=== PATIENT | female | born 1945 | race Caucasian/White ===

== ENCOUNTER 2017-05-23 21:50 | Inpatient (IN) | payer MEDICARE, OTHER ==
[~2017-05-23] VITALS: Ht 172.7 cm; Wt 80.8 kg
[~2017-05-23 21:50] MED LIST: AMLO5TAB2 PO; ASPI-482 PO; ASPI325T11 PO; CA C1TAB28 PO; INSU100I17 SQ; LOSA1TAB18 PO; METF500T PO; METF500T4 PO; PRAV20TA PO
--- NOTE | 2017-05-23 22:14 | PHYS DOC ---
Past Medical History Past Medical History: Dementia, Diabetes-Type II, High Cholesterol, Hypertension Past Surgical History: No Surgical History Additional Information: non smoker Alcohol Use: None Drug Use: None Social History Narrative: lives with son Adult General Chief Complaint Chief Complaint: WEAKNESS/GENERALIZED HPI HPI Patient is a 71 year old female who presents with stroke symptoms. Per the daughter, the symptoms started at 21:07 PM "when my brother called me." Please note the daughter was not present during this time, her brother was but he has not arrived yet at the hospital to give the history. She was at home and apparently had left-sided numbness arm and leg and then had weakness to where she wasn't able to worm picker anything. She improved upon arrival here with range of motion of her left arm and leg noted and resolution of the numbness. He denies any recent illness, no fever or chills, sore throat or cough, nausea vomiting or diarrhea. Per the daughter they have been concerned with some memory loss issues. She was admitted here in June 2016 had a neurologic workup. An EEG that was normal, a brain MRI that was unremarkable, carotid Dopplers that were unremarkable, CT head that was negative, stress echo that was unremarkable. The abdominal ultrasound done that time did show some splenomegaly. She is a patient Dr. Luevano Review of Systems Review of Systems Constitutional: Denies fever or chills Eyes: Denies change in visual acuity, redness, or eye pain HENT: Denies nasal congestion or sore throat Respiratory: Denies cough or shortness of breath Cardiovascular: No chest pain GI: Denies abdominal pain, nausea, vomiting, bloody stools or diarrhea : Denies dysuria or hematuria Musculoskeletal: Denies back pain or joint pain Integument: Denies rash or skin lesions Neurologic: Denies headache, POS left sided focal weakness or sensory changes- improved upon arrival Current Medications Current Medications Current Medications Medications (Trade) Dose Ordered Sig/Eric Start Time Stop Time Status Last Admin Dose Admin Aspirin (Ecotrin) 325 mg 1X ONCE 05/24/17 00:30 05/24/17 00:31 DC 05/24/17 00:14 325 MG Dextrose (Dextrose 50%-Water Syringe) 12.5 gm PRN Q15MIN PRN 05/24/17 00:45 Info (Do NOT chart on this entry -- for MONITORING) 1 each PRN DAILY PRN 05/23/17 23:00 05/25/17 22:59 Iohexol (Omnipaque 350 Mg/ml) 75 ml 1X ONCE 05/23/17 23:00 05/23/17 23:01 DC 05/23/17 22:55 75 ML Ondansetron HCl (Zofran) 4 mg PRN Q8HRS PRN 05/24/17 00:45 05/25/17 00:44 Allergies Allergies Allergies Coded Allergies Type Severity Reaction Last Updated Verified No Known Drug Allergies 09/29/13 No Physical Exam Physical Exam Constitutional: Well developed, well nourished, no acute distress, non-toxic appearance. HENT: Normocephalic, atraumatic, bilateral external ears normal, oropharynx moist, no oral exudates, nose normal. Eyes: PERRLA, EOMI, conjunctiva normal, no discharge. Neck: Normal range of motion, no tenderness, supple, no stridor. No carotid bruits. Cardiovascular:Heart rate regular rhythm, no murmur Lungs & Thorax: Bilateral breath sounds clear to auscultation Abdomen: Bowel sounds normal, soft, no tenderness, no masses, no pulsatile masses. Skin: Warm, dry, no erythema, no rash. Back: No tenderness, no CVA tenderness. Extremities: No tenderness, no cyanosis, no clubbing, ROM intact, no edema. Neurologic: Alert and oriented X 3 but gave her age wrong. She was slow and deliberate in performing the NIHSS. She had a left facial droop giving her a NIHSS score of 2. Psychologic: Affect normal, judgement normal, mood normal. Current Patient Data Vital Signs Vital Signs Date Time Temp Pulse Resp B/P (MAP) Pulse Ox O2 Delivery O2 Flow Rate FiO2 05/24/17 00:45 58 16 170/75 (106) 98 Room Air Lab Values Laboratory Tests Test 05/23/17 22:03 05/23/17 22:19 Glucose (Fingerstick) 331 mg/dL (70-99) H White Blood Count 5.1 x10^3/uL (4.0-11.0) Red Blood Count 4.31 x10^6/uL (3.50-5.40) Hemoglobin 13.8 g/dL (12.0-15.5) Hematocrit 41.0 % (36.0-47.0) Mean Corpuscular Volume 95 fL (79-100) Mean Corpuscular Hemoglobin 32 pg (25-35) Mean Corpuscular Hemoglobin Concent 34 g/dL (31-37) Red Cell Distribution Width 14.1 % (11.5-14.5) Platelet Count 89 x10^3/uL (140-400) L Prothrombin Time 13.1 SEC (11.7-14.0) Prothrombin Time INR 1.1 (0.8-1.1) PTT 27 SEC (24-38) Sodium Level 138 mmol/L (136-145) Potassium Level 3.5 mmol/L (3.5-5.1) Chloride Level 104 mmol/L (98-107) Carbon Dioxide Level 28 mmol/L (21-32) Anion Gap 6 (6-14) Blood Urea Nitrogen 15 mg/dL (7-20) Creatinine 0.7 mg/dL (0.6-1.0) Estimated GFR (Cockcroft-Gault) 82.5 Glucose Level 354 mg/dL (70-99) H Calcium Level 8.9 mg/dL (8.5-10.1) Creatine Kinase 76 U/L (26-192) Creatine Kinase MB (Mass) 0.5 ng/mL (0.0-3.6) Creatine Kinase MB Relative Index 0.6 % (0-4) Troponin I Quantitative < 0.017 ng/mL (0.000-0.055) Laboratory Tests 05/23/17 22:19 Laboratory Tests 05/23/17 22:19 EKG EKG EKG interpreted by myself at 2240 p.m. shows normal sinus rhythm rate of [address] elevation. Radiology/Procedures Radiology/Procedures Chest x-ray interpreted by myself at 22:50 PM shows normal cardiac silhouette, normal lung root, no pleural effusions. [facility] [address] [facility] [place], [place] [id number] IMAGING REPORT Signed PATIENT: DAWIT PAK Flaquito ACCOUNT: [id number] : 1945 LOCATION: ER AGE: 71 SEX: F EXAM STATUS: PRE ER ORD. PHYSICIAN: DAWIT KIRKPATRICK MD REASON: stroke; left facial droop PROCEDURE: CT HEAD WO CONTRAST CT HEAD WO CONTRAST Date: 05/23/2017 10:03 PM Clinical Indication: left sided facial droop Comparison: MRI brain dated 06/14/2016, CT head dated 06/12/2016. Technique: 5 mm axial tomographic images were obtained of the head without contrast. These were viewed on brain and bone windows. Findings: Mild generalized cerebral and cerebellar volume loss. Moderate nonspecific periventricular hypoattenuation, most commonly seen with chronic small vessel ischemic disease. Calcified atherosclerosis of the bilateral cavernous and paraclinoid internal carotid arteries and intracranial vertebral arteries. No intra- or extra-axial mass or fluid collection. No acute hemorrhage. The ventricles are normal in size, shape, and morphology. The conley-white matter junction is normal. The basilar cisterns are patent. The visualized paranasal sinuses are normal. The visualized portions of the orbits and globes are normal. The mastoid air cells are clear. No aggressive osseous lesion or fracture. Impression: No acute intracranial process. Mild cerebral volume loss. Moderate chronic small vessel ischemic disease. CRITICAL FINDINGS: The above findings were discussed with Dr. Kirkpatrick at 10:17 PM on 05/23/2017. One or more of the following individualized dose reduction techniques were utilized for this examination: 1. Automated exposure control 2. Adjustment of the mA and/or kV according to patient size 3. Use of iterative reconstruction technique Electronically signed by: Stevenson Wylie MD (05/23/2017 10:18 PM) [facility] DICTATED and SIGNED BY: STEVENSON WYLIE MD DATE: 05/23/17 221 CC: DAWIT KIRKPATRICK MD; WILLIAN LUEVANO [facility] [address] [address] IMAGING REPORT Signed PATIENT: PASHADAWIT Huddleston ACCOUNT: [id number] : 1945 LOCATION: ER AGE: 71 SEX: F EXAM STATUS: REG ER ORD. PHYSICIAN: DAWIT KIRKPATRICK MD REASON: neg CT head; r/o clot; left sided symptoms PROCEDURE: CTA HEAD/NECK - CODE STROKE CTA head and neck 05/23/2017 Clinical indication left-sided facial droop, left-sided weakness. COMPARISON: MRI brain June 14, 2016, CT head 06/12/2016 TECHNIQUE: Multiple CTA images of the head and neck were obtained following the uneventful intravenous administration of 75 mL Omnipaque 350. Coronal and sagittal reformations were obtained. MIPS were obtained. FINDINGS: CTA HEAD: Examination is significantly limited due to motion artifact. Visualized major intracranial arteries, including the distal bilateral internal carotid, bilateral M1, bilateral M2, anterior communicating region, bilateral A1, A2 and posterior cerebral arteries are grossly unremarkable with no definite high-grade narrowing, occlusion or arteriovenous malformation. Evaluation for small aneurysm is significantly limited due to motion. CTA NECK: Mild calcified atheromatous disease of the thoracic aortic arch. Origins of the great vessels are widely patent. Bilateral common carotid, bilateral vertebral arteries are widely patent. There is mild calcified atheromatous disease at the right carotid bulb with no flow-limiting stenosis by NASCET criteria. The left internal carotid artery is patent with no flow-limiting stenosis by NASCET criteria. No evidence for dissection. There is multilevel cervical spondylosis with no destructive osseous lesions. There are few mildly prominent cervical lymph nodes without pathologic enlargement by CT size criteria. There is a 1.1 cm hypodense nodule in the right lobe of the thyroid gland. IMPRESSION: CTA HEAD: 1. Exam is significantly limited due to motion artifact with no definite high-grade occlusion in the central intracranial arteries. 2. Exam is nondiagnostic for evaluation for aneurysm. CTA NECK: 1. Mild atheromatous disease of the right carotid bulb with no high-grade narrowing, occlusion, or dissection. 2. Small, 1.1 cm, hypodense right lobe thyroid nodule. Nonemergent dedicated thyroid ultrasound is recommended. Electronically signed by: Gab Nassar MD (05/23/2017 11:35 PM) [place] [id number] DICTATED and SIGNED BY: GAB NASSAR MD DATE: 05/23/17 [id number] CC: DAWIT KIRKPATRICK MD; WILLIAN LUEVANO ~ Course & Med Decision Making Course & Med Decision Making Met patient upon arrival in room 2; daughter in room (DPOA); son was with patient and is coming in. CODE STROKE CALLED 2204 PM based on symptoms and onset at 7 PM.. Patient with NIHSS 2. At 2214 PM Radiologist called with negative CT head. 2227 PM: spoke w Dr Reyes (neurology); RECEIVED NEW INFO FROM SON THAT THE SYMPTOMS OCCURRED AT 1930 pm AND THAT THE PATIENT HAD A PRIOR MTZ' S PALSY ON THE LEFT. In discussion with neurologist; Dr Reyes; since the time now is 3 hours and her symptoms rapidly improved and she had Mtz's palsy before on the left would calculate NIHSS as 1. Dr Reyes recommended CTA head and neck and is NOT a candidate of TPA per DR Reyes. If CTA is negative; admit here; aspirin 325 mg. Updated family on plan. 2300PM: back from CT A. Lab back and THROMBOCYTOPENIA noted. ? etiology although on prior US in 06/2016 she had splenomegaly noted. She potentially have an ITP/TTP disorder? AT [address] A report back and no occlusive event. Will proceed with plan to admit here; frequent monitoring; aspirin dosed and neurology consult placed (already called from ER). Called Dr Tran for admission at midnight. Insulin sliding scale order set placed. I spent approximately 30 minutes working and engaged directly in the patient care providing critical care evaluation this includes but not limited to time spent engaged in work directly related to the individual patients care. I spent time at the bedside, reviewing test results, discussing the case with staff, documenting the medical record and time spent with EMS discussing specific treatment issues when the patient presented and during his evaluation. This includes any discussion and updates with family members and/or patient. I have spoken with the patient and/or caregivers. I have explained the patient' s condition, diagnosis and treatment plan based on the information available to me at this time. I have answered the patient's and/or caregiver's questions and addressed any concerns. The patient and/or caregivers have as good an understanding of the patient's diagnosis, condition and treatment plan as can be expected at this point. The patient has been stabilized within the capability of the emergency department. The patient will be transported for further care and management or will be moved to an observation or inpatient service. I have communicated with the staff or medical practitioner taking over this patient's care. Dragon Disclaimer Dragon Disclaimer This electronic medical record was generated, in whole or in part, using a voice recognition dictation system. Departure Departure Impression: Primary Impression: CVA (cerebral vascular accident) Additional Impression: Diabetes mellitus Disposition: 01 HOME, SELF-CARE Admitting Physician: Lynnette Tran Condition: STABLE Referrals: WILLIAN LUEVANO (PCP) NIHSS NIHSS Administer stroke scale items in the order listed. Record performance in each category after each subscale exam. Do not go back and change scores. Follow directions provided for each exam technique. Scores should reflect what the patient does, not what the clinician thinks the patient can do. The clinician should record answers while administering the exam and work quickly. Except where indicated, the patient should not be coached (i.e., repeated requests to patient to make a special effort). 2200 PM: in room 2 1a. Level of Consciousness: The shopping investigator must choose a response if a full evaluation is prevented by such obstacles as an endotracheal tube, language barrier, orotracheal trauma/bandages. A 3 is scored only if the patient makes no movement (other than reflexive posturing) in response to noxious stimulation. 0 = Alert; keenly responsive. 1 = Not alert; but arousable by minor stimulation to obey, answer, or respond. 2 = Not alert; requires repeated stimulation to attend, or is obtunded and requires strong or painful stimulation to make movements (not stereotyped). 3 = Responds only with reflex motor or autonomic effects or totally unresponsive, flaccid, and areflexic. 1b. LOC Questions: The patient is asked the month and his/her age. The answer must be correct - there is no partial credit for being close. Aphasic and stuporous patients who do not comprehend the questions will score 2. Patients unable to speak because of endotracheal intubation, orotracheal trauma, severe dysarthria from any cause, language barrier, or any other problem not secondary to aphasia are given a 1. It is important that only the initial answer be graded and that the examiner not "help" the patient with verbal or non-verbal cues. 0 = Answers both questions correctly. 1 = Answers one question correctly. 2 = Answers neither question correctly. 1c. LOC Commands: The patient is asked to open and close the eyes and then to spooling machine operator and release the non-paretic hand. Substitute another one step command if the hands cannot be used. Credit is given if an unequivocal attempt is made but not completed due to weakness. If the patient does not respond to command, the task should be demonstrated to him or her (pantomime), and the result scored (i.e., follows none, one or two commands). Patients with trauma, amputation, or other physical impediments should be given suitable one-step commands. Only the first attempt is scored. 0 = Performs both tasks correctly. 1 = Performs one task correctly. 2 = Performs neither task correctly. 2. Best Gaze: Only horizontal eye movements will be tested. Voluntary or reflexive (oculocephalic) eye movements will be scored, but caloric testing is not done. If the patient has a conjugate deviation of the eyes that can be overcome by voluntary or reflexive activity, the score will be 1. If a patient has an isolated peripheral nerve paresis (CN III, IV or ), score a 1. Gaze is testable in all aphasic patients. Patients with ocular trauma, bandages, pre-existing blindness, or other disorder of visual acuity or root should be tested with reflexive movements, and a choice made by the shopping investigator. Establishing eye contact and then moving about the patient from side to side will occasionally clarify the presence of a partial gaze palsy. 0 = Normal. 1 = Partial gaze palsy; gaze is abnormal in one or both eyes, but forced deviation or total gaze paresis is not present. 2 = Forced deviation, or total gaze paresis not overcome by the oculocephalic maneuver. Interval: [ ] Baseline [ ] 2 hours post treatment [ ] 24 hours post onset of symptoms 20 minutes [ ] 7-10 days [ ] 3 months [ ] Other ( ) 3. Visual: Visual root (upper and lower quadrants) are tested by confrontation, using finger counting or visual threat, as appropriate. Patients may be encouraged, but if they look at the side of the moving fingers appropriately, this can be scored as normal. If there is unilateral blindness or enucleation, visual root in the remaining eye are scored. Score 1 only if a clear-cut asymmetry, including quadrantanopia, is found. If patient is blind from any cause, score 3. Double simultaneous stimulation is performed at this point. If there is extinction, patient receives a 1, and the results are used to respond to item 11. 0 = No visual loss. 1 = Partial hemianopia. 2 = Complete hemianopia. 3 = Bilateral hemianopia (blind including cortical blindness). 4. Facial Palsy: Ask - or use pantomime to encourage - the patient to show teeth or raise eyebrows and close eyes. Score symmetry of grimace in response to noxious stimuli in the poorly responsive or non-comprehending patient. If facial trauma/bandages, orotracheal tube, tape or other physical barriers obscure the face, these should be removed to the extent possible. 0 = Normal symmetrical movements. 1 = Minor paralysis (flattened nasolabial fold, asymmetry on smiling). 2 = Partial paralysis (total or near-total paralysis of lower face). 3 = Complete paralysis of one or both sides (absence of facial movement in the upper and lower face). 5. Motor Arm: The limb is placed in the appropriate position: extend the arms (palms down) 90 degrees (if sitting) or 45 degrees (if supine). Drift is scored if the arm falls before 10 seconds. The aphasic patient is encouraged using urgency in the voice and pantomime, but not noxious stimulation. Each limb is tested in turn, beginning with the non-paretic arm. Only in the case of amputation or joint fusion at the shoulder, the examiner should record the score as untestable (UN), and clearly write the explanation for this choice. 0 = No drift; limb holds 90 (or 45) degrees for full 10 seconds. 1 = Drift; limb holds 90 (or 45) degrees, but drifts down before full 10 seconds ; does not hit bed or other support. 2 = Some effort against gravity; limb cannot get to or maintain (if cued) 90 ( or 45) degrees, drifts down to bed, but has some effort against gravity. 3 = No effort against gravity; limb falls. 4 = No movement. UN = Amputation or joint fusion, explain: 5a. Left Arm=0 5b. Right Arm=0 6. Motor Leg: The limb is placed in the appropriate position: hold the leg at 30 degrees (always tested supine). Drift is scored if the leg falls before 5 seconds. The aphasic patient is encouraged using urgency in the voice and pantomime, but not noxious stimulation. Each limb is tested in turn, beginning with the non-paretic leg. Only in the case of amputation or joint fusion at the hip, the examiner should record the score as untestable (UN), and clearly write the explanation for this choice. 0 = No drift; leg holds 30-degree position for full 5 seconds. 1 = Drift; leg falls by the end of the 5-second period but does not hit bed. 2 = Some effort against gravity; leg falls to bed by 5 seconds, but has some effort against gravity. 3 = No effort against gravity; leg falls to bed immediately. 4 = No movement. UN = Amputation or joint fusion, explain: 6a. Left Leg=0 6b. Right Leg=0 Interval: [ ] Baseline [ ] 2 hours post treatment [ ] 24 hours post onset of symptoms 20 minutes [ ] 7-10 days [ ] 3 months [ ] Other ( ) 7. Limb Ataxia: This item is aimed at finding evidence of a unilateral cerebellar lesion. Test with eyes open. In case of visual defect, ensure testing is done in intact visual field. The [id number] and heel-adame tests are performed on both sides, and ataxia is scored only if present out of proportion to weakness. Ataxia is absent in the patient who cannot understand or is paralyzed. Only in the case of amputation or joint fusion, the examiner should record the score as untestable (UN), and clearly write the explanation for this choice. In case of blindness, test by having the patient touch nose from extended arm position. 0 = Absent. 1 = Present in one limb. 2 = Present in two limbs. UN = Amputation or joint fusion, explain: 8. Sensory: Sensation or grimace to pinprick when tested, or withdrawal from noxious stimulus in the obtunded or aphasic patient. Only sensory loss attributed to stroke is scored as abnormal and the examiner should test as many body areas (arms [not hands], legs, trunk, face) as needed to accurately check for hemisensory loss. A score of 2, "severe or total sensory loss," should only be given when a severe or total loss of sensation can be clearly demonstrated. Stuporous and aphasic patients will, therefore, probably score 1 or 0. The patient with brainstem stroke who has bilateral loss of sensation is scored 2. If the patient does not respond and is quadriplegic, score 2. Patients in a coma (item 1a=3) are automatically given a 2 on this item. 0 = Normal; no sensory loss. 1 = Oxal-yc-vhxreflz sensory loss; patient feels pinprick is less sharp or is dull on the affected side; or there is a loss of superficial pain with pinprick , but patient is aware of being touched. 2 = Severe to total sensory loss; patient is not aware of being touched in the face, arm, and leg. 9. Best Language: A great deal of information about comprehension will be obtained during the preceding sections of the examination. For this scale item, the patient is asked to describe what is happening in the attached picture, to name the items on the attached naming sheet and to read from the attached list of sentences. Comprehension is judged from responses here, as well as to all of the commands in the preceding general neurological exam. If visual loss interferes with the tests, ask the patient to identify objects placed in the hand, repeat, and produce speech. The intubated patient should be asked to write. The patient in a coma (item 1a=3) will automatically score 3 on this item. The examiner must choose a score for the patient with stupor or limited cooperation, but a score of 3 should be used only if the patient is mute and follows no one-step commands. 0 = No aphasia; normal. 1 = Oplt-pu-htnvxvjp aphasia; some obvious loss of fluency or facility of comprehension, without significant limitation on ideas expressed or form of expression. Reduction of speech and/or comprehension, however, makes conversation about provided materials difficult or impossible. For example, in conversation about provided materials, examiner can identify picture or naming card content from patient's response. 2 = Severe aphasia; all communication is through fragmentary expression; great need for inference, questioning, and guessing by the listener. Range of information that can be exchanged is limited; listener carries burden of communication. Examiner cannot identify materials provided from patient response. 3 = Mute, global aphasia; no usable speech or auditory comprehension. 10. Dysarthria: If patient is thought to be normal, an adequate sample of speech must be obtained by asking patient to read or repeat words from the attached list. If the patient has severe aphasia, the clarity of articulation of spontaneous speech can be rated. Only if the patient is intubated or has other physical barriers to producing speech, the examiner should record the score as untestable (UN), and clearly write an explanation for this choice. Do not tell the patient why he or she is being tested. 0 = Normal. 1 = Oqkh-iu-iuzuebrc dysarthria; patient slurs at least some words and, at worst , can be understood with some difficulty. 2 = Severe dysarthria; patient's speech is so slurred as to be unintelligible in the absence of or out of proportion to any dysphasia, or is mute/anarthric. UN = Intubated or other physical barrier, explain: Interval: [ ] Baseline [ ] 2 hours post treatment [ ] 24 hours post onset of symptoms 20 minutes [ ] 7-10 days [ ] 3 months [ ] Other ( ) 11. Extinction and Inattention (formerly Neglect): Sufficient information to identify neglect may be obtained during the prior testing. If the patient has a severe visual loss preventing visual double simultaneous stimulation, and the cutaneous stimuli are normal, the score is normal. If the patient has aphasia but does appear to attend to both sides, the score is normal. The presence of visual spatial neglect or anosagnosia may also be taken as evidence of abnormality. Since the abnormality is scored only if present, the item is never untestable. 0 = No abnormality. 1 = Visual, tactile, auditory, spatial, or personal inattention or extinction to bilateral simultaneous stimulation in one of the sensory modalities. 2 = Profound diandra-inattention or extinction to more than one modality; does not recognize own hand or orients to only one side of space. NIHSS =2 Problem Qualifiers Primary Impression: CVA (cerebral vascular accident) CVA mechanism: unspecified Qualified Codes: I63.9 - Cerebral infarction, unspecified Additional Impression: Diabetes mellitus Diabetes mellitus type: type 2 Diabetes mellitus complication status: with hyperglycemia Diabetes mellitus long-term insulin use: unspecified long-term insulin use status Qualified Codes: E11.65 - Type 2 diabetes mellitus with hyperglycemia DAWIT KIRKPATRICK MD May 23, 2017 22:14
--- NOTE | 2017-05-23 22:21 | RAD ---
CT HEAD WO CONTRAST Date: 05/23/2017 10:03 PM Clinical Indication: left sided facial droop Comparison: MRI brain dated 06/14/2016, CT head dated 06/12/2016. Technique: 5 mm axial tomographic images were obtained of the head without contrast. These were viewed on brain and bone windows. Findings: Mild generalized cerebral and cerebellar volume loss. Moderate nonspecific periventricular hypoattenuation, most commonly seen with chronic small vessel ischemic disease. Calcified atherosclerosis of the bilateral cavernous and paraclinoid internal carotid arteries and intracranial vertebral arteries. No intra- or extra-axial mass or fluid collection. No acute hemorrhage. The ventricles are normal in size, shape, and morphology. The conley-white matter junction is normal. The basilar cisterns are patent. The visualized paranasal sinuses are normal. The visualized portions of the orbits and globes are normal. The mastoid air cells are clear. No aggressive osseous lesion or fracture. Impression: No acute intracranial process. Mild cerebral volume loss. Moderate chronic small vessel ischemic disease. CRITICAL FINDINGS: The above findings were discussed with Dr. Zamorano at 10:17 PM on 05/23/2017. One or more of the following individualized dose reduction techniques were utilized for this examination: 1. Automated exposure control 2. Adjustment of the mA and/or kV according to patient size 3. Use of iterative reconstruction technique Electronically signed by: Stevenson Wylie MD (05/23/2017 10:18 PM) [id number]
[2017-05-23 22:28] LABS: HEMOGLOBIN 13.8 g/dL (12.0-15.5); RED BLOOD COUNT 4.31 x10^6/uL (3.50-5.40); RED CELL DISTRIBUTION WIDTH 14.1 % (11.5-14.5); WHITE BLOOD COUNT 5.1 x10^3/uL (4.0-11.0)
[2017-05-23 22:38] LABS: INR 1.1 (0.8-1.1); PROTHROMBIN TIME PATIENT 13.1 SEC (11.7-14.0)
[2017-05-23 22:40] LABS: CALCIUM 8.9 mg/dL (8.5-10.1); CREATININE 0.7 mg/dL (0.6-1.0); GFR 82.5; POTASSIUM 3.5 mmol/L (3.5-5.1)
[2017-05-23 22:54] LABS: CKMB MASS 0.5 ng/mL (0.0-3.6)
[2017-05-23] MEDS ORDERED: CONTRAST GIVEN MC PRN (23:00)
[2017-05-23] MEDS ORDERED: ONDANSETRON PF 4 MG/2 ML VIAL. IV ONE (23:00)
[2017-05-23] MEDS ORDERED: IOHEXOL 350 MG/ML 100 ML VIAL. IV ONE (23:00)
--- NOTE | 2017-05-23 23:38 | RAD ---
CTA head and neck 05/23/2017 Clinical indication left-sided facial droop, left-sided weakness. COMPARISON: MRI brain June 14, 2016, CT head 06/12/2016 TECHNIQUE: Multiple CTA images of the head and neck were obtained following the uneventful intravenous administration of 75 mL Omnipaque 350. Coronal and sagittal reformations were obtained. MIPS were obtained. FINDINGS: CTA HEAD: Examination is significantly limited due to motion artifact. Visualized major intracranial arteries, including the distal bilateral internal carotid, bilateral M1, bilateral M2, anterior communicating region, bilateral A1, A2 and posterior cerebral arteries are grossly unremarkable with no definite high-grade narrowing, occlusion or arteriovenous malformation. Evaluation for small aneurysm is significantly limited due to motion. CTA NECK: Mild calcified atheromatous disease of the thoracic aortic arch. Origins of the great vessels are widely patent. Bilateral common carotid, bilateral vertebral arteries are widely patent. There is mild calcified atheromatous disease at the right carotid bulb with no flow-limiting stenosis by NASCET criteria. The left internal carotid artery is patent with no flow-limiting stenosis by NASCET criteria. No evidence for dissection. There is multilevel cervical spondylosis with no destructive osseous lesions. There are few mildly prominent cervical lymph nodes without pathologic enlargement by CT size criteria. There is a 1.1 cm hypodense nodule in the right lobe of the thyroid gland. IMPRESSION: CTA HEAD: 1. Exam is significantly limited due to motion artifact with no definite high-grade occlusion in the central intracranial arteries. 2. Exam is nondiagnostic for evaluation for aneurysm. CTA NECK: 1. Mild atheromatous disease of the right carotid bulb with no high-grade narrowing, occlusion, or dissection. 2. Small, 1.1 cm, hypodense right lobe thyroid nodule. Nonemergent dedicated thyroid ultrasound is recommended. Electronically signed by: Omar Nassar MD (05/23/2017 11:35 PM) [facility]
[2017-05-24] VITALS (18 sets, daily range): BP systolic 138–193; BP diastolic 54–94
[2017-05-24] MEDS ORDERED: ASPIRIN ENTERIC COATED 325 MG TABLET.DR. PO ONE (00:30)
[2017-05-24] MEDS ORDERED: ONDANSETRON PF 4 MG/2 ML VIAL. IV PRN (00:45)
[2017-05-24] MEDS ORDERED: DEXTROSE 50% 25 GM / 50ML DISP.SYRIN. IV PRN ×2 (00:45→10:30)
--- NOTE | 2017-05-24 08:07 | RAD ---
Portable chest, 05/23/2017: History: Stroke Comparison is made to a study from 06/12/2016. The heart size and pulmonary vascularity are normal. There is calcific plaquing and tortuosity of the thoracic aorta. No pulmonary infiltrates are seen. There is no evidence of pleural fluid. Moderate degenerative change is present in the spine. IMPRESSION: No acute cardiopulmonary abnormality is detected.
[2017-05-24] MEDS: INSULIN ASPART 300 UNITS/3 ML INSULN.PEN SQ SCH ×4 (08:10→18:26)
--- NOTE | 2017-05-24 08:57 | EKG ---
[facility] [address] [place] [address] Test Date: 2017-05-23 Test Time: 22:40:50 Pat Name: DAWIT PAK Department: Room: 105 1 Gender: F [employer]: : 1945 Requested By: DAWIT KIRKPATRICK Order Number: [id number] Reading MD: Tish Moulton Measurements Intervals [place] Rate: 67 P: 47 MS: 170 QRS: 13 QRSD: 94 T: 29 QT: 438 QTc: 466 Interpretive Statements SINUS RHYTHM NORMAL EKG Electronically Signed On 05-27-2017 10:59:37 CDT by Tish Moulton
[2017-05-24] MEDS: ASPIRIN CHEWABLE 81 MG TABLET. PO SCH (09:00)
[2017-05-24] MEDS ORDERED: ASPIRIN 325 MG TABLET PO SCH (09:15)
--- NOTE | 2017-05-24 10:10 | PDOC2 ---
NEUROLOGY CONSULT Date of Admission Date of Admission DATE: 05/24/17 TIME: 10:00 Reason for Consult Reason for Consult: Stroke symptoms Referring Physician Referring Physician: Dr. Tran Source Source: Chart review, Patient History of Present Illness History of Present Illness The patient is a 71-year-old right-handed female who had about 9 PM last night had left-sided weakness. 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 Garcia and I both saw her for mild cognitive impairment with negative workup including EEG, MRI, and lab studies. She lives with her and 2 adult children. The sun noticed left-sided weakness and the patient had difficulty getting up. By the time she reached the emergency department her symptoms had resolved. Blood pressure was elevated, 207/87.Dr. Zamorano discussed the case with Dr. Reyes, and they agreed that the patient did not require tissue plasminogen activator because of resolution of symptoms, low NIH stroke score, and the patient was just approaching the three-hour window anyway. The patient did undergo CT angiogram, negative as reviewed below. She feels fine this morning but is somewhat amnestic about the events of last night. Past Medical History Cardiovascular: HTN, Hyperlipidemia CENTRAL NERVOUS SYSTEM: Other (Left Mtz's palsy, mild cognitive impairment, occasional paresthesias) GI: Other ( C. difficile) Endocrine: Diabetes Past Surgical History Past Surgical History: Other ( benign left breast biopsy) Family History Family History: CVA Social History Social History , lives with her and 2 adult children, no alcohol or tobacco Current Medications Current Medications Current Medications Ondansetron HCl (Zofran) 4 mg 1X ONCE IV Last administered on 05/23/17 23:08 ; Start 05/23/17 at 23:00; Stop 05/23/17 at 23:01; Status DC Iohexol (Omnipaque 350 Mg/ml) 75 ml 1X ONCE IV Last administered on 05/23/17 22:55; Start 05/23/17 at 23:00; Stop 05/23/17 at 23:01; Status DC Info (Do NOT chart on this entry -- for MONITORING) 1 each PRN DAILY PRN MC SEE COMMENTS; Start 05/23/17 at 23:00; Stop 05/25/17 at 22:59 Aspirin (Ecotrin) 325 mg 1X ONCE PO Last administered on 9/18/17at 00:14; Start 05/24/17 at 00:30; Stop 05/24/17 at 00:31; Status DC Ondansetron HCl (Zofran) 4 mg PRN Q8HRS PRN IV NAUSEA/VOMITING; Start 05/24/17 at 00:45; Stop 05/25/17 at 00:44 Insulin Aspart (NovoLOG) 0-5 UNITS TIDWMEALS SQ Last administered on 05/24/17t 08:10; Start 05/24/17 at 08:00 Dextrose (Dextrose 50%-Water Syringe) 12.5 gm PRN Q15MIN PRN IV SEE COMMENTS; Start 05/24/17 at 00:45 Aspirin (Bo Aspirin) 81 mg DAILYWBKFT PO ; Start 05/24/17 at 09:15; Stop at 09:15; Status DC Aspirin (Children'S Aspirin) 81 mg DAILYWBKFT PO ; Start 05/24/17 at 09:00 Active Scripts Active Novolog Flexpen (Insulin Aspart) 100 Unit/1 Ml Insuln.pen 0 Units SQ TIDACHC Aspirin Ec (Aspirin) 325 Mg Tablet.dr 325 Mg PO DAILYWBKFT Glucophage (Metformin Hcl) 500 Mg Tablet 500 Mg PO BIDWMEALS Reported Vitamin D3 1,000 Unit Tablet (Ca Cmb No.1/Vit D3/B-6/Fa/B12) 1 Each Tablet 1 Each PO DAILY Losartan-Hctz 100-12.5 Mg Tab (Losartan/Hydrochlorothiazide) 1 Each Tablet 1 Each PO DAILY08 Pravachol (Pravastatin Sodium) 20 Mg Tablet 20 Mg PO HS Amlodipine Besylate 5 Mg Tablet 5 Mg PO DAILY08 Allergies Allergies: Coded Allergies: No Known Drug Allergies (Unverified , 09/29/13) ROS Review of System Negative for fevers, chills, weight loss, shortness of breath, chest pain, indigestion, hematochezia, melena, dysuria. Full 14-point review systems is negative. Physical Exam Physical Examination PHYSICAL EXAMINATION: Vital signs: see above. General appearance is normal and in no acute distress. HEENT: Normocephalic and nontraumatic. Eyes, nose, ears, and throat are unremarkable. Neck is supple. No lymphadenopathy. No bruits are heard over the carotid artery. No crepitus. NEUROLOGICAL EXAMINATION: Mental Status Examination: Alert. Oriented to time, place, and person. Answers questions and follows commends. However, she again is vague about last night's events. Pupils are equal round and reactive to light and accommodation. Extraocular movements are intact. Visual field exam shows no defect on the direct confrontation. No motor or sensory deficits on the facial exam. Uvula in the midline and the soft palate elevated symmetrically. No deviation of the tongue to any direction. Gross hearing is normal. Shoulder shrug normal. Muscle tone is normal. Muscle strength is 5. Deep tendon reflexes are 1+ all around. Plantar reflex is with flexion response bilaterally. Oqlnye-gn-fmvj test performance is accurate. Alternative movements are accurate. Gait not tested. Sensory exam shows no deficits. No cerebellar signs are elicited. Vitals VITALS Vital Signs Date Time Temp Pulse Resp B/P (MAP) Pulse Ox O2 Delivery O2 Flow Rate FiO2 05/24/17 06:00 98.0 64 14 160/68 (98) 97 Room Air 98.0 Labs Labs Laboratory Tests Test 05/23/17 22:03 05/23/17 22:19 05/24/17 08:07 Glucose (Fingerstick) 331 mg/dL (70-99) 210 mg/dL (70-99) White Blood Count 5.1 x10^3/uL (4.0-11.0) Red Blood Count 4.31 x10^6/uL (3.50-5.40) Hemoglobin 13.8 g/dL (12.0-15.5) Hematocrit 41.0 % (36.0-47.0) Mean Corpuscular Volume 95 fL (79-100) Mean Corpuscular Hemoglobin 32 pg (25-35) Mean Corpuscular Hemoglobin Concent 34 g/dL (31-37) Red Cell Distribution Width 14.1 % (11.5-14.5) Platelet Count 89 x10^3/uL (140-400) Prothrombin Time 13.1 SEC (11.7-14.0) Prothromb Time International Ratio 1.1 (0.8-1.1) Activated Partial Thromboplast Time 27 SEC (24-38) Sodium Level 138 mmol/L (136-145) Potassium Level 3.5 mmol/L (3.5-5.1) Chloride Level 104 mmol/L (98-107) Carbon Dioxide Level 28 mmol/L (21-32) Anion Gap 6 (6-14) Blood Urea Nitrogen 15 mg/dL (7-20) Creatinine 0.7 mg/dL (0.6-1.0) Estimated GFR (Cockcroft-Gault) 82.5 Glucose Level 354 mg/dL (70-99) Calcium Level 8.9 mg/dL (8.5-10.1) Creatine Kinase 76 U/L (26-192) Creatine Kinase MB (Mass) 0.5 ng/mL (0.0-3.6) Creatine Kinase MB Relative Index 0.6 % (0-4) Troponin I Quantitative < 0.017 ng/mL (0.000-0.055) Laboratory Tests Test 05/23/17 22:03 05/23/17 22:19 05/24/17 08:07 Glucose (Fingerstick) 331 mg/dL (70-99) 210 mg/dL (70-99) White Blood Count 5.1 x10^3/uL (4.0-11.0) Red Blood Count 4.31 x10^6/uL (3.50-5.40) Hemoglobin 13.8 g/dL (12.0-15.5) Hematocrit 41.0 % (36.0-47.0) Mean Corpuscular Volume 95 fL (79-100) Mean Corpuscular Hemoglobin 32 pg (25-35) Mean Corpuscular Hemoglobin Concent 34 g/dL (31-37) Red Cell Distribution Width 14.1 % (11.5-14.5) Platelet Count 89 x10^3/uL (140-400) Prothrombin Time 13.1 SEC (11.7-14.0) Prothromb Time International Ratio 1.1 (0.8-1.1) Activated Partial Thromboplast Time 27 SEC (24-38) Sodium Level 138 mmol/L (136-145) Potassium Level 3.5 mmol/L (3.5-5.1) Chloride Level 104 mmol/L (98-107) Carbon Dioxide Level 28 mmol/L (21-32) Anion Gap 6 (6-14) Blood Urea Nitrogen 15 mg/dL (7-20) Creatinine 0.7 mg/dL (0.6-1.0) Estimated GFR (Cockcroft-Gault) 82.5 Glucose Level 354 mg/dL (70-99) Calcium Level 8.9 mg/dL (8.5-10.1) Creatine Kinase 76 U/L (26-192) Creatine Kinase MB (Mass) 0.5 ng/mL (0.0-3.6) Creatine Kinase MB Relative Index 0.6 % (0-4) Troponin I Quantitative < 0.017 ng/mL (0.000-0.055) Images Images CT head: Mild generalized cerebral and cerebellar volume loss. Moderate nonspecific periventricular hypoattenuation, most commonly seen with chronic small vessel ischemic disease. Calcified atherosclerosis of the bilateral cavernous and paraclinoid internal carotid arteries and intracranial vertebral arteries. No intra- or extra-axial mass or fluid collection. No acute hemorrhage. The ventricles are normal in size, shape, and morphology. The conley-white matter junction is normal. The basilar cisterns are patent. The visualized paranasal sinuses are normal. The visualized portions of the orbits and globes are normal. The mastoid air cells are clear. No aggressive osseous lesion or fracture. Impression: No acute intracranial process. Mild cerebral volume loss. Moderate chronic small vessel ischemic disease. CTA HEAD: Examination is significantly limited due to motion artifact. Visualized major intracranial arteries, including the distal bilateral internal carotid, bilateral M1, bilateral M2, anterior communicating region, bilateral A1, A2 and posterior cerebral arteries are grossly unremarkable with no definite high-grade narrowing, occlusion or arteriovenous malformation. Evaluation for small aneurysm is significantly limited due to motion. CTA NECK: Mild calcified atheromatous disease of the thoracic aortic arch. Origins of the great vessels are widely patent. Bilateral common carotid, bilateral vertebral arteries are widely patent. There is mild calcified atheromatous disease at the right carotid bulb with no flow-limiting stenosis by NASCET criteria. The left internal carotid artery is patent with no flow-limiting stenosis by NASCET criteria. No evidence for dissection. There is multilevel cervical spondylosis with no destructive osseous lesions. There are few mildly prominent cervical lymph nodes without pathologic enlargement by CT size criteria. There is a 1.1 cm hypodense nodule in the right lobe of the thyroid gland. IMPRESSION: CTA HEAD: 1. Exam is significantly limited due to motion artifact with no definite high-grade occlusion in the central intracranial arteries. 2. Exam is nondiagnostic for evaluation for aneurysm. CTA NECK: 1. Mild atheromatous disease of the right carotid bulb with no high-grade narrowing, occlusion, or dissection. 2. Small, 1.1 cm, hypodense right lobe thyroid nodule. Nonemergent dedicated thyroid ultrasound is recommended. Assessment/Plan Assessment/Plan Impression: Symptoms of transient ischemic attack, may have simply represented hypertensive encephalopathy as she has a negative exam Prior mild cognitive impairment Right thyroid nodule on CTA Recommendations: MRI brain She is aspirin kev so I will start daily aspirin. Check lipids Okay for aggressive blood pressure control I agree that the patient was not a candidate for alteplase last night. Thank you for letting me help with the patient's care. SALMA LAMBERT MD May 24, 2017 10:10
--- NOTE | 2017-05-24 10:29 | PDOC ---
Provider Note Provider Note pt seen .H&P dictated. #[id number] MINDI COLLINS MD May 24, 2017 10:29
[2017-05-24] MEDS ORDERED: LOSARTAN POTASSIUM 50 MG TABLET. PO SCH ×2 (11:00)
[2017-05-24] MEDS: hydroCHLOROthiazide 12.5 MG CAPSULE PO SCH (11:53)
[2017-05-24] MEDS: CHOLECALCIFEROL (VITAMIN D3) 1,000 UNIT TABLET PO SCH (11:54)
[2017-05-24] MEDS: amLODIPine BESYLATE 5 MG TABLET PO SCH (11:54)
[2017-05-24] MEDS: ASPIRIN ENTERIC COATED 325 MG TABLET.DR. PO SCH (11:54)
--- NOTE | 2017-05-24 13:02 | CARD ---
APPROVED REPORT EXAM: Two-dimensional and M-mode echocardiogram with Doppler, color Doppler with contrast. Other Information Quality : Average Rhythm : NSR INDICATION CVA/TIA Echo Enhancing Agent Indication: Rule Out Septal Defect Agent/Amount Used: Agitated Saline 8mL 2D DIMENSIONS Left Atrium(2D)3.1 (1.6-4.0cm)IVSd1.2 (0.7-1.1cm) Aortic Root(2D)2.6 (2.0-3.7cm)LVDd3.7 (3.9-5.9cm) LVOT Diameter2.2 (1.8-2.4cm)PWd1.2 (0.7-1.1cm) LVDs2.6 (2.5-4.0cm)FS (%) 30.1 % SV34.4 mlLVEF(%)58.2 (>50%) Aortic Valve AoV Peak Lopez.159.8cm/sAoV VTI30.5cm AO Peak GR.10.2mmHgLVOT VTI 19.71cm AO Mean GR.5mmHg Mitral Valve MV E Whzgyxib82.6cm/sMV E Peak Gr.2mmHg MV DECEL [id number] A Uxjfqrhr75.9cm/s MV XEK37xgQ/A Ratio0.9 MV A Mhbqkmuu332rtSGI (PHT)2.56cm2 Tricuspid Valve TR P. Yfspdbqn607rz/sRAP KCFYRIJJ8kwOz TR Peak Gr.59pkCbFBMM09keTc LEFT VENTRICLE The left ventricle is normal size. There is borderline concentric left ventricular hypertrophy. Left ventricle systolic function is normal. The Ejection Fraction is 55-60%. There is normal LV segmental wall motion. The left ventricular diastolic function and filling is normal for age. There is no ventr icular septal defect visualized. RIGHT VENTRICLE The right ventricle is normal size. The right ventricular systolic function is normal. ATRIA The left atrium size is normal. The right atrium size is normal. The interatrial septum is intact wit h no evidence for an atrial septal defect or patent foramen ovale as noted on 2-D or Doppler imaging. Injection of bubbles documented no interatrial shunt. AORTIC VALVE The aortic valve is mildly to moderately calcified. The aortic valve is trileaflet. Doppler and Color Flow revealed no significant aortic regurgitation. There is no significant aortic valvular stenosis. MITRAL VALVE Mitral annular calcification is borderline. There is no mitral valve stenosis. Doppler and Color Flow revealed no mitral valve regurgitation noted. TRICUSPID VALVE The tricuspid valve is normal in structure and function. Doppler and Color Flow revealed trace tricus pid regurgitation. The PA pressure was estimated at 25 mmHg. There is no tricuspid valve stenosis. PULMONIC VALVE The pulmonic valve is not well visualized. Doppler and Color Flow revealed no pulmonic valvular regur gitation. There is no pulmonic valvular stenosis. GREAT VESSELS The aortic root is normal in size. The IVC is normal in size and collapses >50% with inspiration. PERICARDIAL EFFUSION There is no evidence of significant pericardial effusion. Critical Notification Critical Value: No <Conclusion> Left ventricle systolic function is normal. The Ejection Fraction is 55-60%. There is normal LV segmental wall motion. The interatrial septum is intact with no evidence for an atrial septal defect or patent foramen ovale as noted on 2-D or Doppler imaging. Injection of bubbles documented no interatrial shunt.
--- NOTE | 2017-05-24 13:59 | RAD ---
MRI of the brain without contrast 05/24/2017 Clinical History: Confusion. TIA. Technique: Unenhanced T1-weighted sagittal and axial, T2-weighted axial and coronal and FLAIR, gradient echo and diffusion-weighted axial images of the brain were obtained. Findings: Comparison is made to patient's CT scan of the head dated 05/23/2017. Additional comparison is made to patient's previous MRI of the brain dated 06/14/2016. . There is generalized parenchymal atrophy. Patchy, confluent and multiple focal areas of increased signal intensity are seen within the periventricular and subcortical white matter of both cerebral hemispheres and emmy on the FLAIR and T2-weighted images consistent with areas of extensive small vessel ischemic disease. These have not significantly changed. No acute parenchymal abnormality is seen. No extra-axial fluid collection is seen. There is no MRI evidence of acute ischemia/infarction. Mild mucosal thickening is seen scattered throughout the paranasal sinuses. Normal flow voids are seen within the major vascular structures surrounding the brain parenchyma. Impression: No acute parenchymal abnormality is seen. Electronically signed by: Jeremy Tian MD (05/24/2017 1:56 PM) [facility]
--- NOTE | 2017-05-24 17:49 | HP ---
ADMIT DATE: 05/24/2017 ATTENDING PHYSICIAN: Lynnette Collins MD PRIMARY CARE PHYSICIAN: Zakiya Guaman MD REASON FOR ADMISSION TO THE HOSPITAL: Left-sided weakness, slightly weak, but improved since admission time, this started more than 3 hours before she came to the Emergency Room. Her blood pressure was high at 207/87. The patient was consulted with Neurology, did not think she would be a candidate for TPA because of resolving symptoms, low NIH score and moreover [address] head was negative, CT angiogram was negative, was admitted to the ICU overnight. PAST MEDICAL HISTORY: History of left Mtz palsy, diabetes, hypertension, hyperlipidemia. PAST SURGICAL HISTORY: Benign left breast biopsy, which was benign. FAMILY HISTORY: Positive for strokes, diabetes. SOCIAL HISTORY: No history of smoking or alcohol. She lives with her and children. ALLERGIES: No known drug allergies. MEDICATIONS: She is on insulin sliding scale; aspirin 325 was started here, she was at 81 mg before; metformin 500 mg twice a day; vitamin D, 1000 daily; losartan 100/12.5 daily, Pravachol 20 mg daily, amlodipine 5 mg daily. REVIEW OF SYSTEMS: CARDIAC: No chest pain. LUNGS: No cough, sputum. GASTROINTESTINAL: No nausea. NEUROLOGIC: Has some paresthesias, weakness in the left leg and left arm which was resolved. Rest of the 14-system was reviewed and negative. PHYSICAL EXAMINATION: GENERAL: The patient is not in any distress, comfortable and making a good conversation. VITAL SIGNS: Temperature 98, pulse 63, respirations 16, blood pressure 207/87, 98 on room air. HEENT: Head is atraumatic. Pupils, slight deviation to the left side from Mtz palsy. Oral cavity: No congestion. NECK: Supple. Thyroid not enlarged. JVD not elevated. CHEST: Symmetrical. CARDIOVASCULAR: S1, S2. LUNGS: Clear to auscultation. ABDOMEN: Soft, bowel sounds present, no mass palpable. EXTERNAL GENITALIA: No Saleh. RECTAL: Deferred. EXTREMITIES: No calf tenderness, no edema. Pulses 1+. NEUROLOGIC: Cranial nerves intact. Power 5/5 in all extremities. LABORATORY DATA: Shows a white count 5, hemoglobin 13, platelets 89. Electrolytes show sodium 138, potassium 3.5, chloride 104, bicarbonate 28, BUN 15, creatinine 0.7, glucose 354. CPK negative. INR was 1.1. CT head negative. Chest x-ray was negative. CT angiogram of the neck was negative for blockages, showed some prominence of the thyroid, the right lobe of the thyroid gland, 1 cm. FINAL IMPRESSION: 1. Left-sided paresthesias, weakness, improved significantly. 2. Diabetes type 2,non complaint with insulin. 3. Hypertension, accelerated. 4. History of Mtz palsy. PLAN: At this time, was admitted to the hospital, seen by Neurology. CT head, CT angiogram, MRI of the brain and echocardiogram. The patient started on aspirin 325. PT, OT, speech and see how the patient's condition improves. control BP with medications, LYNNETTE COLLINS MD DR: SHU/luis miguel JOB#: [id number] / [id number] ZAKIYA Pinto
[2017-05-24] MEDS ORDERED: ATORVASTATIN CALCIUM 10 MG TABLET. PO SCH (21:00)
[2017-05-24] MEDS ORDERED: INSULIN ASPART 300 UNITS/3 ML INSULN.PEN SQ ONE (23:00)
[2017-05-25 03:05] VITALS: BP 156/61
[2017-05-25 04:30] LABS: BASO % 1 % (0-3); EOS % 3 % (0-3); HEMATOCRIT 40.6 % (36.0-47.0); HEMOGLOBIN 13.5 g/dL (12.0-15.5); LYMPH # 1.6 x10^3/uL (1.0-4.8); LYMPH % 33 % (24-48); MEAN CORPUSCULAR HEMOGLOBIN 32 pg (25-35); MEAN CORPUSCULAR HGB CONC 33 g/dL (31-37); MEAN CORPUSCULAR VOLUME 96 fL (79-100); MONO % 6 % (0-9); NEUT % 57 % (31-73); PLATELET COUNT 80 x10^3/uL (140-400); RED BLOOD COUNT 4.24 x10^6/uL (3.50-5.40); RED CELL DISTRIBUTION WIDTH 14.5 % (11.5-14.5); WHITE BLOOD COUNT 4.8 x10^3/uL (4.0-11.0)
[2017-05-25 05:12] LABS: ALBUMIN 2.7 g/dL (3.4-5.0); ALBUMIN/GLOBULIN RATIO 0.6 (1.0-1.7); CALCIUM 8.4 mg/dL (8.5-10.1); CREATININE 0.7 mg/dL (0.6-1.0); GFR 82.5; POTASSIUM 3.1 mmol/L (3.5-5.1)
[2017-05-25 07:00] VITALS: BP 157/54
[2017-05-25 07:24] LABS: BILIRUBIN,URINE NEGATIVE (NEG); GLUCOSE,URINE >=1000 mg/dL (NEG); NITRITE,URINE NEGATIVE (NEG); PROTEIN,URINE NEGATIVE (NEG-TRACE)
[2017-05-25 07:36] LABS: BACTERIA,URINE FEW /HPF (0-FEW); RBC,URINE 0 /HPF (0-2); SQUAMOUS EPITHELIAL CELL,UR MOD /LPF; WBC,URINE 20-40 /HPF (0-4)
[2017-05-25] MEDS: INSULIN ASPART 300 UNITS/3 ML INSULN.PEN SQ SCH ×2 (08:00→12:43)
[2017-05-25] MEDS: amLODIPine BESYLATE 5 MG TABLET PO SCH (08:00)
[2017-05-25] MEDS: ASPIRIN ENTERIC COATED 325 MG TABLET.DR. PO SCH (08:00)
[2017-05-25] MEDS: ASPIRIN CHEWABLE 81 MG TABLET. PO SCH (08:00)
[2017-05-25] MEDS: hydroCHLOROthiazide 12.5 MG CAPSULE PO SCH (08:18)
[2017-05-25] MEDS: CHOLECALCIFEROL (VITAMIN D3) 1,000 UNIT TABLET PO SCH (08:19)
[2017-05-25] MEDS ORDERED: POTASSIUM CHLORIDE 20 MEQ TABLET.ER. PO ONE ×2 (09:45→12:45)
--- NOTE | 2017-05-25 10:19 | PDOC ---
PROGRESS NOTES Subjective Subjective sleepy ,not interested in conversation Objective Objective Vital Signs Date Time Temp Pulse Resp B/P (MAP) Pulse Ox O2 Delivery O2 Flow Rate FiO2 05/25/17 08:00 59 157/54 05/25/17 07:00 98.0 16 99 Room Air 98.0 Physical Exam Abdomen: Normal bowel sounds, Soft Heart: Regular rate, Normal S1, Normal S2 Extremities: No clubbing General: No acute distress HEENT: Atraumatic Lungs: Clear to auscultation MUSCULOSKELETAL: No deformity Neck: Supple Psych/Mental Status: Mood NL Skin: No breakdown Diagnosis Problem List Problems Medical Problems: (1) CVA (cerebral vascular accident) Status: Acute (2) Diabetes mellitus Status: Acute Assessment Assessment Problems Medical Problems: (1) CVA (cerebral vascular accident) Status: Acute (2) Diabetes mellitus Status: Acute FINAL IMPRESSION: 1. Left-sided paresthesias, weakness, improved.MRI -ve for cva 2. Diabetes.uncontrolled a1c 11 3. Hypertension, accelerated.improving 4. History of Mtz palsy. 5. Low platelets 90 6. UTI PLAN: ECHO good lvf 60 % ,no shunt CTA -ve for carotid stenosis MRI brain -neg for cva pot 3.1 ,low ,replace chol high , inc lipitor to 20 mg low platelets 90 ,000, will do sono abdomen. spoke with son ,she does not take insulin as instructed ,may be 2 -3 times a week. donot want to go to [facility],son wanted to take her home. poor prognosis due to non compliance. At this time, was admitted to the hospital, seen by Neurology. CT head, CT angiogram, MRI of the brain and echocardiogram. The patient started on aspirin 325. PT, OT, speech and see how the patient's condition improves. Problems: Plan Plan of Care Problems Medical Problems: (1) CVA (cerebral vascular accident) Status: Acute (2) Diabetes mellitus Status: Acute Comment Review of Relevant I have reviewed the following items karrie (where applicable) has been applied. Labs Laboratory Tests Test 05/24/17 11:56 05/24/17 16:49 05/24/17 20:20 05/24/17 22:16 Glucose (Fingerstick) 265 mg/dL (70-99) 371 mg/dL (70-99) 356 mg/dL (70-99) 310 mg/dL (70-99) Test 05/25/17 02:47 05/25/17 03:10 05/25/17 05:10 05/25/17 07:06 Glucose (Fingerstick) 251 mg/dL (70-99) 243 mg/dL (70-99) White Blood Count 4.8 x10^3/uL (4.0-11.0) Red Blood Count 4.24 x10^6/uL (3.50-5.40) Hemoglobin 13.5 g/dL (12.0-15.5) Hematocrit 40.6 % (36.0-47.0) Mean Corpuscular Volume 96 fL (79-100) Mean Corpuscular Hemoglobin 32 pg (25-35) Mean Corpuscular Hemoglobin Concent 33 g/dL (31-37) Red Cell Distribution Width 14.5 % (11.5-14.5) Platelet Count 80 x10^3/uL (140-400) Neutrophils (%) (Auto) 57 % (31-73) Lymphocytes (%) (Auto) 33 % (24-48) Monocytes (%) (Auto) 6 % (0-9) Eosinophils (%) (Auto) 3 % (0-3) Basophils (%) (Auto) 1 % (0-3) Neutrophils # (Auto) 2.7 x10^3uL (1.8-7.7) Lymphocytes # (Auto) 1.6 x10^3/uL (1.0-4.8) Monocytes # (Auto) 0.3 x10^3/uL (0.0-1.1) Eosinophils # (Auto) 0.1 x10^3/uL (0.0-0.7) Basophils # (Auto) 0.0 x10^3/uL (0.0-0.2) Sodium Level 140 mmol/L (136-145) Potassium Level 3.1 mmol/L (3.5-5.1) Chloride Level 104 mmol/L (98-107) Carbon Dioxide Level 30 mmol/L (21-32) Anion Gap 6 (6-14) Blood Urea Nitrogen 16 mg/dL (7-20) Creatinine 0.7 mg/dL (0.6-1.0) Estimated GFR (Cockcroft-Gault) 82.5 BUN/Creatinine Ratio 23 (6-20) Glucose Level 244 mg/dL (70-99) Calcium Level 8.4 mg/dL (8.5-10.1) Total Bilirubin 1.0 mg/dL (0.2-1.0) Aspartate Amino Transf (AST/SGOT) 55 U/L (15-37) Alanine Aminotransferase (ALT/SGPT) 80 U/L (14-59) Alkaline Phosphatase 94 U/L (46-116) Total Protein 7.0 g/dL (6.4-8.2) Albumin 2.7 g/dL (3.4-5.0) Albumin/Globulin Ratio 0.6 (1.0-1.7) Triglycerides Level 110 mg/dL (0-150) Cholesterol Level 202 mg/dL (0-200) LDL Cholesterol, Calculated 130 mg/dL (0-100) VLDL Cholesterol, Calculated 22 mg/dL (0-40) Non-HDL Cholesterol Calculated 152 mg/dL (0-129) HDL Cholesterol 50 mg/dL (40-60) Cholesterol/HDL Ratio 4.0 Thyroid Stimulating Hormone (TSH) 1.418 uIU/mL (0.358-3.74) Urine Collection Type Unknown Urine Color Geovanna Urine Clarity Clear Urine pH 6.0 Urine Specific [place] >=1.030 Urine Protein Negative mg/dL (NEG-TRACE) Urine Glucose (UA) >=1000 mg/dL (NEG) Urine Ketones (Stick) Negative mg/dL (NEG) Urine Blood Small (NEG) Urine Nitrite Negative (NEG) Urine Bilirubin Negative (NEG) Urine Urobilinogen Dipstick 1.0 mg/dL (0.2 mg/dL) Urine Leukocyte Esterase Small (NEG) Urine RBC 0 /HPF (0-2) Urine WBC 20-40 /HPF (0-4) Urine Squamous Epithelial Cells Mod /LPF Urine Bacteria Few /HPF (0-FEW) Urine Mucus Slight /LPF Medications Current Medications Amlodipine Besylate (Norvasc) 5 mg DAILY08 PO Last administered on 05/25/17 08 :00; Start 05/24/17 at 11:00 Aspirin (Ecotrin) 325 mg DAILYWBKFT PO Last administered on 05/25/17 08:00; Start 05/24/17 at 11:00; Stop 05/25/17 at 09:00; Status DC Atorvastatin Calcium (Lipitor) 5 mg QHS PO Last administered on 05/24/17 20:52 ; Start 05/24/17 at 21:00; Stop 05/25/17 at 09:43; Status DC Atorvastatin Calcium (Lipitor) 20 mg QHS PO ; Start 05/25/17 at 21:00 Cephalexin HCl (Keflex) 500 mg TID PO ; Start 05/25/17 at 09:45 Dextrose (Dextrose 50%-Water Syringe) 12.5 gm PRN Q15MIN PRN IV SEE COMMENTS; Start 05/24/17 at 10:30 Hydrochlorothiazide (Microzide) 12.5 mg DAILY PO Last administered on 08:18; Start 05/24/17 at 11:00 Insulin Aspart (NovoLOG) 0-7 UNITS TIDWMEALS SQ Last administered on 05/25/17 08:00; Start 05/24/17 at 12:00 Insulin Aspart (NovoLOG) 10 units ONCE ONCE SQ Last administered on 05/24/17 23:11; Start 05/24/17 at 23:00; Stop 05/24/17 at 23:01; Status DC Losartan Potassium (Cozaar) 50 mg DAILY08 PO ; Start 05/24/17 at 11:00; Stop at 11:00; Status DC Losartan Potassium (Cozaar) 100 mg DAILY08 PO Last administered on 05/25/17 08 :00; Start 05/24/17 at 11:00 Metformin HCl (Glucophage) 500 mg BIDWMEALS PO ; Start 05/26/17 at 08:00 Potassium Chloride (Klor-Con) 20 meq 1X ONCE PO ; Start 05/25/17 at 12:45; Stop 05/25/17 at 12:46 Potassium Chloride (Klor-Con) 40 meq 1X ONCE PO ; Start 05/25/17 at 09:45; Stop 05/25/17 at 09:46; Status DC Vitamin D (Vitamin D3) 1,000 unit DAILY PO Last administered on 05/25/17 08:19 ; Start 05/24/17 at 11:00 Vitals/I & O Vital Sign - Last 24 Hours 05/24/17 05/24/17 05/24/17 05/24/17 11:00 11:54 12:00 13:00 Temp 98.5 98.5 Pulse 59 64 61 64 Resp 18 14 16 B/P (MAP) 176/76 (109) 160/74 166/74 (104) 162/76 (104) Pulse Ox 94 96 96 O2 Delivery Room Air Room Air Room Air 05/24/17 05/24/17 05/24/17 05/24/17 16:00 19:05 20:00 23:05 Temp 97.5 98.3 97.6 97.5 98.3 97.6 Pulse 70 68 66 Resp 16 18 18 B/P (MAP) 169/59 (95) 148/65 (92) 138/54 (82) Pulse Ox 98 97 98 O2 Delivery Room Air Room Air Room Air Room Air 05/25/17 05/25/17 05/25/17 05/25/17 03:05 07:00 08:00 08:00 Temp 97.9 98.0 97.9 98.0 Pulse 58 59 59 59 Resp 18 16 B/P (MAP) 156/61 (92) 157/54 (88) 157/54 157/54 Pulse Ox 97 99 O2 Delivery Room Air Room Air MINDI COLLINS MD May 25, 2017 10:19
[2017-05-25] MEDS ORDERED: INSU100V13 SQ (10:25)
[2017-05-25] MEDS ORDERED: CEPH-264 PO (10:25)
[2017-05-25] MEDS: CEPHALEXIN 250 MG CAPSULE. PO SCH ×2 (10:48→15:46)
[2017-05-25 11:00] VITALS: BP 168/69
--- NOTE | 2017-05-25 12:25 | PDOC ---
PROGRESS NOTES Assessment Problems Medical Problems: (1) CVA (cerebral vascular accident) Status: Acute (2) Diabetes mellitus Status: Acute Symptoms of transient ischemic attack, hypertensive encephalopathy, negative exam and MRI Prior mild cognitive impairment Right thyroid nodule on CTA Note hyperlipidemia Plan Daily aspirin 81 mg daily sufficient (I ordered 81 mg daily, Dr. Tran ordered a 325 mg daily). Lipids management per PCP Okay for aggressive blood pressure control Okay for discharge Subjective No complaints Objective Vital Signs Date Time Temp Pulse Resp B/P (MAP) Pulse Ox O2 Delivery O2 Flow Rate FiO2 05/25/17 11:00 98.0 63 16 168/69 (102) 96 Room Air 98.0 PHYSICAL EXAM Alert. Oriented to time, place and person, but slow with responses,dull affect PERRL. EOMI. CN: no focal findings. Muscle tone: normal. Muscle strength: 5/5 DTR: 2+ Plantar reflex: flexor Gait: not examined in bed. Sensory exam: no abnormal findings. No cerebellar signs elicited. Review of Relevant I have reviewed the following items karrie (where applicable) has been applied. Labs Laboratory Tests Test 05/23/17 22:03 05/23/17 22:19 05/24/17 01:36 05/24/17 08:07 Glucose (Fingerstick) 331 mg/dL (70-99) 210 mg/dL (70-99) White Blood Count 5.1 x10^3/uL (4.0-11.0) Red Blood Count 4.31 x10^6/uL (3.50-5.40) Hemoglobin 13.8 g/dL (12.0-15.5) Hematocrit 41.0 % (36.0-47.0) Mean Corpuscular Volume 95 fL (79-100) Mean Corpuscular Hemoglobin 32 pg (25-35) Mean Corpuscular Hemoglobin Concent 34 g/dL (31-37) Red Cell Distribution Width 14.1 % (11.5-14.5) Platelet Count 89 x10^3/uL (140-400) Prothrombin Time 13.1 SEC (11.7-14.0) Prothromb Time International Ratio 1.1 (0.8-1.1) Activated Partial Thromboplast Time 27 SEC (24-38) Sodium Level 138 mmol/L (136-145) Potassium Level 3.5 mmol/L (3.5-5.1) Chloride Level 104 mmol/L (98-107) Carbon Dioxide Level 28 mmol/L (21-32) Anion Gap 6 (6-14) Blood Urea Nitrogen 15 mg/dL (7-20) Creatinine 0.7 mg/dL (0.6-1.0) Estimated GFR (Cockcroft-Gault) 82.5 Glucose Level 354 mg/dL (70-99) Calcium Level 8.9 mg/dL (8.5-10.1) Creatine Kinase 76 U/L (26-192) Creatine Kinase MB (Mass) 0.5 ng/mL (0.0-3.6) Creatine Kinase MB Relative Index 0.6 % (0-4) Troponin I Quantitative < 0.017 ng/mL (0.000-0.055) Nasal Screen MRSA (PCR) Negative (Negative) Test 05/24/17 11:56 05/24/17 16:49 05/24/17 20:20 05/24/17 22:16 Glucose (Fingerstick) 265 mg/dL (70-99) 371 mg/dL (70-99) 356 mg/dL (70-99) 310 mg/dL (70-99) Test 05/25/17 02:47 05/25/17 03:10 05/25/17 05:10 05/25/17 07:06 Glucose (Fingerstick) 251 mg/dL (70-99) 243 mg/dL (70-99) White Blood Count 4.8 x10^3/uL (4.0-11.0) Red Blood Count 4.24 x10^6/uL (3.50-5.40) Hemoglobin 13.5 g/dL (12.0-15.5) Hematocrit 40.6 % (36.0-47.0) Mean Corpuscular Volume 96 fL (79-100) Mean Corpuscular Hemoglobin 32 pg (25-35) Mean Corpuscular Hemoglobin Concent 33 g/dL (31-37) Red Cell Distribution Width 14.5 % (11.5-14.5) Platelet Count 80 x10^3/uL (140-400) Neutrophils (%) (Auto) 57 % (31-73) Lymphocytes (%) (Auto) 33 % (24-48) Monocytes (%) (Auto) 6 % (0-9) Eosinophils (%) (Auto) 3 % (0-3) Basophils (%) (Auto) 1 % (0-3) Neutrophils # (Auto) 2.7 x10^3uL (1.8-7.7) Lymphocytes # (Auto) 1.6 x10^3/uL (1.0-4.8) Monocytes # (Auto) 0.3 x10^3/uL (0.0-1.1) Eosinophils # (Auto) 0.1 x10^3/uL (0.0-0.7) Basophils # (Auto) 0.0 x10^3/uL (0.0-0.2) Sodium Level 140 mmol/L (136-145) Potassium Level 3.1 mmol/L (3.5-5.1) Chloride Level 104 mmol/L (98-107) Carbon Dioxide Level 30 mmol/L (21-32) Anion Gap 6 (6-14) Blood Urea Nitrogen 16 mg/dL (7-20) Creatinine 0.7 mg/dL (0.6-1.0) Estimated GFR (Cockcroft-Gault) 82.5 BUN/Creatinine Ratio 23 (6-20) Glucose Level 244 mg/dL (70-99) Calcium Level 8.4 mg/dL (8.5-10.1) Total Bilirubin 1.0 mg/dL (0.2-1.0) Aspartate Amino Transf (AST/SGOT) 55 U/L (15-37) Alanine Aminotransferase (ALT/SGPT) 80 U/L (14-59) Alkaline Phosphatase 94 U/L (46-116) Total Protein 7.0 g/dL (6.4-8.2) Albumin 2.7 g/dL (3.4-5.0) Albumin/Globulin Ratio 0.6 (1.0-1.7) Triglycerides Level 110 mg/dL (0-150) Cholesterol Level 202 mg/dL (0-200) LDL Cholesterol, Calculated 130 mg/dL (0-100) VLDL Cholesterol, Calculated 22 mg/dL (0-40) Non-HDL Cholesterol Calculated 152 mg/dL (0-129) HDL Cholesterol 50 mg/dL (40-60) Cholesterol/HDL Ratio 4.0 Thyroid Stimulating Hormone (TSH) 1.418 uIU/mL (0.358-3.74) Urine Collection Type Unknown Urine Color Geovanna Urine Clarity Clear Urine pH 6.0 Urine Specific [place] >=1.030 Urine Protein Negative mg/dL (NEG-TRACE) Urine Glucose (UA) >=1000 mg/dL (NEG) Urine Ketones (Stick) Negative mg/dL (NEG) Urine Blood Small (NEG) Urine Nitrite Negative (NEG) Urine Bilirubin Negative (NEG) Urine Urobilinogen Dipstick 1.0 mg/dL (0.2 mg/dL) Urine Leukocyte Esterase Small (NEG) Urine RBC 0 /HPF (0-2) Urine WBC 20-40 /HPF (0-4) Urine Squamous Epithelial Cells Mod /LPF Urine Bacteria Few /HPF (0-FEW) Urine Mucus Slight /LPF Test 05/25/17 11:55 Glucose (Fingerstick) 336 mg/dL (70-99) Laboratory Tests Test 05/24/17 16:49 05/24/17 20:20 05/24/17 22:16 05/25/17 02:47 Glucose (Fingerstick) 371 mg/dL (70-99) 356 mg/dL (70-99) 310 mg/dL (70-99) 251 mg/dL (70-99) Test 05/25/17 03:10 05/25/17 05:10 05/25/17 07:06 05/25/17 11:55 White Blood Count 4.8 x10^3/uL (4.0-11.0) Red Blood Count 4.24 x10^6/uL (3.50-5.40) Hemoglobin 13.5 g/dL (12.0-15.5) Hematocrit 40.6 % (36.0-47.0) Mean Corpuscular Volume 96 fL (79-100) Mean Corpuscular Hemoglobin 32 pg (25-35) Mean Corpuscular Hemoglobin Concent 33 g/dL (31-37) Red Cell Distribution Width 14.5 % (11.5-14.5) Platelet Count 80 x10^3/uL (140-400) Neutrophils (%) (Auto) 57 % (31-73) Lymphocytes (%) (Auto) 33 % (24-48) Monocytes (%) (Auto) 6 % (0-9) Eosinophils (%) (Auto) 3 % (0-3) Basophils (%) (Auto) 1 % (0-3) Neutrophils # (Auto) 2.7 x10^3uL (1.8-7.7) Lymphocytes # (Auto) 1.6 x10^3/uL (1.0-4.8) Monocytes # (Auto) 0.3 x10^3/uL (0.0-1.1) Eosinophils # (Auto) 0.1 x10^3/uL (0.0-0.7) Basophils # (Auto) 0.0 x10^3/uL (0.0-0.2) Sodium Level 140 mmol/L (136-145) Potassium Level 3.1 mmol/L (3.5-5.1) Chloride Level 104 mmol/L (98-107) Carbon Dioxide Level 30 mmol/L (21-32) Anion Gap 6 (6-14) Blood Urea Nitrogen 16 mg/dL (7-20) Creatinine 0.7 mg/dL (0.6-1.0) Estimated GFR (Cockcroft-Gault) 82.5 BUN/Creatinine Ratio 23 (6-20) Glucose Level 244 mg/dL (70-99) Calcium Level 8.4 mg/dL (8.5-10.1) Total Bilirubin 1.0 mg/dL (0.2-1.0) Aspartate Amino Transf (AST/SGOT) 55 U/L (15-37) Alanine Aminotransferase (ALT/SGPT) 80 U/L (14-59) Alkaline Phosphatase 94 U/L (46-116) Total Protein 7.0 g/dL (6.4-8.2) Albumin 2.7 g/dL (3.4-5.0) Albumin/Globulin Ratio 0.6 (1.0-1.7) Triglycerides Level 110 mg/dL (0-150) Cholesterol Level 202 mg/dL (0-200) LDL Cholesterol, Calculated 130 mg/dL (0-100) VLDL Cholesterol, Calculated 22 mg/dL (0-40) Non-HDL Cholesterol Calculated 152 mg/dL (0-129) HDL Cholesterol 50 mg/dL (40-60) Cholesterol/HDL Ratio 4.0 Thyroid Stimulating Hormone (TSH) 1.418 uIU/mL (0.358-3.74) Urine Collection Type Unknown Urine Color Geovanna Urine Clarity Clear Urine pH 6.0 Urine Specific [place] >=1.030 Urine Protein Negative mg/dL (NEG-TRACE) Urine Glucose (UA) >=1000 mg/dL (NEG) Urine Ketones (Stick) Negative mg/dL (NEG) Urine Blood Small (NEG) Urine Nitrite Negative (NEG) Urine Bilirubin Negative (NEG) Urine Urobilinogen Dipstick 1.0 mg/dL (0.2 mg/dL) Urine Leukocyte Esterase Small (NEG) Urine RBC 0 /HPF (0-2) Urine WBC 20-40 /HPF (0-4) Urine Squamous Epithelial Cells Mod /LPF Urine Bacteria Few /HPF (0-FEW) Urine Mucus Slight /LPF Glucose (Fingerstick) 243 mg/dL (70-99) 336 mg/dL (70-99) Medications Current Medications Ondansetron HCl (Zofran) 4 mg 1X ONCE IV Last administered on 05/23/17 23:08 ; Start 05/23/17 at 23:00; Stop 05/23/17 at 23:01; Status DC Iohexol (Omnipaque 350 Mg/ml) 75 ml 1X ONCE IV Last administered on 05/23/17 22:55; Start 05/23/17 at 23:00; Stop 05/23/17 at 23:01; Status DC Info (Do NOT chart on this entry -- for MONITORING) 1 each PRN DAILY PRN MC SEE COMMENTS; Start 05/23/17 at 23:00; Stop 05/25/17 at 22:59 Aspirin (Ecotrin) 325 mg 1X ONCE PO Last administered on 05/24/17 00:14; Start 05/24/17 at 00:30; Stop 05/24/17 at 00:31; Status DC Ondansetron HCl (Zofran) 4 mg PRN Q8HRS PRN IV NAUSEA/VOMITING; Start 05/24/17 at 00:45; Stop 05/25/17 at 00:44; Status DC Insulin Aspart (NovoLOG) 0-5 UNITS TIDWMEALS SQ Last administered on 05/24/17 08:10; Start 05/24/17 at 08:00; Stop 05/24/17 at 12:13; Status DC Dextrose (Dextrose 50%-Water Syringe) 12.5 gm PRN Q15MIN PRN IV SEE COMMENTS; Start 05/24/17 at 00:45; Stop 05/24/17 at 16:14; Status DC Aspirin (Bo Aspirin) 81 mg DAILYWBKFT PO ; Start 05/24/17 at 09:15; Stop at 09:15; Status DC Aspirin (Children'S Aspirin) 81 mg DAILYWBKFT PO Last administered on 09:00; Start 05/24/17 at 09:00 Amlodipine Besylate (Norvasc) 5 mg DAILY08 PO Last administered on 05/25/17 08 :00; Start 05/24/17 at 11:00 Aspirin (Ecotrin) 325 mg DAILYWBKFT PO Last administered on 05/25/17 08:00; Start 05/24/17 at 11:00; Stop 05/25/17 at 09:00; Status DC Metformin HCl (Glucophage) 500 mg BIDWMEALS PO ; Start 05/26/17 at 08:00 Vitamin D (Vitamin D3) 1,000 unit DAILY PO Last administered on 05/25/17 08:19 ; Start 05/24/17 at 11:00 Losartan Potassium (Cozaar) 50 mg DAILY08 PO ; Start 05/24/17 at 11:00; Stop at 11:00; Status DC Atorvastatin Calcium (Lipitor) 5 mg QHS PO Last administered on 05/24/17 20:52 ; Start 05/24/17 at 21:00; Stop 05/25/17 at 09:43; Status DC Insulin Aspart (NovoLOG) 0-7 UNITS TIDWMEALS SQ Last administered on 05/25/17 08:00; Start 05/24/17 at 12:00 Dextrose (Dextrose 50%-Water Syringe) 12.5 gm PRN Q15MIN PRN IV SEE COMMENTS; Start 05/24/17 at 10:30 Losartan Potassium (Cozaar) 100 mg DAILY08 PO Last administered on 05/25/17 08 :00; Start 05/24/17 at 11:00 Hydrochlorothiazide (Microzide) 12.5 mg DAILY PO Last administered on 08:18; Start 05/24/17 at 11:00 Insulin Aspart (NovoLOG) 10 units ONCE ONCE SQ Last administered on 05/24/17 23:11; Start 05/24/17 at 23:00; Stop 05/24/17 at 23:01; Status DC Cephalexin HCl (Keflex) 500 mg TID PO Last administered on 05/25/17 10:48; Start 05/25/17 at 09:45 Potassium Chloride (Klor-Con) 40 meq 1X ONCE PO Last administered on t 10:49; Start 05/25/17 at 09:45; Stop 05/25/17 at 09:46; Status DC Potassium Chloride (Klor-Con) 20 meq 1X ONCE PO ; Start 05/25/17 at 12:45; Stop 05/25/17 at 12:46 Atorvastatin Calcium (Lipitor) 20 mg QHS PO ; Start 05/25/17 at 21:00 Active Scripts Active Novolog Flexpen (Insulin Aspart) 100 Unit/1 Ml Insuln.pen 0 Units SQ TIDACHC Aspirin Ec (Aspirin) 325 Mg Tablet.dr 325 Mg PO DAILYWBKFT Glucophage (Metformin Hcl) 500 Mg Tablet 500 Mg PO BIDWMEALS Reported Vitamin D3 1,000 Unit Tablet (Ca Cmb No.1/Vit D3/B-6/Fa/B12) 1 Each Tablet 1 Each PO DAILY Losartan-Hctz 100-12.5 Mg Tab (Losartan/Hydrochlorothiazide) 1 Each Tablet 1 Each PO DAILY08 Pravachol (Pravastatin Sodium) 20 Mg Tablet 20 Mg PO HS Amlodipine Besylate 5 Mg Tablet 5 Mg PO DAILY08 Vitals/I & O Vital Sign - Last 24 Hours 05/24/17 05/24/17 05/24/17 05/24/17 13:00 16:00 19:05 20:00 Temp 97.5 98.3 97.5 98.3 Pulse 64 70 68 Resp 16 18 B/P (MAP) 162/76 (104) 169/59 (95) 148/65 (92) Pulse Ox 96 98 97 O2 Delivery Room Air Room Air Room Air Room Air 05/24/17 05/25/17 05/25/17 05/25/17 23:05 03:05 07:00 07:32 Temp 97.6 97.9 98.0 97.6 97.9 98.0 Pulse 66 58 59 Resp 18 18 16 B/P (MAP) 138/54 (82) 156/61 (92) 157/54 (88) Pulse Ox 98 97 99 O2 Delivery Room Air Room Air Room Air Room Air 905/25/17 05/25/17 08:00 08:00 11:00 Temp 98.0 98.0 Pulse 59 59 63 Resp 16 B/P (MAP) 157/54 157/54 168/69 (102) Pulse Ox 96 O2 Delivery Room Air Images MRI brain: There is generalized parenchymal atrophy. Patchy, confluent and multiple focal areas of increased signal intensity are seen within the periventricular and subcortical white matter of both cerebral hemispheres and emmy on the FLAIR and T2-weighted images consistent with areas of extensive small vessel ischemic disease. These have not significantly changed. No acute parenchymal abnormality is seen. No extra-axial fluid collection is seen. There is no MRI evidence of acute ischemia/infarction. Mild mucosal thickening is seen scattered throughout the paranasal sinuses. Normal flow voids are seen within the major vascular structures surrounding the brain parenchyma. Impression: No acute parenchymal abnormality is seen. SALMA LAMBERT MD May 25, 2017 12:25
--- NOTE | 2017-05-25 15:58 | RAD ---
Indication:Abnormal liver function test Grayscale images of the abdomen were obtained. Comparison 06/15/2016 Liver:A focal mass lesion is not seen and the visualized liver. There is some increased attenuation of the ultrasound beam by the liver compatible with fatty infiltration. Gallbladder:Normal. The common bile duct diameter of approximately 3 mm is also normal Spleen:Slightly enlarged. This was referenced on the previous exam. No additional finding is seen associated with the spleen Pancreas:The head and that portion of the body of the pancreas which was seen appeared unremarkable. The more distal body and tail were obscured. Kidneys:Normal Abdominal aorta and IVC:Poorly visualized and largely obscured by gas. Ancillary findings:None Impression:Mild fatty infiltration of the liver. Splenomegaly similar to the previous exam Midline structures partially obscured
[2017-05-25] MEDS ORDERED: ATORVASTATIN CALCIUM 20 MG TABLET PO SCH (21:00)
[2017-05-26] MEDS ORDERED: metFORMIN 500 MG TABLET PO SCH (08:00)
== END 2017-05-25 16:05 | disposition home or self-care (01) | DRG 65 ==
LOC: ER 21:50 → 1 WEST ICU 05-24 00:54 → 6 SOUTH 05-24 15:50
PROVIDERS: ADMIT Internal Medicine; ATTEND Internal Medicine
DX: I63.9 Cerebral infarction, unspecified (principal); G81.94 Hemiplegia, unspecified affecting left nondominant side; E11.65 Type 2 diabetes mellitus with hyperglycemia; I67.4 Hypertensive encephalopathy; D69.6 Thrombocytopenia, unspecified; N39.0 Urinary tract infection, site not specified; R20.9 Unspecified disturbances of skin sensation; R53.1 Weakness; G51.0 Bell's palsy; G31.84 Mild cognitive impairment of uncertain or unknown etiology; E04.1 Nontoxic single thyroid nodule; E78.00 Pure hypercholesterolemia, unspecified; E78.5 Hyperlipidemia, unspecified; I10 Essential (primary) hypertension; M47.812 Spondylosis without myelopathy or radiculopathy, cervical region; Z82.3 Family history of stroke; Z83.3 Family history of diabetes mellitus
CPT/HCPCS: 99285; C8929; 36415; 70450; 70496; 70498; 70551; 71010; 76700; 80048; 80053; 80061; 81001; 82550; 82553; 82962; 83036; 84443; 84484; 85025; 85027; 85610; 85730; 87086; 87641; 93005; 96374; J1815; J2405; Q9967; 92610

== ENCOUNTER → 2017-06-22 | Outpatient (CLI) | payer MEDICARE, OTHER ==
[2017-05-25 11:00] VITALS: BP 168/69
[~2017-06-22] MED LIST changes: +CEPH-264 PO; +INSU100V13 SQ; -LOSA1TAB18 PO; +LOSA1TAB25 PO
== END | disposition home or self-care (01) ==
LOC: LAB 11:41
PROVIDERS: ATTEND Psychiatry & Neurology Neurology
DX: R41.3 Other amnesia (principal)
CPT/HCPCS: 36415; 82306; 82607

== ENCOUNTER 2017-08-22 18:28 | Inpatient (IN) | payer MEDICARE, OTHER ==
[~2017-08-22] VITALS: Ht 167.6 cm; Wt 86.2 kg
[2017-08-22 19:14] LABS: BASO % 0 % (0-3); EOS % 3 % (0-3); HEMATOCRIT 40.8 % (36.0-47.0); HEMOGLOBIN 13.6 g/dL (12.0-15.5); LYMPH # 1.4 x10^3/uL (1.0-4.8); LYMPH % 28 % (24-48); MEAN CORPUSCULAR HEMOGLOBIN 32 pg (25-35); MEAN CORPUSCULAR HGB CONC 33 g/dL (31-37); MEAN CORPUSCULAR VOLUME 95 fL (79-100); MONO % 8 % (0-9); NEUT % 61 % (31-73); PLATELET COUNT 108 x10^3/uL (140-400); RED BLOOD COUNT 4.31 x10^6/uL (3.50-5.40); RED CELL DISTRIBUTION WIDTH 14.1 % (11.5-14.5); WHITE BLOOD COUNT 4.9 x10^3/uL (4.0-11.0)
[2017-08-22 19:24] LABS: CALCIUM 8.3 mg/dL (8.5-10.1); CREATININE 0.6 mg/dL (0.6-1.0); GFR 98.3
[2017-08-22 19:28] LABS: POTASSIUM 4.1 mmol/L (3.5-5.1)
--- NOTE | 2017-08-22 19:28 | PHYS DOC ---
Past Medical History Past Medical History: Dementia, Diabetes-Type II, High Cholesterol, Hypertension Past Surgical History: No Surgical History Alcohol Use: None Drug Use: None Adult General Chief Complaint Chief Complaint: FACE PROBLEM HPI HPI This is a pleasant 72-year-old female presenting to the emergency department with 3 days of right-sided facial drooping. Her daughter is here with her today. The patient has a history of high blood pressure and diabetes. 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 She denies any headache neck pain chest pain shortness of breath or abdominal pain. Review of systems is negative for extremity weakness numbness or tingling. She denies slurred speech or difficulty seeing or vision changes. She denies changes in her gait. All other review of systems is negative unless otherwise noted in history of present illness. ED course: 72-year-old female presenting today with right-sided facial droop that started 3 days ago. Patient is outside of the TPA window. Patient's presentation localizes to the seventh cranial nerve only which is suggestive of Mtz's palsy. I discussed the case with our neurologist shuttle preparation supervisor Dr. Reyes who recommends that the patient be admitted for MRI. I have assessed this patient clinically and believe that their condition requires an admission to the hospital. After consulting the admitting physician about this case, they have asked that I admit this patient to their service as an inpatient based on the clinical presentation and my impression. Review of Systems Review of Systems SEE ABOVE. Current Medications Current Medications Current Medications Medications (Trade) Dose Ordered Sig/Eric Start Time Stop Time Status Last Admin Dose Admin Sodium Chloride 1,000 ml @ 100 mls/hr Q10H 08/22/17 20:03 08/23/17 20:02 08/22/17 21:19 100 MLS/HR Allergies Allergies Allergies Coded Allergies Type Severity Reaction Last Updated Verified No Known Drug Allergies 09/29/13 No Physical Exam Physical Exam SEE ABOVE Constitutional: Well developed, well nourished, no acute distress, non-toxic appearance. HENT: Normocephalic, atraumatic, bilateral external ears normal, oropharynx moist, no oral exudates, nose normal. [] Eyes: PERRLA, EOMI, conjunctiva normal, no discharge. Neck: Normal range of motion, no tenderness, supple, no stridor. [] Cardiovascular:Heart rate regular rhythm, no murmur [] Lungs & Thorax: Bilateral breath sounds clear to auscultation Abdomen: Bowel sounds normal, soft, no tenderness, no masses, no pulsatile masses. [] Skin: Warm, dry, no erythema, no rash. [] Back: No tenderness, no CVA tenderness. [] Extremities: No tenderness, no cyanosis, no clubbing, ROM intact, no edema. [] Neurologic: Mental status: Awake oriented and alert x3 Cranial nerves: Extraocular movements intact, right sided facial paralysis involving the eyebrow and forehead, uvula elevation is symmetric, shoulder shrug intact, tongue protrusion normal DTRs: 2+ Sensation: equal and normal in all extremities Strength: 5/5 in upper and lower extremities bilaterally Psychologic: Affect normal, judgement normal, mood normal. [] Current Patient Data Vital Signs Vital Signs Date Time Temp Pulse Resp B/P (MAP) Pulse Ox O2 Delivery O2 Flow Rate FiO2 08/22/17 19:37 60 18 189/78 (115) 98 Room Air 08/22/17 18:45 97.9 97.9 Lab Values Laboratory Tests Test 08/22/17 19:05 White Blood Count 4.9 x10^3/uL (4.0-11.0) Red Blood Count 4.31 x10^6/uL (3.50-5.40) Hemoglobin 13.6 g/dL (12.0-15.5) Hematocrit 40.8 % (36.0-47.0) Mean Corpuscular Volume 95 fL (79-100) Mean Corpuscular Hemoglobin 32 pg (25-35) Mean Corpuscular Hemoglobin Concent 33 g/dL (31-37) Red Cell Distribution Width 14.1 % (11.5-14.5) Platelet Count 108 x10^3/uL (140-400) L Neutrophils (%) (Auto) 61 % (31-73) Lymphocytes (%) (Auto) 28 % (24-48) Monocytes (%) (Auto) 8 % (0-9) Eosinophils (%) (Auto) 3 % (0-3) Basophils (%) (Auto) 0 % (0-3) Neutrophils # (Auto) 3.0 x10^3uL (1.8-7.7) Lymphocytes # (Auto) 1.4 x10^3/uL (1.0-4.8) Monocytes # (Auto) 0.4 x10^3/uL (0.0-1.1) Eosinophils # (Auto) 0.1 x10^3/uL (0.0-0.7) Basophils # (Auto) 0.0 x10^3/uL (0.0-0.2) Sodium Level 140 mmol/L (136-145) Potassium Level 4.1 mmol/L (3.5-5.1) Chloride Level 104 mmol/L (98-107) Carbon Dioxide Level 27 mmol/L (21-32) Anion Gap 9 (6-14) Blood Urea Nitrogen 11 mg/dL (7-20) Creatinine 0.6 mg/dL (0.6-1.0) Estimated GFR (Cockcroft-Gault) 98.3 Glucose Level 326 mg/dL (70-99) H Calcium Level 8.3 mg/dL (8.5-10.1) L Laboratory Tests 08/22/17 19:05 Laboratory Tests 08/22/17 19:05 EKG EKG [] Radiology/Procedures Radiology/Procedures [] Course & Med Decision Making Course & Med Decision Making Pertinent Labs and Imaging studies reviewed. (See chart for details) [] Dragon Disclaimer Dragon Disclaimer This electronic medical record was generated, in whole or in part, using a voice recognition dictation system. Departure Departure Impression: Primary Impression: Facial droop Disposition: ADMITTED INPATIENT Admitting Physician: Lynnette Tran Condition: STABLE Referrals: WILLIAN LUEVANO (PCP) DESTINI COLMENARES MD Aug 22, 2017 19:28
--- NOTE | 2017-08-22 19:37 | RAD ---
CT head without intravenous contrast History: Facial droop, history of Mtz's palsy. Comparison: CT head May 23, 2017. Technique: Axial images are obtained of the head from the skull base through the vertex without IV contrast. Exposure: One or more of the following individualized dose reduction techniques were utilized for this examination: 1. Automated exposure control 2. Adjustment of the mA and/or kV according to patient size 3. Use of iterative reconstruction technique Findings: The ventricles are appropriate in size, shape, and location for the patient's age. No obvious intracranial mass, mass-effect, midline shift, hemorrhage or obvious acute infarction is identified. Basilar cisterns are patent. Severe nonspecific white matter low-attenuation is seen, likely from chronic microvascular ischemic disease. Bone windows demonstrate no acute calvarial abnormality. The visualized paranasal sinuses appear clear. Impression: 1. No acute intracranial process. Please note that CT can be relatively insensitive to acute ischemic infarction for up to 24 hours after symptom onset. 2. Severe nonspecific white matter changes, probably from chronic microvascular ischemic disease. Electronically signed by: Ethan Martel MD (08/22/2017 7:33 PM) [facility]
[2017-08-22] MEDS ORDERED: ONDANSETRON PF 4 MG/2 ML VIAL. IV PRN (20:15)
[2017-08-22] MEDS ORDERED: MORPHINE SULFATE 2 MG/ML DISP.SYRIN. IV PRN (20:15)
[2017-08-22 21:05] VITALS: BP 153/72
[2017-08-22] MEDS ORDERED: DONE10TA7 PO (21:17)
[2017-08-22] MEDS ORDERED: POTA10TA5 PO (21:17)
[2017-08-22] MEDS ORDERED: INSU100I17 SQ (21:17)
[2017-08-22] MEDS ORDERED: INSU100I30 SUBCUT (21:17)
[2017-08-22] MEDS: IV NORMAL SALINE 1000ML BAG 1,000 ML IV SCH (21:19)
[2017-08-22] MEDS ORDERED: DEXTROSE 50% 25 GM / 50ML DISP.SYRIN. IV PRN (22:15)
[2017-08-22] MEDS ORDERED: ASPIRIN 325 MG TABLET PO ONE (22:15)
[2017-08-22 23:00] VITALS: BP 177/72
[2017-08-23 03:08] VITALS: BP 162/69
[2017-08-23 04:39] LABS: BASO % 0 % (0-3); EOS % 3 % (0-3); HEMOGLOBIN 13.1 g/dL (12.0-15.5); LYMPH # 1.2 x10^3/uL (1.0-4.8); LYMPH % 29 % (24-48); MEAN CORPUSCULAR HEMOGLOBIN 32 pg (25-35); MEAN CORPUSCULAR HGB CONC 34 g/dL (31-37); MEAN CORPUSCULAR VOLUME 94 fL (79-100); MONO % 8 % (0-9); NEUT % 60 % (31-73); PLATELET COUNT 87 x10^3/uL (140-400); RED BLOOD COUNT 4.14 x10^6/uL (3.50-5.40); RED CELL DISTRIBUTION WIDTH 13.9 % (11.5-14.5); WHITE BLOOD COUNT 4.1 x10^3/uL (4.0-11.0)
[2017-08-23 05:18] LABS: CALCIUM 7.8 mg/dL (8.5-10.1); CREATININE 0.5 mg/dL (0.6-1.0); GFR 121.3; POTASSIUM 3.2 mmol/L (3.5-5.1)
[2017-08-23 05:24] LABS: CHOLESTEROL/HDL RATIO 3.5
--- NOTE | 2017-08-23 05:44 | EKG ---
[facility] [address] [place] [address] Test Date: 2017-08-23 Test Time: 05:42:28 Pat Name: DAWIT PKA Department: Room: [facility] Gender: F Clerk To Justice: OSEAS : 1945 Requested By: MINDI COLLINS Order Number: [id number] Reading MD: Measurements Intervals [place] Rate: 65 P: 31 [place]: 180 QRS: 7 QRSD: 84 T: 35 QT: 384 QTc: 400 Interpretive Statements SINUS RHYTHM NORMAL ECG RI6.01 Unconfirmed report Compared to ECG 05/23/2017 22:40:50 No significant changes
[2017-08-23] MEDS: IV NORMAL SALINE 1000ML BAG 1,000 ML IV SCH ×2 (06:03→16:03)
[2017-08-23 07:37] VITALS: BP 153/61
[2017-08-23] MEDS ORDERED: POTASSIUM CHLORIDE 10 MEQ TABLET.ER. PO SCH (08:00)
[2017-08-23] MEDS: INSULIN ASPART 300 UNITS/3 ML INSULN.PEN SQ SCH ×7 (08:00→22:30)
[2017-08-23] MEDS ORDERED: NON FORMULARY ITEM (Losartan/Hydrochlorothiazide (Losartan-Hctz 100-12.5 Mg Tab) 1 EACH) PO SCH (08:00)
[2017-08-23] MEDS: metFORMIN 500 MG TABLET PO SCH ×2 (08:00→17:00)
--- NOTE | 2017-08-23 08:15 | RAD ---
DOPPLER CAROTID BILAT Clinical Indication: cva. Procedure: Pulsed wave and color-flow duplex imaging was utilized to evaluate the extracranial carotid arteries. Comparison: None. Findings: RIGHT SIDE: No significant atherosclerotic plaque on conley-scale images. Distal CCA peak systolic velocity 51 cm/sec. ICA peak systolic velocity 52 cm/sec. The right ICA/CCA ratio is 1. Flow within the right vertebral artery and right ECA is directed antegrade. LEFT SIDE: No significant atherosclerotic plaque on conley-scale images. Distal CCA peak systolic velocity 60 cm/sec. ICA peak systolic velocity 46 cm/sec. The left ICA/CCA ratio is 0.8. Flow within the left vertebral artery and left ECA is directed antegrade. IMPRESSION: Normal peak systolic velocities in the ICA bilaterally suggests no hemodynamically significant stenosis.
[2017-08-23] MEDS: INSULIN DETEMIR 300 UNITS/3 ML INSULN.PEN. SQ SCH (09:00)
[2017-08-23] MEDS ORDERED: GADOBUTROL 7.5 MMOL/7.5 ML VIAL IV ONE (09:15)
--- NOTE | 2017-08-23 09:58 | RAD ---
MRI Brain with and without contrast History: Right-sided facial droop Technique: Multiplanar, multi sequential pre and postcontrast MR imaging was performed of the brain. Contrast: 7.5 cc Gadavist Comparison: May 24, 2017 Findings: There is no restricted diffusion suggestive of recent infarct or cytotoxic edema. Ventricular size is stable. There is again moderate fairly generalized supratentorial atrophy. There is again moderate to severe T2 and FLAIR hyperintense abnormality of the supratentorial parenchyma bilaterally greatest of the frontal lobes, not convincingly changed. Mild T2 and FLAIR hyperintense signal of the medial right temporal lobe is stable. There is no new intra-axial mass effect, midline shift or extra-axial fluid collection. There is preservation of the major arterial intracranial flow voids at the skull base. Mastoid air cells are aerated. There is patchy minimal ethmoid air cell mucosal thickening. There is no nodular parenchymal or leptomeningeal enhancement. Cerebellar tonsils are normal in location. There is preserved marrow signal of the clivus. There is no new abnormality of the gland or pituitary gland. There is thinning of the anterior body of corpus callosum as seen previously. Impression: 1. There is no evidence of recent infarct or abnormal intracranial enhancement. 2. There is again moderate to severe T2 and FLAIR hyperintense signal abnormality of the supratentorial white matter greatest of the frontal lobes, nonspecific findings probably due to chronic microvascular ischemic disease in a patient this age. There is again generalized supratentorial atrophy. Electronically signed by: Benji Wong MD (08/23/2017 9:54 AM) [id number]
--- NOTE | 2017-08-23 10:26 | PDOC ---
Provider Note Provider Note pt seen.H&P dictated. #[id number]. MINDI COLLINS MD Aug 23, 2017 10:26
[2017-08-23 10:30] VITALS: BP 183/58
[2017-08-23] MEDS ORDERED: ONDANSETRON PF 4 MG/2 ML VIAL. IV PRN (10:30)
[2017-08-23] MEDS ORDERED: POTASSIUM CHLORIDE 20 MEQ TABLET.ER. PO ONE ×2 (11:00→12:30)
--- NOTE | 2017-08-23 11:59 | CARD ---
APPROVED REPORT EXAM: Two-dimensional and M-mode echocardiogram with Doppler and color Doppler. Other Information Quality : GoodHR: 59bpm INDICATION CVA/TIA 2D DIMENSIONS Left Atrium(2D)3.5 (1.6-4.0cm)IVSd1.0 (0.7-1.1cm) Aortic Root(2D)2.4 (2.0-3.7cm)LVDd4.1 (3.9-5.9cm) LVOT Diameter1.9 (1.8-2.4cm)PWd0.9 (0.7-1.1cm) LVDs2.2 (2.5-4.0cm)FS (%) 45.1 % SV56.0 mlLVEF(%)76.9 (>50%) Aortic Valve AoV Peak Lopez.201.3cm/sAoV VTI49.9cm AO Peak GR.16.2mmHgLVOT VTI 30.46cm AO Mean GR.10mmHg Mitral Valve MV E Jifhgmaj55.5cm/sMV DECEL [id number] MV A Qdcveekl19.0cm/sE/A Ratio1.0 MV A [id number] TDI Lateral E' P. V8.98cm/sMedial E' P. V11.82cm/s E/Lateral E'8.9E/Medial E'6.7 Pulmonary Valve PV Peak Sjeyindk058.7cm/s Tricuspid Valve TR P. Mpczoyai453ot/sTR Peak Gr.31mmHg LEFT VENTRICLE The left ventricle is normal size. There is normal left ventricular wall thickness. Proximal septal t hickening is noted. The left ventricular systolic function is normal. The ejection fraction is estima ephraim at 55-60%. There is normal LV segmental wall motion. The left ventricular diastolic function and filling is normal for age. RIGHT VENTRICLE The right ventricle is normal size. The right ventricular systolic function is normal. ATRIA The left atrium size is normal. The right atrium size is normal. The interatrial septum is intact wit h no evidence for an atrial septal defect or patent foramen ovale as noted on 2-D or Doppler imaging. AORTIC VALVE The aortic valve is mild to moderately calcified. Doppler and Color Flow revealed no significant aort ic regurgitation. Aortic valve not well interrogated but there appears to be mild aortic stenosis. MITRAL VALVE The mitral valve is normal in structure and function. There is no evidence of mitral valve prolapse. There is no mitral valve stenosis. Doppler and Color-flow revealed trace mitral regurgitation. TRICUSPID VALVE The tricuspid valve is normal in structure and function. Doppler and Color Flow revealed mild tricusp id regurgitation. There is no tricuspid valve prolapse or vegetation. There is no tricuspid valve lisha nosis. PULMONIC VALVE The pulmonary valve is normal in structure and function. Doppler and Color Flow revealed trace pulmon ic valvular regurgitation. There is no pulmonic valvular stenosis. GREAT VESSELS The aortic root is normal in size. Was not visualized well. PERICARDIAL EFFUSION There is no pleural effusion. There is no evidence of significant pericardial effusion. Critical Notification Critical Value: No <Conclusion> The left ventricular systolic function is normal. The ejection fraction is estimated at 55-60%. There is normal LV segmental wall motion. Mild aortic stenosis. Trace mitral regurgitation. Mild tricuspid regurgitation. There is no evidence of significant pericardial effusion.
--- NOTE | 2017-08-23 12:57 | HP ---
ADMIT DATE: 08/22/2017 ATTENDING PHYSICIAN: Dr. Collins. PRIMARY CARE PHYSICIAN: Dr. Luevano. REASON FOR ADMISSION TO THE HOSPITAL: Right-sided facial droop for at least 3 days, possibility of Mtz palsy versus possibility of CVA, was admitted to the hospital. HISTORY OF PRESENT ILLNESS: The patient is a 72-year-old female, with history of diabetes, had a previous Mtz palsy 3 years ago, and she was noticed to have deviation of the mouth to the left to right side, who was flaccid, came to the Emergency Room and was questionable stroke versus Mtz palsy, who was admitted to the hospital, had a CT was negative. MRI was ordered this morning. Neurology was consulted. PAST MEDICAL HISTORY: Has a history of diabetes, hypertension, hyperlipidemia and dementia. PAST SURGICAL HISTORY: No major surgeries. She had a benign breast biopsy. FAMILY HISTORY: Positive for diabetes and stroke. SOCIAL HISTORY: No history of smoking, alcohol. Lives with her family, and children. ALLERGIES: None. MEDICATIONS AT HOME: The patient is taking Tarceva 25 units at bedtime, amlodipine 5 mg daily, aspirin 325 daily, vitamin D daily, Aricept 10 mg daily, insulin 12 units 3 times daily, losartan 100/12.5 daily, metformin 500 mg twice a day, potassium 10 mEq daily, Pravachol 20 mg daily. FAMILY HISTORY: Positive for diabetes, hypertension, strokes. REVIEW OF SYMPTOMS: Denies any weakness, only complains of facial drooping. Rest of the 14-system was reviewed and negative. PHYSICAL EXAMINATION: GENERAL: The patient is not in any distress. She just came back from [facility], is nauseated. VITAL SIGNS: Temperature 97, pulse 60, respirations 18, blood pressure 189/78, 95% on room air. HEENT: Head is atraumatic. Pupils equal. Has a light facial droop on the right side, deviation of the left, unable to close the right eyelid. NECK: Supple. Thyroid not enlarged. JVD not elevated. CHEST: Symmetrical. CARDIOVASCULAR: S1, S2. LUNGS: Clear. ABDOMEN: Soft, bowel sounds present, no mass palpable. EXTERNAL GENITALIA: No Saleh. RECTAL: Deferred. EXTREMITIES: No calf tenderness. NEUROLOGIC: moving all upper and lower extremities equally. Cranial nerves shows a deviation of the mouth to the left side. FINAL DIAGNOSES: 1. Possible Mtz palsy. cannot rule out stroke. 2. Risk factors including diabetes, hypertension, hyperlipidemia. 3. Previous history of stroke. PLAN: At this time, admitted to hospital. Neuro was consulted. MRI of the brain, carotid Doppler, echocardiogram to complete a stroke workup and see how the patient's condition improves. LABORATORY DATA: White count is 5, hemoglobin 13, platelets 108. Chemistry shows sodium 140, potassium 4.1, chloride 104, bicarbonate 27, BUN 11, creatinine 0.6, glucose 326. TSH 0.8. Cholesterol is 188, LDL is 113. Hopefully should be able to go home in 1-2 days. MINDI COLLINS MD DR: SHU/luis miguel JOB#: [id number] / [id number] charmaine LUEVANO DR MTDD
[2017-08-23] MEDS: CEPHALEXIN 250 MG CAPSULE. PO SCH ×3 (13:31→21:13)
[2017-08-23] MEDS: MULTIVITAMIN with MINERAL TABLET. PO SCH (13:32)
[2017-08-23] MEDS: hydroCHLOROthiazide 12.5 MG CAPSULE PO SCH (13:32)
[2017-08-23] MEDS: LOSARTAN POTASSIUM 50 MG TABLET. PO SCH (13:32)
[2017-08-23] MEDS: CHOLECALCIFEROL (VITAMIN D3) 1,000 UNIT TABLET PO SCH (13:32)
[2017-08-23] MEDS: DONEPEZIL HCL 10 MG TABLET. PO SCH (13:33)
[2017-08-23] MEDS: POTASSIUM CHLORIDE 10 MEQ TABLET.ER. PO SCH (13:33)
[2017-08-23] MEDS: amLODIPine BESYLATE 5 MG TABLET PO SCH (13:34)
[2017-08-23] MEDS: ASPIRIN ENTERIC COATED 325 MG TABLET.DR. PO SCH (13:35)
[2017-08-23] MEDS ORDERED: VALA10005 PO (14:27)
[2017-08-23] MEDS ORDERED: METH4TAB2 PO (14:27)
[2017-08-23 14:30] VITALS: BP 191/83
--- NOTE | 2017-08-23 15:57 | RAD ---
Indication: History of hypertension Technique: PA and lateral views of the chest Comparison: Previous study from 05/23/2017 Findings: Heart is normal in size. Aortic knob calcifications noted with ectatic thoracic aorta suggesting systemic hypertension. Lungs are clear. No pneumothorax or pleural effusion. Multilevel degenerative disease noted in the spine. Otherwise, visualized bony thorax is within normal limits. Impression: No acute cardiopulmonary process.
[2017-08-23] MEDS: ACYCLOVIR 200 MG CAPSULE. PO SCH ×2 (17:03→21:14)
--- NOTE | 2017-08-23 17:04 | PDOC2 ---
NEUROLOGY CONSULT Date of Admission Date of Admission DATE: 08/23/17 TIME: 16:45 Reason for Consult Reason for Consult: IMPRESSION: Right side facial drooping x 4 days. 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 DM Hyperglycemia. HTN HLD Obesity. No evidence of acute CVA or brain tumor at the present time. RECOMMENDATIONS/PLAN: Prednisone 40 mg 1st day decrease 5 mg daily until gone, or Medrol Dose Pack if to be discharged. Acyclovir 400 mg tid x 10 days. Continue ASA 325 mg daily. Continue Lipitor HS. Control hyperglycemia. BP control. Treat medical diseases. HISTORY OF THE PRESENT ILLNESS: 72-year-old female patient with above medical diseases developed symptoms of right side facial drooping for 3 days to come to the ER of [facility]. She denied headaches, abnormal sensory symptoms on face, or hearing problems.. No tinnitus. No sensory ot motor deficits this time. 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 PAST MEDICAL HISTORY: Diabetes, hypertension, hyperlipidemia and dementia. PAST SURGICAL HISTORY: he had a benign breast biopsy. FAMILY HISTORY: Diabetes and stroke. SOCIAL HISTORY: No history of smoking, alcohol. Lives with her family, and children. ALLERGIES: NKDA MEDICATIONS: Refer to MAR REVIEW OF SYSTEMS: Constitutional: Obesity. Head: No traumatic brain or head injury. Skin: No edema, or rash. Ear: No infection or tinnitus.. Eyes: No vision loss or color blindness. Nose: No bleeding or purulent discharges. Hearing: No hearing decrease. Neck: No injury. Breast: No history of cancer, masses,or discharges. Cardiac: HTN, HLD. Pulmonary: No OPD. GI: No GI ulcer, GI bleeding. Urinary/genital: UTI. Endocrinologic: Diabetes Mellitus, obesity. Skeletomuscular: No muscular atrophy, deformity. Neurological: see HP. Psychiatric: Denies drug use/abuse. Otherwise, not [id number] review of systems. PHYSICAL EXAMINATION: General appearance is in subacute distress. HEENT: Normocephalic and nontraumatic. Eyes, nose, ears, and throat are unremarkable. Neck is supple. No lymphadenopathy. No crepitus. Cardiovascular: S1, S2, regular rate and rhythm. Pulmonary: Clear to auscultation bilaterally. Abdomen: Bowel sounds are positive. Abdomen is soft, nontender, and nondistended. Extremities: No rash, lesions, or edema. No restriction of range of motion NEUROLOGICAL EXAMINATION: Awake. Oriented to time, place and person. PERRL. EOMI. CN: Right side peripheral VII palsy. Left side old mild central VII palsy. Muscle tone: within normal. Muscle strength: 5- DTR: 1+ Plantar reflex: Neutral response bilaterally Gait: not examined in bed. Sensory exam: no abnormal findings. No cerebellar signs elicited. F-T-N test fine. Current Medications Current Medications Current Medications Ondansetron HCl (Zofran) 4 mg PRN Q8HRS PRN IV NAUSEA/VOMITING; Start at 20:15; Stop 08/23/17 at 20:14 Morphine Sulfate 2 mg PRN Q2HR PRN IV PAIN Last administered on 08/23/17 06: 13; Start 08/22/17 at 20:15; Stop 08/23/17 at 20:14 Sodium Chloride 1,000 ml @ 100 mls/hr Q10H IV Last administered on 08/23/17 06:03; Start 08/22/17 at 20:03; Stop 08/23/17 at 20:02 Amlodipine Besylate (Norvasc) 5 mg DAILY08 PO Last administered on 08/23/17 13:34; Start 08/23/17 at 08:00 Aspirin (Ecotrin) 325 mg DAILYWBKFT PO Last administered on 08/23/17 13:35; Start 08/23/17 at 08:00 Donepezil HCl (Aricept) 10 mg DAILY PO Last administered on 08/23/17 13:33; Start 08/23/17 at 09:00 Insulin Aspart (NovoLOG) 12 units TIDWMEALS SQ Last administered on 08/23/17 13:55; Start 08/23/17 at 08:00 Metformin HCl (Glucophage) 500 mg BIDWMEALS PO ; Start 08/23/17 at 08:00 Vitamin D (Vitamin D3) 1,000 unit DAILY PO Last administered on 08/23/17 13: 32; Start 08/23/17 at 09:00 Cephalexin HCl (Keflex) 500 mg TID PO Last administered on 08/23/17 13:31; Start 08/23/17 at 09:00 Insulin Detemir (Levemir) 15 units DAILY SQ ; Start 08/23/17 at 09:00 Non-Formulary Medication 1 each DAILY08 PO ; Start 08/23/17 at 08:00; Status UNV Potassium Chloride (Klor-Con) 10 meq DAILY08 PO ; Start 08/23/17 at 08:00; Stop 08/23/17 at 10:27; Status DC Atorvastatin Calcium (Lipitor) 5 mg HS PO ; Start 08/23/17 at 21:00 Insulin Aspart (NovoLOG) 0-5 UNITS TIDWMEALS SQ Last administered on 13:55; Start 08/23/17 at 08:00 Dextrose (Dextrose 50%-Water Syringe) 12.5 gm PRN Q15MIN PRN IV SEE COMMENTS; Start 08/22/17 at 22:15 Aspirin (Bo Aspirin) 325 mg 1X ONCE PO Last administered on 08/22/17 22: 34; Start 08/22/17 at 22:15; Stop 08/22/17 at 22:18; Status DC Losartan Potassium (Cozaar) 100 mg DAILY08 PO Last administered on 08/23/17 13:32; Start 08/23/17 at 08:00 Hydrochlorothiazide (Microzide) 12.5 mg DAILY08 PO Last administered on 13:32; Start 08/23/17 at 08:00 Multivitamins (Thera M Plus) 1 tab DAILY PO Last administered on 08/23/17 13: 32; Start 08/23/17 at 09:00 Gadobutrol (Gadavist) 7.5 mmol 1X ONCE IV Last administered on 08/23/17 09: 25; Start 08/23/17 at 09:15; Stop 08/23/17 at 09:16; Status DC Potassium Chloride (Klor-Con) 40 meq 1X ONCE PO Last administered on 13:58; Start 08/23/17 at 11:00; Stop 08/23/17 at 11:01; Status DC Potassium Chloride (Klor-Con) 20 meq 1X ONCE PO ; Start 08/23/17 at 12:30; Stop 08/23/17 at 12:31; Status DC Ondansetron HCl (Zofran) 4 mg PRN Q6HRS PRN IV NAUSEA/VOMITING; Start at 10:30 Potassium Chloride (Klor-Con) 10 meq DAILY08 PO Last administered on t 13:33; Start 08/24/17 at 08:00 Active Scripts Active Valtrex (Valacyclovir Hcl) 1,000 Mg Tablet 1 Tab PO TID Medrol (Methylprednisolone) 4 Mg Tab.ds.pk 1 Pkg PO UD Levemir (Insulin Detemir) 100 Unit/1 Ml Vial 15 Unit SQ DAILY 30 Days Keflex (Cephalexin) 500 Mg Capsule 1 Cap PO TID Novolog Flexpen (Insulin Aspart) 100 Unit/1 Ml Insuln.pen 0 Units SQ TIDACHC Aspirin Ec (Aspirin) 325 Mg Tablet.dr 325 Mg PO DAILYWBKFT Glucophage (Metformin Hcl) 500 Mg Tablet 500 Mg PO BIDWMEALS Reported Tresiba Flextouch U-100 (Insulin Degludec) 100 Unit/1 Ml Insuln.pen 24 Units SUBCUT HS Klor-Con 10 (Potassium Chloride) 10 Meq Tablet.er 10 Meq PO DAILY Donepezil Hcl 10 Mg Tablet 1 Tab PO DAILY Novolog Flexpen (Insulin Aspart) 100 Unit/1 Ml Insuln.pen 12 Unit SQ TIDWMEALS Vitamin D3 1,000 Unit Tablet (Ca Cmb No.1/Vit D3/B-6/Fa/B12) 1 Each Tablet 1 Each PO DAILY Losartan-Hctz 100-12.5 Mg Tab (Losartan/Hydrochlorothiazide) 1 Each Tablet 1 Each PO DAILY08 Pravachol (Pravastatin Sodium) 20 Mg Tablet 20 Mg PO HS Amlodipine Besylate 5 Mg Tablet 5 Mg PO DAILY08 Allergies Allergies: Coded Allergies: No Known Drug Allergies (Unverified , 09/29/13) Vitals VITALS Vital Signs Date Time Temp Pulse Resp B/P (MAP) Pulse Ox O2 Delivery O2 Flow Rate FiO2 08/23/17 13:34 63 183/58 08/23/17 10:30 96.3 20 95 Room Air 96.3 Labs Labs Laboratory Tests Test 08/22/17 19:05 08/22/17 21:03 08/23/17 04:20 08/23/17 07:39 White Blood Count 4.9 x10^3/uL (4.0-11.0) 4.1 x10^3/uL (4.0-11.0) Red Blood Count 4.31 x10^6/uL (3.50-5.40) 4.14 x10^6/uL (3.50-5.40) Hemoglobin 13.6 g/dL (12.0-15.5) 13.1 g/dL (12.0-15.5) Hematocrit 40.8 % (36.0-47.0) 39.0 % (36.0-47.0) Mean Corpuscular Volume 95 fL (79-100) 94 fL (79-100) Mean Corpuscular Hemoglobin 32 pg (25-35) 32 pg (25-35) Mean Corpuscular Hemoglobin Concent 33 g/dL (31-37) 34 g/dL (31-37) Red Cell Distribution Width 14.1 % (11.5-14.5) 13.9 % (11.5-14.5) Platelet Count 108 x10^3/uL (140-400) 87 x10^3/uL (140-400) Neutrophils (%) (Auto) 61 % (31-73) 60 % (31-73) Lymphocytes (%) (Auto) 28 % (24-48) 29 % (24-48) Monocytes (%) (Auto) 8 % (0-9) 8 % (0-9) Eosinophils (%) (Auto) 3 % (0-3) 3 % (0-3) Basophils (%) (Auto) 0 % (0-3) 0 % (0-3) Neutrophils # (Auto) 3.0 x10^3uL (1.8-7.7) 2.5 x10^3uL (1.8-7.7) Lymphocytes # (Auto) 1.4 x10^3/uL (1.0-4.8) 1.2 x10^3/uL (1.0-4.8) Monocytes # (Auto) 0.4 x10^3/uL (0.0-1.1) 0.3 x10^3/uL (0.0-1.1) Eosinophils # (Auto) 0.1 x10^3/uL (0.0-0.7) 0.1 x10^3/uL (0.0-0.7) Basophils # (Auto) 0.0 x10^3/uL (0.0-0.2) 0.0 x10^3/uL (0.0-0.2) Sodium Level 140 mmol/L (136-145) 142 mmol/L (136-145) Potassium Level 4.1 mmol/L (3.5-5.1) 3.2 mmol/L (3.5-5.1) Chloride Level 104 mmol/L (98-107) 108 mmol/L (98-107) Carbon Dioxide Level 27 mmol/L (21-32) 24 mmol/L (21-32) Anion Gap 9 (6-14) 10 (6-14) Blood Urea Nitrogen 11 mg/dL (7-20) 12 mg/dL (7-20) Creatinine 0.6 mg/dL (0.6-1.0) 0.5 mg/dL (0.6-1.0) Estimated GFR (Cockcroft-Gault) 98.3 121.3 Glucose Level 326 mg/dL (70-99) 201 mg/dL (70-99) Calcium Level 8.3 mg/dL (8.5-10.1) 7.8 mg/dL (8.5-10.1) Glucose (Fingerstick) 236 mg/dL (70-99) 201 mg/dL (70-99) Triglycerides Level 110 mg/dL (0-150) Cholesterol Level 188 mg/dL (0-200) LDL Cholesterol, Calculated 113 mg/dL (0-100) VLDL Cholesterol, Calculated 22 mg/dL (0-40) Non-HDL Cholesterol Calculated 135 mg/dL (0-129) HDL Cholesterol 53 mg/dL (40-60) Cholesterol/HDL Ratio 3.5 Thyroid Stimulating Hormone (TSH) 0.810 uIU/mL (0.358-3.74) Test 08/23/17 11:06 08/23/17 16:11 Glucose (Fingerstick) 218 mg/dL (70-99) 329 mg/dL (70-99) Laboratory Tests Test 08/22/17 19:05 08/22/17 21:03 08/23/17 04:20 08/23/17 07:39 White Blood Count 4.9 x10^3/uL (4.0-11.0) 4.1 x10^3/uL (4.0-11.0) Red Blood Count 4.31 x10^6/uL (3.50-5.40) 4.14 x10^6/uL (3.50-5.40) Hemoglobin 13.6 g/dL (12.0-15.5) 13.1 g/dL (12.0-15.5) Hematocrit 40.8 % (36.0-47.0) 39.0 % (36.0-47.0) Mean Corpuscular Volume 95 fL (79-100) 94 fL (79-100) Mean Corpuscular Hemoglobin 32 pg (25-35) 32 pg (25-35) Mean Corpuscular Hemoglobin Concent 33 g/dL (31-37) 34 g/dL (31-37) Red Cell Distribution Width 14.1 % (11.5-14.5) 13.9 % (11.5-14.5) Platelet Count 108 x10^3/uL (140-400) 87 x10^3/uL (140-400) Neutrophils (%) (Auto) 61 % (31-73) 60 % (31-73) Lymphocytes (%) (Auto) 28 % (24-48) 29 % (24-48) Monocytes (%) (Auto) 8 % (0-9) 8 % (0-9) Eosinophils (%) (Auto) 3 % (0-3) 3 % (0-3) Basophils (%) (Auto) 0 % (0-3) 0 % (0-3) Neutrophils # (Auto) 3.0 x10^3uL (1.8-7.7) 2.5 x10^3uL (1.8-7.7) Lymphocytes # (Auto) 1.4 x10^3/uL (1.0-4.8) 1.2 x10^3/uL (1.0-4.8) Monocytes # (Auto) 0.4 x10^3/uL (0.0-1.1) 0.3 x10^3/uL (0.0-1.1) Eosinophils # (Auto) 0.1 x10^3/uL (0.0-0.7) 0.1 x10^3/uL (0.0-0.7) Basophils # (Auto) 0.0 x10^3/uL (0.0-0.2) 0.0 x10^3/uL (0.0-0.2) Sodium Level 140 mmol/L (136-145) 142 mmol/L (136-145) Potassium Level 4.1 mmol/L (3.5-5.1) 3.2 mmol/L (3.5-5.1) Chloride Level 104 mmol/L (98-107) 108 mmol/L (98-107) Carbon Dioxide Level 27 mmol/L (21-32) 24 mmol/L (21-32) Anion Gap 9 (6-14) 10 (6-14) Blood Urea Nitrogen 11 mg/dL (7-20) 12 mg/dL (7-20) Creatinine 0.6 mg/dL (0.6-1.0) 0.5 mg/dL (0.6-1.0) Estimated GFR (Cockcroft-Gault) 98.3 121.3 Glucose Level 326 mg/dL (70-99) 201 mg/dL (70-99) Calcium Level 8.3 mg/dL (8.5-10.1) 7.8 mg/dL (8.5-10.1) Glucose (Fingerstick) 236 mg/dL (70-99) 201 mg/dL (70-99) Triglycerides Level 110 mg/dL (0-150) Cholesterol Level 188 mg/dL (0-200) LDL Cholesterol, Calculated 113 mg/dL (0-100) VLDL Cholesterol, Calculated 22 mg/dL (0-40) Non-HDL Cholesterol Calculated 135 mg/dL (0-129) HDL Cholesterol 53 mg/dL (40-60) Cholesterol/HDL Ratio 3.5 Thyroid Stimulating Hormone (TSH) 0.810 uIU/mL (0.358-3.74) Test 08/23/17 11:06 08/23/17 16:11 Glucose (Fingerstick) 218 mg/dL (70-99) 329 mg/dL (70-99) KEVIN RAMOS MD Aug 23, 2017 17:04
[2017-08-23] MEDS ORDERED: predniSONE 20 MG TABLET PO ONE (17:30)
[2017-08-23 19:00] VITALS: BP 189/66
[2017-08-23] MEDS: ATORVASTATIN CALCIUM 10 MG TABLET. PO SCH (21:13)
[2017-08-23] MEDS ORDERED: INFLUENZA VAX SCREEN BY RX. MC PRN (22:45)
[2017-08-23 23:00] VITALS: BP 158/65
[2017-08-24 03:00] VITALS: BP 162/69
[2017-08-24 05:44] LABS: CALCIUM 8.3 mg/dL (8.5-10.1); CREATININE 0.7 mg/dL (0.6-1.0); GFR 82.3; POTASSIUM 4.2 mmol/L (3.5-5.1)
[2017-08-24 07:00] VITALS: BP 166/72
[2017-08-24] MEDS: predniSONE 10 MG TABLET PO SCH (07:57)
[2017-08-24] MEDS: MULTIVITAMIN with MINERAL TABLET. PO SCH (07:58)
[2017-08-24] MEDS: ASPIRIN ENTERIC COATED 325 MG TABLET.DR. PO SCH (07:58)
[2017-08-24] MEDS: CEPHALEXIN 250 MG CAPSULE. PO SCH (07:58)
[2017-08-24] MEDS: CHOLECALCIFEROL (VITAMIN D3) 1,000 UNIT TABLET PO SCH (07:58)
[2017-08-24] MEDS: ACYCLOVIR 200 MG CAPSULE. PO SCH ×3 (07:59→21:32)
[2017-08-24] MEDS: metFORMIN 500 MG TABLET PO SCH ×2 (07:59→18:32)
[2017-08-24] MEDS: DONEPEZIL HCL 10 MG TABLET. PO SCH (07:59)
[2017-08-24] MEDS: hydroCHLOROthiazide 12.5 MG CAPSULE PO SCH (08:00)
[2017-08-24] MEDS: amLODIPine BESYLATE 5 MG TABLET PO SCH (08:01)
[2017-08-24] MEDS: LOSARTAN POTASSIUM 50 MG TABLET. PO SCH (08:01)
[2017-08-24] MEDS: INSULIN ASPART 300 UNITS/3 ML INSULN.PEN SQ SCH ×7 (08:29→21:00)
[2017-08-24] MEDS ORDERED: FLU VACC QS2017-18 (36MOS+)/PF 0.5 ML SYRINGE. VAX IM ONE (09:00)
[2017-08-24 10:49] VITALS: BP 118/65
[2017-08-24] MEDS: INSULIN DETEMIR 300 UNITS/3 ML INSULN.PEN. SQ SCH (13:12)
--- NOTE | 2017-08-24 14:12 | PDOC ---
PROGRESS NOTES Subjective Subjective feeling better today Objective Objective Vital Signs Date Time Temp Pulse Resp B/P (MAP) Pulse Ox O2 Delivery O2 Flow Rate FiO2 08/24/17 10:49 97.7 57 18 118/65 (82) 97 Room Air 97.7 Intake and Output 08/24/17 07:00 Intake Total 660 ml Balance 660 ml Intake Oral 660 ml # Voids 5 # Bowel Movements 1 Physical Exam Abdomen: Normal bowel sounds, Soft Heart: Regular rate, Normal S1 Extremities: No clubbing General: Oriented X3 HEENT: Atraumatic MUSCULOSKELETAL: No deformity Neck: Supple Neuro: Normal speech Psych/Mental Status: Mental status NL Skin: No breakdown Diagnosis Problem List Problems Medical Problems: (1) Facial droop Status: Acute Assessment Assessment Problems Medical Problems: (1) Facial droop Status: Acute FINAL DIAGNOSES: 1. Mtz palsy. no CVA. 2. Risk factors including diabetes, hypertension, hyperlipidemia. 3. Previous history of stroke. PLAN: acyclovir+prednisone MRI brain -ve for cva carotid -ve echo good lvf. family requesting SNU. social service consult. Problems: Plan Plan of Care Problems Medical Problems: (1) Facial droop Status: Acute Comment Review of Relevant I have reviewed the following items karrie (where applicable) has been applied. Labs Laboratory Tests Test 08/23/17 16:11 08/23/17 20:10 08/24/17 04:30 08/24/17 07:38 Glucose (Fingerstick) 329 mg/dL (70-99) 293 mg/dL (70-99) 249 mg/dL (70-99) Sodium Level 138 mmol/L (136-145) Potassium Level 4.2 mmol/L (3.5-5.1) Chloride Level 104 mmol/L (98-107) Carbon Dioxide Level 24 mmol/L (21-32) Anion Gap 10 (6-14) Blood Urea Nitrogen 14 mg/dL (7-20) Creatinine 0.7 mg/dL (0.6-1.0) Estimated GFR (Cockcroft-Gault) 82.3 Glucose Level 261 mg/dL (70-99) Calcium Level 8.3 mg/dL (8.5-10.1) Test 08/24/17 11:46 Glucose (Fingerstick) 289 mg/dL (70-99) Medications Current Medications Acyclovir (Zovirax) 400 mg [id number] PO Last administered on 08/24/17 07:59; Start 08/23/17 at 17:00 Atorvastatin Calcium (Lipitor) 5 mg HS PO Last administered on 08/23/17 21:13 ; Start 08/23/17 at 21:00 Influenza Virus Vaccine Quadrival (Fluarix Quad [id number] Syringe) 0.5 ml ONCE ONCE VAX IM ; Start 08/24/17 at 09:00; Stop 08/24/17 at 09:01; Status DC Info (Do NOT chart on this placeholder) 1 each PRN 1X PRN MC SEE COMMENTS; Start 08/23/17 at 22:45; Status UNV Insulin Aspart (NovoLOG) 0-5 UNITS QIDACHS SQ Last administered on 08/24/17 13:03; Start 08/23/17 at 22:00 Potassium Chloride (Klor-Con) 10 meq DAILY08 PO Last administered on 13:33; Start 08/24/17 at 08:00 Prednisone (Prednisone) 35 mg Taper DAILY PO Last administered on 08/24/17 07 :57; Start 08/24/17 at 09:00; Stop 08/31/17 at 08:59 Prednisone (Prednisone) 40 mg 1X ONCE PO Last administered on 08/23/17 17:22 ; Start 08/23/17 at 17:30; Stop 08/23/17 at 17:31; Status DC Vitals/I & O Vital Sign - Last 24 Hours 08/23/17 08/23/17 08/23/17 08/23/17 14:30 19:00 20:00 23:00 Temp 96.5 97.5 97.5 96.5 97.5 97.5 Pulse 79 67 72 Resp 20 18 18 B/P (MAP) 191/83 (119) 189/66 (107) 158/65 (96) Pulse Ox 97 96 95 O2 Delivery Room Air Room Air Room Air Room Air 08/24/17 08/24/17 08/24/17 08/24/17 03:00 07:00 08:00 08:01 Temp 97.0 97.6 97.0 97.6 Pulse 73 67 67 Resp 18 20 B/P (MAP) 162/69 (100) 166/72 (103) 166/72 Pulse Ox 95 97 O2 Delivery Room Air Room Air Room Air 08/24/17 08/24/17 08:01 10:49 Temp 97.7 97.7 Pulse 67 57 Resp 18 B/P (MAP) 166/72 118/65 (82) Pulse Ox 97 O2 Delivery Room Air Intake and Output 08/23/17 08/23/17 08/24/17 15:00 23:00 07:00 Intake Total 360 ml 300 ml 0 ml Balance 360 ml 300 ml 0 ml MINDI COLLINS MD Aug 24, 2017 14:12
[2017-08-24 15:00] VITALS: BP 171/70
--- NOTE | 2017-08-24 16:03 | PDOC ---
PROGRESS NOTES Assessment Assessment Right side facial drooping x 4 days. 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 DM Hyperglycemia. HTN HLD Obesity. No evidence of acute CVA or brain tumor at the present time. RECOMMENDATIONS/PLAN: Prednisone 40 mg 1st day on 08/23/17 decrease 5 mg daily until gone, or Medrol Dose Pack if to be discharged. Acyclovir 400 mg tid x 10 days. Continue ASA 325 mg daily. Continue Lipitor HS. Control hyperglycemia. BP control. Treat medical diseases. HISTORY OF THE PRESENT ILLNESS: 72-year-old female patient with above medical diseases developed symptoms of right side facial drooping for 3 days to come to the ER of [facility]. She denied headaches, abnormal sensory symptoms on face, or hearing problems.. No tinnitus. No sensory ot motor deficits this time. 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 PAST MEDICAL HISTORY: Diabetes, hypertension, hyperlipidemia and dementia. PAST SURGICAL HISTORY: he had a benign breast biopsy. FAMILY HISTORY: Diabetes and stroke. SOCIAL HISTORY: No history of smoking, alcohol. Lives with her family, and children. ALLERGIES: NKDA MEDICATIONS: Refer to MAR REVIEW OF SYSTEMS: Constitutional: Obesity. Head: No traumatic brain or head injury. Skin: No edema, or rash. Ear: No infection or tinnitus.. Eyes: No vision loss or color blindness. Nose: No bleeding or purulent discharges. Hearing: No hearing decrease. Neck: No injury. Breast: No history of cancer, masses,or discharges. Cardiac: HTN, HLD. Pulmonary: No OPD. GI: No GI ulcer, GI bleeding. Urinary/genital: UTI. Endocrinologic: Diabetes Mellitus, obesity. Skeletomuscular: No muscular atrophy, deformity. Neurological: see HP. Psychiatric: Denies drug use/abuse. Otherwise, not -ypjso review of systems. PHYSICAL EXAMINATION: General appearance is in subacute distress. HEENT: Normocephalic and nontraumatic. Eyes, nose, ears, and throat are unremarkable. Neck is supple. No lymphadenopathy. No crepitus. Cardiovascular: S1, S2, regular rate and rhythm. Pulmonary: Clear to auscultation bilaterally. Abdomen: Bowel sounds are positive. Abdomen is soft, nontender, and nondistended. Extremities: No rash, lesions, or edema. No restriction of range of motion NEUROLOGICAL EXAMINATION: Awake. Oriented to time, place and person. PERRL. EOMI. CN: Right side peripheral VII palsy. Left side old mild VII palsy, and patient stated from her previous left side Mtz's palsy. Muscle tone: within normal. Muscle strength: 5- DTR: 1+ Plantar reflex: Neutral response bilaterally Gait: not examined in chair. Sensory exam: no abnormal findings. No cerebellar signs elicited. F-T-N test fine. Objective Objective Vital Signs Date Time Temp Pulse Resp B/P (MAP) Pulse Ox O2 Delivery O2 Flow Rate FiO2 08/24/17 15:00 97.8 74 18 171/70 (103) 97 Room Air 97.8 Intake and Output 08/24/17 07:00 Intake Total 660 ml Balance 660 ml Intake Oral 660 ml # Voids 5 # Bowel Movements 1 Vitals Signs Vitals VS - Last 72 Hours, by Label Date Time Temp Pulse Resp B/P (MAP) Pulse Ox O2 Delivery O2 Flow Rate FiO2 08/24/17 15:00 97.8 74 18 171/70 (103) 97 Room Air 97.8 08/24/17 10:49 97.7 57 18 118/65 (82) 97 Room Air 97.7 08/24/17 08:01 67 166/72 08/24/17 08:01 67 166/72 08/24/17 08:00 Room Air 08/24/17 07:00 97.6 67 20 166/72 (103) 97 Room Air 97.6 08/24/17 03:00 97.0 73 18 162/69 (100) 95 Room Air 97.0 08/23/17 23:00 97.5 72 18 158/65 (96) 95 Room Air 97.5 08/23/17 20:00 Room Air 08/23/17 19:00 97.5 67 18 189/66 (107) 96 Room Air 97.5 08/23/17 14:30 96.5 79 20 191/83 (119) 97 Room Air 96.5 08/23/17 13:34 63 183/58 08/23/17 13:32 63 183/58 08/23/17 10:30 96.3 63 20 183/58 (99) 95 Room Air 96.3 08/23/17 08:00 Room Air 08/23/17 07:37 97.9 66 20 153/61 (91) 93 Room Air 97.9 Laboratory Laboratory Laboratory Tests Test 08/23/17 16:11 08/23/17 20:10 08/24/17 04:30 08/24/17 07:38 Glucose (Fingerstick) 329 mg/dL (70-99) 293 mg/dL (70-99) 249 mg/dL (70-99) Sodium Level 138 mmol/L (136-145) Potassium Level 4.2 mmol/L (3.5-5.1) Chloride Level 104 mmol/L (98-107) Carbon Dioxide Level 24 mmol/L (21-32) Anion Gap 10 (6-14) Blood Urea Nitrogen 14 mg/dL (7-20) Creatinine 0.7 mg/dL (0.6-1.0) Estimated GFR (Cockcroft-Gault) 82.3 Glucose Level 261 mg/dL (70-99) Calcium Level 8.3 mg/dL (8.5-10.1) Test 08/24/17 11:46 Glucose (Fingerstick) 289 mg/dL (70-99) Medication Medications Current Medications Acyclovir (Zovirax) 400 mg [id number] PO Last administered on 08/24/17 14:18; Start 08/23/17 at 17:00 Atorvastatin Calcium (Lipitor) 5 mg HS PO Last administered on 08/23/17 21:13 ; Start 08/23/17 at 21:00 Influenza Virus Vaccine Quadrival (Fluarix Quad [id number] Syringe) 0.5 ml ONCE ONCE VAX IM Last administered on 08/24/17 14:23; Start 08/24/17 at 09:00; Stop 08/24/17 at 09:01; Status DC Info (Do NOT chart on this placeholder) 1 each PRN 1X PRN MC SEE COMMENTS; Start 08/23/17 at 22:45; Status UNV Insulin Aspart (NovoLOG) 0-5 UNITS QIDACHS SQ Last administered on 08/24/17 13:03; Start 08/23/17 at 22:00 Potassium Chloride (Klor-Con) 10 meq DAILY08 PO Last administered on 13:33; Start 08/24/17 at 08:00 Prednisone (Prednisone) 35 mg Taper DAILY PO Last administered on 08/24/17 07 :57; Start 08/24/17 at 09:00; Stop 08/31/17 at 08:59 Prednisone (Prednisone) 40 mg 1X ONCE PO Last administered on 08/23/17 17:22 ; Start 08/23/17 at 17:30; Stop 08/23/17 at 17:31; Status DC Comment Review of Relevant I have reviewed the following items karrie (where applicable) has been applied. KEVIN RAMOS MD Aug 24, 2017 16:02
[2017-08-24 19:00] VITALS: BP 148/60
[2017-08-24] MEDS ORDERED: INSULIN ASPART 300 UNITS/3 ML INSULN.PEN SQ ONE (21:00)
[2017-08-24] MEDS: ATORVASTATIN CALCIUM 10 MG TABLET. PO SCH (21:32)
[2017-08-24 23:00] VITALS: BP 144/61
[2017-08-25 02:59] VITALS: BP 146/68
[2017-08-25 07:00] VITALS: BP 167/76
[2017-08-25] MEDS: INSULIN ASPART 300 UNITS/3 ML INSULN.PEN SQ SCH ×4 (07:30→11:40)
[2017-08-25] MEDS: ACYCLOVIR 200 MG CAPSULE. PO SCH (08:26)
[2017-08-25] MEDS: DONEPEZIL HCL 10 MG TABLET. PO SCH (08:27)
[2017-08-25] MEDS: hydroCHLOROthiazide 12.5 MG CAPSULE PO SCH (08:27)
[2017-08-25] MEDS: ASPIRIN ENTERIC COATED 325 MG TABLET.DR. PO SCH (08:27)
[2017-08-25] MEDS: LOSARTAN POTASSIUM 50 MG TABLET. PO SCH (08:27)
[2017-08-25] MEDS: metFORMIN 500 MG TABLET PO SCH (08:27)
[2017-08-25] MEDS: CHOLECALCIFEROL (VITAMIN D3) 1,000 UNIT TABLET PO SCH (08:27)
[2017-08-25] MEDS: MULTIVITAMIN with MINERAL TABLET. PO SCH (08:28)
[2017-08-25] MEDS: amLODIPine BESYLATE 5 MG TABLET PO SCH (08:28)
[2017-08-25] MEDS: POTASSIUM CHLORIDE 10 MEQ TABLET.ER. PO SCH (08:28)
[2017-08-25] MEDS: predniSONE 10 MG TABLET PO SCH (08:29)
[2017-08-25] MEDS ORDERED: INSULIN DETEMIR 300 UNITS/3 ML INSULN.PEN. SQ SCH (09:00)
--- NOTE | 2017-08-25 10:53 | PDOC ---
PROGRESS NOTES Subjective Subjective feels good today Objective Objective Vital Signs Date Time Temp Pulse Resp B/P (MAP) Pulse Ox O2 Delivery O2 Flow Rate FiO2 08/25/17 08:28 57 167/76 08/25/17 08:00 Room Air 08/25/17 07:00 97.7 18 93 97.7 Intake and Output 08/25/17 07:00 Intake Total 90 ml Balance 90 ml Intake Oral 90 ml # Voids 5 Physical Exam Abdomen: Normal bowel sounds, Soft Heart: Regular rate, Normal S1 Extremities: No clubbing General: Oriented X3 HEENT: Atraumatic MUSCULOSKELETAL: No deformity Neck: Supple Neuro: Normal speech Psych/Mental Status: Mental status NL Skin: No breakdown COMMENT rt side facial weakness Diagnosis Problem List Problems Medical Problems: (1) Facial droop Status: Acute Assessment Assessment Problems Medical Problems: (1) Facial droop Status: Acute FINAL DIAGNOSES: 1. Rt Mtz palsy. no CVA. 2. Risk factors including diabetes, hypertension, hyperlipidemia. 3. Previous history of stroke. PLAN: SNU today.[facility] acyclovir+prednisone MRI brain -ve for cva carotid -ve echo good lvf. Problems: Plan Plan of Care Problems Medical Problems: (1) Facial droop Status: Acute Comment Review of Relevant I have reviewed the following items karrie (where applicable) has been applied. Labs Laboratory Tests Test 08/24/17 11:46 08/24/17 16:53 08/24/17 20:21 08/25/17 07:14 Glucose (Fingerstick) 289 mg/dL (70-99) 324 mg/dL (70-99) 377 mg/dL (70-99) 127 mg/dL (70-99) Medications Current Medications Insulin Aspart (NovoLOG) 7 units 1X ONCE SQ Last administered on 08/24/17 21 :38; Start 08/24/17 at 21:00; Stop 08/24/17 at 21:01; Status DC Insulin Aspart (NovoLOG) 15 units TIDWMEALS SQ ; Start 08/25/17 at 08:00 Insulin Detemir (Levemir) 20 units DAILY SQ Last administered on 08/25/17 08: 39; Start 08/25/17 at 09:00 Vitals/I & O Vital Sign - Last 24 Hours 08/24/17 08/24/17 08/24/17 08/24/17 15:00 19:00 20:00 23:00 Temp 97.8 97.9 97.9 97.8 97.9 97.9 Pulse 74 72 69 Resp 18 18 18 B/P (MAP) 171/70 (103) 148/60 (89) 144/61 (88) Pulse Ox 97 98 95 O2 Delivery Room Air Room Air Room Air Room Air 08/25/17 08/25/17 08/25/17 08/25/17 02:59 07:00 08:00 08:27 Temp 97.9 97.7 97.9 97.7 Pulse 72 57 57 Resp 18 18 B/P (MAP) 146/68 (94) 167/76 (106) 167/76 Pulse Ox 94 93 O2 Delivery Room Air Room Air Room Air 08/25/17 08:28 Pulse 57 B/P (MAP) 167/76 Intake and Output 08/24/17 08/24/17 08/25/17 15:00 23:00 07:00 Intake Total 90 ml Balance 90 ml MINDI COLLINS MD Aug 25, 2017 10:53
[2017-08-25 11:00] VITALS: BP 146/54
--- NOTE | 2017-08-25 15:10 | PDOC ---
PROGRESS NOTES Assessment Assessment Right side facial drooping x 4 days. 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 DM Hyperglycemia. HTN HLD Obesity. No evidence of acute CVA or brain tumor at the present time. RECOMMENDATIONS/PLAN: Prednisone 40 mg 1st day on 08/23/17 decrease 5 mg daily until gone. Acyclovir 400 mg tid x 10 days, stated on 08/23/17. Continue ASA 325 mg daily. Continue Lipitor HS. Control hyperglycemia. BP control. Treat medical diseases. HISTORY OF THE PRESENT ILLNESS: 72-year-old female patient with above medical diseases developed symptoms of right side facial drooping for 3 days to come to the ER of [facility]. She denied headaches, abnormal sensory symptoms on face, or hearing problems.. No tinnitus. No sensory ot motor deficits this time. 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 PAST MEDICAL HISTORY: Diabetes, hypertension, hyperlipidemia and dementia. PAST SURGICAL HISTORY: he had a benign breast biopsy. FAMILY HISTORY: Diabetes and stroke. SOCIAL HISTORY: No history of smoking, alcohol. Lives with her family, and children. ALLERGIES: NKDA MEDICATIONS: Refer to MAR REVIEW OF SYSTEMS: Constitutional: Obesity. Head: No traumatic brain or head injury. Skin: No edema, or rash. Ear: No infection or tinnitus.. Eyes: No vision loss or color blindness. Nose: No bleeding or purulent discharges. Hearing: No hearing decrease. Neck: No injury. Breast: No history of cancer, masses,or discharges. Cardiac: HTN, HLD. Pulmonary: No OPD. GI: No GI ulcer, GI bleeding. Urinary/genital: UTI. Endocrinologic: Diabetes Mellitus, obesity. Skeletomuscular: No muscular atrophy, deformity. Neurological: see HP. Psychiatric: Denies drug use/abuse. Otherwise, not [id number] review of systems. PHYSICAL EXAMINATION: General appearance is in subacute distress. HEENT: Normocephalic and nontraumatic. Eyes, nose, ears, and throat are unremarkable. Neck is supple. No lymphadenopathy. No crepitus. Cardiovascular: S1, S2, regular rate and rhythm. Pulmonary: Clear to auscultation bilaterally. Abdomen: Bowel sounds are positive. Abdomen is soft, nontender, and nondistended. Extremities: No rash, lesions, or edema. No restriction of range of motion NEUROLOGICAL EXAMINATION: Awake. Oriented to time, place and person. PERRL. EOMI. CN: Right side peripheral VII palsy. Left side old mild VII palsy, and patient stated from her previous left side Mtz's palsy. Muscle tone: within normal. Muscle strength: 5- DTR: 1+ Plantar reflex: Neutral response bilaterally Gait: not examined in chair. Sensory exam: no abnormal findings. No cerebellar signs elicited. F-T-N test fine. Objective Objective Vital Signs Date Time Temp Pulse Resp B/P (MAP) Pulse Ox O2 Delivery O2 Flow Rate FiO2 08/25/17 11:00 97.9 60 18 146/54 (84) 97 Room Air 97.9 Intake and Output 08/25/17 07:00 Intake Total 90 ml Balance 90 ml Intake Oral 90 ml # Voids 5 Vitals Signs Vitals VS - Last 72 Hours, by Label Date Time Temp Pulse Resp B/P (MAP) Pulse Ox O2 Delivery O2 Flow Rate FiO2 08/25/17 11:00 97.9 60 18 146/54 (84) 97 Room Air 97.9 08/25/17 08:28 57 167/76 08/25/17 08:27 57 167/76 08/25/17 08:00 Room Air 08/25/17 07:00 97.7 57 18 167/76 (106) 93 Room Air 97.7 08/25/17 02:59 97.9 72 18 146/68 (94) 94 Room Air 97.9 08/24/17 23:00 97.9 69 18 144/61 (88) 95 Room Air 97.9 08/24/17 20:00 Room Air 08/24/17 19:00 97.9 72 18 148/60 (89) 98 Room Air 97.9 08/24/17 15:00 97.8 74 18 171/70 (103) 97 Room Air 97.8 08/24/17 10:49 97.7 57 18 118/65 (82) 97 Room Air 97.7 08/24/17 08:01 67 166/72 08/24/17 08:01 67 166/72 08/24/17 08:00 Room Air 08/24/17 07:00 97.6 67 20 166/72 (103) 97 Room Air 97.6 Laboratory Laboratory Laboratory Tests Test 08/24/17 16:53 08/24/17 20:21 08/25/17 07:14 08/25/17 11:03 Glucose (Fingerstick) 324 mg/dL (70-99) 377 mg/dL (70-99) 127 mg/dL (70-99) 316 mg/dL (70-99) Medication Medications Current Medications Insulin Aspart (NovoLOG) 7 units 1X ONCE SQ Last administered on 08/24/17 21 :38; Start 08/24/17 at 21:00; Stop 08/24/17 at 21:01; Status DC Insulin Aspart (NovoLOG) 15 units TIDWMEALS SQ Last administered on 08/25/17 11:40; Start 08/25/17 at 08:00 Insulin Detemir (Levemir) 20 units DAILY SQ Last administered on 08/25/17 08: 39; Start 08/25/17 at 09:00 Comment Review of Relevant I have reviewed the following items karrie (where applicable) has been applied. KEVIN RAMOS MD Aug 25, 2017 15:09
== END 2017-08-25 13:15 | DRG 74 ==
LOC: ER 18:28 → 5 NORTH 20:03
PROVIDERS: ADMIT Internal Medicine; ATTEND Internal Medicine
DX: G51.0 Bell's palsy (principal); E11.65 Type 2 diabetes mellitus with hyperglycemia; F03.90 Unspecified dementia, unspecified severity, without behavioral disturbance, psychotic disturbance, mood disturbance, and anxiety; E66.9 Obesity, unspecified; Z68.30 Body mass index [BMI] 30.0-30.9, adult; E78.00 Pure hypercholesterolemia, unspecified; E78.5 Hyperlipidemia, unspecified; I10 Essential (primary) hypertension; Z82.3 Family history of stroke; Z82.49 Family history of ischemic heart disease and other diseases of the circulatory system; Z83.3 Family history of diabetes mellitus; Z86.73 Personal history of transient ischemic attack (TIA), and cerebral infarction without residual deficits
CPT/HCPCS: 36415; 70450; 70553; 71020; 80048; 80061; 82306; 82607; 82962; 83036; 84443; 85025; 90686; 93005; 93306; 93880; A9585; J1815; J2270; J7030; J7512; 92610; 97110; 97116; 97530; 97535

== ENCOUNTER → 2017-09-28 | Outpatient (CLI) | payer MEDICARE, OTHER | END | disposition home or self-care (01) | LOC: RT 10:07 | DX: R41.3 Other amnesia (principal) | CPT/HCPCS: 95816 ==

== ENCOUNTER → 2018-01-07 | Outpatient (CLI) | payer MEDICARE, OTHER | END | disposition home or self-care (01) | LOC: KCIC MAMMO 10:57 | DX: Z12.31 Encounter for screening mammogram for malignant neoplasm of breast (principal); I10 Essential (primary) hypertension; E11.9 Type 2 diabetes mellitus without complications; E78.5 Hyperlipidemia, unspecified; E78.00 Pure hypercholesterolemia, unspecified | CPT/HCPCS: 77067 ==

== ENCOUNTER 2019-10-16 21:25 | Inpatient (IN) | payer MEDICARE, OTHER ==
[~2019-10-16] VITALS: Ht 167.6 cm; Wt 80.0 kg
[~2019-10-16 21:25] MED LIST changes: +AMLO5TAB10 PO; -AMLO5TAB2 PO; +DONE10TA7 PO; +INSU100I30 SUBCUT; +METF500T16 PO; -METF500T4 PO; +METH4TAB2 PO; +POTA10TA12 PO; +VALA10005 PO
[2019-10-16 22:00] LABS: BASO % 0 % (0-3); EOS % 0 % (0-3); HEMATOCRIT 46.7 % (36.0-47.0); HEMOGLOBIN 14.9 g/dL (12.0-15.5); LYMPH # 1.1 x10^3/uL (1.0-4.8); LYMPH % 10 % (24-48); MEAN CORPUSCULAR HEMOGLOBIN 31 pg (25-35); MEAN CORPUSCULAR HGB CONC 32 g/dL (31-37); MEAN CORPUSCULAR VOLUME 98 fL (79-100); MONO # 0.4 x10^3/uL (0.0-1.1); MONO % 3 % (0-9); NEUT # 9.7 x10^3/uL (1.8-7.7); NEUT % 87 % (31-73); PLATELET COUNT 95 x10^3/uL (140-400); RED BLOOD COUNT 4.76 x10^6/uL (3.50-5.40); RED CELL DISTRIBUTION WIDTH 18.5 % (11.5-14.5); WHITE BLOOD COUNT 11.2 x10^3/uL (4.0-11.0)
[2019-10-16 22:01] LABS: BILIRUBIN,URINE LARGE (NEG); CLARITY,URINE CLEAR; COLOR,URINE ORANGE; NITRITE,URINE POSITIVE (NEG); PROTEIN,URINE 30 mg/dL (NEG-TRACE)
[2019-10-16 22:09] LABS: BACTERIA,URINE MANY /HPF (0-FEW); RBC,URINE 0 /HPF (0-2); SQUAMOUS EPITHELIAL CELL,UR OCC /LPF
[2019-10-16 22:20] LABS: ALBUMIN 2.5 g/dL (3.4-5.0); ALBUMIN/GLOBULIN RATIO 0.6 (1.0-1.7); CALCIUM 8.9 mg/dL (8.5-10.1); CREATININE 2.6 mg/dL (0.6-1.0); MAGNESIUM 2.8 mg/dL (1.8-2.4); TOTAL BILIRUBIN 6.4 mg/dL (0.2-1.0)
--- NOTE | 2019-10-16 22:36 | RAD ---
Exam: CT head INDICATION: Dizziness TECHNIQUE: Sequential axial images through the head were obtained without the administration of IV contrast. Comparisons: 08/22/2017 FINDINGS: No focal parenchymal lesion or hemorrhage is identified. There is no midline shift or sulcal effacement. Patchy hypodensity in the periventricular white matter, similar when compared to the prior study.. No acute vascular territory infarction is identified. Antonio-white distinction is preserved. The ventricular system is within normal limits without compression hydrocephalus. The basal cisterns are well maintained. The visualized portions of the paranasal sinuses and mastoid air cells are well-pneumatized. No acute fractures. IMPRESSION: Chronic ischemic change without acute intracranial abnormality. Exposure: One or more of the following in the visualized dose reduction techniques were utilized for this examination: 1. Automated exposure control 2. Adjustment of the MA and/or KV according to patient size Use of iterative of reconstructive technique Electronically signed by: Joseph Chacon MD (10/16/2019 10:33 PM) [id number]
[2019-10-16 22:47] LABS: % MONOS 3 % (0-10)
[2019-10-16 22:48] LABS: % LYMPHS 8 % (24-48); % SEGS 89 % (35-66); PLT ESTIMATE ADEQUATE (ADEQUATE)
[2019-10-16 22:49] LABS: ANISOCYTOSIS SLIGHT; TEAR DROP CELLS OCC
[2019-10-16] MEDS ORDERED: POTASSIUM CL 20MEQ D5-0.45NACL 1,000 ML IV ONE (23:30)
[2019-10-16] MEDS ORDERED: cefTRIAXone IV Push 1 GM VIAL. IVP ONE (23:45)
[2019-10-17] VITALS (16 sets, daily range): BP systolic 87–122; BP diastolic 42–65
--- NOTE | 2019-10-17 00:04 | RAD ---
Study: CHEST AP ONLY Indication: Chest pain. Comparison: 08/23/2017 Findings: Unchanged cardiomediastinal silhouette and beck. Aortic atherosclerotic calcifications. No pneumothorax, lobar infiltrate or pleural effusion. Scattered chronic osseous findings. Impression: No acute radiographic abnormality of the chest. Electronically signed by: YOCASTA ALVARADO MD (10/17/2019 12:00 AM) [id number]
--- NOTE | 2019-10-17 02:26 | PHYS DOC ---
Past Medical History Past Medical History: Dementia, Diabetes-Type II, High Cholesterol, Hypertension, Other Additional Past Medical Histor: ALZHEIMER'S Past Surgical History: No Surgical History Smoking Status: Never Smoker Alcohol Use: None Drug Use: None Adult General Chief Complaint Chief Complaint: DIZZY/LIGHT HEADED HPI HPI Patient is a 74 year old nonverbal female with history of advanced Alzheimer's who presents with creased weakness or the past several days. Patient is currently cared for by her son at home. Patient is nonverbal for the past several weeks. She is unable to feed herself rise and family members to provide her shakes. Additional daughters at times he will chew food forget to swallow. There is no report of falls or injury. No knee changes in medications or recent illnesses. History limited based upon the daily the patient's condition[] Review of Systems Review of Systems ROS limited All other systems were reviewed and found to be within normal limits, except as documented in this note. Current Medications Current Medications Current Medications Medications (Trade) Dose Ordered Sig/Eric Start Time Stop Time Status Last Admin Dose Admin Potassium Chloride/Dextrose/ Sod Cl 1,000 ml @ 75 mls/hr 1X ONCE 10/16/19 23:30 10/17/19 12:49 10/17/19 00:40 75 MLS/HR Allergies Allergies Allergies Coded Allergies Type Severity Reaction Last Updated Verified No Known Drug Allergies 09/29/13 No Physical Exam Physical Exam Constitutional: Elderly does not follow commands. [] HENT: Normocephalic, atraumatic, bilateral external ears normal, oropharynx, dry mucous membranes. Nose normal. [] Eyes: PERRLA, EOMI, conjunctiva, icterus. [] Neck: Normal range of motion, no tenderness, supple. [] Cardiovascular:Heart rate regular rhythm, no murmur [] Lungs & Thorax: Bilateral breath sounds clear to auscultation [] Abdomen: Bowel sounds normal, soft, no tenderness,s. [] Skin: Warm, dry, no erythema, no rash. [] Back: No tenderness,. [] Extremities: No tenderness, . [] Neurologic: Alert and nonverbal, does not follow commands. [] [] Current Patient Data Vital Signs Vital Signs Date Time Temp Pulse Resp B/P (MAP) Pulse Ox O2 Delivery O2 Flow Rate FiO2 10/16/19 21:25 98.2 95 20 116/59 (78) 97 Room Air 98.2 Lab Values Laboratory Tests Test 10/16/19 20:43 10/16/19 21:30 Urine Collection Type U cath Urine Color [place] Urine Clarity Clear Urine pH 5.0 Urine Specific [place] 1.020 Urine Protein 30 mg/dL (NEG-TRACE) Urine Glucose (UA) Negative mg/dL (NEG) Urine Ketones (Stick) 15 mg/dL (NEG) Urine Blood Negative (NEG) Urine Nitrite Positive (NEG) Urine Bilirubin Large (NEG) Urine Urobilinogen Dipstick 4.0 mg/dL (0.2 mg/dL) Urine Leukocyte Esterase Moderate (NEG) Urine RBC 0 /HPF (0-2) Urine WBC 5-10 /HPF (0-4) Urine Squamous Epithelial Cells Occ /LPF Urine Bacteria Many /HPF (0-FEW) Urine Mucus Slight /LPF White Blood Count 11.2 x10^3/uL (4.0-11.0) H Red Blood Count 4.76 x10^6/uL (3.50-5.40) Hemoglobin 14.9 g/dL (12.0-15.5) Hematocrit 46.7 % (36.0-47.0) Mean Corpuscular Volume 98 fL (79-100) Mean Corpuscular Hemoglobin 31 pg (25-35) Mean Corpuscular Hemoglobin Concent 32 g/dL (31-37) Red Cell Distribution Width 18.5 % (11.5-14.5) H Platelet Count 95 x10^3/uL (140-400) L Neutrophils (%) (Auto) 87 % (31-73) H Lymphocytes (%) (Auto) 10 % (24-48) L Monocytes (%) (Auto) 3 % (0-9) Eosinophils (%) (Auto) 0 % (0-3) Basophils (%) (Auto) 0 % (0-3) Neutrophils # (Auto) 9.7 x10^3/uL (1.8-7.7) H Lymphocytes # (Auto) 1.1 x10^3/uL (1.0-4.8) Monocytes # (Auto) 0.4 x10^3/uL (0.0-1.1) Eosinophils # (Auto) 0.0 x10^3/uL (0.0-0.7) Basophils # (Auto) 0.0 x10^3/uL (0.0-0.2) Segmented Neutrophils % 89 % (35-66) H Lymphocytes % 8 % (24-48) L Monocytes % 3 % (0-10) Platelet Estimate Adequate (ADEQUATE) Anisocytosis Slight Tear Drop Cells Occ Sodium Level 170 mmol/L (136-145) *H Potassium Level 4.0 mmol/L (3.5-5.1) Chloride Level 130 mmol/L (98-107) H Carbon Dioxide Level 23 mmol/L (21-32) Anion Gap 17 (6-14) H Blood Urea Nitrogen 66 mg/dL (7-20) H Creatinine 2.6 mg/dL (0.6-1.0) H Estimated GFR (Cockcroft-Gault) 18.0 BUN/Creatinine Ratio 25 (6-20) H Glucose Level 162 mg/dL (70-99) H Calcium Level 8.9 mg/dL (8.5-10.1) Magnesium Level 2.8 mg/dL (1.8-2.4) H Total Bilirubin 6.4 mg/dL (0.2-1.0) H Aspartate Amino Transferase (AST) 57 U/L (15-37) H Alanine Aminotransferase (ALT) 25 U/L (14-59) Alkaline Phosphatase 87 U/L (46-116) Troponin I Quantitative 0.109 ng/mL (0.000-0.055) Total Protein 7.0 g/dL (6.4-8.2) Albumin 2.5 g/dL (3.4-5.0) L Albumin/Globulin Ratio 0.6 (1.0-1.7) L Thyroid Stimulating Hormone (TSH) 0.331 uIU/mL (0.358-3.74) L Laboratory Tests 10/16/19 21:30 Laboratory Tests 10/16/19 21:30 EKG EKG [EKG: Reviewed] Radiology/Procedures Radiology/Procedures [CT head: Reviewed Chest x-ray: Reviewed] Course & Med Decision Making Course & Med Decision Making Pertinent Labs and Imaging studies reviewed. (See chart for details) [Limited evaluation due to patient logic status. Labs, imaging reviewed. Electrolyte abnormalities and fluid replacement discussed with Dr. Bailey iron molder helper for nephrology. ] Dragon Disclaimer Dragon Disclaimer This electronic medical record was generated, in whole or in part, using a voice recognition dictation system. Departure Departure Impression: Primary Impression: Hypernatremia Additional Impression: Mental status alteration Disposition: ADMITTED INPATIENT Condition: GUARDED Referrals: WILLIAN LUEVANO (PCP) Problem Qualifiers ANNA OKEEFE DO Oct 17, 2019 02:26
[2019-10-17] MEDS ORDERED: ONDANSETRON PF 4 MG/2 ML VIAL. IV PRN ×2 (02:30→12:30)
--- NOTE | 2019-10-17 04:49 | EKG ---
[facility] [address] [place] [address] Test Date: 2019-10-16 Test Time: 21:33:39 Pat Name: DAWIT PAK Department: Room: ED HOLD 12 Gender: F Occupational Safety And Health Manager: : 1945 Requested By: ANNA OKEEFE Order Number: [id number] Reading MD: Measurements Intervals Spiro Rate: 96 P: 7 AL: 134 QRS: 24 QRSD: 84 T: 48 QT: 392 QTc: 496 Interpretive Statements SINUS RHYTHM PROLONGED QT NO SPECIFIC ECG ABNORMALITIES RI6.01 No previous ECG available for comparison
--- NOTE | 2019-10-17 10:34 | PDOC1 ---
History and Physical Date of Admission Date of Admission DATE: 10/17/19 TIME: 10:34 Identification/Chief Complaint Chief Complaint seen in er , 74 year old nonverbal female with history of advanced Alzheimer's who presents with creased weakness or the past several days. Patient is currently cared for by her son at home. Patient is nonverbal for the past several weeks. She is unable to feed herself rise and family members to provide her shakes. daughter at times states she will chew food forget to swallow. no report of falls or injury. No new changes in medications or recent illnesses. Past Medical History Past Medical History Past Medical History Past Medical History: Dementia, Diabetes-Type II, High Cholesterol, Hypertension, Other Additional Past Medical Histor: ALZHEIMER'S Past Surgical History: No Surgical History Smoking Status: Never Smoker Alcohol Use: None Drug Use: None fhx htn Cardiovascular: HTN, Hyperlipidemia Pulmonary: Other CENTRAL NERVOUS SYSTEM: Other GI: Other Endocrine: Diabetes Past Surgical History Past Surgical History: Other Family History Family History: Hypertension Social History Smoke: No ALCOHOL: none Drugs: None Current Problem List Problem List Problems Medical Problems: (1) Mental status alteration Status: Acute Current Medications Current Medications Current Medications Potassium Chloride/Dextrose/ Sod Cl 1,000 ml @ 75 mls/hr 1X ONCE IV Last administered on 10/17/19at 00:40; Start 10/16/19 at 23:30; Stop 10/17/19 at 12:49 Ceftriaxone Sodium (Rocephin) 1 gm 1X ONCE IVP Last administered on 10/17/19at 00:42; Start 10/16/19 at 23:45; Stop 10/16/19 at 23:46; Status DC Ondansetron HCl (Zofran) 4 mg PRN Q8HRS PRN IV NAUSEA/VOMITING; Start 10/17/19 at 02:30; Stop 10/18/19 at 02:29 Active Scripts Active Valtrex (Valacyclovir Hcl) 1,000 Mg Tablet 1 Tab PO TID Medrol (Methylprednisolone) 4 Mg Tab.ds.pk 1 Pkg PO UD Levemir (Insulin Detemir) 100 Unit/1 Ml Vial 15 Unit SQ DAILY 30 Days Keflex (Cephalexin) 500 Mg Capsule 1 Cap PO TID Novolog Flexpen (Insulin Aspart) 100 Unit/1 Ml Insuln.pen 0 Units SQ TIDACHC Aspirin Ec (Aspirin) 325 Mg Tablet.dr 325 Mg PO DAILYWBKFT Glucophage (Metformin Hcl) 500 Mg Tablet 500 Mg PO BIDWMEALS Reported Tresiba Flextouch U-100 (Insulin Degludec) 100 Unit/1 Ml Insuln.pen 24 Units SUBCUT HS Klor-Con 10 (Potassium Chloride) 10 Meq Tablet.er 10 Meq PO DAILY Donepezil Hcl 10 Mg Tablet 1 Tab PO DAILY Novolog Flexpen (Insulin Aspart) 100 Unit/1 Ml Insuln.pen 12 Unit SQ TIDWMEALS Vitamin D3 1,000 Unit Tablet (Ca Cmb No.1/Vit D3/B-6/Fa/B12) 1 Each Tablet 1 Each PO DAILY Losartan-Hctz 100-12.5 Mg Tab (Losartan/Hydrochlorothiazide) 1 Each Tablet 1 Each PO DAILY08 Pravachol (Pravastatin Sodium) 20 Mg Tablet 20 Mg PO HS Amlodipine Besylate 5 Mg Tablet 5 Mg PO DAILY08 Allergies Allergies: Coded Allergies: No Known Drug Allergies (Unverified , 09/29/13) ROS Review of System Review of Systems ROS limited 14 pt systems were reviewed and found to be within normal limits, except as documented General: YES: Fatigue PSYCHOLOGICAL ROS: YES: Concentration difficultie, Disorientation ALLERGY AND IMMUNOLOGY: No: Hives, Insect Bite Sensitivity, Itchy/Watery Eyes, Nasal Congestion, Post Nasal Drip, Seasonal Allergies, Other Hematological and Lymphatic: No: Bleeding Problems, Blood Clots, Blood Transfusions, Brusing, Night Sweats, Pallor, Swollen Lymph Nodes, Other Respiratory: No: Cough, Hemoptysis, Orthopnea, Pleuritic Pain, Shortness of breath, SOB with excertion, Sputum Changes, Stridor, Tachypnea, Wheezing, Other Musculoskeletal: Yes Gait Disturbance, Yes Joint Stiffness Neurological: Yes Confusion, Yes Memory Loss Physical Exam Physical Exam Constitutional: Elderly does not follow commands. [] HENT: Normocephalic, atraumatic, bilateral external ears normal, oropharynx, dry mucous membranes. Nose normal. [] Eyes: PERRLA, EOMI, conjunctiva, icterus. [] Neck: Normal range of motion, no tenderness, supple. [] Cardiovascular:Heart rate regular rhythm, no murmur [] Lungs & Thorax: Bilateral breath sounds clear to auscultation [] Abdomen: Bowel sounds normal, soft, no tenderness,s. [] Skin: Warm, dry, no erythema, no rash. [] Back: No tenderness,. [] Extremities: No tenderness, . [] Neurologic: Alert and nonverbal, does not follow commands. General: Cooperative HEENT: Atraumatic Lungs: Normal air movement Heart: RRR Breasts: Not examined Abdomen: Soft Rectal Exam: not examined Extremities: No cyanosis Neuro: Cranial nerves 3-12 NL Vitals Vitals Vital Signs Date Time Temp Pulse Resp B/P (MAP) Pulse Ox O2 Delivery O2 Flow Rate FiO2 10/17/19 08:00 97.5 80 16 122/65 (84) 97 Room Air 97.5 Labs Labs Laboratory Tests Test 10/16/19 20:43 10/16/19 21:30 10/16/19 21:35 Urine Collection Type U cath Urine Color [place] Urine Clarity Clear Urine pH 5.0 Urine Specific [place] 1.020 Urine Protein 30 mg/dL (NEG-TRACE) Urine Glucose (UA) Negative mg/dL (NEG) Urine Ketones (Stick) 15 mg/dL (NEG) Urine Blood Negative (NEG) Urine Nitrite Positive (NEG) Urine Bilirubin Large (NEG) Urine Urobilinogen Dipstick 4.0 mg/dL (0.2 mg/dL) Urine Leukocyte Esterase Moderate (NEG) Urine RBC 0 /HPF (0-2) Urine WBC 5-10 /HPF (0-4) Urine Squamous Epithelial Cells Occ /LPF Urine Bacteria Many /HPF (0-FEW) Urine Mucus Slight /LPF White Blood Count 11.2 x10^3/uL (4.0-11.0) Red Blood Count 4.76 x10^6/uL (3.50-5.40) Hemoglobin 14.9 g/dL (12.0-15.5) Hematocrit 46.7 % (36.0-47.0) Mean Corpuscular Volume 98 fL (79-100) Mean Corpuscular Hemoglobin 31 pg (25-35) Mean Corpuscular Hemoglobin Concent 32 g/dL (31-37) Red Cell Distribution Width 18.5 % (11.5-14.5) Platelet Count 95 x10^3/uL (140-400) Neutrophils (%) (Auto) 87 % (31-73) Lymphocytes (%) (Auto) 10 % (24-48) Monocytes (%) (Auto) 3 % (0-9) Eosinophils (%) (Auto) 0 % (0-3) Basophils (%) (Auto) 0 % (0-3) Neutrophils # (Auto) 9.7 x10^3/uL (1.8-7.7) Lymphocytes # (Auto) 1.1 x10^3/uL (1.0-4.8) Monocytes # (Auto) 0.4 x10^3/uL (0.0-1.1) Eosinophils # (Auto) 0.0 x10^3/uL (0.0-0.7) Basophils # (Auto) 0.0 x10^3/uL (0.0-0.2) Segmented Neutrophils % 89 % (35-66) Lymphocytes % 8 % (24-48) Monocytes % 3 % (0-10) Platelet Estimate Adequate (ADEQUATE) Anisocytosis Slight Tear Drop Cells Occ Sodium Level 170 mmol/L (136-145) Potassium Level 4.0 mmol/L (3.5-5.1) Chloride Level 130 mmol/L (98-107) Carbon Dioxide Level 23 mmol/L (21-32) Anion Gap 17 (6-14) Blood Urea Nitrogen 66 mg/dL (7-20) Creatinine 2.6 mg/dL (0.6-1.0) Estimated GFR (Cockcroft-Gault) 18.0 BUN/Creatinine Ratio 25 (6-20) Glucose Level 162 mg/dL (70-99) Calcium Level 8.9 mg/dL (8.5-10.1) Magnesium Level 2.8 mg/dL (1.8-2.4) Total Bilirubin 6.4 mg/dL (0.2-1.0) Aspartate Amino Transf (AST/SGOT) 57 U/L (15-37) Alanine Aminotransferase (ALT/SGPT) 25 U/L (14-59) Alkaline Phosphatase 87 U/L (46-116) Troponin I Quantitative 0.109 ng/mL (0.000-0.055) Total Protein 7.0 g/dL (6.4-8.2) Albumin 2.5 g/dL (3.4-5.0) Albumin/Globulin Ratio 0.6 (1.0-1.7) Thyroid Stimulating Hormone (TSH) 0.331 uIU/mL (0.358-3.74) Glucose (Fingerstick) 163 mg/dL (70-99) Laboratory Tests Test 10/16/19 20:43 10/16/19 21:30 10/16/19 21:35 Urine Collection Type U cath Urine Color [place] Urine Clarity Clear Urine pH 5.0 Urine Specific [place] 1.020 Urine Protein 30 mg/dL (NEG-TRACE) Urine Glucose (UA) Negative mg/dL (NEG) Urine Ketones (Stick) 15 mg/dL (NEG) Urine Blood Negative (NEG) Urine Nitrite Positive (NEG) Urine Bilirubin Large (NEG) Urine Urobilinogen Dipstick 4.0 mg/dL (0.2 mg/dL) Urine Leukocyte Esterase Moderate (NEG) Urine RBC 0 /HPF (0-2) Urine WBC 5-10 /HPF (0-4) Urine Squamous Epithelial Cells Occ /LPF Urine Bacteria Many /HPF (0-FEW) Urine Mucus Slight /LPF White Blood Count 11.2 x10^3/uL (4.0-11.0) Red Blood Count 4.76 x10^6/uL (3.50-5.40) Hemoglobin 14.9 g/dL (12.0-15.5) Hematocrit 46.7 % (36.0-47.0) Mean Corpuscular Volume 98 fL (79-100) Mean Corpuscular Hemoglobin 31 pg (25-35) Mean Corpuscular Hemoglobin Concent 32 g/dL (31-37) Red Cell Distribution Width 18.5 % (11.5-14.5) Platelet Count 95 x10^3/uL (140-400) Neutrophils (%) (Auto) 87 % (31-73) Lymphocytes (%) (Auto) 10 % (24-48) Monocytes (%) (Auto) 3 % (0-9) Eosinophils (%) (Auto) 0 % (0-3) Basophils (%) (Auto) 0 % (0-3) Neutrophils # (Auto) 9.7 x10^3/uL (1.8-7.7) Lymphocytes # (Auto) 1.1 x10^3/uL (1.0-4.8) Monocytes # (Auto) 0.4 x10^3/uL (0.0-1.1) Eosinophils # (Auto) 0.0 x10^3/uL (0.0-0.7) Basophils # (Auto) 0.0 x10^3/uL (0.0-0.2) Segmented Neutrophils % 89 % (35-66) Lymphocytes % 8 % (24-48) Monocytes % 3 % (0-10) Platelet Estimate Adequate (ADEQUATE) Anisocytosis Slight Tear Drop Cells Occ Sodium Level 170 mmol/L (136-145) Potassium Level 4.0 mmol/L (3.5-5.1) Chloride Level 130 mmol/L (98-107) Carbon Dioxide Level 23 mmol/L (21-32) Anion Gap 17 (6-14) Blood Urea Nitrogen 66 mg/dL (7-20) Creatinine 2.6 mg/dL (0.6-1.0) Estimated GFR (Cockcroft-Gault) 18.0 BUN/Creatinine Ratio 25 (6-20) Glucose Level 162 mg/dL (70-99) Calcium Level 8.9 mg/dL (8.5-10.1) Magnesium Level 2.8 mg/dL (1.8-2.4) Total Bilirubin 6.4 mg/dL (0.2-1.0) Aspartate Amino Transf (AST/SGOT) 57 U/L (15-37) Alanine Aminotransferase (ALT/SGPT) 25 U/L (14-59) Alkaline Phosphatase 87 U/L (46-116) Troponin I Quantitative 0.109 ng/mL (0.000-0.055) Total Protein 7.0 g/dL (6.4-8.2) Albumin 2.5 g/dL (3.4-5.0) Albumin/Globulin Ratio 0.6 (1.0-1.7) Thyroid Stimulating Hormone (TSH) 0.331 uIU/mL (0.358-3.74) Glucose (Fingerstick) 163 mg/dL (70-99) Images Images Exam: CT head INDICATION: Dizziness TECHNIQUE: Sequential axial images through the head were obtained without the administration of IV contrast. Comparisons: 08/22/2017 FINDINGS: No focal parenchymal lesion or hemorrhage is identified. There is no midline shift or sulcal effacement. Patchy hypodensity in the periventricular white matter, similar when compared to the prior study.. No acute vascular territory infarction is identified. Antonio-white distinction is preserved. The ventricular system is within normal limits without compression hydrocephalus. The basal cisterns are well maintained. The visualized portions of the paranasal sinuses and mastoid air cells are well-pneumatized. No acute fractures. IMPRESSION: Chronic ischemic change without acute intracranial abnormality. Exposure: One or more of the following in the visualized dose reduction techniques were utilized for this examination: 1. Automated exposure control 2. Adjustment of the MA and/or KV according to patient size Use of iterative of reconstructive technique Electronically signed by: Maira Silverman MD (10/16/2019 10:33 PM) [id number] DICTATED and SIGNED BY: MAIRA SILVERMAN MD DATE: 10/16/19 2233 VTE Prophylaxis Ordered VTE Prophylaxis Devices: Yes VTE Pharmacological Prophylaxi: Yes Assessment/Plan Assessment/Plan Impression: Hypernatremia acute renal failure dehydration Mental status alteration advanced dementia dysphagia UTI ELEVATED TROPONIN I ADMITTED plan ICU BED iv fluid support abd sono GI CONSULT Nephrology consult pt/ot/ ST emperic iv antibiotics , ROCEPHIN frequent labs ID CONSULT dvt prophylaxis neurology consult 35 MIN CC TIME SELINA DAVIDSON MD Oct 17, 2019 10:34
--- NOTE | 2019-10-17 10:57 | PDOC2 ---
CONSULT Date of Consult Date of Consult DATE: 10/17/19 TIME: 10:51 Reason for Consult Reason for Consult: CATARINO AND HIGH NA Referring Physician Referring Physician: STUART Identification/Chief Complaint Chief Complaint CONFUSED AND NOT EATING Source Source: Caregiver, Chart review History of Present Illness Reason for Visit: THIS IS A 74 YR OLD WITH ADVANCED DEMENTIA. HAS CARE AT HOME BY HER SON. NOT EATING FOR SEVERAL DAYS. NOTED TO HAVE PROGRESSIVE CONFUSION AND WEAKNESS PER DAUGHTER. CT HEAD NEG FOR ACUTE CHANGES. NO CKD REPORTED. PER DAUGHTER SHE HAS HX OF FATTY LIVER. LABS NOTABLE FOR LIVER FAILURE AND CATARINO AND HIGH NA. NO NEPHROTOXINS NOTED. NO OTHER HX PER FAMILY. BELOW IS ER NOTE THAT WAS REVIEWED WELL Patient is a 74 year old nonverbal female with history of advanced Alzheimer's who presents with creased weakness or the past several days. Patient is currently cared for by her son at home. Patient is nonverbal for the past several weeks. She is unable to feed herself rise and family members to provide her shakes. Additional daughters at times he will chew food forget to swallow. There is no report of falls or injury. No knee changes in medications or recent illnesses. History limited based upon the daily the patient's condition[] Past Medical History Cardiovascular: HTN, Hyperlipidemia Pulmonary: Other CENTRAL NERVOUS SYSTEM: Other GI: Other Renal/: No pertinent hx Endocrine: Diabetes Past Surgical History Past Surgical History: Other Current Problem List Problem List Problems Medical Problems: (1) Mental status alteration Status: Acute Current Medications Current Medications Current Medications Potassium Chloride/Dextrose/ Sod Cl 1,000 ml @ 75 mls/hr 1X ONCE IV Last administered on 10/17/19at 00:40; Start 10/16/19 at 23:30; Stop 10/17/19 at 12:49 Ceftriaxone Sodium (Rocephin) 1 gm 1X ONCE IVP Last administered on 10/17/19at 00:42; Start 10/16/19 at 23:45; Stop 10/16/19 at 23:46; Status DC Ondansetron HCl (Zofran) 4 mg PRN Q8HRS PRN IV NAUSEA/VOMITING; Start 10/17/19 at 02:30; Stop 10/18/19 at 02:29 Active Scripts Active Valtrex (Valacyclovir Hcl) 1,000 Mg Tablet 1 Tab PO TID Medrol (Methylprednisolone) 4 Mg Tab.ds.pk 1 Pkg PO UD Levemir (Insulin Detemir) 100 Unit/1 Ml Vial 15 Unit SQ DAILY 30 Days Keflex (Cephalexin) 500 Mg Capsule 1 Cap PO TID Novolog Flexpen (Insulin Aspart) 100 Unit/1 Ml Insuln.pen 0 Units SQ TIDACHC Aspirin Ec (Aspirin) 325 Mg Tablet.dr 325 Mg PO DAILYWBKFT Glucophage (Metformin Hcl) 500 Mg Tablet 500 Mg PO BIDWMEALS Reported Tresiba Flextouch U-100 (Insulin Degludec) 100 Unit/1 Ml Insuln.pen 24 Units SUBCUT HS Klor-Con 10 (Potassium Chloride) 10 Meq Tablet.er 10 Meq PO DAILY Donepezil Hcl 10 Mg Tablet 1 Tab PO DAILY Novolog Flexpen (Insulin Aspart) 100 Unit/1 Ml Insuln.pen 12 Unit SQ TIDWMEALS Vitamin D3 1,000 Unit Tablet (Ca Cmb No.1/Vit D3/B-6/Fa/B12) 1 Each Tablet 1 Each PO DAILY Losartan-Hctz 100-12.5 Mg Tab (Losartan/Hydrochlorothiazide) 1 Each Tablet 1 Each PO DAILY08 Pravachol (Pravastatin Sodium) 20 Mg Tablet 20 Mg PO HS Amlodipine Besylate 5 Mg Tablet 5 Mg PO DAILY08 Allergies Allergies: Coded Allergies: No Known Drug Allergies (Unverified , 09/29/13) ROS Review of System UNABLE TO OBTAIN Physical Exam General: Cooperative, No acute distress HEENT: Atraumatic, PERRLA, EOMI, Other (DRY MUCOSA) Lungs: Clear to auscultation Heart: Regular rate Abdomen: Normal bowel sounds, Soft, No hepatosplenomegaly Skin: No breakdown Neuro: Other (NON VERBAL) Psych/Mental Status: Other (FLAT) MUSCULOSKELETAL: No joint tenderness, No swelling, Other (MUSCLE ATROPHY) Vitals VITALS Vital Signs Date Time Temp Pulse Resp B/P (MAP) Pulse Ox O2 Delivery O2 Flow Rate FiO2 10/17/19 08:00 97.5 80 16 122/65 (84) 97 Room Air 97.5 Labs Labs Laboratory Tests Test 10/16/19 20:43 10/16/19 21:30 10/16/19 21:35 Urine Collection Type U cath Urine Color [facility] Urine Clarity Clear Urine pH 5.0 Urine Specific [place] 1.020 Urine Protein 30 mg/dL (NEG-TRACE) Urine Glucose (UA) Negative mg/dL (NEG) Urine Ketones (Stick) 15 mg/dL (NEG) Urine Blood Negative (NEG) Urine Nitrite Positive (NEG) Urine Bilirubin Large (NEG) Urine Urobilinogen Dipstick 4.0 mg/dL (0.2 mg/dL) Urine Leukocyte Esterase Moderate (NEG) Urine RBC 0 /HPF (0-2) Urine WBC 5-10 /HPF (0-4) Urine Squamous Epithelial Cells Occ /LPF Urine Bacteria Many /HPF (0-FEW) Urine Mucus Slight /LPF White Blood Count 11.2 x10^3/uL (4.0-11.0) Red Blood Count 4.76 x10^6/uL (3.50-5.40) Hemoglobin 14.9 g/dL (12.0-15.5) Hematocrit 46.7 % (36.0-47.0) Mean Corpuscular Volume 98 fL (79-100) Mean Corpuscular Hemoglobin 31 pg (25-35) Mean Corpuscular Hemoglobin Concent 32 g/dL (31-37) Red Cell Distribution Width 18.5 % (11.5-14.5) Platelet Count 95 x10^3/uL (140-400) Neutrophils (%) (Auto) 87 % (31-73) Lymphocytes (%) (Auto) 10 % (24-48) Monocytes (%) (Auto) 3 % (0-9) Eosinophils (%) (Auto) 0 % (0-3) Basophils (%) (Auto) 0 % (0-3) Neutrophils # (Auto) 9.7 x10^3/uL (1.8-7.7) Lymphocytes # (Auto) 1.1 x10^3/uL (1.0-4.8) Monocytes # (Auto) 0.4 x10^3/uL (0.0-1.1) Eosinophils # (Auto) 0.0 x10^3/uL (0.0-0.7) Basophils # (Auto) 0.0 x10^3/uL (0.0-0.2) Segmented Neutrophils % 89 % (35-66) Lymphocytes % 8 % (24-48) Monocytes % 3 % (0-10) Platelet Estimate Adequate (ADEQUATE) Anisocytosis Slight Tear Drop Cells Occ Sodium Level 170 mmol/L (136-145) Potassium Level 4.0 mmol/L (3.5-5.1) Chloride Level 130 mmol/L (98-107) Carbon Dioxide Level 23 mmol/L (21-32) Anion Gap 17 (6-14) Blood Urea Nitrogen 66 mg/dL (7-20) Creatinine 2.6 mg/dL (0.6-1.0) Estimated GFR (Cockcroft-Gault) 18.0 BUN/Creatinine Ratio 25 (6-20) Glucose Level 162 mg/dL (70-99) Calcium Level 8.9 mg/dL (8.5-10.1) Magnesium Level 2.8 mg/dL (1.8-2.4) Total Bilirubin 6.4 mg/dL (0.2-1.0) Aspartate Amino Transf (AST/SGOT) 57 U/L (15-37) Alanine Aminotransferase (ALT/SGPT) 25 U/L (14-59) Alkaline Phosphatase 87 U/L (46-116) Troponin I Quantitative 0.109 ng/mL (0.000-0.055) Total Protein 7.0 g/dL (6.4-8.2) Albumin 2.5 g/dL (3.4-5.0) Albumin/Globulin Ratio 0.6 (1.0-1.7) Thyroid Stimulating Hormone (TSH) 0.331 uIU/mL (0.358-3.74) Glucose (Fingerstick) 163 mg/dL (70-99) Laboratory Tests Test 10/16/19 20:43 10/16/19 21:30 10/16/19 21:35 Urine Collection Type U cath Urine Color [facility] [place] Urine Clarity Clear Urine pH 5.0 Urine Specific [place] 1.020 Urine Protein 30 mg/dL (NEG-TRACE) Urine Glucose (UA) Negative mg/dL (NEG) Urine Ketones (Stick) 15 mg/dL (NEG) Urine Blood Negative (NEG) Urine Nitrite Positive (NEG) Urine Bilirubin Large (NEG) Urine Urobilinogen Dipstick 4.0 mg/dL (0.2 mg/dL) Urine Leukocyte Esterase Moderate (NEG) Urine RBC 0 /HPF (0-2) Urine WBC 5-10 /HPF (0-4) Urine Squamous Epithelial Cells Occ /LPF Urine Bacteria Many /HPF (0-FEW) Urine Mucus Slight /LPF White Blood Count 11.2 x10^3/uL (4.0-11.0) Red Blood Count 4.76 x10^6/uL (3.50-5.40) Hemoglobin 14.9 g/dL (12.0-15.5) Hematocrit 46.7 % (36.0-47.0) Mean Corpuscular Volume 98 fL (79-100) Mean Corpuscular Hemoglobin 31 pg (25-35) Mean Corpuscular Hemoglobin Concent 32 g/dL (31-37) Red Cell Distribution Width 18.5 % (11.5-14.5) Platelet Count 95 x10^3/uL (140-400) Neutrophils (%) (Auto) 87 % (31-73) Lymphocytes (%) (Auto) 10 % (24-48) Monocytes (%) (Auto) 3 % (0-9) Eosinophils (%) (Auto) 0 % (0-3) Basophils (%) (Auto) 0 % (0-3) Neutrophils # (Auto) 9.7 x10^3/uL (1.8-7.7) Lymphocytes # (Auto) 1.1 x10^3/uL (1.0-4.8) Monocytes # (Auto) 0.4 x10^3/uL (0.0-1.1) Eosinophils # (Auto) 0.0 x10^3/uL (0.0-0.7) Basophils # (Auto) 0.0 x10^3/uL (0.0-0.2) Segmented Neutrophils % 89 % (35-66) Lymphocytes % 8 % (24-48) Monocytes % 3 % (0-10) Platelet Estimate Adequate (ADEQUATE) Anisocytosis Slight Tear Drop Cells Occ Sodium Level 170 mmol/L (136-145) Potassium Level 4.0 mmol/L (3.5-5.1) Chloride Level 130 mmol/L (98-107) Carbon Dioxide Level 23 mmol/L (21-32) Anion Gap 17 (6-14) Blood Urea Nitrogen 66 mg/dL (7-20) Creatinine 2.6 mg/dL (0.6-1.0) Estimated GFR (Cockcroft-Gault) 18.0 BUN/Creatinine Ratio 25 (6-20) Glucose Level 162 mg/dL (70-99) Calcium Level 8.9 mg/dL (8.5-10.1) Magnesium Level 2.8 mg/dL (1.8-2.4) Total Bilirubin 6.4 mg/dL (0.2-1.0) Aspartate Amino Transf (AST/SGOT) 57 U/L (15-37) Alanine Aminotransferase (ALT/SGPT) 25 U/L (14-59) Alkaline Phosphatase 87 U/L (46-116) Troponin I Quantitative 0.109 ng/mL (0.000-0.055) Total Protein 7.0 g/dL (6.4-8.2) Albumin 2.5 g/dL (3.4-5.0) Albumin/Globulin Ratio 0.6 (1.0-1.7) Thyroid Stimulating Hormone (TSH) 0.331 uIU/mL (0.358-3.74) Glucose (Fingerstick) 163 mg/dL (70-99) Assessment/Plan Assessment/Plan IMP CATARINO-CR OF 2.6 DEHYDRATION URINARY TRACT INFECTION SEVERE DEMENTIA MALNUTRITION LIVER FAILURE HX OF DM II PLAN HYPOTONIC SALINE PPN TO START SUGGEST ANTIBIOTICS CONSIDER GI EVALUATION ABD SONOGRAM HOLD HER [place] HOLD HER DIURETICS UPDATED DAUGHTER WILL FOLLOW DANNY FALL MD Oct 17, 2019 10:57
[2019-10-17] MEDS ORDERED: cefTRIAXone IV Push 1 GM VIAL. IVP SCH (11:00)
[2019-10-17] MEDS: AA 4.25 %/CALCIUM/LYTES/D5W 1,000 ML IV SCH (12:07)
--- NOTE | 2019-10-17 12:23 | NUR ---
Spoke with Dr. Devine regarding elevated troponin and runs of SVT on monitor. Dr. Devine orders to consult cardiology and move pt to ICU due to hypernatremia. Pt remains full code.
[2019-10-17] MEDS ORDERED: 0.9 % SODIUM CHLORIDE 10 ML DISP.SYRIN. IV PRN ×2 (12:30)
[2019-10-17] MEDS ORDERED: ACETAMINOPHEN 650 MG SUPP.RECT. PR PRN (12:30)
[2019-10-17] MEDS ORDERED: ALBUTEROL SULFATE 2.5 MG/3 ML NEBU. NEB PRN (12:30)
[2019-10-17] MEDS ORDERED: DOCUSATE SODIUM 100 MG CAPSULE. PO PRN (12:30)
[2019-10-17] MEDS ORDERED: ENOXAPARIN 30 MG/0.3 ML SYRINGE. SQ SCH (13:00)
[2019-10-17 13:52] LABS: CALCIUM 8.2 mg/dL (8.5-10.1); CREATININE 2.1 mg/dL (0.6-1.0); POTASSIUM 3.8 mmol/L (3.5-5.1)
[2019-10-17] MEDS: FAMOTIDINE 20 MG/2 ML VIAL IVP SCH ×2 (13:53→21:46)
--- NOTE | 2019-10-17 14:07 | PDOC2 ---
NEUROLOGY CONSULT Date of Admission Date of Admission DATE: 10/17/19 TIME: 13:57 Reason for Consult Reason for Consult: Altered mental status Referring Physician Referring Physician: Dr. Devine Source Source: Caregiver (son, daughter), Chart review History of Present Illness History of Present Illness The patient is a 74-year-old right-handed female with a history of Alzheimer's disease. She did see Dr. Garcia in the past, who obtained negative EEG and MRI studies as well as laboratory workup for other causes of dementia. There was a possible stroke in 2017, but workup was negative for acute stroke. 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 For the past year the patient has been nonverbal. In the last few days, she has stopped eating and has been found in the emergency department to have hypernatremia, renal insufficiency, elevated transaminases, and elevated troponin. Patient has a living will that calls for a feeding tube to be placed. Son says the patient watched her sister in the hospital off of feeding tube and did not want that for herself. (I did explain that dying withou t a feeding tube is a natural process and that we can keep people comfortable.) Patient also wants to be a full code. Past Medical History Cardiovascular: HTN, Hyperlipidemia CENTRAL NERVOUS SYSTEM: Dementia (Alzheimer's disease), Periperal neuropathy, Other (left Mtz's palsy) Psych: Depression Renal/: UTI Endocrine: Diabetes Dermatology: Cellulitis Past Surgical History Past Surgical History: Other (lumpectomy) Family History Family History: No pertinent hx Social History Social History Kulwinder, also is demented, no alcohol or tobacco, daughter is power of trial attorney, one son is the main caregiver, I met with the other son who is in the room with her today Current Medications Current Medications Current Medications Potassium Chloride/Dextrose/ Sod Cl 1,000 ml @ 75 mls/hr 1X ONCE IV Last administered on 10/17/19at 00:40; Start 10/16/19 at 23:30; Stop 10/17/19 at 12:49; Status DC Ceftriaxone Sodium (Rocephin) 1 gm 1X ONCE IVP Last administered on 10/17/19at 00:42; Start 10/16/19 at 23:45; Stop 10/16/19 at 23:46; Status DC Ondansetron HCl (Zofran) 4 mg PRN Q8HRS PRN IV NAUSEA/VOMITING; Start 10/17/19 at 02:30; Stop 10/18/19 at 02:29 Amino Acids/ Electrolytes/ Dextrose 1,000 ml @ 80 mls/hr [id number] IV Last administered on 10/17/19at 12:07; Start 10/17/19 at 11:15 Ceftriaxone Sodium (Rocephin) 1 gm Q24H IVP Last administered on 10/17/19at 12:06; Start 10/17/19 at 11:00 Sodium Chloride (Normal Saline Flush) 3 ml QSHIFT PRN IV AFTER MEDS AND BLOOD DRAWS; Start 10/17/19 at 12:30 Ondansetron HCl (Zofran) 2 mg PRN Q4HRS PRN IV NAUSEA/VOMITING; Start 10/17/19 at 12:30 Acetaminophen (Tylenol Supp) 650 mg PRN Q4HRS PRN TN TEMP OVER 100.4F OR MILD PAIN; Start 10/17/19 at 12:30 Docusate Sodium (Colace) 100 mg PRN BID PRN PO CONSTIPATION; Start 10/17/19 at 12:30 Albuterol Sulfate (Ventolin Neb Soln) 2.5 mg PRN Q4HRS PRN NEB SHORTNESS OF BREATH; Start 10/17/19 at 12:30 Enoxaparin Sodium (Lovenox 30mg Syringe) 30 mg Q24H SQ Last administered on 10/17/19at 13:53; Start 10/17/19 at 13:00 Famotidine (Pepcid Vial) 10 mg BID IVP Last administered on 10/17/19at 13:53; Start 10/17/19 at 13:00 Sodium Chloride (Normal Saline Flush) 3 ml QSHIFT PRN IV AFTER MEDS AND BLOOD DRAWS; Start 10/17/19 at 12:30 Active Scripts Active Valtrex (Valacyclovir Hcl) 1,000 Mg Tablet 1 Tab PO TID Medrol (Methylprednisolone) 4 Mg Tab.ds.pk 1 Pkg PO UD Levemir (Insulin Detemir) 100 Unit/1 Ml Vial 15 Unit SQ DAILY 30 Days Keflex (Cephalexin) 500 Mg Capsule 1 Cap PO TID Novolog Flexpen (Insulin Aspart) 100 Unit/1 Ml Insuln.pen 0 Units SQ TIDACHC Aspirin Ec (Aspirin) 325 Mg Tablet. 325 Mg PO DAILYWBKFT Glucophage (Metformin Hcl) 500 Mg Tablet 500 Mg PO BIDWMEALS Reported Tresiba Flextouch U-100 (Insulin Degludec) 100 Unit/1 Ml Insuln.pen 24 Units SUBCUT HS Klor-Con 10 (Potassium Chloride) 10 Meq Tablet.er 10 Meq PO DAILY Donepezil Hcl 10 Mg Tablet 1 Tab PO DAILY Novolog Flexpen (Insulin Aspart) 100 Unit/1 Ml Insuln.pen 12 Unit SQ TIDWMEALS Vitamin D3 1,000 Unit Tablet (Ca Cmb No.1/Vit D3/B-6/Fa/B12) 1 Each Tablet 1 Each PO DAILY Losartan-Hctz 100-12.5 Mg Tab (Losartan/Hydrochlorothiazide) 1 Each Tablet 1 Each PO DAILY08 Pravachol (Pravastatin Sodium) 20 Mg Tablet 20 Mg PO HS Amlodipine Besylate 5 Mg Tablet 5 Mg PO DAILY08 Allergies Allergies: Coded Allergies: No Known Drug Allergies (Unverified , 09/29/13) ROS Review of System Negative for fever, chills, weight loss, shortness of breath, chest pain, indigestion, hematochezia, melena, and dysuria. Full 14-point review of systems is negative. Physical Exam Physical Examination General: Well-developed, well-nourished, white female, in no acute distress HEENT: Normocephalic andatraumatic. Tympanic membranes clear.Temporal arteriespulsatile and nontender.Fundoscopic exam unremarkable Neck: Supple without bruit, no meningismus Musculoskeletal: Stability:see neurologic. Gait exam:see neurologic. Tone:see neurologic.Strength:see neurologic. Neurological: Mental Status: orientation, memory, attention span/concentration, language, fund of knowledge: She is nonverbal, does not follow any commands. Cranial Nerves:Pupils equal and reactive to light, extraocular movements areintact, visual root are full to threat. There is no facial asymmetry. All other cranial related problems are negative except as mentioned before.Reflexes:1+ and symmetric with flexor plantar responses. Motor:moves extremities slightly to mild stimulation. Coordination and gait:not testable. Sensory:Not cooperative. Vitals VITALS Vital Signs Date Time Temp Pulse Resp B/P (MAP) Pulse Ox O2 Delivery O2 Flow Rate FiO2 2/11/20 11:00 98.2 80 22 116/57 (76) 94 Room Air 98.2 Labs Labs Laboratory Tests Test 10/16/19 20:43 10/16/19 21:30 10/16/19 21:35 Urine Collection Type U cath Urine Color [place] Urine Clarity Clear Urine pH 5.0 Urine Specific [place] 1.020 Urine Protein 30 mg/dL (NEG-TRACE) Urine Glucose (UA) Negative mg/dL (NEG) Urine Ketones (Stick) 15 mg/dL (NEG) Urine Blood Negative (NEG) Urine Nitrite Positive (NEG) Urine Bilirubin Large (NEG) Urine Urobilinogen Dipstick 4.0 mg/dL (0.2 mg/dL) Urine Leukocyte Esterase Moderate (NEG) Urine RBC 0 /HPF (0-2) Urine WBC 5-10 /HPF (0-4) Urine Squamous Epithelial Cells Occ /LPF Urine Bacteria Many /HPF (0-FEW) Urine Mucus Slight /LPF White Blood Count 11.2 x10^3/uL (4.0-11.0) Red Blood Count 4.76 x10^6/uL (3.50-5.40) Hemoglobin 14.9 g/dL (12.0-15.5) Hematocrit 46.7 % (36.0-47.0) Mean Corpuscular Volume 98 fL (79-100) Mean Corpuscular Hemoglobin 31 pg (25-35) Mean Corpuscular Hemoglobin Concent 32 g/dL (31-37) Red Cell Distribution Width 18.5 % (11.5-14.5) Platelet Count 95 x10^3/uL (140-400) Neutrophils (%) (Auto) 87 % (31-73) Lymphocytes (%) (Auto) 10 % (24-48) Monocytes (%) (Auto) 3 % (0-9) Eosinophils (%) (Auto) 0 % (0-3) Basophils (%) (Auto) 0 % (0-3) Neutrophils # (Auto) 9.7 x10^3/uL (1.8-7.7) Lymphocytes # (Auto) 1.1 x10^3/uL (1.0-4.8) Monocytes # (Auto) 0.4 x10^3/uL (0.0-1.1) Eosinophils # (Auto) 0.0 x10^3/uL (0.0-0.7) Basophils # (Auto) 0.0 x10^3/uL (0.0-0.2) Segmented Neutrophils % 89 % (35-66) Lymphocytes % 8 % (24-48) Monocytes % 3 % (0-10) Platelet Estimate Adequate (ADEQUATE) Anisocytosis Slight Tear Drop Cells Occ Sodium Level 170 mmol/L (136-145) Potassium Level 4.0 mmol/L (3.5-5.1) Chloride Level 130 mmol/L (98-107) Carbon Dioxide Level 23 mmol/L (21-32) Anion Gap 17 (6-14) Blood Urea Nitrogen 66 mg/dL (7-20) Creatinine 2.6 mg/dL (0.6-1.0) Estimated GFR (Cockcroft-Gault) 18.0 BUN/Creatinine Ratio 25 (6-20) Glucose Level 162 mg/dL (70-99) Calcium Level 8.9 mg/dL (8.5-10.1) Magnesium Level 2.8 mg/dL (1.8-2.4) Total Bilirubin 6.4 mg/dL (0.2-1.0) Aspartate Amino Transf (AST/SGOT) 57 U/L (15-37) Alanine Aminotransferase (ALT/SGPT) 25 U/L (14-59) Alkaline Phosphatase 87 U/L (46-116) Troponin I Quantitative 0.109 ng/mL (0.000-0.055) Total Protein 7.0 g/dL (6.4-8.2) Albumin 2.5 g/dL (3.4-5.0) Albumin/Globulin Ratio 0.6 (1.0-1.7) Thyroid Stimulating Hormone (TSH) 0.331 uIU/mL (0.358-3.74) Glucose (Fingerstick) 163 mg/dL (70-99) Laboratory Tests Test 10/16/19 20:43 10/16/19 21:30 10/16/19 21:35 Urine Collection Type U cath Urine Color [place] Urine Clarity Clear Urine pH 5.0 Urine Specific [place] 1.020 Urine Protein 30 mg/dL (NEG-TRACE) Urine Glucose (UA) Negative mg/dL (NEG) Urine Ketones (Stick) 15 mg/dL (NEG) Urine Blood Negative (NEG) Urine Nitrite Positive (NEG) Urine Bilirubin Large (NEG) Urine Urobilinogen Dipstick 4.0 mg/dL (0.2 mg/dL) Urine Leukocyte Esterase Moderate (NEG) Urine RBC 0 /HPF (0-2) Urine WBC 5-10 /HPF (0-4) Urine Squamous Epithelial Cells Occ /LPF Urine Bacteria Many /HPF (0-FEW) Urine Mucus Slight /LPF White Blood Count 11.2 x10^3/uL (4.0-11.0) Red Blood Count 4.76 x10^6/uL (3.50-5.40) Hemoglobin 14.9 g/dL (12.0-15.5) Hematocrit 46.7 % (36.0-47.0) Mean Corpuscular Volume 98 fL (79-100) Mean Corpuscular Hemoglobin 31 pg (25-35) Mean Corpuscular Hemoglobin Concent 32 g/dL (31-37) Red Cell Distribution Width 18.5 % (11.5-14.5) Platelet Count 95 x10^3/uL (140-400) Neutrophils (%) (Auto) 87 % (31-73) Lymphocytes (%) (Auto) 10 % (24-48) Monocytes (%) (Auto) 3 % (0-9) Eosinophils (%) (Auto) 0 % (0-3) Basophils (%) (Auto) 0 % (0-3) Neutrophils # (Auto) 9.7 x10^3/uL (1.8-7.7) Lymphocytes # (Auto) 1.1 x10^3/uL (1.0-4.8) Monocytes # (Auto) 0.4 x10^3/uL (0.0-1.1) Eosinophils # (Auto) 0.0 x10^3/uL (0.0-0.7) Basophils # (Auto) 0.0 x10^3/uL (0.0-0.2) Segmented Neutrophils % 89 % (35-66) Lymphocytes % 8 % (24-48) Monocytes % 3 % (0-10) Platelet Estimate Adequate (ADEQUATE) Anisocytosis Slight Tear Drop Cells Occ Sodium Level 170 mmol/L (136-145) Potassium Level 4.0 mmol/L (3.5-5.1) Chloride Level 130 mmol/L (98-107) Carbon Dioxide Level 23 mmol/L (21-32) Anion Gap 17 (6-14) Blood Urea Nitrogen 66 mg/dL (7-20) Creatinine 2.6 mg/dL (0.6-1.0) Estimated GFR (Cockcroft-Gault) 18.0 BUN/Creatinine Ratio 25 (6-20) Glucose Level 162 mg/dL (70-99) Calcium Level 8.9 mg/dL (8.5-10.1) Magnesium Level 2.8 mg/dL (1.8-2.4) Total Bilirubin 6.4 mg/dL (0.2-1.0) Aspartate Amino Transf (AST/SGOT) 57 U/L (15-37) Alanine Aminotransferase (ALT/SGPT) 25 U/L (14-59) Alkaline Phosphatase 87 U/L (46-116) Troponin I Quantitative 0.109 ng/mL (0.000-0.055) Total Protein 7.0 g/dL (6.4-8.2) Albumin 2.5 g/dL (3.4-5.0) Albumin/Globulin Ratio 0.6 (1.0-1.7) Thyroid Stimulating Hormone (TSH) 0.331 uIU/mL (0.358-3.74) Glucose (Fingerstick) 163 mg/dL (70-99) Images Images CT head INDICATION: Dizziness TECHNIQUE: Sequential axial images through the head were obtained without the administration of IV contrast. Comparisons: 08/22/2017 FINDINGS: No focal parenchymal lesion or hemorrhage is identified. There is no midline shift or sulcal effacement. Patchy hypodensity in the periventricular white matter, similar when compared to the prior study.. No acute vascular territory infarction is identified. Antonio-white distinction is preserved. The ventricular system is within normal limits without compression hydrocephalus. The basal cisterns are well maintained. The visualized portions of the paranasal sinuses and mastoid air cells are well-pneumatized. No acute fractures. IMPRESSION: Chronic ischemic change without acute intracranial abnormality. Assessment/Plan Assessment/Plan Impression: Natural, normal progression of Alzheimer's dementia, no evidence of acute stroke. She does have some metabolic abnormalities of course related to the fact that she has not been eating. Recommendations: Per the patient's wishes, we will interrupt this natural course and she will most likely need a feeding tube. I discussed DO NOT RESUSCITATE, in the patient's living Will, she wants to be a full code, so daughter will leave her as a full code at least for now. I see no need to repeat any other neurological studies. Fully discussed with the patient's son and daughter. Thank you for letting me help with the patient's care. SALMA LAMBERT MD Oct 17, 2019 14:07
[2019-10-17] MEDS ORDERED: METOPROLOL TARTRATE 5 MG/5 ML VIAL. IVP PRN (14:15)
--- NOTE | 2019-10-17 14:25 | PDOC2 ---
KIRBY MENDEZ [employer] 10/17/19 1424: CARDIAC CONSULT DATE OF CONSULT Date of Consult DATE: 10/17/19 TIME: 13:53 REASON FOR CONSULT Reason for Consult: elevated troponin REFERRING PHYSICIAN Referring Physician: Fullbright SOURCE Source: Caregiver (Son), Chart review HISTORY OF PRESENT ILLNESS HISTORY OF PRESENT ILLNESS This is a 74 yo female admitted for not eating, inability to stand up noted increasing weakness. She is known for dementia with hx of TIA and bells palsy. She has been nonverbal for about a yr accdg to her son. She lives with her son currently and her daughter is currently her DPOA. I talked to her 2 sons and told me that she has not been noted to be having pain but has noticed that she has been pocketing her food in her mouth and not swallowing, also not being able to get up as she could not stand up. The last time she ate was Wednesday last week and has not been drinking and has been having watery stools for a while now. Her legs being weak was also recent in the last 2-3 days. No vomiting and no noted symptoms of pain. No hx of CAD or arrhythmias. Upon admission she has been noted with elevated troponin severely high sodium and PSVTs. Presently she is tracking with her eyes, squeezes my finger but nonverbal and does not appear to be in pain. She also has not been able to take her meds which typically her son crushes it and mix it with food. PAST MEDICAL HISTORY Cardiovascular: HTN, Hyperlipidemia CENTRAL NERVOUS SYSTEM: Dementia, TIA, Other (bells palsy) Psych: Depression Musculoskeletal: Osteoarthritis Endocrine: Diabetes (2) PAST SURGICAL HISTORY Past Surgical History: Other (breast biopsy) FAMILY HISTORY Family History: Heart Disease (father) SOCIAL HISTORY Smoke: No ALCOHOL: none Drugs: None Lives: with Family (son) CURRENT MEDICATIONS CURRENT MEDICATIONS Current Medications Medications (Trade) Dose Ordered Sig/Eric Route PRN Reason Start Time Stop Time Status Last Admin Dose Admin Potassium Chloride/Dextrose/ Sod Cl 1,000 ml @ 75 mls/hr 1X ONCE IV 10/16/19 23:30 10/17/19 12:49 DC 10/17/19 00:40 Ceftriaxone Sodium (Rocephin) 1 gm 1X ONCE IVP 10/16/19 23:45 10/16/19 23:46 DC 10/17/19 00:42 Amino Acids/ Electrolytes/ Dextrose 1,000 ml @ 80 mls/hr [id number] IV 10/17/19 11:15 10/17/19 12:07 Ceftriaxone Sodium (Rocephin) 1 gm Q24H IVP 10/17/19 11:00 10/17/19 12:06 ALLERGIES ALLERGIES: Coded Allergies: No Known Drug Allergies (Unverified , 09/29/13) ROS Review of System unreliable, nonverbal PHYSICAL EXAM General: Alert, No acute distress HEENT: Atraumatic, Mucous membr. moist/pink Lungs: Clear to auscultation, Normal air movement Heart: Regular rate (SR), Normal S1, Normal S2, Other (2/6 systolic murmur to LLS border) Abdomen: Soft, No tenderness Extremities: No cyanosis, No edema Skin: No breakdown, No significant lesion Neuro: Sensation intact Psych/Mental Status: Other (nonverbal) MUSCULOSKELETAL: Osteoarthritic changes both hands VITALS/I&O VITALS/I&O: Vital Signs Date Time Temp Pulse Resp B/P (MAP) Pulse Ox O2 Delivery O2 Flow Rate FiO2 10/17/19 11:00 98.2 80 22 116/57 (76) 94 Room Air 98.2 LABS Lab: Laboratory Tests Test 10/16/19 20:43 10/16/19 21:30 10/16/19 21:35 Urine Collection Type U cath Urine Color [place] Urine Clarity Clear Urine pH 5.0 Urine Specific [place] 1.020 Urine Protein 30 mg/dL (NEG-TRACE) Urine Glucose (UA) Negative mg/dL (NEG) Urine Ketones (Stick) 15 mg/dL (NEG) Urine Blood Negative (NEG) Urine Nitrite Positive (NEG) Urine Bilirubin Large (NEG) Urine Urobilinogen Dipstick 4.0 mg/dL (0.2 mg/dL) Urine Leukocyte Esterase Moderate (NEG) Urine RBC 0 /HPF (0-2) Urine WBC 5-10 /HPF (0-4) Urine Squamous Epithelial Cells Occ /LPF Urine Bacteria Many /HPF (0-FEW) Urine Mucus Slight /LPF White Blood Count 11.2 x10^3/uL (4.0-11.0) H Red Blood Count 4.76 x10^6/uL (3.50-5.40) Hemoglobin 14.9 g/dL (12.0-15.5) Hematocrit 46.7 % (36.0-47.0) Mean Corpuscular Volume 98 fL (79-100) Mean Corpuscular Hemoglobin 31 pg (25-35) Mean Corpuscular Hemoglobin Concent 32 g/dL (31-37) Red Cell Distribution Width 18.5 % (11.5-14.5) H Platelet Count 95 x10^3/uL (140-400) L Neutrophils (%) (Auto) 87 % (31-73) H Lymphocytes (%) (Auto) 10 % (24-48) L Monocytes (%) (Auto) 3 % (0-9) Eosinophils (%) (Auto) 0 % (0-3) Basophils (%) (Auto) 0 % (0-3) Neutrophils # (Auto) 9.7 x10^3/uL (1.8-7.7) H Lymphocytes # (Auto) 1.1 x10^3/uL (1.0-4.8) Monocytes # (Auto) 0.4 x10^3/uL (0.0-1.1) Eosinophils # (Auto) 0.0 x10^3/uL (0.0-0.7) Basophils # (Auto) 0.0 x10^3/uL (0.0-0.2) Segmented Neutrophils % 89 % (35-66) H Lymphocytes % 8 % (24-48) L Monocytes % 3 % (0-10) Platelet Estimate Adequate (ADEQUATE) Anisocytosis Slight Tear Drop Cells Occ Sodium Level 170 mmol/L (136-145) *H Potassium Level 4.0 mmol/L (3.5-5.1) Chloride Level 130 mmol/L (98-107) H Carbon Dioxide Level 23 mmol/L (21-32) Anion Gap 17 (6-14) H Blood Urea Nitrogen 66 mg/dL (7-20) H Creatinine 2.6 mg/dL (0.6-1.0) H Estimated GFR (Cockcroft-Gault) 18.0 BUN/Creatinine Ratio 25 (6-20) H Glucose Level 162 mg/dL (70-99) H Calcium Level 8.9 mg/dL (8.5-10.1) Magnesium Level 2.8 mg/dL (1.8-2.4) H Total Bilirubin 6.4 mg/dL (0.2-1.0) H Aspartate Amino Transferase (AST) 57 U/L (15-37) H Alanine Aminotransferase (ALT) 25 U/L (14-59) Alkaline Phosphatase 87 U/L (46-116) Troponin I Quantitative 0.109 ng/mL (0.000-0.055) Total Protein 7.0 g/dL (6.4-8.2) Albumin 2.5 g/dL (3.4-5.0) L Albumin/Globulin Ratio 0.6 (1.0-1.7) L Thyroid Stimulating Hormone (TSH) 0.331 uIU/mL (0.358-3.74) L Glucose (Fingerstick) 163 mg/dL (70-99) H Laboratory Tests 10/16/19 21:30 Laboratory Tests 10/16/19 21:30 ECHOCARDIOGRAM ECHOCARDIOGRAM <Conclusion> The left ventricular systolic function is normal. The ejection fraction is estimated at 55-60%. There is normal LV segmental wall motion. Mild aortic stenosis. Trace mitral regurgitation. Mild tricuspid regurgitation. There is no evidence of significant pericardial effusion. DATE: 08/23/17 1159 ASSESSMENT/PLAN ASSESSMENT/PLAN 1. PAFIB: New noted with intermittent bursts, likely undiagnosed paroxysms but metabolic issues are contributing 2. Severe CATARINO with severe hypernatremia: dehydration. Nephrology following 3. Elevated troponin: 0.1 initially , suspect demand mediated 4. UTI 5. Dementia: has been nonverbal for 1 yr 6. Hx of TIA and bells palsy 7. Thrombocytopenia 8. Debility/weakness/malnutrition 9. HTN: controlled Recommendations 1. BMP, INR. 2. TTE 3. Lopressor IV PRN. Hydrate. Avoid nephrotoxins. No metformin 4. Dementia appears to be severe and presently it is unsafe to introduce anything via mouth. Unclear if any element of CVA given her presentation and awaiting input from neurology. Hypernatremia and UTI are contributors. Discussed with sons in regards to code status and I was not able to meet with her daughter who is the DPOA. Will need to address goals of care moving forward. Given her age, likely advanced dementia, will treat conservatively. 5. Recommend ASA when able to take PO. STEFANI HILL MD 10/17/19 1602: CARDIAC CONSULT ASSESSMENT/PLAN ASSESSMENT/PLAN Patient seen and examined. Agree with [employer]IC's assessment and plan. Agree with beta blockers for paroxysms of atrial fibrillation She is poor candidate for long-term anticoagulation Agree with aspirin able to take by mouth Slight troponin elevation probably demand ischemia Check 2-D echo to assess LV systolic function Continue management of acute renal failure and hyponatremia per nephrology team Thank you for your consultation KIRBY MENDEZ APRN Oct 17, 2019 14:24 STEFANI HILL MD Oct 17, 2019 16:02
--- NOTE | 2019-10-17 14:51 | PDOC ---
Infectious Disease Note Vital Sign Vital Signs Vital Signs Date Time Temp Pulse Resp B/P (MAP) Pulse Ox O2 Delivery O2 Flow Rate FiO2 10/17/19 11:00 98.2 80 22 116/57 (76) 94 Room Air 98.2 Labs Lab Laboratory Tests Test 10/16/19 20:43 10/16/19 21:30 10/16/19 21:35 10/17/19 13:35 Urine Collection Type U cath Urine Color [place] Urine Clarity Clear Urine pH 5.0 Urine Specific [place] 1.020 Urine Protein 30 mg/dL (NEG-TRACE) Urine Glucose (UA) Negative mg/dL (NEG) Urine Ketones (Stick) 15 mg/dL (NEG) Urine Blood Negative (NEG) Urine Nitrite Positive (NEG) Urine Bilirubin Large (NEG) Urine Urobilinogen Dipstick 4.0 mg/dL (0.2 mg/dL) Urine Leukocyte Esterase Moderate (NEG) Urine RBC 0 /HPF (0-2) Urine WBC 5-10 /HPF (0-4) Urine Squamous Epithelial Cells Occ /LPF Urine Bacteria Many /HPF (0-FEW) Urine Mucus Slight /LPF White Blood Count 11.2 x10^3/uL (4.0-11.0) Red Blood Count 4.76 x10^6/uL (3.50-5.40) Hemoglobin 14.9 g/dL (12.0-15.5) Hematocrit 46.7 % (36.0-47.0) Mean Corpuscular Volume 98 fL (79-100) Mean Corpuscular Hemoglobin 31 pg (25-35) Mean Corpuscular Hemoglobin Concent 32 g/dL (31-37) Red Cell Distribution Width 18.5 % (11.5-14.5) Platelet Count 95 x10^3/uL (140-400) Neutrophils (%) (Auto) 87 % (31-73) Lymphocytes (%) (Auto) 10 % (24-48) Monocytes (%) (Auto) 3 % (0-9) Eosinophils (%) (Auto) 0 % (0-3) Basophils (%) (Auto) 0 % (0-3) Neutrophils # (Auto) 9.7 x10^3/uL (1.8-7.7) Lymphocytes # (Auto) 1.1 x10^3/uL (1.0-4.8) Monocytes # (Auto) 0.4 x10^3/uL (0.0-1.1) Eosinophils # (Auto) 0.0 x10^3/uL (0.0-0.7) Basophils # (Auto) 0.0 x10^3/uL (0.0-0.2) Segmented Neutrophils % 89 % (35-66) Lymphocytes % 8 % (24-48) Monocytes % 3 % (0-10) Platelet Estimate Adequate (ADEQUATE) Anisocytosis Slight Tear Drop Cells Occ Sodium Level 170 mmol/L (136-145) 169 mmol/L (136-145) Potassium Level 4.0 mmol/L (3.5-5.1) 3.8 mmol/L (3.5-5.1) Chloride Level 130 mmol/L (98-107) 131 mmol/L (98-107) Carbon Dioxide Level 23 mmol/L (21-32) 25 mmol/L (21-32) Anion Gap 17 (6-14) 13 (6-14) Blood Urea Nitrogen 66 mg/dL (7-20) 67 mg/dL (7-20) Creatinine 2.6 mg/dL (0.6-1.0) 2.1 mg/dL (0.6-1.0) Estimated GFR (Cockcroft-Gault) 18.0 23.0 BUN/Creatinine Ratio 25 (6-20) Glucose Level 162 mg/dL (70-99) 265 mg/dL (70-99) Calcium Level 8.9 mg/dL (8.5-10.1) 8.2 mg/dL (8.5-10.1) Magnesium Level 2.8 mg/dL (1.8-2.4) Total Bilirubin 6.4 mg/dL (0.2-1.0) Aspartate Amino Transf (AST/SGOT) 57 U/L (15-37) Alanine Aminotransferase (ALT/SGPT) 25 U/L (14-59) Alkaline Phosphatase 87 U/L (46-116) Troponin I Quantitative 0.109 ng/mL (0.000-0.055) Total Protein 7.0 g/dL (6.4-8.2) Albumin 2.5 g/dL (3.4-5.0) Albumin/Globulin Ratio 0.6 (1.0-1.7) Thyroid Stimulating Hormone (TSH) 0.331 uIU/mL (0.358-3.74) Glucose (Fingerstick) 163 mg/dL (70-99) Objective Assessment Leukocytosis UTI -POA 2/10 CATARINO DM Dementia Hypernatremia Plan Plan of Care Discont Rocephin and Dose Cefepime Dose Dapto times one F/u labs and cults Electrolytes per primary D/w nursing Thank you # [id number] RIC MACIEL MD Oct 17, 2019 14:51
--- NOTE | 2019-10-17 14:59 | PDOC2 ---
GI CONSULT Reason For Consult: Transaminitis HPI: HPI: 74 y/o female w/ Alzheimer's dementia who is non-verbal. Currently alone in room, no meaningful history from her. Reviewed chart and d/w nursing - hasn't been eating for a few days, has been weak. Multiple lab abnormalities as below. We are asked to see re: abnormal liver labs (bili 6.4, AST 57). Additionally, apparently she has a living will that details her wish to have a feeding tube placed. Children (son and daughter who is DPOA) are discussing. Reviewed chart - looks like she had a colonoscopy w/ Dr. Crowell in 01/2017 (though unable to view procedure report). Previous abd US noted fatty liver, splenomegaly, normal GB, and normal CBD. Viral hepatitis panel was negative in 2016. PMH: PMH: per chart - Alzheimer's dementia, TIA, HTN, HLD, UTI, Mtz's palsy, thrombocytopenia left breast biopsy FH: Family History: No pertinent hx Social History: Smoke: No ALCOHOL: none Drugs: None ROS: Unobtainable. Vitals: Vitals: Vital Signs Date Time Temp Pulse Resp B/P (MAP) Pulse Ox O2 Delivery O2 Flow Rate FiO2 10/17/19 11:00 98.2 80 22 116/57 (76) 94 Room Air 98.2 Labs: Labs: Laboratory Tests Test 10/16/19 20:43 10/16/19 21:30 10/16/19 21:35 10/17/19 13:35 Urine Collection Type U cath Urine Color [place] Urine Clarity Clear Urine pH 5.0 Urine Specific [place] 1.020 Urine Protein 30 mg/dL (NEG-TRACE) Urine Glucose (UA) Negative mg/dL (NEG) Urine Ketones (Stick) 15 mg/dL (NEG) Urine Blood Negative (NEG) Urine Nitrite Positive (NEG) Urine Bilirubin Large (NEG) Urine Urobilinogen Dipstick 4.0 mg/dL (0.2 mg/dL) Urine Leukocyte Esterase Moderate (NEG) Urine RBC 0 /HPF (0-2) Urine WBC 5-10 /HPF (0-4) Urine Squamous Epithelial Cells Occ /LPF Urine Bacteria Many /HPF (0-FEW) Urine Mucus Slight /LPF White Blood Count 11.2 x10^3/uL (4.0-11.0) Red Blood Count 4.76 x10^6/uL (3.50-5.40) Hemoglobin 14.9 g/dL (12.0-15.5) Hematocrit 46.7 % (36.0-47.0) Mean Corpuscular Volume 98 fL (79-100) Mean Corpuscular Hemoglobin 31 pg (25-35) Mean Corpuscular Hemoglobin Concent 32 g/dL (31-37) Red Cell Distribution Width 18.5 % (11.5-14.5) Platelet Count 95 x10^3/uL (140-400) Neutrophils (%) (Auto) 87 % (31-73) Lymphocytes (%) (Auto) 10 % (24-48) Monocytes (%) (Auto) 3 % (0-9) Eosinophils (%) (Auto) 0 % (0-3) Basophils (%) (Auto) 0 % (0-3) Neutrophils # (Auto) 9.7 x10^3/uL (1.8-7.7) Lymphocytes # (Auto) 1.1 x10^3/uL (1.0-4.8) Monocytes # (Auto) 0.4 x10^3/uL (0.0-1.1) Eosinophils # (Auto) 0.0 x10^3/uL (0.0-0.7) Basophils # (Auto) 0.0 x10^3/uL (0.0-0.2) Segmented Neutrophils % 89 % (35-66) Lymphocytes % 8 % (24-48) Monocytes % 3 % (0-10) Platelet Estimate Adequate (ADEQUATE) Anisocytosis Slight Tear Drop Cells Occ Sodium Level 170 mmol/L (136-145) 169 mmol/L (136-145) Potassium Level 4.0 mmol/L (3.5-5.1) 3.8 mmol/L (3.5-5.1) Chloride Level 130 mmol/L (98-107) 131 mmol/L (98-107) Carbon Dioxide Level 23 mmol/L (21-32) 25 mmol/L (21-32) Anion Gap 17 (6-14) 13 (6-14) Blood Urea Nitrogen 66 mg/dL (7-20) 67 mg/dL (7-20) Creatinine 2.6 mg/dL (0.6-1.0) 2.1 mg/dL (0.6-1.0) Estimated GFR (Cockcroft-Gault) 18.0 23.0 BUN/Creatinine Ratio 25 (6-20) Glucose Level 162 mg/dL (70-99) 265 mg/dL (70-99) Calcium Level 8.9 mg/dL (8.5-10.1) 8.2 mg/dL (8.5-10.1) Magnesium Level 2.8 mg/dL (1.8-2.4) Total Bilirubin 6.4 mg/dL (0.2-1.0) Aspartate Amino Transf (AST/SGOT) 57 U/L (15-37) Alanine Aminotransferase (ALT/SGPT) 25 U/L (14-59) Alkaline Phosphatase 87 U/L (46-116) Troponin I Quantitative 0.109 ng/mL (0.000-0.055) Total Protein 7.0 g/dL (6.4-8.2) Albumin 2.5 g/dL (3.4-5.0) Albumin/Globulin Ratio 0.6 (1.0-1.7) Thyroid Stimulating Hormone (TSH) 0.331 uIU/mL (0.358-3.74) Glucose (Fingerstick) 163 mg/dL (70-99) Allergies: Coded Allergies: No Known Drug Allergies (Unverified , 09/29/13) Medications: Current Medications Medications (Trade) Dose Ordered Sig/Eric Route PRN Reason Start Time Stop Time Status Last Admin Dose Admin Potassium Chloride/Dextrose/ Sod Cl 1,000 ml @ 75 mls/hr 1X ONCE IV 10/16/19 23:30 10/17/19 12:49 DC 10/17/19 00:40 Ceftriaxone Sodium (Rocephin) 1 gm 1X ONCE IVP 10/16/19 23:45 10/16/19 23:46 DC 10/17/19 00:42 Amino Acids/ Electrolytes/ Dextrose 1,000 ml @ 80 mls/hr [id number] IV 10/17/19 11:15 10/17/19 12:07 Ceftriaxone Sodium (Rocephin) 1 gm Q24H IVP 10/17/19 11:00 10/17/19 12:06 Enoxaparin Sodium (Lovenox 30mg Syringe) 30 mg Q24H SQ 10/17/19 13:00 10/17/19 13:53 Famotidine (Pepcid Vial) 10 mg BID IVP 10/17/19 13:00 10/17/19 13:53 Imaging: Imaging: Head CT IMPRESSION: Chronic ischemic change without acute intracranial abnormality. CXR Impression: No acute radiographic abnormality of the chest. Abd US pending Echocardiogram pending PE: GEN: NAD - having echocardiogram HEENT: Atraumatic, PERRL LUNGS: CTAB HEART: RRR ABD: NABS, S/ND/NT EXTREMITY: No edema SKIN: No rashes, no jaundice NEURO/PSYCH: awake, does not verbalize A/P: A/P: Alzheimer's dementia - recently stopped eating, has increased confusion and weakness Hypernatremia, CATARINO, elevated troponin, ?UTI Abnormal liver enzymes - Hep panel neg in 2015 H/o thrombocytopenia, fatty liver, and splenomegaly CRC screen - 2016 -- Await pending imaging, continue per cardiology and nephrology, await family discussion re: code status, etc. GLENNA DILLON Oct 17, 2019 14:59
[2019-10-17] MEDS ORDERED: DAPTOmycin (GENERIC) IVPB 490 MG in IV NORMAL SALINE 50ML 50 ML IV ONE (15:00)
--- NOTE | 2019-10-17 15:37 | NUR ---
Wound Care Wound Care consult for coccyx wound. Pt has stage II with DTI to coccyx. Cleansed, pictured and measured wound. Redressed with calazime, A&D ointment ordered to be applied BID. Discussed POC with Adriana RODRIGUEZ, who will order purewick external catheter to reduce exposure to incontinence. Pt turned to right side with wedge and heels floated. Family at bedside. Educated on TQ2. Pt will need P500 when transferred from ICU.
[2019-10-17] MEDS ORDERED: VITS A & D/LANOLIN TOPICAL OINTMENT 42GM TUBE. TP PRN (15:45)
[2019-10-17 15:46] LABS: PROTHROMBIN TIME PATIENT 17.7 SEC (11.7-14.0)
--- NOTE | 2019-10-17 16:04 | RAD ---
ABDOMEN COMPLETE History: Liver and kidney failure Comparison: None available FINDINGS: Multiple sonographic images of the abdomen are submitted. Inferior vena cava, pancreas, and abdominal aorta are not well visualized due to bowel gas. Hepatic parenchyma is poorly visualized due to bowel gas. Gallbladder is present, some internal echogenicity likely due to sludge. There is no demonstrable gallbladder wall thickening or pericholecystic fluid. Common bile duct is within normal limits about 0.4 cm. Right kidney is obscured by bowel gas. Spleen is incompletely visualized, estimated about 12.2 cm longitudinal. Left kidney measured 10.6 x 5.2 x 5 cm, no hydronephrosis. Impression: 1. Exam is very limited due to bowel gas. Right kidney is obscured, no left hydronephrosis. 2. There is gallbladder sludge. Electronically signed by: Benji Wong MD (10/17/2019 4:01 PM) [id number]
[2019-10-17] MEDS: IV DEXTROSE 5 %-0.45 % NACL 1,000 ML IV SCH (16:26)
[2019-10-17] MEDS ORDERED: INSULIN LISPRO 300 UNITS/3 ML VIAL. SQ SCH (18:30)
[2019-10-17] MEDS ORDERED: DEXTROSE 50% 25 GM / 50ML DISP.SYRIN. IV PRN (18:30)
[2019-10-17] MEDS ORDERED: IV DEXTROSE 5% 250 ML BAG. IV PRN (18:30)
[2019-10-17] MEDS: CEFEPIME HCL IV Push 2 GM VIAL. IVP SCH (21:47)
[2019-10-17 23:36] LABS: CREATININE 1.7 mg/dL (0.6-1.0); GFR 29.4; POTASSIUM 3.8 mmol/L (3.5-5.1)
[2019-10-18] VITALS (24 sets, daily range): BP systolic 96–135; BP diastolic 41–93
--- NOTE | 2019-10-18 00:02 | NUR ---
Notified Dr. Marie, on-call MD, of pt continued critical Na, now 166. Received order to increase IV D5 1/2 NS to 100ml/hr. No other changes or concerns at this time. Pt within site of care team, daughter at bedside. Will continue to monitor.
--- NOTE | 2019-10-18 00:45 | CONS ---
DATE OF CONSULTATION: 10/17/2019 ROOM: ICU 6. REQUESTING PHYSICIAN: Dr. Devine. REASON FOR CONSULTATION: UTI. HISTORY OF PRESENT ILLNESS: The patient is a 74-year-old female with severe Alzheimer dementia who apparently developed increased weakness for several days. She is cared for at home by her son. She is nonverbal. She was brought to [facility] secondary to increased weakness. Last evening on arrival, she had a white count of 11.2 with 89% segs. Creatinine was at 2.6. Her sodium was 170. Urine was concerning for urinary tract infection. She was given Rocephin and admitted to the Intensive Care Unit. Currently, the patient is alert, but she is nonverbal. She has been afebrile since her presentation. REVIEW OF SYSTEMS: Unobtainable. PAST MEDICAL HISTORY: Positive for recurrent group B strep urinary tract infections, history of diabetes, hypertension, hyperlipidemia, severe dementia, TIAs, Mtz's palsy. PAST SURGICAL HISTORY: Positive for previous breast biopsy. ALLERGIES: No known drug allergies. SOCIAL HISTORY: Again, lives at home. No tobacco history. FAMILY HISTORY: Positive for hypertension. CURRENT MEDICATIONS: Include ceftriaxone, Colace, Lovenox, Pepcid, and metoprolol. PHYSICAL EXAMINATION: VITAL SIGNS: She has been afebrile, temperature currently 98.2 axillary, pulse 80, respirations 22, blood pressure 116/57, and satting 94% on room air. CONSTITUTIONAL: She is alert. She is looking around the room. HEENT: Pupils equal and reactive. Normal conjunctivae. Oral cavity, pharynx was dry. She happened to yawn and I was able to see her mouth. NECK: Without JVD. No swelling. LUNGS: Decreased at the bases. HEART: S1, S2. ABDOMEN: Soft. No guarding, no rebound. Questionable fullness in the suprapubic area. EXTREMITIES: Without clubbing or cyanosis. No gross edema. SKIN: Warm to touch without generalized signs of rash. NEUROLOGIC: She is alert, nonverbal. LABORATORY DATA: White count 11.2, hemoglobin 14.9, platelets of 95, 89 segs, 8 lymphs. Creatinine is improved to 2.1, glucose 265. AST was 5.7, ALT 25. Troponin was 1.09. TSH was low at 0.331. Urine concerning for urinary tract infection. Sodium was 169 today. IMAGING STUDIES: CT of the head, chronic ischemic changes without acute intracranial abnormality. Chest x-ray, no radiographic abnormality of the chest. IMPRESSION: 1. Leukocytosis. 2. Urinary tract infection present on admission on 10/16/2019. 3. Acute kidney injury. 4. Diabetes. 5. Dementia. 6. Hypernatremia. RECOMMENDATIONS: Discontinue Rocephin. We will dose cefepime, dose daptomycin x 1. Follow up labs and cultures. I did have nursing check a bladder scan. She is retaining only 200. We will monitor this. This was discussed with nursing. Thank you for allowing me to participate in this patient's care. If you have any further concerns or questions, please do not hesitate to contact me. Electrolytes per primary. RIC MACIEL MD DR: ROHIT/luis miguel JOB#: [id number] / [id number]
[2019-10-18] MEDS: AA 4.25 %/CALCIUM/LYTES/D5W 1,000 ML IV SCH ×2 (02:16→14:33)
[2019-10-18] MEDS: IV DEXTROSE 5 %-0.45 % NACL 1,000 ML IV SCH ×2 (05:03→19:46)
[2019-10-18 05:33] LABS: BASO % 0 % (0-3); EOS % 0 % (0-3); LYMPH % 11 % (24-48); MEAN CORPUSCULAR HEMOGLOBIN 32 pg (25-35); MEAN CORPUSCULAR HGB CONC 32 g/dL (31-37); MEAN CORPUSCULAR VOLUME 100 fL (79-100); MONO # 0.3 x10^3/uL (0.0-1.1); MONO % 4 % (0-9); NEUT # 7.2 x10^3/uL (1.8-7.7); NEUT % 84 % (31-73); PLATELET COUNT 41 x10^3/uL (140-400); RED CELL DISTRIBUTION WIDTH 18.2 % (11.5-14.5); WHITE BLOOD COUNT 8.6 x10^3/uL (4.0-11.0)
[2019-10-18 05:44] LABS: ALBUMIN 1.7 g/dL (3.4-5.0); CALCIUM 7.8 mg/dL (8.5-10.1); CREATININE 1.5 mg/dL (0.6-1.0); DIRECT BILIRUBIN 1.8 mg/dL (0.0-0.2); GFR 33.9; MAGNESIUM 2.7 mg/dL (1.8-2.4); PHOSPHORUS 2.2 mg/dL (2.6-4.7); POTASSIUM 3.4 mmol/L (3.5-5.1); TOTAL BILIRUBIN 2.7 mg/dL (0.2-1.0); TOTAL PROTEIN 5.5 g/dL (6.4-8.2)
[2019-10-18 05:53] LABS: PROTHROMBIN TIME PATIENT 17.5 SEC (11.7-14.0)
[2019-10-18] MEDS: INSULIN LISPRO 300 UNITS/3 ML VIAL. SQ SCH ×3 (06:30→17:46)
--- NOTE | 2019-10-18 06:34 | NUR ---
Received call with critical sodium of 164 at 0620. Orders already in place; sodium is decreasing slowly as ordered. No need to call physician at this time. Will pass on and continue to monitor. Pt is currently resting with eyes closed. Daughter at bedside and pt is within sight of care team.
--- NOTE | 2019-10-18 07:29 | PDOC ---
Infectious Disease Note Subjective Subjective Alert but non verbal ROS ROS unable to obtain Vital Sign Vital Signs Vital Signs Date Time Temp Pulse Resp B/P (MAP) Pulse Ox O2 Delivery O2 Flow Rate FiO2 10/18/19 06:00 76 20 114/51 (72) 99 Room Air 10/18/19 04:00 98.3 98.3 Physical Exam PHYSICAL EXAM CONSTITUTIONAL: She is alert. She is more focused HEENT: Pupils equal and reactive. Normal conjunctivae. Oral cavity, pharynx was dry. She happened to yawn and I was able to see her mouth. NECK: Without JVD. No swelling. LUNGS: Decreased at the bases. HEART: S1, S2. ABDOMEN: Soft. No guarding, no rebound. : garvin in place EXTREMITIES: Without clubbing or cyanosis. No gross edema. SKIN: Warm to touch without generalized signs of rash. NEUROLOGIC: She is alert, nonverbal. Labs Lab Laboratory Tests Test 10/17/19 13:35 10/17/19 15:20 10/17/19 18:21 10/17/19 23:05 Sodium Level 169 mmol/L (136-145) 166 mmol/L (136-145) Potassium Level 3.8 mmol/L (3.5-5.1) 3.8 mmol/L (3.5-5.1) Chloride Level 131 mmol/L (98-107) 131 mmol/L (98-107) Carbon Dioxide Level 25 mmol/L (21-32) 26 mmol/L (21-32) Anion Gap 13 (6-14) 9 (6-14) Blood Urea Nitrogen 67 mg/dL (7-20) 67 mg/dL (7-20) Creatinine 2.1 mg/dL (0.6-1.0) 1.7 mg/dL (0.6-1.0) Estimated GFR (Cockcroft-Gault) 23.0 29.4 Glucose Level 265 mg/dL (70-99) 271 mg/dL (70-99) Calcium Level 8.2 mg/dL (8.5-10.1) 8.0 mg/dL (8.5-10.1) Prothrombin Time 17.7 SEC (11.7-14.0) Prothromb Time International Ratio 1.5 (0.8-1.1) Glucose (Fingerstick) 223 mg/dL (70-99) Test 10/18/19 04:07 10/18/19 04:45 10/18/19 06:27 Glucose (Fingerstick) 277 mg/dL (70-99) 276 mg/dL (70-99) White Blood Count 8.6 x10^3/uL (4.0-11.0) Red Blood Count 3.70 x10^6/uL (3.50-5.40) Hemoglobin 12.0 g/dL (12.0-15.5) Hematocrit 37.0 % (36.0-47.0) Mean Corpuscular Volume 100 fL (79-100) Mean Corpuscular Hemoglobin 32 pg (25-35) Mean Corpuscular Hemoglobin Concent 32 g/dL (31-37) Red Cell Distribution Width 18.2 % (11.5-14.5) Platelet Count 41 x10^3/uL (140-400) Neutrophils (%) (Auto) 84 % (31-73) Lymphocytes (%) (Auto) 11 % (24-48) Monocytes (%) (Auto) 4 % (0-9) Eosinophils (%) (Auto) 0 % (0-3) Basophils (%) (Auto) 0 % (0-3) Neutrophils # (Auto) 7.2 x10^3/uL (1.8-7.7) Lymphocytes # (Auto) 1.0 x10^3/uL (1.0-4.8) Monocytes # (Auto) 0.3 x10^3/uL (0.0-1.1) Eosinophils # (Auto) 0.0 x10^3/uL (0.0-0.7) Basophils # (Auto) 0.0 x10^3/uL (0.0-0.2) Prothrombin Time 17.5 SEC (11.7-14.0) Prothromb Time International Ratio 1.5 (0.8-1.1) Activated Partial Thromboplast Time 29 SEC (24-38) Sodium Level 164 mmol/L (136-145) Potassium Level 3.4 mmol/L (3.5-5.1) Chloride Level 129 mmol/L (98-107) Carbon Dioxide Level 24 mmol/L (21-32) Anion Gap 11 (6-14) Blood Urea Nitrogen 60 mg/dL (7-20) Creatinine 1.5 mg/dL (0.6-1.0) Estimated GFR (Cockcroft-Gault) 33.9 Glucose Level 332 mg/dL (70-99) Calcium Level 7.8 mg/dL (8.5-10.1) Phosphorus Level 2.2 mg/dL (2.6-4.7) Magnesium Level 2.7 mg/dL (1.8-2.4) Total Bilirubin 2.7 mg/dL (0.2-1.0) Direct Bilirubin 1.8 mg/dL (0.0-0.2) Aspartate Amino Transf (AST/SGOT) 44 U/L (15-37) Alanine Aminotransferase (ALT/SGPT) 23 U/L (14-59) Alkaline Phosphatase 66 U/L (46-116) Total Protein 5.5 g/dL (6.4-8.2) Albumin 1.7 g/dL (3.4-5.0) Micro U/S Impression: 1. Exam is very limited due to bowel gas. Right kidney is obscured, no left hydronephrosis. 2. There is gallbladder sludge. Microbiology 10/16/19 Blood Culture - Preliminary, Resulted NO GROWTH AFTER 1 DAY Objective Assessment Leukocytosis - better blood cult neg so far UTI -POA 10/16 Urinary bladder s/p garvin CATARINO - better DM Dementia Hypernatremia ? Hypothyroid Plan Plan of Care Cont Cefepime Dosed Dapto times one 10/16 ? hypothyroid per primary F/u labs and cults Electrolytes per primary D/w family D/w nursing RIC MACIEL MD Oct 18, 2019 07:29
[2019-10-18] MEDS ORDERED: INSULIN LISPRO 300 UNITS/3 ML VIAL. SQ SCH (08:00)
[2019-10-18] MEDS: CEFEPIME HCL IV Push 2 GM VIAL. IVP SCH ×2 (09:14→21:18)
[2019-10-18] MEDS: FAMOTIDINE 20 MG/2 ML VIAL IVP SCH ×2 (09:14→21:18)
[2019-10-18] MEDS ORDERED: VITS A & D/LANOLIN TOPICAL OINTMENT 42GM TUBE. TP PRN ×2 (09:45)
--- NOTE | 2019-10-18 09:57 | PDOC ---
PROGRESS NOTES Assessment Problems Medical Problems: (1) Mental status alteration Status: Acute Natural, normal progression of Alzheimer's dementia, no evidence of acute strok e. She does have some metabolic abnormalities of course related to the fact that she has not been eating. Plan Per the patient's wishes, we will interrupt this natural course and she will most likely need a feeding tube. I discussed DO NOT RESUSCITATE, in the patient's living Will, she wants to be a full code, so daughter will leave her as a full code at least for now. I see no need to repeat any other neurological studies. Fully discussed with the patient's daughter. Objective Vital Signs Date Time Temp Pulse Resp B/P (MAP) Pulse Ox O2 Delivery O2 Flow Rate FiO2 10/18/19 09:00 71 24 115/60 (78) 99 Room Air 10/18/19 07:00 98.5 98.5 Intake and Output 10/18/19 07:00 Intake Total 2123 ml Output Total 805 ml Balance 1318 ml Intake IV Total 2123 ml Output Urine Total 805 ml PHYSICAL EXAM Alert. Nonverbal, does not follow any commands. PERRL. EOMI. CN: no focal findings. Muscle tone: normal. Muscle strength: moves to mild stimulation DTR: 1+. Bilateral grasp reflexes Plantar reflex: flexor Gait: not examined in bed. Sensory exam: responds to pinprick in all 4 extremities Cerebellar: not cooperative Review of Relevant I have reviewed the following items karrie (where applicable) has been applied. Labs Laboratory Tests Test 10/16/19 20:43 10/16/19 21:30 10/16/19 21:35 10/17/19 13:35 Urine Collection Type U cath Urine Color Gallia Urine Clarity Clear Urine pH 5.0 Urine Specific Bradshaw 1.020 Urine Protein 30 mg/dL (NEG-TRACE) Urine Glucose (UA) Negative mg/dL (NEG) Urine Ketones (Stick) 15 mg/dL (NEG) Urine Blood Negative (NEG) Urine Nitrite Positive (NEG) Urine Bilirubin Large (NEG) Urine Urobilinogen Dipstick 4.0 mg/dL (0.2 mg/dL) Urine Leukocyte Esterase Moderate (NEG) Urine RBC 0 /HPF (0-2) Urine WBC 5-10 /HPF (0-4) Urine Squamous Epithelial Cells Occ /LPF Urine Bacteria Many /HPF (0-FEW) Urine Mucus Slight /LPF White Blood Count 11.2 x10^3/uL (4.0-11.0) Red Blood Count 4.76 x10^6/uL (3.50-5.40) Hemoglobin 14.9 g/dL (12.0-15.5) Hematocrit 46.7 % (36.0-47.0) Mean Corpuscular Volume 98 fL (79-100) Mean Corpuscular Hemoglobin 31 pg (25-35) Mean Corpuscular Hemoglobin Concent 32 g/dL (31-37) Red Cell Distribution Width 18.5 % (11.5-14.5) Platelet Count 95 x10^3/uL (140-400) Neutrophils (%) (Auto) 87 % (31-73) Lymphocytes (%) (Auto) 10 % (24-48) Monocytes (%) (Auto) 3 % (0-9) Eosinophils (%) (Auto) 0 % (0-3) Basophils (%) (Auto) 0 % (0-3) Neutrophils # (Auto) 9.7 x10^3/uL (1.8-7.7) Lymphocytes # (Auto) 1.1 x10^3/uL (1.0-4.8) Monocytes # (Auto) 0.4 x10^3/uL (0.0-1.1) Eosinophils # (Auto) 0.0 x10^3/uL (0.0-0.7) Basophils # (Auto) 0.0 x10^3/uL (0.0-0.2) Segmented Neutrophils % 89 % (35-66) Lymphocytes % 8 % (24-48) Monocytes % 3 % (0-10) Platelet Estimate Adequate (ADEQUATE) Anisocytosis Slight Tear Drop Cells Occ Sodium Level 170 mmol/L (136-145) 169 mmol/L (136-145) Potassium Level 4.0 mmol/L (3.5-5.1) 3.8 mmol/L (3.5-5.1) Chloride Level 130 mmol/L (98-107) 131 mmol/L (98-107) Carbon Dioxide Level 23 mmol/L (21-32) 25 mmol/L (21-32) Anion Gap 17 (6-14) 13 (6-14) Blood Urea Nitrogen 66 mg/dL (7-20) 67 mg/dL (7-20) Creatinine 2.6 mg/dL (0.6-1.0) 2.1 mg/dL (0.6-1.0) Estimated GFR (Cockcroft-Gault) 18.0 23.0 BUN/Creatinine Ratio 25 (6-20) Glucose Level 162 mg/dL (70-99) 265 mg/dL (70-99) Calcium Level 8.9 mg/dL (8.5-10.1) 8.2 mg/dL (8.5-10.1) Magnesium Level 2.8 mg/dL (1.8-2.4) Total Bilirubin 6.4 mg/dL (0.2-1.0) Aspartate Amino Transf (AST/SGOT) 57 U/L (15-37) Alanine Aminotransferase (ALT/SGPT) 25 U/L (14-59) Alkaline Phosphatase 87 U/L (46-116) Troponin I Quantitative 0.109 ng/mL (0.000-0.055) Total Protein 7.0 g/dL (6.4-8.2) Albumin 2.5 g/dL (3.4-5.0) Albumin/Globulin Ratio 0.6 (1.0-1.7) Thyroid Stimulating Hormone (TSH) 0.331 uIU/mL (0.358-3.74) Glucose (Fingerstick) 163 mg/dL (70-99) Test 10/17/19 15:20 10/17/19 18:21 10/17/19 23:05 10/18/19 04:07 Prothrombin Time 17.7 SEC (11.7-14.0) Prothromb Time International Ratio 1.5 (0.8-1.1) Glucose (Fingerstick) 223 mg/dL (70-99) 277 mg/dL (70-99) Sodium Level 166 mmol/L (136-145) Potassium Level 3.8 mmol/L (3.5-5.1) Chloride Level 131 mmol/L (98-107) Carbon Dioxide Level 26 mmol/L (21-32) Anion Gap 9 (6-14) Blood Urea Nitrogen 67 mg/dL (7-20) Creatinine 1.7 mg/dL (0.6-1.0) Estimated GFR (Cockcroft-Gault) 29.4 Glucose Level 271 mg/dL (70-99) Calcium Level 8.0 mg/dL (8.5-10.1) Test 10/18/19 04:45 10/18/19 06:27 White Blood Count 8.6 x10^3/uL (4.0-11.0) Red Blood Count 3.70 x10^6/uL (3.50-5.40) Hemoglobin 12.0 g/dL (12.0-15.5) Hematocrit 37.0 % (36.0-47.0) Mean Corpuscular Volume 100 fL (79-100) Mean Corpuscular Hemoglobin 32 pg (25-35) Mean Corpuscular Hemoglobin Concent 32 g/dL (31-37) Red Cell Distribution Width 18.2 % (11.5-14.5) Platelet Count 41 x10^3/uL (140-400) Neutrophils (%) (Auto) 84 % (31-73) Lymphocytes (%) (Auto) 11 % (24-48) Monocytes (%) (Auto) 4 % (0-9) Eosinophils (%) (Auto) 0 % (0-3) Basophils (%) (Auto) 0 % (0-3) Neutrophils # (Auto) 7.2 x10^3/uL (1.8-7.7) Lymphocytes # (Auto) 1.0 x10^3/uL (1.0-4.8) Monocytes # (Auto) 0.3 x10^3/uL (0.0-1.1) Eosinophils # (Auto) 0.0 x10^3/uL (0.0-0.7) Basophils # (Auto) 0.0 x10^3/uL (0.0-0.2) Prothrombin Time 17.5 SEC (11.7-14.0) Prothromb Time International Ratio 1.5 (0.8-1.1) Activated Partial Thromboplast Time 29 SEC (24-38) Sodium Level 164 mmol/L (136-145) Potassium Level 3.4 mmol/L (3.5-5.1) Chloride Level 129 mmol/L (98-107) Carbon Dioxide Level 24 mmol/L (21-32) Anion Gap 11 (6-14) Blood Urea Nitrogen 60 mg/dL (7-20) Creatinine 1.5 mg/dL (0.6-1.0) Estimated GFR (Cockcroft-Gault) 33.9 Glucose Level 332 mg/dL (70-99) Calcium Level 7.8 mg/dL (8.5-10.1) Phosphorus Level 2.2 mg/dL (2.6-4.7) Magnesium Level 2.7 mg/dL (1.8-2.4) Total Bilirubin 2.7 mg/dL (0.2-1.0) Direct Bilirubin 1.8 mg/dL (0.0-0.2) Aspartate Amino Transf (AST/SGOT) 44 U/L (15-37) Alanine Aminotransferase (ALT/SGPT) 23 U/L (14-59) Alkaline Phosphatase 66 U/L (46-116) Total Protein 5.5 g/dL (6.4-8.2) Albumin 1.7 g/dL (3.4-5.0) Glucose (Fingerstick) 276 mg/dL (70-99) Laboratory Tests Test 10/17/19 13:35 10/17/19 15:20 10/17/19 18:21 10/17/19 23:05 Sodium Level 169 mmol/L (136-145) 166 mmol/L (136-145) Potassium Level 3.8 mmol/L (3.5-5.1) 3.8 mmol/L (3.5-5.1) Chloride Level 131 mmol/L (98-107) 131 mmol/L (98-107) Carbon Dioxide Level 25 mmol/L (21-32) 26 mmol/L (21-32) Anion Gap 13 (6-14) 9 (6-14) Blood Urea Nitrogen 67 mg/dL (7-20) 67 mg/dL (7-20) Creatinine 2.1 mg/dL (0.6-1.0) 1.7 mg/dL (0.6-1.0) Estimated GFR (Cockcroft-Gault) 23.0 29.4 Glucose Level 265 mg/dL (70-99) 271 mg/dL (70-99) Calcium Level 8.2 mg/dL (8.5-10.1) 8.0 mg/dL (8.5-10.1) Prothrombin Time 17.7 SEC (11.7-14.0) Prothromb Time International Ratio 1.5 (0.8-1.1) Glucose (Fingerstick) 223 mg/dL (70-99) Test 10/18/19 04:07 10/18/19 04:45 10/18/19 06:27 Glucose (Fingerstick) 277 mg/dL (70-99) 276 mg/dL (70-99) White Blood Count 8.6 x10^3/uL (4.0-11.0) Red Blood Count 3.70 x10^6/uL (3.50-5.40) Hemoglobin 12.0 g/dL (12.0-15.5) Hematocrit 37.0 % (36.0-47.0) Mean Corpuscular Volume 100 fL (79-100) Mean Corpuscular Hemoglobin 32 pg (25-35) Mean Corpuscular Hemoglobin Concent 32 g/dL (31-37) Red Cell Distribution Width 18.2 % (11.5-14.5) Platelet Count 41 x10^3/uL (140-400) Neutrophils (%) (Auto) 84 % (31-73) Lymphocytes (%) (Auto) 11 % (24-48) Monocytes (%) (Auto) 4 % (0-9) Eosinophils (%) (Auto) 0 % (0-3) Basophils (%) (Auto) 0 % (0-3) Neutrophils # (Auto) 7.2 x10^3/uL (1.8-7.7) Lymphocytes # (Auto) 1.0 x10^3/uL (1.0-4.8) Monocytes # (Auto) 0.3 x10^3/uL (0.0-1.1) Eosinophils # (Auto) 0.0 x10^3/uL (0.0-0.7) Basophils # (Auto) 0.0 x10^3/uL (0.0-0.2) Prothrombin Time 17.5 SEC (11.7-14.0) Prothromb Time International Ratio 1.5 (0.8-1.1) Activated Partial Thromboplast Time 29 SEC (24-38) Sodium Level 164 mmol/L (136-145) Potassium Level 3.4 mmol/L (3.5-5.1) Chloride Level 129 mmol/L (98-107) Carbon Dioxide Level 24 mmol/L (21-32) Anion Gap 11 (6-14) Blood Urea Nitrogen 60 mg/dL (7-20) Creatinine 1.5 mg/dL (0.6-1.0) Estimated GFR (Cockcroft-Gault) 33.9 Glucose Level 332 mg/dL (70-99) Calcium Level 7.8 mg/dL (8.5-10.1) Phosphorus Level 2.2 mg/dL (2.6-4.7) Magnesium Level 2.7 mg/dL (1.8-2.4) Total Bilirubin 2.7 mg/dL (0.2-1.0) Direct Bilirubin 1.8 mg/dL (0.0-0.2) Aspartate Amino Transf (AST/SGOT) 44 U/L (15-37) Alanine Aminotransferase (ALT/SGPT) 23 U/L (14-59) Alkaline Phosphatase 66 U/L (46-116) Total Protein 5.5 g/dL (6.4-8.2) Albumin 1.7 g/dL (3.4-5.0) Microbiology 10/16/19 Blood Culture - Preliminary, Resulted NO GROWTH AFTER 1 DAY Medications Current Medications Potassium Chloride/Dextrose/ Sod Cl 1,000 ml @ 75 mls/hr 1X ONCE IV Last administered on 10/17/19at 00:40; Start 10/16/19 at 23:30; Stop 10/17/19 at 12:49; Status DC Ceftriaxone Sodium (Rocephin) 1 gm 1X ONCE IVP Last administered on 10/17/19at 00:42; Start 10/16/19 at 23:45; Stop 10/16/19 at 23:46; Status DC Ondansetron HCl (Zofran) 4 mg PRN Q8HRS PRN IV NAUSEA/VOMITING; Start 10/17/19 at 02:30; Stop 10/18/19 at 02:29; Status DC Amino Acids/ Electrolytes/ Dextrose 1,000 ml @ 80 mls/hr [id number] IV Last administered on 10/18/19at 02:16; Start 10/17/19 at 11:15 Ceftriaxone Sodium (Rocephin) 1 gm Q24H IVP Last administered on 10/17/19at 12:06; Start 10/17/19 at 11:00; Stop 10/17/19 at 14:44; Status DC Sodium Chloride (Normal Saline Flush) 3 ml QSHIFT PRN IV AFTER MEDS AND BLOOD DRAWS; Start 10/17/19 at 12:30; Status Cancel Ondansetron HCl (Zofran) 2 mg PRN Q4HRS PRN IV NAUSEA/VOMITING; Start 10/17/19 at 12:30 Acetaminophen (Tylenol Supp) 650 mg PRN Q4HRS PRN IA TEMP OVER 100.4F OR MILD PAIN; Start 10/17/19 at 12:30 Docusate Sodium (Colace) 100 mg PRN BID PRN PO CONSTIPATION; Start 10/17/19 at 12:30 Albuterol Sulfate (Ventolin Neb Soln) 2.5 mg PRN Q4HRS PRN NEB SHORTNESS OF BREATH; Start 10/17/19 at 12:30 Enoxaparin Sodium (Lovenox 30mg Syringe) 30 mg Q24H SQ Last administered on 10/17/19at 13:53; Start 10/17/19 at 13:00 Famotidine (Pepcid Vial) 10 mg BID IVP Last administered on 10/18/19at 09:14; Start 10/17/19 at 13:00 Sodium Chloride (Normal Saline Flush) 3 ml QSHIFT PRN IV AFTER MEDS AND BLOOD DRAWS; Start 10/17/19 at 12:30 Metoprolol Tartrate (Lopressor Vial) 5 mg PRN Q6HRS PRN IVP TACHYCARDIA; Start 10/17/19 at 14:15 Cefepime HCl (Maxipime) 2 gm Q12HR IVP Last administered on 10/18/19at 09:14; Start 10/17/19 at 21:00 Daptomycin 490 mg/ Sodium Chloride 50 ml @ 100 mls/hr ONCE ONCE IV Last administered on 10/17/19at 16:26; Start 10/17/19 at 15:00; Stop 10/17/19 at 1 5:29; Status DC Vitamin A/Vitamin D (Vitamin A & D Ointment) 1 [place] PRN Q1HR PRN TP SKIN PROTECTION; Start 10/17/19 at 15:45 Dextrose/Sodium Chloride 1,000 ml @ 100 mls/hr Q10H IV Last administered on 10/18/19at 05:03; Start 10/17/19 at 16:15 Insulin Human Lispro (HumaLOG) 0-5 UNITS TIDWMEALS SQ Last administered on 10/17/19at 18:44; Start 10/17/19 at 18:30; Stop 10/18/19 at 04:12; Status DC Dextrose (Dextrose 50%-Water Syringe) 12.5 gm PRN Q15MIN PRN IV SEE COMMENTS; Start 10/17/19 at 18:30 Dextrose (Iv Dextrose 5%) 250 ml PRN Q15MIN PRN IV SEE COMMENTS; Start 10/17/19 at 18:30 Insulin Human Lispro (HumaLOG) 0-7 UNITS TIDWMEALS SQ ; Start 10/18/19 at 08:00; Stop 10/18/19 at 04:42; Status DC Insulin Human Lispro (HumaLOG) 0-7 UNITS Q6HRS SQ Last administered on 10/18/19at 06:30; Start 10/18/19 at 06:00 Vitamin A/Vitamin D (Vitamin A & D Ointment) 1 [place] BID PRN TP SKIN PROTECTION; Start 10/18/19 at 09:45 Vitamin A/Vitamin D (Vitamin A & D Ointment) 1 [place] PRN Q1HR PRN TP SKIN PROTECTION; Start 10/18/19 at 09:45 Active Scripts Active Valtrex (Valacyclovir Hcl) 1,000 Mg Tablet 1 Tab PO TID Medrol (Methylprednisolone) 4 Mg Tab.ds.pk 1 Pkg PO UD Levemir (Insulin Detemir) 100 Unit/1 Ml Vial 15 Unit SQ DAILY 30 Days Keflex (Cephalexin) 500 Mg Capsule 1 Cap PO TID Novolog Flexpen (Insulin Aspart) 100 Unit/1 Ml Insuln.pen 0 Units SQ TIDACHC Aspirin Ec (Aspirin) 325 Mg Tablet.dr 325 Mg PO DAILYWBKFT Glucophage (Metformin Hcl) 500 Mg Tablet 500 Mg PO BIDWMEALS Reported Tresiba Flextouch U-100 (Insulin Degludec) 100 Unit/1 Ml Insuln.pen 24 Units SUBCUT HS Klor-Con 10 (Potassium Chloride) 10 Meq Tablet.er 10 Meq PO DAILY Donepezil Hcl 10 Mg Tablet 1 Tab PO DAILY Novolog Flexpen (Insulin Aspart) 100 Unit/1 Ml Insuln.pen 12 Unit SQ TIDWMEALS Vitamin D3 1,000 Unit Tablet (Ca Cmb No.1/Vit D3/B-6/Fa/B12) 1 Each Tablet 1 Each PO DAILY Losartan-Hctz 100-12.5 Mg Tab (Losartan/Hydrochlorothiazide) 1 Each Tablet 1 Each PO DAILY08 Pravachol (Pravastatin Sodium) 20 Mg Tablet 20 Mg PO HS Amlodipine Besylate 5 Mg Tablet 5 Mg PO DAILY08 Vitals/I & O Vital Sign - Last 24 Hours 10/17/19 10/17/19 10/17/19 10/17/19 11:00 15:00 16:00 16:00 Temp 98.2 98.2 Pulse 80 74 78 Resp 22 19 16 B/P (MAP) 116/57 (76) 116/46 (69) 119/54 (75) Pulse Ox 94 97 97 O2 Delivery Room Air Room Air Room Air Room Air 10/17/19 10/17/19 10/17/19 10/17/19 17:00 18:04 18:27 19:00 Pulse 74 71 71 Resp 22 22 18 B/P (MAP) 121/52 (75) 91/61 (71) 87/42 (57) Pulse Ox 91 95 97 O2 Delivery Room Air Room Air Room Air Room Air 10/17/19 10/17/19 10/17/19 10/17/19 20:00 20:00 21:00 22:00 Temp 98.2 98.2 Pulse 96 78 80 Resp 23 18 20 B/P (MAP) 98/50 (66) 118/62 (80) 115/57 (76) Pulse Ox 96 97 96 O2 Delivery Room Air Room Air Room Air Room Air 10/17/19 10/18/19 10/18/19 10/18/19 23:00 00:00 00:00 01:00 Temp 98.0 98.0 Pulse 81 78 71 Resp 19 18 24 B/P (MAP) 113/52 (72) 114/51 (72) 103/44 (63) Pulse Ox 98 97 95 O2 Delivery Room Air Room Air Room Air Room Air 10/18/19 10/18/19 10/18/19 10/18/19 02:00 03:00 04:00 04:00 Temp 98.3 98.3 Pulse 69 72 76 Resp 22 21 23 B/P (MAP) 111/45 (67) 109/50 (69) 96/41 (59) Pulse Ox 95 95 96 O2 Delivery Room Air Room Air Room Air Room Air 10/18/19 10/18/19 10/18/19 10/18/19 05:00 06:00 07:00 08:00 Temp 98.5 98.5 Pulse 70 76 79 89 Resp 21 20 26 20 B/P (MAP) 102/44 (63) 114/51 (72) 99/52 (68) 113/58 (76) Pulse Ox 99 99 99 97 O2 Delivery Room Air Room Air Room Air Room Air 10/18/19 10/18/19 08:00 09:00 Pulse 71 Resp 24 B/P (MAP) 115/60 (78) Pulse Ox 99 O2 Delivery Room Air Room Air Intake and Output 10/17/19 10/17/19 10/18/19 15:00 23:00 07:00 Intake Total 2123 ml Output Total 0 ml 545 ml 260 ml Balance 0 ml -545 ml 1863 ml SALMA LAMBERT MD Oct 18, 2019 09:57
--- NOTE | 2019-10-18 10:51 | PDOC ---
Renal-Progress Notes Subjective Notes Notes REMAINS CONFUSED History of Present Illness Hx of present illness STABLE Vitals Vitals Vital Signs Date Time Temp Pulse Resp B/P (MAP) Pulse Ox O2 Delivery O2 Flow Rate FiO2 10/18/19 10:00 71 24 117/62 (80) 98 Room Air 10/18/19 07:00 98.5 98.5 Weight Weight [ ] I.O. Intake and Output Intake and Output 10/18/19 07:00 Intake Total 2123 ml Output Total 805 ml Balance 1318 ml IV Total 2123 ml Output Urine Total 805 ml Labs Labs Laboratory Tests Test 10/17/19 13:35 10/17/19 15:20 10/17/19 18:21 10/17/19 23:05 Sodium Level 169 mmol/L (136-145) 166 mmol/L (136-145) Potassium Level 3.8 mmol/L (3.5-5.1) 3.8 mmol/L (3.5-5.1) Chloride Level 131 mmol/L (98-107) 131 mmol/L (98-107) Carbon Dioxide Level 25 mmol/L (21-32) 26 mmol/L (21-32) Anion Gap 13 (6-14) 9 (6-14) Blood Urea Nitrogen 67 mg/dL (7-20) 67 mg/dL (7-20) Creatinine 2.1 mg/dL (0.6-1.0) 1.7 mg/dL (0.6-1.0) Estimated GFR (Cockcroft-Gault) 23.0 29.4 Glucose Level 265 mg/dL (70-99) 271 mg/dL (70-99) Calcium Level 8.2 mg/dL (8.5-10.1) 8.0 mg/dL (8.5-10.1) Prothrombin Time 17.7 SEC (11.7-14.0) Prothromb Time International Ratio 1.5 (0.8-1.1) Glucose (Fingerstick) 223 mg/dL (70-99) Test 10/18/19 04:07 10/18/19 04:45 10/18/19 06:27 Glucose (Fingerstick) 277 mg/dL (70-99) 276 mg/dL (70-99) White Blood Count 8.6 x10^3/uL (4.0-11.0) Red Blood Count 3.70 x10^6/uL (3.50-5.40) Hemoglobin 12.0 g/dL (12.0-15.5) Hematocrit 37.0 % (36.0-47.0) Mean Corpuscular Volume 100 fL (79-100) Mean Corpuscular Hemoglobin 32 pg (25-35) Mean Corpuscular Hemoglobin Concent 32 g/dL (31-37) Red Cell Distribution Width 18.2 % (11.5-14.5) Platelet Count 41 x10^3/uL (140-400) Neutrophils (%) (Auto) 84 % (31-73) Lymphocytes (%) (Auto) 11 % (24-48) Monocytes (%) (Auto) 4 % (0-9) Eosinophils (%) (Auto) 0 % (0-3) Basophils (%) (Auto) 0 % (0-3) Neutrophils # (Auto) 7.2 x10^3/uL (1.8-7.7) Lymphocytes # (Auto) 1.0 x10^3/uL (1.0-4.8) Monocytes # (Auto) 0.3 x10^3/uL (0.0-1.1) Eosinophils # (Auto) 0.0 x10^3/uL (0.0-0.7) Basophils # (Auto) 0.0 x10^3/uL (0.0-0.2) Prothrombin Time 17.5 SEC (11.7-14.0) Prothromb Time International Ratio 1.5 (0.8-1.1) Activated Partial Thromboplast Time 29 SEC (24-38) Sodium Level 164 mmol/L (136-145) Potassium Level 3.4 mmol/L (3.5-5.1) Chloride Level 129 mmol/L (98-107) Carbon Dioxide Level 24 mmol/L (21-32) Anion Gap 11 (6-14) Blood Urea Nitrogen 60 mg/dL (7-20) Creatinine 1.5 mg/dL (0.6-1.0) Estimated GFR (Cockcroft-Gault) 33.9 Glucose Level 332 mg/dL (70-99) Calcium Level 7.8 mg/dL (8.5-10.1) Phosphorus Level 2.2 mg/dL (2.6-4.7) Magnesium Level 2.7 mg/dL (1.8-2.4) Total Bilirubin 2.7 mg/dL (0.2-1.0) Direct Bilirubin 1.8 mg/dL (0.0-0.2) Aspartate Amino Transf (AST/SGOT) 44 U/L (15-37) Alanine Aminotransferase (ALT/SGPT) 23 U/L (14-59) Alkaline Phosphatase 66 U/L (46-116) Total Protein 5.5 g/dL (6.4-8.2) Albumin 1.7 g/dL (3.4-5.0) Micro Micro Microbiology 10/16/19 Blood Culture - Preliminary, Resulted NO GROWTH AFTER 1 DAY Review of Systems Constitutional: yes: other (UNABLE TO OBTAIN) Physical Exam General Appearance: no apparent distress Skin: warm Respiratory: decreased breath sounds Heart: S1S2 Abdomen: soft Genitourinary: bladder flat Extremities: pulses present Neurology: alert Assessment Assessment IMP CATARINO-CR OF 1.5 IMPROVED HYPERNATREMIA LOW K AND PO4 DEHYDRATION URINARY TRACT INFECTION SEVERE DEMENTIA MALNUTRITION LIVER FAILURE HX OF DM II PLAN HYPOTONIC SALINE PPN TO CONTINUE HOLD HER [place] HOLD HER DIURETICS REPLACE PO4 AND K UPDATED DAUGHTER WILL FOLLOW DANNY FALL MD Oct 18, 2019 10:51
[2019-10-18] MEDS: POTASSIUM PHOSPHATE DIBASIC 15 MMOL in IV NORMAL SALINE 250ML 250 ML IV SCH ×2 (11:51→13:36)
--- NOTE | 2019-10-18 12:19 | PDOC ---
Objective: Objective: Now DNR? Vital Signs: Vital Signs Date Time Temp Pulse Resp B/P (MAP) Pulse Ox O2 Delivery O2 Flow Rate FiO2 10/18/19 10:00 71 24 117/62 (80) 98 Room Air 10/18/19 07:00 98.5 98.5 Labs: Laboratory Tests Test 10/17/19 13:35 10/17/19 15:20 10/17/19 18:21 10/17/19 23:05 Sodium Level 169 mmol/L 166 mmol/L Potassium Level 3.8 mmol/L 3.8 mmol/L Chloride Level 131 mmol/L 131 mmol/L Carbon Dioxide Level 25 mmol/L 26 mmol/L Anion Gap 13 9 Blood Urea Nitrogen 67 mg/dL 67 mg/dL Creatinine 2.1 mg/dL 1.7 mg/dL Estimated GFR (Cockcroft-Gault) 23.0 29.4 Glucose Level 265 mg/dL 271 mg/dL Calcium Level 8.2 mg/dL 8.0 mg/dL Prothrombin Time 17.7 SEC Prothromb Time International Ratio 1.5 Glucose (Fingerstick) 223 mg/dL Test 10/18/19 04:07 10/18/19 04:45 10/18/19 06:27 10/18/19 11:56 Glucose (Fingerstick) 277 mg/dL 276 mg/dL 238 mg/dL White Blood Count 8.6 x10^3/uL Red Blood Count 3.70 x10^6/uL Hemoglobin 12.0 g/dL Hematocrit 37.0 % Mean Corpuscular Volume 100 fL Mean Corpuscular Hemoglobin 32 pg Mean Corpuscular Hemoglobin Concent 32 g/dL Red Cell Distribution Width 18.2 % Platelet Count 41 x10^3/uL Neutrophils (%) (Auto) 84 % Lymphocytes (%) (Auto) 11 % Monocytes (%) (Auto) 4 % Eosinophils (%) (Auto) 0 % Basophils (%) (Auto) 0 % Neutrophils # (Auto) 7.2 x10^3/uL Lymphocytes # (Auto) 1.0 x10^3/uL Monocytes # (Auto) 0.3 x10^3/uL Eosinophils # (Auto) 0.0 x10^3/uL Basophils # (Auto) 0.0 x10^3/uL Prothrombin Time 17.5 SEC Prothromb Time International Ratio 1.5 Activated Partial Thromboplast Time 29 SEC Sodium Level 164 mmol/L Potassium Level 3.4 mmol/L Chloride Level 129 mmol/L Carbon Dioxide Level 24 mmol/L Anion Gap 11 Blood Urea Nitrogen 60 mg/dL Creatinine 1.5 mg/dL Estimated GFR (Cockcroft-Gault) 33.9 Glucose Level 332 mg/dL Calcium Level 7.8 mg/dL Phosphorus Level 2.2 mg/dL Magnesium Level 2.7 mg/dL Total Bilirubin 2.7 mg/dL Direct Bilirubin 1.8 mg/dL Aspartate Amino Transf (AST/SGOT) 44 U/L Alanine Aminotransferase (ALT/SGPT) 23 U/L Alkaline Phosphatase 66 U/L Total Protein 5.5 g/dL Albumin 1.7 g/dL BLOOD CULTURE Preliminary NO GROWTH AFTER 1 DAY Imaging: Abd US 10/17 Impression: 1. Exam is very limited due to bowel gas. Right kidney is obscured, no left hydronephrosis. 2. There is gallbladder sludge. PE: GEN: NAD, family present LUNGS: CTAB HEART: RRR ABD: S/ND/NT NEURO/PSYCH: more alert, non-verbal A/P: Alzheimer's, UTI Hypernatremia, CATARINO, elevated LFTs - improved -- Labs improving and more alert today. Continue same per GI. GLENNA DILLON Oct 18, 2019 12:19
[2019-10-18] MEDS ORDERED: ENOXAPARIN 40 MG/0.4 ML SYRINGE. SQ SCH (13:00)
--- NOTE | 2019-10-18 13:21 | CARD ---
MR#: [id number] Date of Study: 10/17/2019 Ordering Physician: KIRBY MENDEZ, Referring Physician: KIRBY MENDEZ, Tech: Lupe Moncada [facility] APPROVED REPORT EXAM: Two-dimensional and M-mode echocardiogram with Doppler and color Doppler. Other Information Quality : Technically LimitedHR: 80bpm Rhythm : NSRTechnically limited study due to body habitus. INDICATION Arrhythmia 2D DIMENSIONS RVDd2.5 (2.9-3.5cm)Left Atrium(2D)2.4 (1.6-4.0cm) IVSd1.1 (0.7-1.1cm)Aortic Root(2D)3.0 (2.0-3.7cm) LVDd3.7 (3.9-5.9cm)LVOT Diameter1.8 (1.8-2.4cm) PWd0.9 (0.7-1.1cm)LVDs2.6 (2.5-4.0cm) FS (%) 28.9 %SV32.4 ml LVEF(%)56.4 (>50%) M-Mode DIMENSIONS Left Atrium(MM)2.64 (2.5-4.0cm)Aortic Root2.64 (2.2-3.7cm) Aortic Valve AoV Peak Lopez.214.5cm/sAoV VTI34.2cm AO Peak GR.18.4mmHgLVOT VTI 20.88cm AO Mean GR.15mmHgAVA (VTI)1.60cm2 Mitral Valve MV E Jekavvli53.1cm/sMV DECEL [id number] MV A Jwjwcxtc32.8cm/sE/A Ratio0.8 MV A Nvlqmfmo45vh TDI Lateral E' P. V6.89cm/sMedial E' P. V5.41cm/s E/Lateral E'7.9E/Medial E'10.0 Tricuspid Valve TR P. Hbhaikiu187nm/sRAP [id number] TR Peak Gr.18auIhUIKZ89izLg LEFT VENTRICLE The left ventricle is normal size. There is normal left ventricular wall thickness. The left ventricu lar systolic function is normal and the ejection fraction is within normal range. The Ejection Fracti on is 55-60%. There is normal LV segmental wall motion. Transmitral Doppler flow pattern is abnormal. RIGHT VENTRICLE The right ventricle is normal size. There is normal right ventricular wall thickness. The right ventr icular systolic function is normal. ATRIA The left atrium size is normal. The right atrium size is normal. The interatrial septum is intact wit h no evidence for an atrial septal defect or patent foramen ovale as noted on 2-D or Doppler imaging. AORTIC VALVE Not well visualized. The aortic valve is probably trileaflet. Doppler and Color Flow revealed no sign ificant aortic regurgitation. There is mild valvular aortic stenosis. Calculated aortic valve area is 1.6 cm2 with maximum pressure gradient of 30 mmHg and mean pressure gradient of 15 mmHg. MITRAL VALVE Not well visualized. There is no mitral valve stenosis. Doppler and Color Flow revealed no mitral clyde ve regurgitation noted. TRICUSPID VALVE Not well visualized. Doppler and Color Flow revealed trace tricuspid regurgitation. The PA pressure w as estimated at 25 mmHg. There is no tricuspid valve prolapse or vegetation. There is no tricuspid va lve stenosis. PULMONIC VALVE The pulmonic valve is not well visualized. GREAT VESSELS The aortic root is normal in size. The ascending aorta is normal in size. The IVC is normal in size a nd collapses >50% with inspiration. PERICARDIAL EFFUSION There is no evidence of significant pericardial effusion. Critical Notification Critical Value: No <Conclusion> The left ventricular systolic function is normal and the ejection fraction is within normal range. Th e Ejection Fraction is 55-60%. There is normal LV segmental wall motion. Not well visualized. The aortic valve is probably trileaflet. Signed by : Familia Pool, Electronically Approved : 10/17/2019 15:11:24
--- NOTE | 2019-10-18 14:06 | PDOC ---
KIRBY MEDNEZ OUTBOARD MOTORBOAT OPERATOR 10/18/19 1406: CARDIO Progress Notes Date and Time Date of Service 10/18/2019 Time of Evaluation 1340 Subjective Subjective: Other (drowsy, nonverbal) Vitals Vitals Vital Signs Date Time Temp Pulse Resp B/P (MAP) Pulse Ox O2 Delivery O2 Flow Rate FiO2 10/18/19 13:00 79 24 117/57 (77) 98 Room Air 10/18/19 12:00 98.7 98.7 Weight Weight [ ] Input and Output Intake and Output Intake and Output 10/18/19 07:00 Intake Total 2123 ml Output Total 805 ml Balance 1318 ml IV Total 2123 ml Output Urine Total 805 ml Laboratory Labs Laboratory Tests Test 10/17/19 15:20 10/17/19 18:21 10/17/19 23:05 10/18/19 04:07 Prothrombin Time 17.7 SEC (11.7-14.0) Prothromb Time International Ratio 1.5 (0.8-1.1) Glucose (Fingerstick) 223 mg/dL (70-99) 277 mg/dL (70-99) Sodium Level 166 mmol/L (136-145) Potassium Level 3.8 mmol/L (3.5-5.1) Chloride Level 131 mmol/L (98-107) Carbon Dioxide Level 26 mmol/L (21-32) Anion Gap 9 (6-14) Blood Urea Nitrogen 67 mg/dL (7-20) Creatinine 1.7 mg/dL (0.6-1.0) Estimated GFR (Cockcroft-Gault) 29.4 Glucose Level 271 mg/dL (70-99) Calcium Level 8.0 mg/dL (8.5-10.1) Test 10/18/19 04:45 10/18/19 06:27 10/18/19 11:56 White Blood Count 8.6 x10^3/uL (4.0-11.0) Red Blood Count 3.70 x10^6/uL (3.50-5.40) Hemoglobin 12.0 g/dL (12.0-15.5) Hematocrit 37.0 % (36.0-47.0) Mean Corpuscular Volume 100 fL (79-100) Mean Corpuscular Hemoglobin 32 pg (25-35) Mean Corpuscular Hemoglobin Concent 32 g/dL (31-37) Red Cell Distribution Width 18.2 % (11.5-14.5) Platelet Count 41 x10^3/uL (140-400) Neutrophils (%) (Auto) 84 % (31-73) Lymphocytes (%) (Auto) 11 % (24-48) Monocytes (%) (Auto) 4 % (0-9) Eosinophils (%) (Auto) 0 % (0-3) Basophils (%) (Auto) 0 % (0-3) Neutrophils # (Auto) 7.2 x10^3/uL (1.8-7.7) Lymphocytes # (Auto) 1.0 x10^3/uL (1.0-4.8) Monocytes # (Auto) 0.3 x10^3/uL (0.0-1.1) Eosinophils # (Auto) 0.0 x10^3/uL (0.0-0.7) Basophils # (Auto) 0.0 x10^3/uL (0.0-0.2) Prothrombin Time 17.5 SEC (11.7-14.0) Prothromb Time International Ratio 1.5 (0.8-1.1) Activated Partial Thromboplast Time 29 SEC (24-38) Sodium Level 164 mmol/L (136-145) Potassium Level 3.4 mmol/L (3.5-5.1) Chloride Level 129 mmol/L (98-107) Carbon Dioxide Level 24 mmol/L (21-32) Anion Gap 11 (6-14) Blood Urea Nitrogen 60 mg/dL (7-20) Creatinine 1.5 mg/dL (0.6-1.0) Estimated GFR (Cockcroft-Gault) 33.9 Glucose Level 332 mg/dL (70-99) Calcium Level 7.8 mg/dL (8.5-10.1) Phosphorus Level 2.2 mg/dL (2.6-4.7) Magnesium Level 2.7 mg/dL (1.8-2.4) Total Bilirubin 2.7 mg/dL (0.2-1.0) Direct Bilirubin 1.8 mg/dL (0.0-0.2) Aspartate Amino Transf (AST/SGOT) 44 U/L (15-37) Alanine Aminotransferase (ALT/SGPT) 23 U/L (14-59) Alkaline Phosphatase 66 U/L (46-116) Total Protein 5.5 g/dL (6.4-8.2) Albumin 1.7 g/dL (3.4-5.0) Glucose (Fingerstick) 276 mg/dL (70-99) 238 mg/dL (70-99) Microbiology Micro Microbiology 10/17/19 Blood Culture - Preliminary, Resulted NO GROWTH AFTER 1 DAY Review of Systems Constitutional: yes: other (UNABLE TO OBTAIN) Physical Exam HEENT: Neck Supple W Full Motion Chest: Symmetric LUNGS: Clear to Auscultation Heart: S1S2, RRR (SR), no murmurs Abdomen: Soft N/T Extremities: No Edema, No Calf Tenderness Neurology: other (drowsy, nonverbal) Assessment Assessment 1. PAFIB: New noted with intermittent bursts, likely undiagnosed paroxysms but metabolic issues are contributing 2. Severe CATARINO with severe hypernatremia: dehydration. Nephrology following 3. Elevated troponin: 0.1 initially , suspect demand mediated 4. UTI: per PCP 5. 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 Thrombocytopenia with mild coagulopathy: per PCP 8. Debility/weakness/malnutrition 9. HTN: controlled 10. Mild : EF and WM nml Recommendations 1. less AFIB bursts overnight post hydration 2. Lopressor IV PRN. Hydrate. Avoid nephrotoxins. No metformin 3. Pt is now DNR. Failed swallow eval. Unclear about intention for PEG. If this materailized then recommend ASA as well as low dose BB per BP trend. Not an anticoagulation candidate. 4. Conservative measures, Nothing further cardiac boogie. STEFANI HILL MD 10/18/192024: CARDIO Progress Notes Assessment Assessment Patient seen and examined. Agree with ITEM PROCESSING CLERK's assessment and plan. Tele showed few brief paroxysms of AF Patient DNR - continue conservative management Cont IV BB prn. She is poor candidate for nursing home AC We will follow as needed KIRBY MENDEZ APRN Oct 18, 2019 14:06 STEFANI HILL MD Oct 18, 2019 20:25
--- NOTE | 2019-10-18 14:06 | PDOC ---
[facility] PROGRESS NOTE Chief Complaint Chief Complaint Hypernatremia acute renal failure dehydration Mental status alteration advanced dementia dysphagia UTI ELEVATED TROPONIN I History of Present Illness History of Present Illness Patient was seen and examined in the ICU Progress was discussed with nursing Chart reviewed Vitals/I&O Vitals/I&O: Vital Signs Date Time Temp Pulse Resp B/P (MAP) Pulse Ox O2 Delivery O2 Flow Rate FiO2 10/18/19 13:00 79 24 117/57 (77) 98 Room Air 10/18/19 12:00 98.7 98.7 I & O 10/17/19 10/17/19 10/18/19 15:00 23:00 07:00 Intake Total 2123 ml Output Total 0 ml 545 ml 260 ml Balance 0 ml -545 ml 1863 ml Physical Exam Physical Exam: CONSTITUTIONAL: She is alert. She is more focused HEENT: Pupils equal and reactive. Normal conjunctivae. Oral cavity, pharynx was dry. She happened to yawn and I was able to see her mouth. NECK: Without JVD. No swelling. LUNGS: Decreased at the bases. HEART: S1, S2. ABDOMEN: Soft. No guarding, no rebound. : garvin in place EXTREMITIES: Without clubbing or cyanosis. No gross edema. SKIN: Warm to touch without generalized signs of rash. NEUROLOGIC: She is alert, nonverbal. General: Alert, No acute distress Heart: Regular rate (SR), Normal S1, Normal S2, Other (2/6 systolic murmur to LLS border) Lungs: Clear Abdomen: Soft, No tenderness Extremities: No cyanosis, No edema Skin: No breakdown, No significant lesion Labs Labs: Laboratory Tests Test 10/17/19 15:20 10/17/19 18:21 10/17/19 23:05 10/18/19 04:07 Prothrombin Time 17.7 SEC (11.7-14.0) Prothromb Time International Ratio 1.5 (0.8-1.1) Glucose (Fingerstick) 223 mg/dL (70-99) 277 mg/dL (70-99) Sodium Level 166 mmol/L (136-145) Potassium Level 3.8 mmol/L (3.5-5.1) Chloride Level 131 mmol/L (98-107) Carbon Dioxide Level 26 mmol/L (21-32) Anion Gap 9 (6-14) Blood Urea Nitrogen 67 mg/dL (7-20) Creatinine 1.7 mg/dL (0.6-1.0) Estimated GFR (Cockcroft-Gault) 29.4 Glucose Level 271 mg/dL (70-99) Calcium Level 8.0 mg/dL (8.5-10.1) Test 10/18/19 04:45 10/18/19 06:27 10/18/19 11:56 White Blood Count 8.6 x10^3/uL (4.0-11.0) Red Blood Count 3.70 x10^6/uL (3.50-5.40) Hemoglobin 12.0 g/dL (12.0-15.5) Hematocrit 37.0 % (36.0-47.0) Mean Corpuscular Volume 100 fL (79-100) Mean Corpuscular Hemoglobin 32 pg (25-35) Mean Corpuscular Hemoglobin Concent 32 g/dL (31-37) Red Cell Distribution Width 18.2 % (11.5-14.5) Platelet Count 41 x10^3/uL (140-400) Neutrophils (%) (Auto) 84 % (31-73) Lymphocytes (%) (Auto) 11 % (24-48) Monocytes (%) (Auto) 4 % (0-9) Eosinophils (%) (Auto) 0 % (0-3) Basophils (%) (Auto) 0 % (0-3) Neutrophils # (Auto) 7.2 x10^3/uL (1.8-7.7) Lymphocytes # (Auto) 1.0 x10^3/uL (1.0-4.8) Monocytes # (Auto) 0.3 x10^3/uL (0.0-1.1) Eosinophils # (Auto) 0.0 x10^3/uL (0.0-0.7) Basophils # (Auto) 0.0 x10^3/uL (0.0-0.2) Prothrombin Time 17.5 SEC (11.7-14.0) Prothromb Time International Ratio 1.5 (0.8-1.1) Activated Partial Thromboplast Time 29 SEC (24-38) Sodium Level 164 mmol/L (136-145) Potassium Level 3.4 mmol/L (3.5-5.1) Chloride Level 129 mmol/L (98-107) Carbon Dioxide Level 24 mmol/L (21-32) Anion Gap 11 (6-14) Blood Urea Nitrogen 60 mg/dL (7-20) Creatinine 1.5 mg/dL (0.6-1.0) Estimated GFR (Cockcroft-Gault) 33.9 Glucose Level 332 mg/dL (70-99) Calcium Level 7.8 mg/dL (8.5-10.1) Phosphorus Level 2.2 mg/dL (2.6-4.7) Magnesium Level 2.7 mg/dL (1.8-2.4) Total Bilirubin 2.7 mg/dL (0.2-1.0) Direct Bilirubin 1.8 mg/dL (0.0-0.2) Aspartate Amino Transf (AST/SGOT) 44 U/L (15-37) Alanine Aminotransferase (ALT/SGPT) 23 U/L (14-59) Alkaline Phosphatase 66 U/L (46-116) Total Protein 5.5 g/dL (6.4-8.2) Albumin 1.7 g/dL (3.4-5.0) Glucose (Fingerstick) 276 mg/dL (70-99) 238 mg/dL (70-99) Review of Systems Review of Systems: Denies hemoptysis Denies SOB Assessment and Plan Assessmemt and Plan Assessment: Hypernatremia acute renal failure dehydration Mental status alteration advanced dementia dysphagia UTI ELEVATED TROPONIN I Plan: DS1/2NS ICU monitoring Trend sodium and labs Await input from GI, ID, neuro DVT prophylaxis Continue ABX therapy Comment Review of Relevant I have reviewed the following items karrie (where applicable) has been applied. Medications: Current Medications Medications (Trade) Dose Ordered Sig/Eric Route PRN Reason Start Time Stop Time Status Last Admin Dose Admin Cefepime HCl (Maxipime) 2 gm Q12HR IVP 10/17/19 21:00 10/18/19 09:14 Daptomycin 490 mg/ Sodium Chloride 50 ml @ 100 mls/hr ONCE ONCE IV 10/17/19 15:00 10/17/19 15:29 DC 10/17/19 16:26 Dextrose/Sodium Chloride 1,000 ml @ 100 mls/hr Q10H IV 10/17/19 16:15 10/18/19 05:03 Insulin Human Lispro (HumaLOG) 0-5 UNITS TIDWMEALS SQ 10/17/19 18:30 10/18/19 04:12 DC 10/17/19 18:44 Insulin Human Lispro (HumaLOG) 0-7 UNITS Q6HRS SQ 10/18/19 06:00 10/18/19 11:59 Potassium Phosphate 15 mmol/ Sodium Chloride 255 ml @ 127.5 mls/ hr Q2H IV 10/18/19 11:00 10/18/19 14:59 10/18/19 13:36 ALBERTO JORDAN III DO Oct 18, 2019 14:06
--- NOTE | 2019-10-18 16:20 | NUR ---
SS following for discharge planning. SS reviewed pt chart. Pt is from home with family and is currently on room air. PT/OT ordered. SS will continue to follow for discharge planning.
--- NOTE | 2019-10-18 17:48 | NUR ---
Daughter questioning if the patient would be getting a feeding tube because she is concerned that the patient will lose more weight. Explained that she is getting nutrition via IV Clinimix and D51/2 NS fluids. Will pass on in report to check with GI or primary to determine plan for feeding tube. Daughter states that the living will that the patient has states that she wanted to have nutrition.
[2019-10-19] VITALS (16 sets, daily range): BP systolic 99–145; BP diastolic 42–75
[2019-10-19] MEDS: INSULIN LISPRO 300 UNITS/3 ML VIAL. SQ SCH ×4 (00:24→17:41)
[2019-10-19] MEDS: AA 4.25 %/CALCIUM/LYTES/D5W 1,000 ML IV SCH ×2 (02:55→15:57)
[2019-10-19] MEDS: IV DEXTROSE 5 %-0.45 % NACL 1,000 ML IV SCH ×2 (06:10→17:14)
[2019-10-19 06:11] LABS: CALCIUM 7.8 mg/dL (8.5-10.1); CREATININE 1.1 mg/dL (0.6-1.0); GFR 48.6; MAGNESIUM 2.6 mg/dL (1.8-2.4); PHOSPHORUS 2.8 mg/dL (2.6-4.7); POTASSIUM 3.8 mmol/L (3.5-5.1)
--- NOTE | 2019-10-19 06:12 | PDOC ---
Infectious Disease Note Subjective Subjective Alert but non verbal ROS ROS unobtainable Vital Sign Vital Signs Vital Signs Date Time Temp Pulse Resp B/P (MAP) Pulse Ox O2 Delivery O2 Flow Rate FiO2 10/19/19 06:00 70 17 126/75 (92) 95 Room Air 10/19/19 04:00 99.3 99.3 Physical Exam PHYSICAL EXAM CONSTITUTIONAL: She is comfortable. Briefly opened eyes HEENT: Pupils equal and reactive. Normal conjunctivae. Oral cavity - not seen NECK: Without JVD. No swelling. LUNGS: Decreased at the bases. HEART: S1, S2. ABDOMEN: Soft. No guarding, no rebound. : garvin in place EXTREMITIES: Without clubbing or cyanosis. No gross edema. SKIN: Warm to touch without generalized signs of rash. NEUROLOGIC: She is alert, nonverbal. Labs Lab Laboratory Tests Test 10/18/19 06:27 10/18/19 11:56 10/18/19 17:43 10/19/19 00:21 Glucose (Fingerstick) 276 mg/dL (70-99) 238 mg/dL (70-99) 218 mg/dL (70-99) 262 mg/dL (70-99) Micro U/S Impression: 1. Exam is very limited due to bowel gas. Right kidney is obscured, no left hydronephrosis. 2. There is gallbladder sludge. Microbiology 10/16/19 Blood Culture - Preliminary, Resulted NO GROWTH AFTER 1 DAY Objective Assessment Leukocytosis - better blood cult neg so far GNR UTI -POA 2/10 Urinary bladder s/p garvin CATARINO - better DM Dementia Hypernatremia - better ? Hypothyroid Thrombocytopenia Plan Plan of Care Check cbc this am with low platelets Cont Cefepime Dosed Dapto times one 2/10 CBC in am F/u labs and cults D/w nursing RIC MACIEL MD Oct 19, 2019 06:12
[2019-10-19 06:45] LABS: BASO % 0 % (0-3); EOS # 0.1 x10^3/uL (0.0-0.7); EOS % 1 % (0-3); HEMATOCRIT 37.5 % (36.0-47.0); HEMOGLOBIN 12.3 g/dL (12.0-15.5); LYMPH # 1.1 x10^3/uL (1.0-4.8); LYMPH % 15 % (24-48); MEAN CORPUSCULAR HEMOGLOBIN 33 pg (25-35); MEAN CORPUSCULAR HGB CONC 33 g/dL (31-37); MEAN CORPUSCULAR VOLUME 99 fL (79-100); MONO # 0.3 x10^3/uL (0.0-1.1); MONO % 5 % (0-9); NEUT % 79 % (31-73); PLATELET COUNT 34 x10^3/uL (140-400); RED BLOOD COUNT 3.78 x10^6/uL (3.50-5.40); WHITE BLOOD COUNT 7.6 x10^3/uL (4.0-11.0)
[2019-10-19] MEDS: FAMOTIDINE 20 MG/2 ML VIAL IVP SCH ×2 (08:52→22:03)
[2019-10-19] MEDS: CEFEPIME HCL IV Push 2 GM VIAL. IVP SCH ×2 (08:52→22:02)
--- NOTE | 2019-10-19 10:06 | PDOC ---
PROGRESS NOTES Assessment Problems Medical Problems: (1) Mental status alteration Status: Acute Natural, normal progression of Alzheimer's dementia, no evidence of acute strok e. She does have some metabolic abnormalities of course related to the fact that she has not been eating. Plan PEG No need to repeat any other neurological studies. Okay to transfer out of ICU Subjective None Objective Vital Signs Date Time Temp Pulse Resp B/P (MAP) Pulse Ox O2 Delivery O2 Flow Rate FiO2 10/19/19 09:00 70 20 126/52 (76) 97 Room Air 10/19/19 08:00 98.6 98.6 Intake and Output 10/19/19 06:59 Intake Total 4538 ml Output Total 945 ml Balance 3593 ml Intake Oral 0 ml IV Total 4538 ml Output Urine Total 945 ml PHYSICAL EXAM Alert. Nonverbal, does not follow any commands. PERRL. EOMI. CN: no focal findings. Muscle tone: normal. Muscle strength: moves to mild stimulation DTR: 1+. Bilateral grasp reflexes Plantar reflex: flexor Gait: not examined in bed. Sensory exam: responds to pinprick in all 4 extremities Cerebellar: not cooperative Review of Relevant I have reviewed the following items karrie (where applicable) has been applied. Labs Laboratory Tests Test 10/17/19 13:35 10/17/19 15:20 10/17/19 18:21 10/17/19 23:05 Sodium Level 169 mmol/L (136-145) 166 mmol/L (136-145) Potassium Level 3.8 mmol/L (3.5-5.1) 3.8 mmol/L (3.5-5.1) Chloride Level 131 mmol/L (98-107) 131 mmol/L (98-107) Carbon Dioxide Level 25 mmol/L (21-32) 26 mmol/L (21-32) Anion Gap 13 (6-14) 9 (6-14) Blood Urea Nitrogen 67 mg/dL (7-20) 67 mg/dL (7-20) Creatinine 2.1 mg/dL (0.6-1.0) 1.7 mg/dL (0.6-1.0) Estimated GFR (Cockcroft-Gault) 23.0 29.4 Glucose Level 265 mg/dL (70-99) 271 mg/dL (70-99) Calcium Level 8.2 mg/dL (8.5-10.1) 8.0 mg/dL (8.5-10.1) Prothrombin Time 17.7 SEC (11.7-14.0) Prothromb Time International Ratio 1.5 (0.8-1.1) Glucose (Fingerstick) 223 mg/dL (70-99) Test 10/18/19 04:07 10/18/19 04:45 10/18/19 06:27 10/18/19 11:56 Glucose (Fingerstick) 277 mg/dL (70-99) 276 mg/dL (70-99) 238 mg/dL (70-99) White Blood Count 8.6 x10^3/uL (4.0-11.0) Red Blood Count 3.70 x10^6/uL (3.50-5.40) Hemoglobin 12.0 g/dL (12.0-15.5) Hematocrit 37.0 % (36.0-47.0) Mean Corpuscular Volume 100 fL (79-100) Mean Corpuscular Hemoglobin 32 pg (25-35) Mean Corpuscular Hemoglobin Concent 32 g/dL (31-37) Red Cell Distribution Width 18.2 % (11.5-14.5) Platelet Count 41 x10^3/uL (140-400) Neutrophils (%) (Auto) 84 % (31-73) Lymphocytes (%) (Auto) 11 % (24-48) Monocytes (%) (Auto) 4 % (0-9) Eosinophils (%) (Auto) 0 % (0-3) Basophils (%) (Auto) 0 % (0-3) Neutrophils # (Auto) 7.2 x10^3/uL (1.8-7.7) Lymphocytes # (Auto) 1.0 x10^3/uL (1.0-4.8) Monocytes # (Auto) 0.3 x10^3/uL (0.0-1.1) Eosinophils # (Auto) 0.0 x10^3/uL (0.0-0.7) Basophils # (Auto) 0.0 x10^3/uL (0.0-0.2) Prothrombin Time 17.5 SEC (11.7-14.0) Prothromb Time International Ratio 1.5 (0.8-1.1) Activated Partial Thromboplast Time 29 SEC (24-38) Sodium Level 164 mmol/L (136-145) Potassium Level 3.4 mmol/L (3.5-5.1) Chloride Level 129 mmol/L (98-107) Carbon Dioxide Level 24 mmol/L (21-32) Anion Gap 11 (6-14) Blood Urea Nitrogen 60 mg/dL (7-20) Creatinine 1.5 mg/dL (0.6-1.0) Estimated GFR (Cockcroft-Gault) 33.9 Glucose Level 332 mg/dL (70-99) Calcium Level 7.8 mg/dL (8.5-10.1) Phosphorus Level 2.2 mg/dL (2.6-4.7) Magnesium Level 2.7 mg/dL (1.8-2.4) Total Bilirubin 2.7 mg/dL (0.2-1.0) Direct Bilirubin 1.8 mg/dL (0.0-0.2) Aspartate Amino Transf (AST/SGOT) 44 U/L (15-37) Alanine Aminotransferase (ALT/SGPT) 23 U/L (14-59) Alkaline Phosphatase 66 U/L (46-116) Total Protein 5.5 g/dL (6.4-8.2) Albumin 1.7 g/dL (3.4-5.0) Test 10/18/19 17:43 10/19/19 00:21 10/19/19 05:00 10/19/19 06:09 Glucose (Fingerstick) 218 mg/dL (70-99) 262 mg/dL (70-99) 258 mg/dL (70-99) White Blood Count 7.6 x10^3/uL (4.0-11.0) Red Blood Count 3.78 x10^6/uL (3.50-5.40) Hemoglobin 12.3 g/dL (12.0-15.5) Hematocrit 37.5 % (36.0-47.0) Mean Corpuscular Volume 99 fL (79-100) Mean Corpuscular Hemoglobin 33 pg (25-35) Mean Corpuscular Hemoglobin Concent 33 g/dL (31-37) Red Cell Distribution Width 18.0 % (11.5-14.5) Platelet Count 34 x10^3/uL (140-400) Neutrophils (%) (Auto) 79 % (31-73) Lymphocytes (%) (Auto) 15 % (24-48) Monocytes (%) (Auto) 5 % (0-9) Eosinophils (%) (Auto) 1 % (0-3) Basophils (%) (Auto) 0 % (0-3) Neutrophils # (Auto) 6.0 x10^3/uL (1.8-7.7) Lymphocytes # (Auto) 1.1 x10^3/uL (1.0-4.8) Monocytes # (Auto) 0.3 x10^3/uL (0.0-1.1) Eosinophils # (Auto) 0.1 x10^3/uL (0.0-0.7) Basophils # (Auto) 0.0 x10^3/uL (0.0-0.2) Sodium Level 158 mmol/L (136-145) Potassium Level 3.8 mmol/L (3.5-5.1) Chloride Level 125 mmol/L (98-107) Carbon Dioxide Level 21 mmol/L (21-32) Anion Gap 12 (6-14) Blood Urea Nitrogen 47 mg/dL (7-20) Creatinine 1.1 mg/dL (0.6-1.0) Estimated GFR (Cockcroft-Gault) 48.6 Glucose Level 294 mg/dL (70-99) Calcium Level 7.8 mg/dL (8.5-10.1) Phosphorus Level 2.8 mg/dL (2.6-4.7) Magnesium Level 2.6 mg/dL (1.8-2.4) Laboratory Tests Test 10/18/19 11:56 10/18/19 17:43 10/19/19 00:21 10/19/19 05:00 Glucose (Fingerstick) 238 mg/dL (70-99) 218 mg/dL (70-99) 262 mg/dL (70-99) White Blood Count 7.6 x10^3/uL (4.0-11.0) Red Blood Count 3.78 x10^6/uL (3.50-5.40) Hemoglobin 12.3 g/dL (12.0-15.5) Hematocrit 37.5 % (36.0-47.0) Mean Corpuscular Volume 99 fL (79-100) Mean Corpuscular Hemoglobin 33 pg (25-35) Mean Corpuscular Hemoglobin Concent 33 g/dL (31-37) Red Cell Distribution Width 18.0 % (11.5-14.5) Platelet Count 34 x10^3/uL (140-400) Neutrophils (%) (Auto) 79 % (31-73) Lymphocytes (%) (Auto) 15 % (24-48) Monocytes (%) (Auto) 5 % (0-9) Eosinophils (%) (Auto) 1 % (0-3) Basophils (%) (Auto) 0 % (0-3) Neutrophils # (Auto) 6.0 x10^3/uL (1.8-7.7) Lymphocytes # (Auto) 1.1 x10^3/uL (1.0-4.8) Monocytes # (Auto) 0.3 x10^3/uL (0.0-1.1) Eosinophils # (Auto) 0.1 x10^3/uL (0.0-0.7) Basophils # (Auto) 0.0 x10^3/uL (0.0-0.2) Sodium Level 158 mmol/L (136-145) Potassium Level 3.8 mmol/L (3.5-5.1) Chloride Level 125 mmol/L (98-107) Carbon Dioxide Level 21 mmol/L (21-32) Anion Gap 12 (6-14) Blood Urea Nitrogen 47 mg/dL (7-20) Creatinine 1.1 mg/dL (0.6-1.0) Estimated GFR (Cockcroft-Gault) 48.6 Glucose Level 294 mg/dL (70-99) Calcium Level 7.8 mg/dL (8.5-10.1) Phosphorus Level 2.8 mg/dL (2.6-4.7) Magnesium Level 2.6 mg/dL (1.8-2.4) Test 10/19/19 06:09 Glucose (Fingerstick) 258 mg/dL (70-99) Microbiology 10/17/19 Blood Culture - Preliminary, Resulted NO GROWTH AFTER 1 DAY 10/16/19 Urine Culture - Preliminary, Resulted 10/16/19 Urine Culture Result 1 (KATHRYN) - Preliminary, Resulted Medications Current Medications Potassium Chloride/Dextrose/ Sod Cl 1,000 ml @ 75 mls/hr 1X ONCE IV Last administered on 10/17/19at 00:40; Start 10/16/19 at 23:30; Stop 10/17/19 at 12:49; Status DC Ceftriaxone Sodium (Rocephin) 1 gm 1X ONCE IVP Last administered on 10/17/19at 00:42; Start 10/16/19 at 23:45; Stop 10/16/19 at 23:46; Status DC Ondansetron HCl (Zofran) 4 mg PRN Q8HRS PRN IV NAUSEA/VOMITING; Start 10/17/19 at 02:30; Stop 10/18/19 at 02:29; Status DC Amino Acids/ Electrolytes/ Dextrose 1,000 ml @ 80 mls/hr [id number] IV Last administered on 10/19/19at 02:55; Start 10/17/19 at 11:15 Ceftriaxone Sodium (Rocephin) 1 gm Q24H IVP Last administered on 10/17/19at 12:06; Start 10/17/19 at 11:00; Stop 10/17/19 at 14:44; Status DC Sodium Chloride (Normal Saline Flush) 3 ml QSHIFT PRN IV AFTER MEDS AND BLOOD DRAWS; Start 10/17/19 at 12:30; Status Cancel Ondansetron HCl (Zofran) 2 mg PRN Q4HRS PRN IV NAUSEA/VOMITING; Start 10/17/19 at 12:30 Acetaminophen (Tylenol Supp) 650 mg PRN Q4HRS PRN NE TEMP OVER 100.4F OR MILD PAIN; Start 10/17/19 at 12:30 Docusate Sodium (Colace) 100 mg PRN BID PRN PO CONSTIPATION; Start 10/17/19 at 12:30 Albuterol Sulfate (Ventolin Neb Soln) 2.5 mg PRN Q4HRS PRN NEB SHORTNESS OF BREATH; Start 10/17/19 at 12:30 Enoxaparin Sodium (Lovenox 30mg Syringe) 30 mg Q24H SQ Last administered on 10/17/19at 13:53; Start 10/17/19 at 13:00; Stop 10/18/19 at 10:13; Status DC Famotidine (Pepcid Vial) 10 mg BID IVP Last administered on 10/19/19at 08:52; Start 10/17/19 at 13:00 Sodium Chloride (Normal Saline Flush) 3 ml QSHIFT PRN IV AFTER MEDS AND BLOOD DRAWS; Start 10/17/19 at 12:30 Metoprolol Tartrate (Lopressor Vial) 5 mg PRN Q6HRS PRN IVP TACHYCARDIA; Start 10/17/19 at 14:15 Cefepime HCl (Maxipime) 2 gm Q12HR IVP Last administered on 10/19/19at 08:52; Start 10/17/19 at 21:00 Daptomycin 490 mg/ Sodium Chloride 50 ml @ 100 mls/hr ONCE ONCE IV Last administered on 10/17/19at 16:26; Start 10/17/19 at 15:00; Stop 10/17/19 at 15:29; Status DC Vitamin A/Vitamin D (Vitamin A & D Ointment) 1 [place] PRN Q1HR PRN TP SKIN PROT ECTION Last administered on 10/18/19at 16:14; Start 10/17/19 at 15:45 Dextrose/Sodium Chloride 1,000 ml @ 100 mls/hr Q10H IV Last administered on 10/19/19at 06:10; Start 10/17/19 at 16:15 Insulin Human Lispro (HumaLOG) 0-5 UNITS TIDWMEALS SQ Last administered on 10/17/19at 18:44; Start 10/17/19 at 18:30; Stop 10/18/19 at 04:12; Status DC Dextrose (Dextrose 50%-Water Syringe) 12.5 gm PRN Q15MIN PRN IV SEE COMMENTS; Start 10/17/19 at 18:30 Dextrose (Iv Dextrose 5%) 250 ml PRN Q15MIN PRN IV SEE COMMENTS; Start 10/17/19 at 18:30 Insulin Human Lispro (HumaLOG) 0-7 UNITS TIDWMEALS SQ ; Start 10/18/19 at 08:00; Stop 10/18/19 at 04:42; Status DC Insulin Human Lispro (HumaLOG) 0-7 UNITS Q6HRS SQ Last administered on 10/19/19at 06:13; Start 10/18/19 at 06:00 Vitamin A/Vitamin D (Vitamin A & D Ointment) 1 [place] BID PRN TP SKIN PROTECTION; Start 10/18/19 at 09:45 Vitamin A/Vitamin D (Vitamin A & D Ointment) 1 [place] PRN Q1HR PRN TP SKIN PROTECTION; Start 10/18/19 at 09:45; Stop 10/18/19 at 10:10; Status DC Enoxaparin Sodium (Lovenox 40mg Syringe) 40 mg Q24H SQ ; Start 10/18/19 at 13:00; Stop 10/18/19 at 13:39; Status DC Potassium Phosphate 15 mmol/ Sodium Chloride 255 ml @ 127.5 mls/ hr Q2H IV Last administered on 10/18/19at 13:36; Start 10/18/19 at 11:00; Stop 10/18/19 at 14:59; Status DC Active Scripts Active Valtrex (Valacyclovir Hcl) 1,000 Mg Tablet 1 Tab PO TID Medrol (Methylprednisolone) 4 Mg Tab.ds.pk 1 Pkg PO UD Levemir (Insulin Detemir) 100 Unit/1 Ml Vial 15 Unit SQ DAILY 30 Days Keflex (Cephalexin) 500 Mg Capsule 1 Cap PO TID Novolog Flexpen (Insulin Aspart) 100 Unit/1 Ml Insuln.pen 0 Units SQ TIDACHC Aspirin Ec (Aspirin) 325 Mg Tablet.dr 325 Mg PO DAILYWBKFT Glucophage (Metformin Hcl) 500 Mg Tablet 500 Mg PO BIDWMEALS Reported Tresiba Flextouch U-100 (Insulin Degludec) 100 Unit/1 Ml Insuln.pen 24 Units SUBCUT HS Klor-Con 10 (Potassium Chloride) 10 Meq Tablet.er 10 Meq PO DAILY Donepezil Hcl 10 Mg Tablet 1 Tab PO DAILY Novolog Flexpen (Insulin Aspart) 100 Unit/1 Ml Insuln.pen 12 Unit SQ TIDWMEALS Vitamin D3 1,000 Unit Tablet (Ca Cmb No.1/Vit D3/B-6/Fa/B12) 1 Each Tablet 1 Each PO DAILY Losartan-Hctz 100-12.5 Mg Tab (Losartan/Hydrochlorothiazide) 1 Each Tablet 1 Each PO DAILY08 Pravachol (Pravastatin Sodium) 20 Mg Tablet 20 Mg PO HS Amlodipine Besylate 5 Mg Tablet 5 Mg PO DAILY08 Vitals/I & O Vital Sign - Last 24 Hours 10/18/19 10/18/19 10/18/19 10/18/19 11:00 12:00 12:00 13:00 Temp 98.7 98.7 Pulse 78 77 79 Resp 22 15 24 B/P (MAP) 123/69 (87) 124/64 (84) 117/57 (77) Pulse Ox 98 98 98 O2 Delivery Room Air Room Air Room Air Room Air 10/18/19 10/18/19 10/18/19 10/18/19 14:00 15:00 16:00 16:00 Temp 99.4 99.4 Pulse 77 77 81 Resp 26 B/P (MAP) 122/72 (89) 128/75 (92) 130/64 (86) Pulse Ox 99 99 97 O2 Delivery Room Air Room Air Room Air Room Air 10/18/19 10/18/19 10/18/19 10/18/19 17:26 18:06 19:00 20:00 Temp 98.3 98.3 Pulse 81 75 83 81 Resp 17 20 B/P (MAP) 124/64 (84) 135/55 (81) 101/54 (70) 106/57 (73) Pulse Ox 96 95 95 95 O2 Delivery Room Air Room Air Room Air Room Air 10/18/19 10/18/19 10/18/19 10/18/19 20:00 21:00 22:00 23:00 Pulse 83 70 68 Resp 16 24 B/P (MAP) 119/51 (73) 128/93 (105) 128/56 (80) Pulse Ox 94 96 96 O2 Delivery Room Air Room Air Room Air Room Air 10/19/19 10/19/19 10/19/19 10/19/19 00:00 00:00 01:00 02:00 Temp 98.4 98.4 Pulse 68 78 70 Resp 20 B/P (MAP) 125/58 (80) 120/43 (68) 99/54 (69) Pulse Ox 98 98 98 O2 Delivery Room Air Room Air Room Air Room Air 10/19/19 10/19/19 10/19/19 10/19/19 03:00 04:00 04:00 05:00 Temp 99.3 99.3 Pulse 74 70 73 Resp 15 18 B/P (MAP) 111/51 (71) 108/42 (64) 139/62 (87) Pulse Ox 96 94 96 O2 Delivery Room Air Room Air Room Air Room Air 10/19/19 10/19/19 10/19/19 10/19/19 06:00 07:00 08:00 08:00 Temp 98.6 98.6 Pulse 70 76 73 Resp 17 16 18 B/P (MAP) 126/75 (92) 145/62 (89) 119/64 (82) Pulse Ox 95 95 97 O2 Delivery Room Air Room Air Room Air Room Air 10/19/19 09:00 Pulse 70 Resp 20 B/P (MAP) 126/52 (76) Pulse Ox 97 O2 Delivery Room Air Intake and Output 10/18/19 10/18/19 10/19/19 14:59 22:59 06:59 Intake Total 255 ml 2113 ml 2170 ml Output Total 235 ml 410 ml 300 ml Balance 20 ml 1703 ml 1870 ml SALMA LAMBERT MD Oct 19, 2019 10:06
--- NOTE | 2019-10-19 10:39 | NUR ---
Spoke with Dr. Bailey-- pt downgraded to MOF but to continue with PPN. GI notified the need for PEG tube per family request (living will).
--- NOTE | 2019-10-19 10:57 | PDOC ---
Renal-Progress Notes Subjective Notes Notes NONE History of Present Illness Hx of present illness STABLE Vitals Vitals Vital Signs Date Time Temp Pulse Resp B/P (MAP) Pulse Ox O2 Delivery O2 Flow Rate FiO2 10/19/19 10:00 69 16 118/50 (72) 96 Room Air 10/19/19 08:00 98.6 98.6 Weight Weight [ ] I.O. Intake and Output Intake and Output 10/19/19 06:59 Intake Total 4538 ml Output Total 945 ml Balance 3593 ml Intake Oral 0 ml IV Total 4538 ml Output Urine Total 945 ml Labs Labs Laboratory Tests Test 10/18/19 11:56 10/18/19 17:43 10/19/19 00:21 10/19/19 05:00 Glucose (Fingerstick) 238 mg/dL (70-99) 218 mg/dL (70-99) 262 mg/dL (70-99) White Blood Count 7.6 x10^3/uL (4.0-11.0) Red Blood Count 3.78 x10^6/uL (3.50-5.40) Hemoglobin 12.3 g/dL (12.0-15.5) Hematocrit 37.5 % (36.0-47.0) Mean Corpuscular Volume 99 fL (79-100) Mean Corpuscular Hemoglobin 33 pg (25-35) Mean Corpuscular Hemoglobin Concent 33 g/dL (31-37) Red Cell Distribution Width 18.0 % (11.5-14.5) Platelet Count 34 x10^3/uL (140-400) Neutrophils (%) (Auto) 79 % (31-73) Lymphocytes (%) (Auto) 15 % (24-48) Monocytes (%) (Auto) 5 % (0-9) Eosinophils (%) (Auto) 1 % (0-3) Basophils (%) (Auto) 0 % (0-3) Neutrophils # (Auto) 6.0 x10^3/uL (1.8-7.7) Lymphocytes # (Auto) 1.1 x10^3/uL (1.0-4.8) Monocytes # (Auto) 0.3 x10^3/uL (0.0-1.1) Eosinophils # (Auto) 0.1 x10^3/uL (0.0-0.7) Basophils # (Auto) 0.0 x10^3/uL (0.0-0.2) Sodium Level 158 mmol/L (136-145) Potassium Level 3.8 mmol/L (3.5-5.1) Chloride Level 125 mmol/L (98-107) Carbon Dioxide Level 21 mmol/L (21-32) Anion Gap 12 (6-14) Blood Urea Nitrogen 47 mg/dL (7-20) Creatinine 1.1 mg/dL (0.6-1.0) Estimated GFR (Cockcroft-Gault) 48.6 Glucose Level 294 mg/dL (70-99) Calcium Level 7.8 mg/dL (8.5-10.1) Phosphorus Level 2.8 mg/dL (2.6-4.7) Magnesium Level 2.6 mg/dL (1.8-2.4) Test 10/19/19 06:09 Glucose (Fingerstick) 258 mg/dL (70-99) Micro Micro Microbiology 10/17/19 Blood Culture - Preliminary, Resulted NO GROWTH AFTER 1 DAY 10/16/19 Urine Culture - Preliminary, Resulted 10/16/19 Urine Culture Result 1 (KATHRYN) - Preliminary, Resulted Review of Systems Constitutional: yes: other (UNABLE TO OBTAIN) Physical Exam General Appearance: no apparent distress Skin: warm Respiratory: decreased breath sounds Heart: S1S2 Abdomen: soft Genitourinary: bladder flat Extremities: pulses present Neurology: other (drowsy, nonverbal) Assessment Assessment IMP CATARINO-CR OF 1.3 IMPROVED HYPERNATREMIA LOW K AND PO4 DEHYDRATION URINARY TRACT INFECTION SEVERE DEMENTIA MALNUTRITION LIVER FAILURE HX OF DM II PLAN HYPOTONIC SALINE PPN TO CONTINUE HOLD HER [place] HOLD HER DIURETICS REPLACE PO4 AND K NEEDED PEG AND PLACEMENT PENDING WILL FOLLOW DANNY FALL MD Oct 19, 2019 10:57
--- NOTE | 2019-10-19 11:03 | PDOC ---
Objective: Objective: D/w nurse - indicates plans to pursue PEG placement. Vital Signs: Vital Signs Date Time Temp Pulse Resp B/P (MAP) Pulse Ox O2 Delivery O2 Flow Rate FiO2 10/19/19 10:00 69 16 118/50 (72) 96 Room Air 10/19/19 08:00 98.6 98.6 Labs: Laboratory Tests Test 10/18/19 11:56 10/18/19 17:43 10/19/19 00:21 10/19/19 05:00 Glucose (Fingerstick) 238 mg/dL 218 mg/dL 262 mg/dL White Blood Count 7.6 x10^3/uL Red Blood Count 3.78 x10^6/uL Hemoglobin 12.3 g/dL Hematocrit 37.5 % Mean Corpuscular Volume 99 fL Mean Corpuscular Hemoglobin 33 pg Mean Corpuscular Hemoglobin Concent 33 g/dL Red Cell Distribution Width 18.0 % Platelet Count 34 x10^3/uL Neutrophils (%) (Auto) 79 % Lymphocytes (%) (Auto) 15 % Monocytes (%) (Auto) 5 % Eosinophils (%) (Auto) 1 % Basophils (%) (Auto) 0 % Neutrophils # (Auto) 6.0 x10^3/uL Lymphocytes # (Auto) 1.1 x10^3/uL Monocytes # (Auto) 0.3 x10^3/uL Eosinophils # (Auto) 0.1 x10^3/uL Basophils # (Auto) 0.0 x10^3/uL Sodium Level 158 mmol/L Potassium Level 3.8 mmol/L Chloride Level 125 mmol/L Carbon Dioxide Level 21 mmol/L Anion Gap 12 Blood Urea Nitrogen 47 mg/dL Creatinine 1.1 mg/dL Estimated GFR (Cockcroft-Gault) 48.6 Glucose Level 294 mg/dL Calcium Level 7.8 mg/dL Phosphorus Level 2.8 mg/dL Magnesium Level 2.6 mg/dL Test 10/19/19 06:09 Glucose (Fingerstick) 258 mg/dL BLOOD CULTURE Preliminary NO GROWTH AFTER 2 DAYS URINE CULTURE RES 1 Preliminary Gram negative rods Imaging: SPANNER OPERATOR Bedside Swallow Eval Bedside swallow eval completed. See full rpt in interventions section of chart. IMPRESSIONS: Non-functional oropharyngeal swallow w/oral delay and absent pharyngeal swallow w/ s/s aspiration on even small amts of po. High risk of aspiration. No safe consistency identified. Suspect current dysphagia may be an acute decline on chronic dysphagia r/t pt's dx of Alzheimer's disease. Given etiology, prognosis is poor for resuming safe intake to meet nutritional needs. However, it is possible that s/s may fluctuate w/overall mental status and pt may potentially be able to take po for pleasure occasionally. It is not anticipated that this would contribute signif to nutritional needs. Will f/u for any +change in swallow function. RECOMMENDATIONS: NPO meds and nutrition. Oral care. Will f/u per POC. RAMONE Valenzuela. NPO posted. PE: GEN: NAD LUNGS: CTAB HEART: RRR ABD: soft, doesn't seem tender NEURO/PSYCH: lethargic, briefly opens eyes, doesn't verbalize A/P: Alzheimer's, UTI, dysphagia Hypernatremia, CATARINO, elevated LFTs - improving -- SPANNER OPERATOR eval as above, will review w/ Dr. Alvarado. Hemodynamically unstable?: No Is patient in severe pain?: No Is NPO status required?: Yes GLENNA DILLON Oct 19, 2019 11:02
--- NOTE | 2019-10-19 12:15 | PDOC ---
[facility] PROGRESS NOTE Chief Complaint Chief Complaint Hypernatremia acute renal failure Thrombocytopenia Severe CATARINO UTI Leukocytosis PAFIB dehydration Mental status alteration advanced dementia dysphagia UTI ELEVATED TROPONIN I History of Present Illness History of Present Illness Patient was seen and examined in the ICU Progress was discussed with nursing Chart reviewed Vitals/I&O Vitals/I&O: Vital Signs Date Time Temp Pulse Resp B/P (MAP) Pulse Ox O2 Delivery O2 Flow Rate FiO2 10/19/19 10:00 69 16 118/50 (72) 96 Room Air 10/19/19 08:00 98.6 98.6 I & O 10/18/19 10/18/19 10/19/19 15:00 23:00 07:00 Intake Total 255 ml 2113 ml 2170 ml Output Total 185 ml 430 ml 325 ml Balance 70 ml 1683 ml 1845 ml Physical Exam Physical Exam: CONSTITUTIONAL: She is comfortable. Briefly opened eyes HEENT: Pupils equal and reactive. Normal conjunctivae. Oral cavity - not seen NECK: Without JVD. No swelling. LUNGS: Decreased at the bases. HEART: S1, S2. ABDOMEN: Soft. No guarding, no rebound. : garvin in place EXTREMITIES: Without clubbing or cyanosis. No gross edema. SKIN: Warm to touch without generalized signs of rash. NEUROLOGIC: She is alert, nonverbal. General: Alert, No acute distress Heart: Regular rate (SR), Normal S1, Normal S2, Other (2/6 systolic murmur to LLS border) Lungs: Clear, Other (grade II systolic ejection murmur ) Abdomen: Soft, No tenderness Extremities: No cyanosis, No edema Skin: No breakdown, No significant lesion Labs Labs: Laboratory Tests Test 10/18/19 17:43 10/19/19 00:21 10/19/19 05:00 10/19/19 06:09 Glucose (Fingerstick) 218 mg/dL (70-99) 262 mg/dL (70-99) 258 mg/dL (70-99) White Blood Count 7.6 x10^3/uL (4.0-11.0) Red Blood Count 3.78 x10^6/uL (3.50-5.40) Hemoglobin 12.3 g/dL (12.0-15.5) Hematocrit 37.5 % (36.0-47.0) Mean Corpuscular Volume 99 fL (79-100) Mean Corpuscular Hemoglobin 33 pg (25-35) Mean Corpuscular Hemoglobin Concent 33 g/dL (31-37) Red Cell Distribution Width 18.0 % (11.5-14.5) Platelet Count 34 x10^3/uL (140-400) Neutrophils (%) (Auto) 79 % (31-73) Lymphocytes (%) (Auto) 15 % (24-48) Monocytes (%) (Auto) 5 % (0-9) Eosinophils (%) (Auto) 1 % (0-3) Basophils (%) (Auto) 0 % (0-3) Neutrophils # (Auto) 6.0 x10^3/uL (1.8-7.7) Lymphocytes # (Auto) 1.1 x10^3/uL (1.0-4.8) Monocytes # (Auto) 0.3 x10^3/uL (0.0-1.1) Eosinophils # (Auto) 0.1 x10^3/uL (0.0-0.7) Basophils # (Auto) 0.0 x10^3/uL (0.0-0.2) Sodium Level 158 mmol/L (136-145) Potassium Level 3.8 mmol/L (3.5-5.1) Chloride Level 125 mmol/L (98-107) Carbon Dioxide Level 21 mmol/L (21-32) Anion Gap 12 (6-14) Blood Urea Nitrogen 47 mg/dL (7-20) Creatinine 1.1 mg/dL (0.6-1.0) Estimated GFR (Cockcroft-Gault) 48.6 Glucose Level 294 mg/dL (70-99) Calcium Level 7.8 mg/dL (8.5-10.1) Phosphorus Level 2.8 mg/dL (2.6-4.7) Magnesium Level 2.6 mg/dL (1.8-2.4) Assessment and Plan Assessmemt and Plan Assessment: Hypernatremia acute renal failure Thrombocytopenia Severe CATARINO UTI Leukocytosis PAFIB dehydration Mental status alteration advanced dementia dysphagia UTI ELEVATED TROPONIN I Plan: Continue ICU monitoring Trend sodium level Continue DS1/2NS Consult hematology (Michell) regarding worsening thrombocytopenia Monitor labs and cults DNR Comment Review of Relevant I have reviewed the following items karrie (where applicable) has been applied. Hemodynamically unstable?: No Is patient in severe pain?: No Is NPO status required?: Yes ALBERTO JORDAN III DO Oct 19, 2019 12:15
[2019-10-20] VITALS (7 sets, daily range): BP systolic 124–135; BP diastolic 48–68
--- NOTE | 2019-10-20 00:33 | CONS ---
DATE OF CONSULTATION: 10/19/2019 HEMATOLOGY AND ONCOLOGY CONSULTATION REQUESTING PHYSICIAN: Dr. Halle Zamora. REASON FOR CONSULTATION: Thrombocytopenia. HISTORY OF PRESENT ILLNESS: The patient is a 74-year-old female with severe Alzheimer's dementia, who was brought into [facility] and admitted on 10/16/2019 with complaints of increasing weakness of several days' duration. She is cared for at home by her son. She is nonverbal and unable to give any history. She was noted to have leukocytosis with a WBC of 11.2 with 89% neutrophils and a creatinine of 2.6 and sodium level of 170. She was diagnosed with urinary tract infection. Infectious Disease team was consulted and she was started on cefepime. She was noted to have thrombocytopenia with a platelet count of 95 on 10/16/2019 and then it dropped to 34 on 10/19/2019 and hence I was consulted. Review of the prior records indicates that she has had chronic thrombocytopenia at least since 2016. PAST MEDICAL HISTORY: Alzheimer's dementia, urinary tract infections, diabetes, hypertension, hyperlipidemia. SOCIAL HISTORY: She lives at home. Her son helps take care of her. FAMILY HISTORY: Positive for hypertension. REVIEW OF SYSTEMS: A 12-point review of system was performed. Pertinent positives are mentioned in the history of present illness. Rest of the system review is negative. The patient unable to provide any history and I reviewed the medical records and discussed with medical staff. PHYSICAL EXAMINATION: GENERAL APPEARANCE: The patient is a 74-year-old female who is in no acute cardiorespiratory distress. VITAL SIGNS: Blood pressure 116/50, temperature 98.5. HEAD: Atraumatic, normocephalic. EYES: No icterus. NECK: Supple. CHEST: Bilaterally symmetrical. HEART: S1, S2 normal. ABDOMEN: Soft, nontender. CENTRAL NERVOUS SYSTEM: She is awake, but not oriented and not verbal. MUSCULOSKELETAL: No joint effusions. PSYCHOLOGIC: Flat affect. LABORATORY DATA: WBC on 10/16/2019 was 11.2 with a hemoglobin 14.9, platelet count 95. CBC on 10/19/2019 revealed a WBC of 7.6, hemoglobin 12.3, platelet count 34. PTT 29, INR 1.5, PT 17.5, total bilirubin 2.7, direct bilirubin 1.8, AST 44, ALT 23, alkaline phosphatase 66, total protein 5.5, albumin 1.7, creatinine 1.5. Sodium was 170 at the time of admission and is down to 158 on 10/19/2019. IMPRESSION AND PLAN: 1. Thrombocytopenia. Review of the old records indicates that the patient has chronic thrombocytopenia. I suspect the current worsening thrombocytopenia is consistent with underlying urinary tract infection. This reactive thrombocytopenia should get better as the infection is being treated. There is no evidence of anemia. There is no evidence to suggest DIC or TTP. I will continue to monitor platelet counts. Monitor for bleeding. I discussed with registered nurse. 2. Urinary tract infection. Continue antibiotics per Infectious Diseases. 3. Alzheimer's dementia. She underwent a CT scan of the head on 10/16/2019 and that revealed chronic ischemic changes and no acute abnormalities. Appreciate Neurology consultation. STEVE DEMARCO MD DR: KYLER/luis miguel JOB#: [id number] / [id number]
[2019-10-20] MEDS: INSULIN LISPRO 300 UNITS/3 ML VIAL. SQ SCH ×4 (00:37→18:44)
[2019-10-20] MEDS: IV DEXTROSE 5 %-0.45 % NACL 1,000 ML IV SCH ×2 (04:02→08:58)
[2019-10-20] MEDS: AA 4.25 %/CALCIUM/LYTES/D5W 1,000 ML IV SCH ×2 (04:03→18:40)
[2019-10-20 07:41] LABS: BASO % 0 % (0-3); EOS # 0.1 x10^3/uL (0.0-0.7); EOS % 2 % (0-3); LYMPH # 0.8 x10^3/uL (1.0-4.8); LYMPH % 14 % (24-48); MEAN CORPUSCULAR HEMOGLOBIN 33 pg (25-35); MEAN CORPUSCULAR HGB CONC 32 g/dL (31-37); MEAN CORPUSCULAR VOLUME 101 fL (79-100); MONO # 0.2 x10^3/uL (0.0-1.1); MONO % 4 % (0-9); NEUT # 5.1 x10^3/uL (1.8-7.7); NEUT % 81 % (31-73); PLATELET COUNT 28 x10^3/uL (140-400); RED BLOOD COUNT 3.68 x10^6/uL (3.50-5.40); RED CELL DISTRIBUTION WIDTH 18.5 % (11.5-14.5); WHITE BLOOD COUNT 6.3 x10^3/uL (4.0-11.0)
[2019-10-20 07:49] LABS: CALCIUM 7.6 mg/dL (8.5-10.1); GFR 54.2
[2019-10-20 07:52] LABS: MAGNESIUM 2.5 mg/dL (1.8-2.4)
--- NOTE | 2019-10-20 08:52 | NUR ---
SW following. Discussed with RN. Pt is a transfer from ICU. Family wanting peg tube, doctor wanting to speak to family about quality of life apparently. PT/OT on hold. SW will continue to follow.
[2019-10-20] MEDS: CEFEPIME HCL IV Push 2 GM VIAL. IVP SCH (08:59)
[2019-10-20] MEDS: FAMOTIDINE 20 MG/2 ML VIAL IVP SCH (08:59)
--- NOTE | 2019-10-20 09:27 | PDOC ---
PROGRESS NOTES Subjective Subjective HPI - f/u of Thrombocytopenia ROS - no bleed Objective Objective Vital Signs Date Time Temp Pulse Resp B/P (MAP) Pulse Ox O2 Delivery O2 Flow Rate FiO2 10/20/19 07:00 97.5 62 20 124/58 (80) 95 Room Air 97.5 Intake and Output 10/20/19 07:00 Intake Total 4124 ml Output Total 790 ml Balance 3334 ml Intake Oral 0 ml IV Total 4124 ml Output Urine Total 790 ml # Bowel Movements 3 Physical Exam General: No acute distress Neck: No JVD Assessment Assessment Problems Medical Problems: (1) Mental status alteration Status: Acute IMPRESSION AND PLAN: 1. Thrombocytopenia. Review of the old records indicates that the patient has chronic thrombocytopenia. I suspect the current worsening thrombocytopenia is consistent with underlying urinary tract infection. This reactive thrombocytopenia should get better as the infection is being treated. There is no evidence of anemia. There is no evidence to suggest DIC or TTP. I will continue to monitor platelet counts. Monitor for bleeding. I discussed with registered nurse. Plt worse at 28, no bleeding. I d/w RN 2. Urinary tract infection. Continue antibiotics per Infectious Diseases. 3. Alzheimer's dementia. She underwent a CT scan of the head on 10/16/2019 and that revealed chronic ischemic changes and no acute abnormalities. Appreciate Neurology consultation. Comment Review of Relevant I have reviewed the following items karrie (where applicable) has been applied. Labs Laboratory Tests Test 10/18/19 11:56 10/18/19 17:43 10/19/19 00:21 10/19/19 05:00 Glucose (Fingerstick) 238 mg/dL (70-99) 218 mg/dL (70-99) 262 mg/dL (70-99) White Blood Count 7.6 x10^3/uL (4.0-11.0) Red Blood Count 3.78 x10^6/uL (3.50-5.40) Hemoglobin 12.3 g/dL (12.0-15.5) Hematocrit 37.5 % (36.0-47.0) Mean Corpuscular Volume 99 fL (79-100) Mean Corpuscular Hemoglobin 33 pg (25-35) Mean Corpuscular Hemoglobin Concent 33 g/dL (31-37) Red Cell Distribution Width 18.0 % (11.5-14.5) Platelet Count 34 x10^3/uL (140-400) Neutrophils (%) (Auto) 79 % (31-73) Lymphocytes (%) (Auto) 15 % (24-48) Monocytes (%) (Auto) 5 % (0-9) Eosinophils (%) (Auto) 1 % (0-3) Basophils (%) (Auto) 0 % (0-3) Neutrophils # (Auto) 6.0 x10^3/uL (1.8-7.7) Lymphocytes # (Auto) 1.1 x10^3/uL (1.0-4.8) Monocytes # (Auto) 0.3 x10^3/uL (0.0-1.1) Eosinophils # (Auto) 0.1 x10^3/uL (0.0-0.7) Basophils # (Auto) 0.0 x10^3/uL (0.0-0.2) Sodium Level 158 mmol/L (136-145) Potassium Level 3.8 mmol/L (3.5-5.1) Chloride Level 125 mmol/L (98-107) Carbon Dioxide Level 21 mmol/L (21-32) Anion Gap 12 (6-14) Blood Urea Nitrogen 47 mg/dL (7-20) Creatinine 1.1 mg/dL (0.6-1.0) Estimated GFR (Cockcroft-Gault) 48.6 Glucose Level 294 mg/dL (70-99) Calcium Level 7.8 mg/dL (8.5-10.1) Phosphorus Level 2.8 mg/dL (2.6-4.7) Magnesium Level 2.6 mg/dL (1.8-2.4) Test 10/19/19 06:09 10/19/19 13:46 10/19/19 17:39 10/20/19 00:29 Glucose (Fingerstick) 258 mg/dL (70-99) 278 mg/dL (70-99) 235 mg/dL (70-99) 273 mg/dL (70-99) Test 10/20/19 05:38 10/20/19 07:05 Glucose (Fingerstick) 273 mg/dL (70-99) White Blood Count 6.3 x10^3/uL (4.0-11.0) Red Blood Count 3.68 x10^6/uL (3.50-5.40) Hemoglobin 12.0 g/dL (12.0-15.5) Hematocrit 37.0 % (36.0-47.0) Mean Corpuscular Volume 101 fL (79-100) Mean Corpuscular Hemoglobin 33 pg (25-35) Mean Corpuscular Hemoglobin Concent 32 g/dL (31-37) Red Cell Distribution Width 18.5 % (11.5-14.5) Platelet Count 28 x10^3/uL (140-400) Neutrophils (%) (Auto) 81 % (31-73) Lymphocytes (%) (Auto) 14 % (24-48) Monocytes (%) (Auto) 4 % (0-9) Eosinophils (%) (Auto) 2 % (0-3) Basophils (%) (Auto) 0 % (0-3) Neutrophils # (Auto) 5.1 x10^3/uL (1.8-7.7) Lymphocytes # (Auto) 0.8 x10^3/uL (1.0-4.8) Monocytes # (Auto) 0.2 x10^3/uL (0.0-1.1) Eosinophils # (Auto) 0.1 x10^3/uL (0.0-0.7) Basophils # (Auto) 0.0 x10^3/uL (0.0-0.2) Sodium Level 148 mmol/L (136-145) Potassium Level 4.0 mmol/L (3.5-5.1) Chloride Level 120 mmol/L (98-107) Carbon Dioxide Level 19 mmol/L (21-32) Anion Gap 9 (6-14) Blood Urea Nitrogen 38 mg/dL (7-20) Creatinine 1.0 mg/dL (0.6-1.0) Estimated GFR (Cockcroft-Gault) 54.2 Glucose Level 306 mg/dL (70-99) Calcium Level 7.6 mg/dL (8.5-10.1) Phosphorus Level 2.0 mg/dL (2.6-4.7) Magnesium Level 2.5 mg/dL (1.8-2.4) Laboratory Tests Test 10/19/19 13:46 10/19/19 17:39 10/20/19 00:29 10/20/19 05:38 Glucose (Fingerstick) 278 mg/dL (70-99) 235 mg/dL (70-99) 273 mg/dL (70-99) 273 mg/dL (70-99) Test 10/20/19 07:05 White Blood Count 6.3 x10^3/uL (4.0-11.0) Red Blood Count 3.68 x10^6/uL (3.50-5.40) Hemoglobin 12.0 g/dL (12.0-15.5) Hematocrit 37.0 % (36.0-47.0) Mean Corpuscular Volume 101 fL (79-100) Mean Corpuscular Hemoglobin 33 pg (25-35) Mean Corpuscular Hemoglobin Concent 32 g/dL (31-37) Red Cell Distribution Width 18.5 % (11.5-14.5) Platelet Count 28 x10^3/uL (140-400) Neutrophils (%) (Auto) 81 % (31-73) Lymphocytes (%) (Auto) 14 % (24-48) Monocytes (%) (Auto) 4 % (0-9) Eosinophils (%) (Auto) 2 % (0-3) Basophils (%) (Auto) 0 % (0-3) Neutrophils # (Auto) 5.1 x10^3/uL (1.8-7.7) Lymphocytes # (Auto) 0.8 x10^3/uL (1.0-4.8) Monocytes # (Auto) 0.2 x10^3/uL (0.0-1.1) Eosinophils # (Auto) 0.1 x10^3/uL (0.0-0.7) Basophils # (Auto) 0.0 x10^3/uL (0.0-0.2) Sodium Level 148 mmol/L (136-145) Potassium Level 4.0 mmol/L (3.5-5.1) Chloride Level 120 mmol/L (98-107) Carbon Dioxide Level 19 mmol/L (21-32) Anion Gap 9 (6-14) Blood Urea Nitrogen 38 mg/dL (7-20) Creatinine 1.0 mg/dL (0.6-1.0) Estimated GFR (Cockcroft-Gault) 54.2 Glucose Level 306 mg/dL (70-99) Calcium Level 7.6 mg/dL (8.5-10.1) Phosphorus Level 2.0 mg/dL (2.6-4.7) Magnesium Level 2.5 mg/dL (1.8-2.4) Microbiology 10/17/19 Blood Culture - Preliminary, Resulted NO GROWTH AFTER 2 DAYS 10/16/19 Urine Culture - Final, Complete 10/16/19 Urine Culture Result 1 (KATHRYN) - Final, Complete 10/16/19 Antimicrobic Susceptibility - Final, Complete Medications Current Medications Potassium Chloride/Dextrose/ Sod Cl 1,000 ml @ 75 mls/hr 1X ONCE IV Last administered on 10/17/19at 00:40; Start 10/16/19 at 23:30; Stop 10/17/19 at 12:49; Status DC Ceftriaxone Sodium (Rocephin) 1 gm 1X ONCE IVP Last administered on 10/17/19at 00:42; Start 10/16/19 at 23:45; Stop 10/16/19 at 23:46; Status DC Ondansetron HCl (Zofran) 4 mg PRN Q8HRS PRN IV NAUSEA/VOMITING; Start 10/17/19 at 02:30; Stop 10/18/19 at 02:29; Status DC Amino Acids/ Electrolytes/ Dextrose 1,000 ml @ 80 mls/hr [id number] IV Last administered on 10/20/19at 04:03; Start 10/17/19 at 11:15 Ceftriaxone Sodium (Rocephin) 1 gm Q24H IVP Last administered on 10/17/19at 12:06; Start 10/17/19 at 11:00; Stop 10/17/19 at 14:44; Status DC Sodium Chloride (Normal Saline Flush) 3 ml QSHIFT PRN IV AFTER MEDS AND BLOOD DRAWS; Start 10/17/19 at 12:30; Status Cancel Ondansetron HCl (Zofran) 2 mg PRN Q4HRS PRN IV NAUSEA/VOMITING; Start 10/17/19 at 12:30 Acetaminophen (Tylenol Supp) 650 mg PRN Q4HRS PRN DC TEMP OVER 100.4F OR MILD PAIN; Start 10/17/19 at 12:30 Docusate Sodium (Colace) 100 mg PRN BID PRN PO CONSTIPATION; Start 10/17/19 at 12:30 Albuterol Sulfate (Ventolin Neb Soln) 2.5 mg PRN Q4HRS PRN NEB SHORTNESS OF BREATH; Start 10/17/19 at 12:30 Enoxaparin Sodium (Lovenox 30mg Syringe) 30 mg Q24H SQ Last administered on 10/17/19at 13:53; Start 10/17/19 at 13:00; Stop 10/18/19 at 10:13; Status DC Famotidine (Pepcid Vial) 10 mg BID IVP Last administered on 10/20/19at 08:59; Start 10/17/19 at 13:00 Sodium Chloride (Normal Saline Flush) 3 ml QSHIFT PRN IV AFTER MEDS AND BLOOD DRAWS; Start 10/17/19 at 12:30 Metoprolol Tartrate (Lopressor Vial) 5 mg PRN Q6HRS PRN IVP TACHYCARDIA; Start 10/17/19 at 14:15 Cefepime HCl (Maxipime) 2 gm Q12HR IVP Last administered on 10/20/19at 08:59; Start 10/17/19 at 21:00 Daptomycin 490 mg/ Sodium Chloride 50 ml @ 100 mls/hr ONCE ONCE IV Last administered on 10/17/19at 16:26; Start 10/17/19 at 15:00; Stop 10/17/19 at 15:29; Status DC Vitamin A/Vitamin D (Vitamin A & D Ointment) 1 [place] PRN Q1HR PRN TP SKIN PROTECTION Last administered on 10/18/19at 16:14; Start 10/17/19 at 15:45 Dextrose/Sodium Chloride 1,000 ml @ 100 mls/hr Q10H IV Last administered on 10/20/19at 04:02; Start 10/17/19 at 16:15 Insulin Human Lispro (HumaLOG) 0-5 UNITS TIDWMEALS SQ Last administered on 10/17/19at 18:44; Start 10/17/19 at 18:30; Stop 10/18/19 at 04:12; Status DC Dextrose (Dextrose 50%-Water Syringe) 12.5 gm PRN Q15MIN PRN IV SEE COMMENTS; Start 10/17/19 at 18:30 Dextrose (Iv Dextrose 5%) 250 ml PRN Q15MIN PRN IV SEE COMMENTS; Start 10/17/19 at 18:30 Insulin Human Lispro (HumaLOG) 0-7 UNITS TIDWMEALS SQ ; Start 10/18/19 at 08:00; Stop 10/18/19 at 04:42; Status DC Insulin Human Lispro (HumaLOG) 0-7 UNITS Q6HRS SQ Last administered on 10/20/19at 05:46; Start 10/18/19 at 06:00 Vitamin A/Vitamin D (Vitamin A & D Ointment) 1 [place] BID PRN TP SKIN PROTECTION; Start 10/18/19 at 09:45 Vitamin A/Vitamin D (Vitamin A & D Ointment) 1 [place] PRN Q1HR PRN TP SKIN PROTECTION; Start 10/18/19 at 09:45; Stop 10/18/19 at 10:10; Status DC Enoxaparin Sodium (Lovenox 40mg Syringe) 40 mg Q24H SQ ; Start 10/18/19 at 13:00; Stop 10/18/19 at 13:39; Status DC Potassium Phosphate 15 mmol/ Sodium Chloride 255 ml @ 127.5 mls/ hr Q2H IV Last administered on 10/18/19at 13:36; Start 10/18/19 at 11:00; Stop 10/18/19 at 14:59; Status DC Active Scripts Active Valtrex (Valacyclovir Hcl) 1,000 Mg Tablet 1 Tab PO TID Medrol (Methylprednisolone) 4 Mg Tab.ds.pk 1 Pkg PO UD Levemir (Insulin Detemir) 100 Unit/1 Ml Vial 15 Unit SQ DAILY 30 Days Keflex (Cephalexin) 500 Mg Capsule 1 Cap PO TID Novolog Flexpen (Insulin Aspart) 100 Unit/1 Ml Insuln.pen 0 Units SQ TIDACHC Aspirin Ec (Aspirin) 325 Mg Tablet.dr 325 Mg PO DAILYWBKFT Glucophage (Metformin Hcl) 500 Mg Tablet 500 Mg PO BIDWMEALS Reported Tresiba Flextouch U-100 (Insulin Degludec) 100 Unit/1 Ml Insuln.pen 24 Units SUBCUT HS Klor-Con 10 (Potassium Chloride) 10 Meq Tablet.er 10 Meq PO DAILY Donepezil Hcl 10 Mg Tablet 1 Tab PO DAILY Novolog Flexpen (Insulin Aspart) 100 Unit/1 Ml Insuln.pen 12 Unit SQ TIDWMEALS Vitamin D3 1,000 Unit Tablet (Ca Cmb No.1/Vit D3/B-6/Fa/B12) 1 Each Tablet 1 Eac h PO DAILY Losartan-Hctz 100-12.5 Mg Tab (Losartan/Hydrochlorothiazide) 1 Each Tablet 1 Each PO DAILY08 Pravachol (Pravastatin Sodium) 20 Mg Tablet 20 Mg PO HS Amlodipine Besylate 5 Mg Tablet 5 Mg PO DAILY08 Vitals/I & O Vital Sign - Last 24 Hours 10/19/19 10/19/19 10/19/19 10/19/19 10:00 11:00 12:00 13:00 Temp 98.5 98.5 Pulse 69 68 68 68 Resp 16 18 17 17 B/P (MAP) 118/50 (72) 118/52 (74) 118/57 (77) 116/50 (72) Pulse Ox 96 98 97 96 O2 Delivery Room Air Room Air Room Air Room Air 10/19/19 10/19/19 10/19/19 10/20/19 16:00 20:00 20:00 00:00 Temp 99.3 97.8 97.8 99.3 97.8 97.8 Pulse 79 68 65 Resp 20 20 18 B/P (MAP) 113/49 (70) 116/55 (75) 124/68 (86) Pulse Ox 98 95 97 O2 Delivery Room Air Room Air Room Air Room Air 10/20/19 10/20/19 03:00 07:00 Temp 97.6 97.5 97.6 97.5 Pulse 61 62 Resp 18 20 B/P (MAP) 135/55 (81) 124/58 (80) Pulse Ox 97 95 O2 Delivery Room Air Room Air Intake and Output 10/19/19 10/19/19 10/20/19 15:00 23:00 07:00 Intake Total 0 ml 2124 ml 2000 ml Output Total 345 ml 95 ml 350 ml Balance -345 ml 2029 ml 1650 ml Nutrition Consultation Dietary Evaluation: Recommendations by RD: Dietary education by RD, Increase Calorie Intake, PPN/TPN Comments: Continue w/PPN for short-term non-oral nutrition needs REC cardiac/ADA diet w/glucerna supplements and MVI/Vit C (wound healing) pending [employer] eval If NPO per [employer]GER, recommend feeding tube for enteral nutrition pending family goals of care, would recommend TFs per following: Glucerna 1.2@goal rate 55 ml/hr w/100 ml water flushes q4 hrs w/Sergio BID and MVI (liquid) via feeding tube (wound healing) Expected Outcomes/Goals: Diet advancement or initiaiton of TFs within 24 - 48 hrs Interpretation of weight loss: >1-2% in 1 week Malnutrition Findings: Food and Nutrition Intake (Sev: <50% est energy req 5days Weight Status: Appropriate Hemodynamically unstable?: No Is patient in severe pain?: No Is NPO status required?: Yes STEVE DEMARCO MD Oct 20, 2019 09:27
--- NOTE | 2019-10-20 09:47 | PDOC ---
PROGRESS NOTES Assessment Problems Medical Problems: (1) Mental status alteration Status: Acute Natural, normal progression of Alzheimer's dementia, no evidence of acute strok e. She does have some metabolic abnormalities of course related to the fact that she has not been eating. Plan PEG, this is per the patient's living will. Fully discussed with family on 10/18 No need to repeat any other neurological studies. Subjective None Objective Vital Signs Date Time Temp Pulse Resp B/P (MAP) Pulse Ox O2 Delivery O2 Flow Rate FiO2 10/20/19 07:00 97.5 62 20 124/58 (80) 95 Room Air 97.5 Intake and Output 10/20/19 07:00 Intake Total 4124 ml Output Total 790 ml Balance 3334 ml Intake Oral 0 ml IV Total 4124 ml Output Urine Total 790 ml # Bowel Movements 3 PHYSICAL EXAM Alert. Nonverbal, does not follow any commands. PERRL. EOMI. CN: no focal findings. Muscle tone: normal. Muscle strength: moves to mild stimulation DTR: 1+. Bilateral grasp reflexes Plantar reflex: flexor Gait: not examined in bed. Sensory exam: responds to pinprick in all 4 extremities Cerebellar: not cooperative Review of Relevant I have reviewed the following items karrie (where applicable) has been applied. Labs Laboratory Tests Test 10/18/19 11:56 10/18/19 17:43 10/19/19 00:21 10/19/19 05:00 Glucose (Fingerstick) 238 mg/dL (70-99) 218 mg/dL (70-99) 262 mg/dL (70-99) White Blood Count 7.6 x10^3/uL (4.0-11.0) Red Blood Count 3.78 x10^6/uL (3.50-5.40) Hemoglobin 12.3 g/dL (12.0-15.5) Hematocrit 37.5 % (36.0-47.0) Mean Corpuscular Volume 99 fL (79-100) Mean Corpuscular Hemoglobin 33 pg (25-35) Mean Corpuscular Hemoglobin Concent 33 g/dL (31-37) Red Cell Distribution Width 18.0 % (11.5-14.5) Platelet Count 34 x10^3/uL (140-400) Neutrophils (%) (Auto) 79 % (31-73) Lymphocytes (%) (Auto) 15 % (24-48) Monocytes (%) (Auto) 5 % (0-9) Eosinophils (%) (Auto) 1 % (0-3) Basophils (%) (Auto) 0 % (0-3) Neutrophils # (Auto) 6.0 x10^3/uL (1.8-7.7) Lymphocytes # (Auto) 1.1 x10^3/uL (1.0-4.8) Monocytes # (Auto) 0.3 x10^3/uL (0.0-1.1) Eosinophils # (Auto) 0.1 x10^3/uL (0.0-0.7) Basophils # (Auto) 0.0 x10^3/uL (0.0-0.2) Sodium Level 158 mmol/L (136-145) Potassium Level 3.8 mmol/L (3.5-5.1) Chloride Level 125 mmol/L (98-107) Carbon Dioxide Level 21 mmol/L (21-32) Anion Gap 12 (6-14) Blood Urea Nitrogen 47 mg/dL (7-20) Creatinine 1.1 mg/dL (0.6-1.0) Estimated GFR (Cockcroft-Gault) 48.6 Glucose Level 294 mg/dL (70-99) Calcium Level 7.8 mg/dL (8.5-10.1) Phosphorus Level 2.8 mg/dL (2.6-4.7) Magnesium Level 2.6 mg/dL (1.8-2.4) Test 10/19/19 06:09 10/19/19 13:46 10/19/19 17:39 10/20/19 00:29 Glucose (Fingerstick) 258 mg/dL (70-99) 278 mg/dL (70-99) 235 mg/dL (70-99) 273 mg/dL (70-99) Test 10/20/19 05:38 10/20/19 07:05 Glucose (Fingerstick) 273 mg/dL (70-99) White Blood Count 6.3 x10^3/uL (4.0-11.0) Red Blood Count 3.68 x10^6/uL (3.50-5.40) Hemoglobin 12.0 g/dL (12.0-15.5) Hematocrit 37.0 % (36.0-47.0) Mean Corpuscular Volume 101 fL (79-100) Mean Corpuscular Hemoglobin 33 pg (25-35) Mean Corpuscular Hemoglobin Concent 32 g/dL (31-37) Red Cell Distribution Width 18.5 % (11.5-14.5) Platelet Count 28 x10^3/uL (140-400) Neutrophils (%) (Auto) 81 % (31-73) Lymphocytes (%) (Auto) 14 % (24-48) Monocytes (%) (Auto) 4 % (0-9) Eosinophils (%) (Auto) 2 % (0-3) Basophils (%) (Auto) 0 % (0-3) Neutrophils # (Auto) 5.1 x10^3/uL (1.8-7.7) Lymphocytes # (Auto) 0.8 x10^3/uL (1.0-4.8) Monocytes # (Auto) 0.2 x10^3/uL (0.0-1.1) Eosinophils # (Auto) 0.1 x10^3/uL (0.0-0.7) Basophils # (Auto) 0.0 x10^3/uL (0.0-0.2) Sodium Level 148 mmol/L (136-145) Potassium Level 4.0 mmol/L (3.5-5.1) Chloride Level 120 mmol/L (98-107) Carbon Dioxide Level 19 mmol/L (21-32) Anion Gap 9 (6-14) Blood Urea Nitrogen 38 mg/dL (7-20) Creatinine 1.0 mg/dL (0.6-1.0) Estimated GFR (Cockcroft-Gault) 54.2 Glucose Level 306 mg/dL (70-99) Calcium Level 7.6 mg/dL (8.5-10.1) Phosphorus Level 2.0 mg/dL (2.6-4.7) Magnesium Level 2.5 mg/dL (1.8-2.4) Laboratory Tests Test 10/19/19 13:46 10/19/19 17:39 10/20/19 00:29 10/20/19 05:38 Glucose (Fingerstick) 278 mg/dL (70-99) 235 mg/dL (70-99) 273 mg/dL (70-99) 273 mg/dL (70-99) Test 10/20/19 07:05 White Blood Count 6.3 x10^3/uL (4.0-11.0) Red Blood Count 3.68 x10^6/uL (3.50-5.40) Hemoglobin 12.0 g/dL (12.0-15.5) Hematocrit 37.0 % (36.0-47.0) Mean Corpuscular Volume 101 fL (79-100) Mean Corpuscular Hemoglobin 33 pg (25-35) Mean Corpuscular Hemoglobin Concent 32 g/dL (31-37) Red Cell Distribution Width 18.5 % (11.5-14.5) Platelet Count 28 x10^3/uL (140-400) Neutrophils (%) (Auto) 81 % (31-73) Lymphocytes (%) (Auto) 14 % (24-48) Monocytes (%) (Auto) 4 % (0-9) Eosinophils (%) (Auto) 2 % (0-3) Basophils (%) (Auto) 0 % (0-3) Neutrophils # (Auto) 5.1 x10^3/uL (1.8-7.7) Lymphocytes # (Auto) 0.8 x10^3/uL (1.0-4.8) Monocytes # (Auto) 0.2 x10^3/uL (0.0-1.1) Eosinophils # (Auto) 0.1 x10^3/uL (0.0-0.7) Basophils # (Auto) 0.0 x10^3/uL (0.0-0.2) Sodium Level 148 mmol/L (136-145) Potassium Level 4.0 mmol/L (3.5-5.1) Chloride Level 120 mmol/L (98-107) Carbon Dioxide Level 19 mmol/L (21-32) Anion Gap 9 (6-14) Blood Urea Nitrogen 38 mg/dL (7-20) Creatinine 1.0 mg/dL (0.6-1.0) Estimated GFR (Cockcroft-Gault) 54.2 Glucose Level 306 mg/dL (70-99) Calcium Level 7.6 mg/dL (8.5-10.1) Phosphorus Level 2.0 mg/dL (2.6-4.7) Magnesium Level 2.5 mg/dL (1.8-2.4) Microbiology 10/17/19 Blood Culture - Preliminary, Resulted NO GROWTH AFTER 2 DAYS 10/16/19 Urine Culture - Final, Complete 10/16/19 Urine Culture Result 1 (KATHRYN) - Final, Complete 10/16/19 Antimicrobic Susceptibility - Final, Complete Medications Current Medications Potassium Chloride/Dextrose/ Sod Cl 1,000 ml @ 75 mls/hr 1X ONCE IV Last administered on 10/17/19at 00:40; Start 10/16/19 at 23:30; Stop 10/17/19 at 12:49; Status DC Ceftriaxone Sodium (Rocephin) 1 gm 1X ONCE IVP Last administered on 10/17/19at 00:42; Start 10/16/19 at 23:45; Stop 10/16/19 at 23:46; Status DC Ondansetron HCl (Zofran) 4 mg PRN Q8HRS PRN IV NAUSEA/VOMITING; Start 10/17/19 at 02:30; Stop 10/18/19 at 02:29; Status DC Amino Acids/ Electrolytes/ Dextrose 1,000 ml @ 80 mls/hr [id number] IV Last administered on 10/20/19at 04:03; Start 10/17/19 at 11:15 Ceftriaxone Sodium (Rocephin) 1 gm Q24H IVP Last administered on 10/17/19at 12:06; Start 10/17/19 at 11:00; Stop 10/17/19 at 14:44; Status DC Sodium Chloride (Normal Saline Flush) 3 ml QSHIFT PRN IV AFTER MEDS AND BLOOD DRAWS; Start 10/17/19 at 12:30; Status Cancel Ondansetron HCl (Zofran) 2 mg PRN Q4HRS PRN IV NAUSEA/VOMITING; Start 10/17/19 at 12:30 Acetaminophen (Tylenol Supp) 650 mg PRN Q4HRS PRN [place] TEMP OVER 100.4F OR MILD PAIN; Start 10/17/19 at 12:30 Docusate Sodium (Colace) 100 mg PRN BID PRN PO CONSTIPATION; Start 10/17/19 at 12:30 Albuterol Sulfate (Ventolin Neb Soln) 2.5 mg PRN Q4HRS PRN NEB SHORTNESS OF BREATH; Start 10/17/19 at 12:30 Enoxaparin Sodium (Lovenox 30mg Syringe) 30 mg Q24H SQ Last administered on 10/17/19at 13:53; Start 10/17/19 at 13:00; Stop 10/18/19 at 10:13; Status DC Famotidine (Pepcid Vial) 10 mg BID IVP Last administered on 10/20/19at 08:59; Start 10/17/19 at 13:00 Sodium Chloride (Normal Saline Flush) 3 ml QSHIFT PRN IV AFTER MEDS AND BLOOD DRAWS; Start 10/17/19 at 12:30 Metoprolol Tartrate (Lopressor Vial) 5 mg PRN Q6HRS PRN IVP TACHYCARDIA; Start 10/17/19 at 14:15 Cefepime HCl (Maxipime) 2 gm Q12HR IVP Last administered on 10/20/19at 08:59; Start 10/17/19 at 21:00 Daptomycin 490 mg/ Sodium Chloride 50 ml @ 100 mls/hr ONCE ONCE IV Last administered on 10/17/19at 16:26; Start 10/17/19 at 15:00; Stop 10/17/19 at 15:29; Status DC Vitamin A/Vitamin D (Vitamin A & D Ointment) 1 [place] PRN Q1HR PRN TP SKIN PROTECTION Last administered on 10/18/19at 16:14; Start 10/17/19 at 15:45 Dextrose/Sodium Chloride 1,000 ml @ 100 mls/hr Q10H IV Last administered on 10/20/19at 04:02; Start 10/17/19 at 16:15 Insulin Human Lispro (HumaLOG) 0-5 UNITS TIDWMEALS SQ Last administered on 10/17/19at 18:44; Start 10/17/19 at 18:30; Stop 10/18/19 at 04:12; Status DC Dextrose (Dextrose 50%-Water Syringe) 12.5 gm PRN Q15MIN PRN IV SEE COMMENTS; Start 10/17/19 at 18:30 Dextrose (Iv Dextrose 5%) 250 ml PRN Q15MIN PRN IV SEE COMMENTS; Start 10/17/19 at 18:30 Insulin Human Lispro (HumaLOG) 0-7 UNITS TIDWMEALS SQ ; Start 10/18/19 at 08:00; Stop 10/18/19 at 04:42; Status DC Insulin Human Lispro (HumaLOG) 0-7 UNITS Q6HRS SQ Last administered on 10/20/19at 05:46; Start 10/18/19 at 06:00 Vitamin A/Vitamin D (Vitamin A & D Ointment) 1 [place] BID PRN TP SKIN PROTECTION; Start 10/18/19 at 09:45 Vitamin A/Vitamin D (Vitamin A & D Ointment) 1 [place] PRN Q1HR PRN TP SKIN PROTECTION; Start 10/18/19 at 09:45; Stop 10/18/19 at 10:10; Status DC Enoxaparin Sodium (Lovenox 40mg Syringe) 40 mg Q24H SQ ; Start 10/18/19 at 13:00; Stop 10/18/19 at 13:39; Status DC Potassium Phosphate 15 mmol/ Sodium Chloride 255 ml @ 127.5 mls/ hr Q2H IV Last administered on 10/18/19at 13:36; Start 10/18/19 at 11:00; Stop 10/18/19 at 14:59; Status DC Active Scripts Active Valtrex (Valacyclovir Hcl) 1,000 Mg Tablet 1 Tab PO TID Medrol (Methylprednisolone) 4 Mg Tab.ds.pk 1 Pkg PO UD Levemir (Insulin Detemir) 100 Unit/1 Ml Vial 15 Unit SQ DAILY 30 Days Keflex (Cephalexin) 500 Mg Capsule 1 Cap PO TID Novolog Flexpen (Insulin Aspart) 100 Unit/1 Ml Insuln.pen 0 Units SQ TIDACHC Aspirin Ec (Aspirin) 325 Mg Tablet.dr 325 Mg PO DAILYWBKFT Glucophage (Metformin Hcl) 500 Mg Tablet 500 Mg PO BIDWMEALS Reported Tresiba Flextouch U-100 (Insulin Degludec) 100 Unit/1 Ml Insuln.pen 24 Units SUBCUT HS Klor-Con 10 (Potassium Chloride) 10 Meq Tablet.er 10 Meq PO DAILY Donepezil Hcl 10 Mg Tablet 1 Tab PO DAILY Novolog Flexpen (Insulin Aspart) 100 Unit/1 Ml Insuln.pen 12 Unit SQ TIDWMEALS Vitamin D3 1,000 Unit Tablet (Ca Cmb No.1/Vit D3/B-6/Fa/B12) 1 Each Tablet 1 Each PO DAILY Losartan-Hctz 100-12.5 Mg Tab (Losartan/Hydrochlorothiazide) 1 Each Tablet 1 Each PO DAILY08 Pravachol (Pravastatin Sodium) 20 Mg Tablet 20 Mg PO HS Amlodipine Besylate 5 Mg Tablet 5 Mg PO DAILY08 Vitals/I & O Vital Sign - Last 24 Hours 10/19/19 10/19/19 10/19/19 10/19/19 10:00 11:00 12:00 13:00 Temp 98.5 98.5 Pulse 69 68 68 68 Resp 16 18 17 17 B/P (MAP) 118/50 (72) 118/52 (74) 118/57 (77) 116/50 (72) Pulse Ox 96 98 97 96 O2 Delivery Room Air Room Air Room Air Room Air 10/19/19 10/19/19 10/19/19 10/20/19 16:00 20:00 20:00 00:00 Temp 99.3 97.8 97.8 99.3 97.8 97.8 Pulse 79 68 65 Resp 20 20 18 B/P (MAP) 113/49 (70) 116/55 (75) 124/68 (86) Pulse Ox 98 95 97 O2 Delivery Room Air Room Air Room Air Room Air 10/20/19 10/20/19 03:00 07:00 Temp 97.6 97.5 97.6 97.5 Pulse 61 62 Resp 18 20 B/P (MAP) 135/55 (81) 124/58 (80) Pulse Ox 97 95 O2 Delivery Room Air Room Air Intake and Output 10/19/19 10/19/19 10/20/19 15:00 23:00 07:00 Intake Total 0 ml 2124 ml 2000 ml Output Total 345 ml 95 ml 350 ml Balance -345 ml 2029 ml 1650 ml SALMA LAMBERT MD Oct 20, 2019 09:47
--- NOTE | 2019-10-20 10:24 | PDOC ---
Objective: Objective: Nurse asks about PEG. No family here. Vital Signs: Vital Signs Date Time Temp Pulse Resp B/P (MAP) Pulse Ox O2 Delivery O2 Flow Rate FiO2 10/20/19 07:00 97.5 62 20 124/58 (80) 95 Room Air 97.5 Labs: Laboratory Tests Test 10/19/19 13:46 10/19/19 17:39 10/20/19 00:29 10/20/19 05:38 Glucose (Fingerstick) 278 mg/dL 235 mg/dL 273 mg/dL 273 mg/dL Test 10/20/19 07:05 White Blood Count 6.3 x10^3/uL Red Blood Count 3.68 x10^6/uL Hemoglobin 12.0 g/dL Hematocrit 37.0 % Mean Corpuscular Volume 101 fL Mean Corpuscular Hemoglobin 33 pg Mean Corpuscular Hemoglobin Concent 32 g/dL Red Cell Distribution Width 18.5 % Platelet Count 28 x10^3/uL Neutrophils (%) (Auto) 81 % Lymphocytes (%) (Auto) 14 % Monocytes (%) (Auto) 4 % Eosinophils (%) (Auto) 2 % Basophils (%) (Auto) 0 % Neutrophils # (Auto) 5.1 x10^3/uL Lymphocytes # (Auto) 0.8 x10^3/uL Monocytes # (Auto) 0.2 x10^3/uL Eosinophils # (Auto) 0.1 x10^3/uL Basophils # (Auto) 0.0 x10^3/uL Sodium Level 148 mmol/L Potassium Level 4.0 mmol/L Chloride Level 120 mmol/L Carbon Dioxide Level 19 mmol/L Anion Gap 9 Blood Urea Nitrogen 38 mg/dL Creatinine 1.0 mg/dL Estimated GFR (Cockcroft-Gault) 54.2 Glucose Level 306 mg/dL Calcium Level 7.6 mg/dL Phosphorus Level 2.0 mg/dL Magnesium Level 2.5 mg/dL URINE CULTURE RES 1 Final Gram negative rods Escherichia coli BLOOD CULTURE Preliminary NO GROWTH AFTER 3 DAYS PE: GEN: NAD NEURO/PSYCH: sleeping, did not awaken A/P: Alzheimer's, dysphagia UTI Hypernatremia - better -- PEG not scheduled yet - would be nice to discuss w/ family. On PPN, could consider Dobhoff. Hemodynamically unstable?: No Is patient in severe pain?: No Is NPO status required?: Yes GLENNA DILLON Oct 20, 2019 10:24
--- NOTE | 2019-10-20 10:42 | PDOC ---
Infectious Disease Note Subjective Subjective Alert but non verbal Vital Sign Vital Signs Vital Signs Date Time Temp Pulse Resp B/P (MAP) Pulse Ox O2 Delivery O2 Flow Rate FiO2 10/20/19 07:00 97.5 62 20 124/58 (80) 95 Room Air 97.5 Physical Exam PHYSICAL EXAM CONSTITUTIONAL: She is comfortable. Alert and in chair but not responsive HEENT: Pupils equal and reactive. Normal conjunctivae. Oral cavity - not seen NECK: Without JVD. No swelling. LUNGS: Decreased at the bases. HEART: S1, S2. ABDOMEN: Soft. No guarding, no rebound. : garvin in place EXTREMITIES: Without clubbing or cyanosis. No gross edema. SKIN: Warm to touch without generalized signs of rash. NEUROLOGIC: She is alert, nonverbal. Labs Lab Laboratory Tests Test 10/19/19 13:46 10/19/19 17:39 10/20/19 00:29 10/20/19 05:38 Glucose (Fingerstick) 278 mg/dL (70-99) 235 mg/dL (70-99) 273 mg/dL (70-99) 273 mg/dL (70-99) Test 10/20/19 07:05 White Blood Count 6.3 x10^3/uL (4.0-11.0) Red Blood Count 3.68 x10^6/uL (3.50-5.40) Hemoglobin 12.0 g/dL (12.0-15.5) Hematocrit 37.0 % (36.0-47.0) Mean Corpuscular Volume 101 fL (79-100) Mean Corpuscular Hemoglobin 33 pg (25-35) Mean Corpuscular Hemoglobin Concent 32 g/dL (31-37) Red Cell Distribution Width 18.5 % (11.5-14.5) Platelet Count 28 x10^3/uL (140-400) Neutrophils (%) (Auto) 81 % (31-73) Lymphocytes (%) (Auto) 14 % (24-48) Monocytes (%) (Auto) 4 % (0-9) Eosinophils (%) (Auto) 2 % (0-3) Basophils (%) (Auto) 0 % (0-3) Neutrophils # (Auto) 5.1 x10^3/uL (1.8-7.7) Lymphocytes # (Auto) 0.8 x10^3/uL (1.0-4.8) Monocytes # (Auto) 0.2 x10^3/uL (0.0-1.1) Eosinophils # (Auto) 0.1 x10^3/uL (0.0-0.7) Basophils # (Auto) 0.0 x10^3/uL (0.0-0.2) Sodium Level 148 mmol/L (136-145) Potassium Level 4.0 mmol/L (3.5-5.1) Chloride Level 120 mmol/L (98-107) Carbon Dioxide Level 19 mmol/L (21-32) Anion Gap 9 (6-14) Blood Urea Nitrogen 38 mg/dL (7-20) Creatinine 1.0 mg/dL (0.6-1.0) Estimated GFR (Cockcroft-Gault) 54.2 Glucose Level 306 mg/dL (70-99) Calcium Level 7.6 mg/dL (8.5-10.1) Phosphorus Level 2.0 mg/dL (2.6-4.7) Magnesium Level 2.5 mg/dL (1.8-2.4) Micro Escherichia coli Greater than 100,000 colony forming units per mL Performed at: [facility] - [facility] [place] [id number], [place], [place] [id number] Manager Professional Development: JULIA Gupta MD, Phone: [phone] Greater than 100,000 colony forming units per mL Cefazolin <=4 ug/mL Cefazolin with an KATHRYN <=16 predicts susceptibility to the oral agents cefaclor, cefdinir, cefpodoxime, cefprozil, cefuroxime, cephalexin, and loracarbef when used for therapy of uncomplicated urinary tract infections due to E. coli, Klebsiella pneumoniae, and Proteus mirabilis. ANTIMICROBIAL SUSCEPTIBILITY Final Comment S = Susceptible; I = Intermediate; R = Resistant P = Positive; N = Negative MICS are expressed in micrograms per mL Antibiotic RSLT#1 RSLT#2 RSLT#3 RSLT#4 Amoxicillin/Clavulanic Acid S =4 Ampicillin S =8 Cefepime S<=0.12 Ceftriaxone S<=0.25 Cefuroxime I =16 Ciprofloxacin S<=0.25 Ertapenem S<=0.12 Gentamicin S<=1 Imipenem S<=0.25 Levofloxacin S =0.5 Meropenem S<=0.25 Nitrofurantoin S =32 Piperacillin/Tazobactam S<=4 Tetracycline S<=1 Tobramycin S<=1 Trimethoprim/Sulfa S<=20 U/S Impression: 1. Exam is very limited due to bowel gas. Right kidney is obscured, no left hydronephrosis. 2. There is gallbladder sludge. Microbiology 10/16/19 Blood Culture - Preliminary, Resulted NO GROWTH AFTER 1 DAY Objective Assessment Leukocytosis - better blood cult neg so far Ecoli UTI -POA 10/16 Urinary bladder s/p garvin CATARINO - better DM Dementia Hypernatremia - better ? Hypothyroid Thrombocytopenia - ? pepcid Plan Plan of Care ? PEG - awaiting approval Discont Cefepime dose Rocephin - monitor platelets abx unlikely cause of thrombocytopenia but possible will d/c pepcid Dosed Dapto times one 10/16 F/u labs and cults D/w nursing RIC MACIEL MD Oct 20, 2019 10:42
--- NOTE | 2019-10-20 11:26 | PDOC ---
Renal-Progress Notes Subjective Notes Notes NOTHING NEW History of Present Illness Hx of present illness STABLE Vitals Vitals Vital Signs Date Time Temp Pulse Resp B/P (MAP) Pulse Ox O2 Delivery O2 Flow Rate FiO2 10/20/19 07:00 97.5 62 20 124/58 (80) 95 Room Air 97.5 Weight Weight [ ] I.O. Intake and Output Intake and Output 10/20/19 07:00 Intake Total 4124 ml Output Total 790 ml Balance 3334 ml Intake Oral 0 ml IV Total 4124 ml Output Urine Total 790 ml # Bowel Movements 3 Labs Labs Laboratory Tests Test 10/19/19 13:46 10/19/19 17:39 10/20/19 00:29 10/20/19 05:38 Glucose (Fingerstick) 278 mg/dL (70-99) 235 mg/dL (70-99) 273 mg/dL (70-99) 273 mg/dL (70-99) Test 10/20/19 07:05 White Blood Count 6.3 x10^3/uL (4.0-11.0) Red Blood Count 3.68 x10^6/uL (3.50-5.40) Hemoglobin 12.0 g/dL (12.0-15.5) Hematocrit 37.0 % (36.0-47.0) Mean Corpuscular Volume 101 fL (79-100) Mean Corpuscular Hemoglobin 33 pg (25-35) Mean Corpuscular Hemoglobin Concent 32 g/dL (31-37) Red Cell Distribution Width 18.5 % (11.5-14.5) Platelet Count 28 x10^3/uL (140-400) Neutrophils (%) (Auto) 81 % (31-73) Lymphocytes (%) (Auto) 14 % (24-48) Monocytes (%) (Auto) 4 % (0-9) Eosinophils (%) (Auto) 2 % (0-3) Basophils (%) (Auto) 0 % (0-3) Neutrophils # (Auto) 5.1 x10^3/uL (1.8-7.7) Lymphocytes # (Auto) 0.8 x10^3/uL (1.0-4.8) Monocytes # (Auto) 0.2 x10^3/uL (0.0-1.1) Eosinophils # (Auto) 0.1 x10^3/uL (0.0-0.7) Basophils # (Auto) 0.0 x10^3/uL (0.0-0.2) Sodium Level 148 mmol/L (136-145) Potassium Level 4.0 mmol/L (3.5-5.1) Chloride Level 120 mmol/L (98-107) Carbon Dioxide Level 19 mmol/L (21-32) Anion Gap 9 (6-14) Blood Urea Nitrogen 38 mg/dL (7-20) Creatinine 1.0 mg/dL (0.6-1.0) Estimated GFR (Cockcroft-Gault) 54.2 Glucose Level 306 mg/dL (70-99) Calcium Level 7.6 mg/dL (8.5-10.1) Phosphorus Level 2.0 mg/dL (2.6-4.7) Magnesium Level 2.5 mg/dL (1.8-2.4) Micro Micro Microbiology 10/17/19 Blood Culture - Preliminary, Resulted NO GROWTH AFTER 2 DAYS 10/16/19 Urine Culture - Final, Complete 10/16/19 Urine Culture Result 1 (KATHRYN) - Final, Complete 10/16/19 Antimicrobic Susceptibility - Final, Complete Review of Systems Constitutional: yes: other (UNABLE TO OBTAIN) Physical Exam General Appearance: no apparent distress Skin: warm Respiratory: decreased breath sounds Heart: S1S2 Abdomen: soft Genitourinary: bladder flat Extremities: pulses present Neurology: other (drowsy, nonverbal) Assessment Assessment IMP CATARINO-NEARLY RESOLVED HYPERNATREMIA-IMPROVING LOW PO4 DEHYDRATION URINARY TRACT INFECTION SEVERE DEMENTIA MALNUTRITION LIVER FAILURE HX OF DM II PLAN D/C IVF'S PPN TO CONTINUE HOLD HER [place] HOLD HER DIURETICS REPLACE PO4 AND K NEEDED PEG AND PLACEMENT PENDING WILL FOLLOW DANNY FALL MD Oct 20, 2019 11:26
[2019-10-20] MEDS ORDERED: SODIUM PHOSPHATE 15 MMOL in IV NORMAL SALINE 100ML 100 ML IV ONE (12:00)
[2019-10-20] MEDS: cefTRIAXone IV Push 1 GM VIAL. IVP SCH (12:54)
--- NOTE | 2019-10-20 16:29 | PDOC ---
PROGRESS NOTES Chief Complaint Chief Complaint Hypernatremia acute renal failure Thrombocytopenia Severe CATARINO UTI Leukocytosis PAFIB dehydration Mental status alteration advanced dementia dysphagia UTI ELEVATED TROPONIN I History of Present Illness History of Present Illness out of ICU plts dropping GI following, family has asked for PEG Vitals Vitals Vital Signs Date Time Temp Pulse Resp B/P (MAP) Pulse Ox O2 Delivery O2 Flow Rate FiO2 10/20/19 15:00 98.4 70 20 132/55 (80) 96 Room Air 98.4 Physical Exam Physical Exam CONSTITUTIONAL: She is comfortable. Alert and in chair but not responsive HEENT: Pupils equal and reactive. Normal conjunctivae. Oral cavity - not seen NECK: Without JVD. No swelling. LUNGS: Decreased at the bases. HEART: S1, S2. ABDOMEN: Soft. No guarding, no rebound. : garvin in place EXTREMITIES: Without clubbing or cyanosis. No gross edema. SKIN: Warm to touch without generalized signs of rash. NEUROLOGIC: She is alert, nonverbal. General: No acute distress Heart: Regular rate (SR), Normal S1, Normal S2, Other (2/6 systolic murmur to LLS border) Lungs: Clear, Other (grade II systolic ejection murmur ) Abdomen: Soft, No tenderness Extremities: No cyanosis, No edema Skin: No breakdown, No significant lesion Labs LABS Laboratory Tests Test 10/19/19 17:39 10/20/19 00:29 10/20/19 05:38 10/20/19 07:05 Glucose (Fingerstick) 235 mg/dL (70-99) 273 mg/dL (70-99) 273 mg/dL (70-99) White Blood Count 6.3 x10^3/uL (4.0-11.0) Red Blood Count 3.68 x10^6/uL (3.50-5.40) Hemoglobin 12.0 g/dL (12.0-15.5) Hematocrit 37.0 % (36.0-47.0) Mean Corpuscular Volume 101 fL (79-100) Mean Corpuscular Hemoglobin 33 pg (25-35) Mean Corpuscular Hemoglobin Concent 32 g/dL (31-37) Red Cell Distribution Width 18.5 % (11.5-14.5) Platelet Count 28 x10^3/uL (140-400) Neutrophils (%) (Auto) 81 % (31-73) Lymphocytes (%) (Auto) 14 % (24-48) Monocytes (%) (Auto) 4 % (0-9) Eosinophils (%) (Auto) 2 % (0-3) Basophils (%) (Auto) 0 % (0-3) Neutrophils # (Auto) 5.1 x10^3/uL (1.8-7.7) Lymphocytes # (Auto) 0.8 x10^3/uL (1.0-4.8) Monocytes # (Auto) 0.2 x10^3/uL (0.0-1.1) Eosinophils # (Auto) 0.1 x10^3/uL (0.0-0.7) Basophils # (Auto) 0.0 x10^3/uL (0.0-0.2) Sodium Level 148 mmol/L (136-145) Potassium Level 4.0 mmol/L (3.5-5.1) Chloride Level 120 mmol/L (98-107) Carbon Dioxide Level 19 mmol/L (21-32) Anion Gap 9 (6-14) Blood Urea Nitrogen 38 mg/dL (7-20) Creatinine 1.0 mg/dL (0.6-1.0) Estimated GFR (Cockcroft-Gault) 54.2 Glucose Level 306 mg/dL (70-99) Calcium Level 7.6 mg/dL (8.5-10.1) Phosphorus Level 2.0 mg/dL (2.6-4.7) Magnesium Level 2.5 mg/dL (1.8-2.4) Test 10/20/19 12:00 Glucose (Fingerstick) 299 mg/dL (70-99) Assessment and Plan Assessmemt and Plan Problems Medical Problems: (1) Mental status alteration Status: Acute Comment Review of Relevant I have reviewed the following items karrie (where applicable) has been applied. Labs Laboratory Tests Test 10/18/19 17:43 10/19/19 00:21 10/19/19 05:00 10/19/19 06:09 Glucose (Fingerstick) 218 mg/dL (70-99) 262 mg/dL (70-99) 258 mg/dL (70-99) White Blood Count 7.6 x10^3/uL (4.0-11.0) Red Blood Count 3.78 x10^6/uL (3.50-5.40) Hemoglobin 12.3 g/dL (12.0-15.5) Hematocrit 37.5 % (36.0-47.0) Mean Corpuscular Volume 99 fL (79-100) Mean Corpuscular Hemoglobin 33 pg (25-35) Mean Corpuscular Hemoglobin Concent 33 g/dL (31-37) Red Cell Distribution Width 18.0 % (11.5-14.5) Platelet Count 34 x10^3/uL (140-400) Neutrophils (%) (Auto) 79 % (31-73) Lymphocytes (%) (Auto) 15 % (24-48) Monocytes (%) (Auto) 5 % (0-9) Eosinophils (%) (Auto) 1 % (0-3) Basophils (%) (Auto) 0 % (0-3) Neutrophils # (Auto) 6.0 x10^3/uL (1.8-7.7) Lymphocytes # (Auto) 1.1 x10^3/uL (1.0-4.8) Monocytes # (Auto) 0.3 x10^3/uL (0.0-1.1) Eosinophils # (Auto) 0.1 x10^3/uL (0.0-0.7) Basophils # (Auto) 0.0 x10^3/uL (0.0-0.2) Sodium Level 158 mmol/L (136-145) Potassium Level 3.8 mmol/L (3.5-5.1) Chloride Level 125 mmol/L (98-107) Carbon Dioxide Level 21 mmol/L (21-32) Anion Gap 12 (6-14) Blood Urea Nitrogen 47 mg/dL (7-20) Creatinine 1.1 mg/dL (0.6-1.0) Estimated GFR (Cockcroft-Gault) 48.6 Glucose Level 294 mg/dL (70-99) Calcium Level 7.8 mg/dL (8.5-10.1) Phosphorus Level 2.8 mg/dL (2.6-4.7) Magnesium Level 2.6 mg/dL (1.8-2.4) Test 10/19/19 13:46 10/19/19 17:39 10/20/19 00:29 10/20/19 05:38 Glucose (Fingerstick) 278 mg/dL (70-99) 235 mg/dL (70-99) 273 mg/dL (70-99) 273 mg/dL (70-99) Test 10/20/19 07:05 10/20/19 12:00 White Blood Count 6.3 x10^3/uL (4.0-11.0) Red Blood Count 3.68 x10^6/uL (3.50-5.40) Hemoglobin 12.0 g/dL (12.0-15.5) Hematocrit 37.0 % (36.0-47.0) Mean Corpuscular Volume 101 fL (79-100) Mean Corpuscular Hemoglobin 33 pg (25-35) Mean Corpuscular Hemoglobin Concent 32 g/dL (31-37) Red Cell Distribution Width 18.5 % (11.5-14.5) Platelet Count 28 x10^3/uL (140-400) Neutrophils (%) (Auto) 81 % (31-73) Lymphocytes (%) (Auto) 14 % (24-48) Monocytes (%) (Auto) 4 % (0-9) Eosinophils (%) (Auto) 2 % (0-3) Basophils (%) (Auto) 0 % (0-3) Neutrophils # (Auto) 5.1 x10^3/uL (1.8-7.7) Lymphocytes # (Auto) 0.8 x10^3/uL (1.0-4.8) Monocytes # (Auto) 0.2 x10^3/uL (0.0-1.1) Eosinophils # (Auto) 0.1 x10^3/uL (0.0-0.7) Basophils # (Auto) 0.0 x10^3/uL (0.0-0.2) Sodium Level 148 mmol/L (136-145) Potassium Level 4.0 mmol/L (3.5-5.1) Chloride Level 120 mmol/L (98-107) Carbon Dioxide Level 19 mmol/L (21-32) Anion Gap 9 (6-14) Blood Urea Nitrogen 38 mg/dL (7-20) Creatinine 1.0 mg/dL (0.6-1.0) Estimated GFR (Cockcroft-Gault) 54.2 Glucose Level 306 mg/dL (70-99) Calcium Level 7.6 mg/dL (8.5-10.1) Phosphorus Level 2.0 mg/dL (2.6-4.7) Magnesium Level 2.5 mg/dL (1.8-2.4) Glucose (Fingerstick) 299 mg/dL (70-99) Laboratory Tests Test 10/19/19 17:39 10/20/19 00:29 10/20/19 05:38 10/20/19 07:05 Glucose (Fingerstick) 235 mg/dL (70-99) 273 mg/dL (70-99) 273 mg/dL (70-99) White Blood Count 6.3 x10^3/uL (4.0-11.0) Red Blood Count 3.68 x10^6/uL (3.50-5.40) Hemoglobin 12.0 g/dL (12.0-15.5) Hematocrit 37.0 % (36.0-47.0) Mean Corpuscular Volume 101 fL (79-100) Mean Corpuscular Hemoglobin 33 pg (25-35) Mean Corpuscular Hemoglobin Concent 32 g/dL (31-37) Red Cell Distribution Width 18.5 % (11.5-14.5) Platelet Count 28 x10^3/uL (140-400) Neutrophils (%) (Auto) 81 % (31-73) Lymphocytes (%) (Auto) 14 % (24-48) Monocytes (%) (Auto) 4 % (0-9) Eosinophils (%) (Auto) 2 % (0-3) Basophils (%) (Auto) 0 % (0-3) Neutrophils # (Auto) 5.1 x10^3/uL (1.8-7.7) Lymphocytes # (Auto) 0.8 x10^3/uL (1.0-4.8) Monocytes # (Auto) 0.2 x10^3/uL (0.0-1.1) Eosinophils # (Auto) 0.1 x10^3/uL (0.0-0.7) Basophils # (Auto) 0.0 x10^3/uL (0.0-0.2) Sodium Level 148 mmol/L (136-145) Potassium Level 4.0 mmol/L (3.5-5.1) Chloride Level 120 mmol/L (98-107) Carbon Dioxide Level 19 mmol/L (21-32) Anion Gap 9 (6-14) Blood Urea Nitrogen 38 mg/dL (7-20) Creatinine 1.0 mg/dL (0.6-1.0) Estimated GFR (Cockcroft-Gault) 54.2 Glucose Level 306 mg/dL (70-99) Calcium Level 7.6 mg/dL (8.5-10.1) Phosphorus Level 2.0 mg/dL (2.6-4.7) Magnesium Level 2.5 mg/dL (1.8-2.4) Test 10/20/19 12:00 Glucose (Fingerstick) 299 mg/dL (70-99) Microbiology 10/17/19 Blood Culture - Preliminary, Resulted NO GROWTH AFTER 3 DAYS 10/16/19 Urine Culture - Final, Complete 10/16/19 Urine Culture Result 1 (KATHRYN) - Final, Complete 10/16/19 Antimicrobic Susceptibility - Final, Complete Medications Current Medications Potassium Chloride/Dextrose/ Sod Cl 1,000 ml @ 75 mls/hr 1X ONCE IV Last administered on 10/17/19at 00:40; Start 10/16/19 at 23:30; Stop 10/17/19 at 12:49; Status DC Ceftriaxone Sodium (Rocephin) 1 gm 1X ONCE IVP Last administered on 10/17/19at 00:42; Start 10/16/19 at 23:45; Stop 10/16/19 at 23:46; Status DC Ondansetron HCl (Zofran) 4 mg PRN Q8HRS PRN IV NAUSEA/VOMITING; Start 10/17/19 at 02:30; Stop 10/18/19 at 02:29; Status DC Amino Acids/ Electrolytes/ Dextrose 1,000 ml @ 80 mls/hr [id number] IV Last administered on 10/20/19at 04:03; Start 10/17/19 at 11:15 Ceftriaxone Sodium (Rocephin) 1 gm Q24H IVP Last administered on 10/17/19at 12:06; Start 10/17/19 at 11:00; Stop 10/17/19 at 14:44; Status DC Sodium Chloride (Normal Saline Flush) 3 ml QSHIFT PRN IV AFTER MEDS AND BLOOD DRAWS; Start 10/17/19 at 12:30; Status Cancel Ondansetron HCl (Zofran) 2 mg PRN Q4HRS PRN IV NAUSEA/VOMITING; Start 10/17/19 at 12:30 Acetaminophen (Tylenol Supp) 650 mg PRN Q4HRS PRN SC TEMP OVER 100.4F OR MILD PAIN; Start 10/17/19 at 12:30 Docusate Sodium (Colace) 100 mg PRN BID PRN PO CONSTIPATION; Start 10/17/19 at 12:30 Albuterol Sulfate (Ventolin Neb Soln) 2.5 mg PRN Q4HRS PRN NEB SHORTNESS OF BREATH; Start 10/17/19 at 12:30 Enoxaparin Sodium (Lovenox 30mg Syringe) 30 mg Q24H SQ Last administered on 10/17/19at 13:53; Start 10/17/19 at 13:00; Stop 10/18/19 at 10:13; Status DC Famotidine (Pepcid Vial) 10 mg BID IVP Last administered on 10/20/19at 08:59; Start 10/17/19 at 13:00; Stop 10/20/19 at 11:09; Status DC Sodium Chloride (Normal Saline Flush) 3 ml QSHIFT PRN IV AFTER MEDS AND BLOOD DRAWS; Start 10/17/19 at 12:30 Metoprolol Tartrate (Lopressor Vial) 5 mg PRN Q6HRS PRN IVP TACHYCARDIA; Start 10/17/19 at 14:15 Cefepime HCl (Maxipime) 2 gm Q12HR IVP Last administered on 10/20/19at 08:59; Start 10/17/19 at 21:00; Stop 10/20/19 at 11:07; Status DC Daptomycin 490 mg/ Sodium Chloride 50 ml @ 100 mls/hr ONCE ONCE IV Last administered on 10/17/19at 16:26; Start 10/17/19 at 15:00; Stop 10/17/19 at 15:29; Status DC Vitamin A/Vitamin D (Vitamin A & D Ointment) 1 [place] PRN Q1HR PRN TP SKIN PROTECTION Last administered on 10/18/19at 16:14; Start 10/17/19 at 15:45 Dextrose/Sodium Chloride 1,000 ml @ 100 mls/hr Q10H IV Last administered on 10/20/19at 04:02; Start 10/17/19 at 16:15; Stop 10/20/19 at 11:27; Status DC Insulin Human Lispro (HumaLOG) 0-5 UNITS TIDWMEALS SQ Last administered on 10/17/19at 18:44; Start 10/17/19 at 18:30; Stop 10/18/19 at 04:12; Status DC Dextrose (Dextrose 50%-Water Syringe) 12.5 gm PRN Q15MIN PRN IV SEE COMMENTS; Start 10/17/19 at 18:30 Dextrose (Iv Dextrose 5%) 250 ml PRN Q15MIN PRN IV SEE COMMENTS; Start 10/17/19 at 18:30 Insulin Human Lispro (HumaLOG) 0-7 UNITS TIDWMEALS SQ ; Start 10/18/19 at 08:00; Stop 10/18/19 at 04:42; Status DC Insulin Human Lispro (HumaLOG) 0-7 UNITS Q6HRS SQ Last administered on 10/20/19at 13:07; Start 10/18/19 at 06:00 Vitamin A/Vitamin D (Vitamin A & D Ointment) 1 [place] BID PRN TP SKIN PROTECTION; Start 10/18/19 at 09:45 Vitamin A/Vitamin D (Vitamin A & D Ointment) 1 [place] PRN Q1HR PRN TP SKIN PROTECTION; Start 10/18/19 at 09:45; Stop 10/18/19 at 10:10; Status DC Enoxaparin Sodium (Lovenox 40mg Syringe) 40 mg Q24H SQ ; Start 10/18/19 at 13:00; Stop 10/18/19 at 13:39; Status DC Potassium Phosphate 15 mmol/ Sodium Chloride 255 ml @ 127.5 mls/ hr Q2H IV Last administered on 10/18/19at 13:36; Start 10/18/19 at 11:00; Stop 10/18/19 at 14:59; Status DC Ceftriaxone Sodium (Rocephin) 1 gm Q24H IVP Last administered on 10/20/19at 12:54; Start 10/20/19 at 12:00 Pantoprazole Sodium (PROTONIX VIAL for IV PUSH) 40 mg DAILYAC IVP ; Start 10/21/19 at 07:30 Sodium Phosphate 15 mmol/Sodium Chloride 105 ml @ 105 mls/hr 1X ONCE IV Last administered on 10/20/19at 12:54; Start 10/20/19 at 12:00; Stop 10/20/19 at 12:59; Status DC Active Scripts Active Valtrex (Valacyclovir Hcl) 1,000 Mg Tablet 1 Tab PO TID Medrol (Methylprednisolone) 4 Mg Tab.ds.pk 1 Pkg PO UD Levemir (Insulin Detemir) 100 Unit/1 Ml Vial 15 Unit SQ DAILY 30 Days Keflex (Cephalexin) 500 Mg Capsule 1 Cap PO TID Novolog Flexpen (Insulin Aspart) 100 Unit/1 Ml Insuln.pen 0 Units SQ TIDACHC Aspirin Ec (Aspirin) 325 Mg Tablet.dr 325 Mg PO DAILYWBKFT Glucophage (Metformin Hcl) 500 Mg Tablet 500 Mg PO BIDWMEALS Reported Tresiba Flextouch U-100 (Insulin Degludec) 100 Unit/1 Ml Insuln.pen 24 Units SUBCUT HS Klor-Con 10 (Potassium Chloride) 10 Meq Tablet.er 10 Meq PO DAILY Donepezil Hcl 10 Mg Tablet 1 Tab PO DAILY Novolog Flexpen (Insulin Aspart) 100 Unit/1 Ml Insuln.pen 12 Unit SQ TIDWMEALS Vitamin D3 1,000 Unit Tablet (Ca Cmb No.1/Vit D3/B-6/Fa/B12) 1 Each Tablet 1 Each PO DAILY Losartan-Hctz 100-12.5 Mg Tab (Losartan/Hydrochlorothiazide) 1 Each Tablet 1 Each PO DAILY08 Pravachol (Pravastatin Sodium) 20 Mg Tablet 20 Mg PO HS Amlodipine Besylate 5 Mg Tablet 5 Mg PO DAILY08 Vitals/I & O Vital Sign - Last 24 Hours 10/19/19 10/19/19 10/20/19 10/20/19 20:00 20:00 00:00 03:00 Temp 97.8 97.8 97.6 97.8 97.8 97.6 Pulse 68 65 61 Resp 20 18 18 B/P (MAP) 116/55 (75) 124/68 (86) 135/55 (81) Pulse Ox 95 97 97 O2 Delivery Room Air Room Air Room Air Room Air 10/20/19 10/20/19 10/20/19 10/20/19 07:00 08:00 11:00 15:00 Temp 97.5 97.6 98.4 97.5 97.6 98.4 Pulse 62 70 70 Resp B/P (MAP) 124/58 (80) 131/58 (82) 132/55 (80) Pulse Ox 95 96 96 O2 Delivery Room Air Room Air Room Air Room Air Intake and Output 10/19/19 10/19/19 10/20/19 15:00 23:00 07:00 Intake Total 0 ml 2124 ml 2000 ml Output Total 345 ml 95 ml 350 ml Balance -345 ml 2029 ml 1650 ml Nutrition Consultation Dietary Evaluation: Recommendations by RD: Dietary education by RD, Increase Calorie Intake, PPN/TPN Comments: Continue w/PPN for short-term non-oral nutrition needs REC cardiac/ADA diet w/glucerna supplements and MVI/Vit C (wound healing) pending [employer]ST[employer] HELPER eval If NPO per [employer] INSTALLER HELPER, recommend feeding tube for enteral nutrition pending family goals of care, would recommend TFs per following: Glucerna 1.2@goal rate 55 ml/hr w/100 ml water flushes q4 hrs w/Sergio BID and MVI (liquid) via feeding tube (wound healing) Expected Outcomes/Goals: Diet advancement or initiaiton of TFs within 24 - 48 hrs Interpretation of weight loss: >1-2% in 1 week Malnutrition Findings: Food and Nutrition Intake (Sev: <50% est energy req 5days Weight Status: Appropriate Hemodynamically unstable?: No Is patient in severe pain?: No Is NPO status required?: Yes DORINDA DODSON MD Oct 20, 2019 16:29
[2019-10-21] MEDS: INSULIN LISPRO 300 UNITS/3 ML VIAL. SQ SCH ×4 (00:47→18:00)
[2019-10-21 03:09] VITALS: BP 104/68
[2019-10-21 06:01] LABS: CALCIUM 7.7 mg/dL (8.5-10.1); CREATININE 0.8 mg/dL (0.6-1.0); GFR 70.1; MAGNESIUM 2.5 mg/dL (1.8-2.4); POTASSIUM 4.3 mmol/L (3.5-5.1)
[2019-10-21] MEDS: AA 4.25 %/CALCIUM/LYTES/D5W 1,000 ML IV SCH ×2 (06:11→20:25)
[2019-10-21 07:00] VITALS: BP 133/55
[2019-10-21] MEDS: PANTOPRAZOLE IV PUSH 40 MG VIAL. IVP SCH (08:50)
[2019-10-21 11:00] VITALS: BP 106/54
--- NOTE | 2019-10-21 11:19 | PDOC ---
Renal-Progress Notes Subjective Notes Notes NO NEW COMPLAINTS History of Present Illness Hx of present illness STABLE Vitals Vitals Vital Signs Date Time Temp Pulse Resp B/P (MAP) Pulse Ox O2 Delivery O2 Flow Rate FiO2 10/21/19 08:00 Room Air 10/21/19 07:00 98.1 76 16 133/55 (81) 99 98.1 Weight Weight [ ] I.O. Intake and Output Intake and Output 10/21/19 07:00 Output Total 650 ml Balance -650 ml Output Urine Total 650 ml # Bowel Movements 1 Labs Labs Laboratory Tests Test 10/20/19 12:00 10/20/19 18:28 10/21/19 00:12 10/21/19 04:40 Glucose (Fingerstick) 299 mg/dL (70-99) 258 mg/dL (70-99) 253 mg/dL (70-99) Sodium Level 148 mmol/L (136-145) Potassium Level 4.3 mmol/L (3.5-5.1) Chloride Level 119 mmol/L (98-107) Carbon Dioxide Level 19 mmol/L (21-32) Anion Gap 10 (6-14) Blood Urea Nitrogen 36 mg/dL (7-20) Creatinine 0.8 mg/dL (0.6-1.0) Estimated GFR (Cockcroft-Gault) 70.1 Glucose Level 249 mg/dL (70-99) Calcium Level 7.7 mg/dL (8.5-10.1) Phosphorus Level 2.0 mg/dL (2.6-4.7) Magnesium Level 2.5 mg/dL (1.8-2.4) Test 10/21/19 05:48 Glucose (Fingerstick) 252 mg/dL (70-99) Micro Micro Microbiology 10/17/19 Blood Culture - Preliminary, Resulted NO GROWTH AFTER 3 DAYS 10/16/19 Urine Culture - Final, Complete 10/16/19 Urine Culture Result 1 (KATHRYN) - Final, Complete 10/16/19 Antimicrobic Susceptibility - Final, Complete Review of Systems Constitutional: yes: other (UNABLE TO OBTAIN) Physical Exam General Appearance: no apparent distress Skin: warm Respiratory: decreased breath sounds Heart: S1S2 Abdomen: soft Genitourinary: bladder flat Extremities: pulses present Neurology: other (drowsy, nonverbal) Assessment Assessment IMP CATARINO-NEARLY RESOLVED HYPERNATREMIA-IMPROVING LOW PO4 DEHYDRATION URINARY TRACT INFECTION SEVERE DEMENTIA MALNUTRITION LIVER FAILURE HX OF DM II PLAN D/C IVF'S PPN TO CONTINUE HOLD HER [place] HOLD HER DIURETICS REPLACE PO4 AND K NEEDED TF WHEN FEASIBLE WILL FOLLOW DANNY FALL MD Oct 21, 2019 11:19
[2019-10-21] MEDS ORDERED: SODIUM PHOSPHATE 15 MMOL in IV NORMAL SALINE 100ML 100 ML IV ONE (12:00)
[2019-10-21] MEDS: cefTRIAXone IV Push 1 GM VIAL. IVP SCH (12:58)
--- NOTE | 2019-10-21 13:21 | PDOC ---
G I PROGRESS NOTE Subjective Seems to orient; non-verbal or otherwise responsive. Objective Multiple family members present,but not DPOA. Physical Exam Lungs clear. RRR Abdomen soft. No interaction. Review of Relevant I have reviewed the following items karrie (where applicable) has been applied. Labs Laboratory Tests Test 10/19/19 13:46 10/19/19 17:39 10/20/19 00:29 10/20/19 05:38 Glucose (Fingerstick) 278 mg/dL (70-99) 235 mg/dL (70-99) 273 mg/dL (70-99) 273 mg/dL (70-99) Test 10/20/19 07:05 10/20/19 12:00 10/20/19 18:28 10/21/19 00:12 White Blood Count 6.3 x10^3/uL (4.0-11.0) Red Blood Count 3.68 x10^6/uL (3.50-5.40) Hemoglobin 12.0 g/dL (12.0-15.5) Hematocrit 37.0 % (36.0-47.0) Mean Corpuscular Volume 101 fL (79-100) Mean Corpuscular Hemoglobin 33 pg (25-35) Mean Corpuscular Hemoglobin Concent 32 g/dL (31-37) Red Cell Distribution Width 18.5 % (11.5-14.5) Platelet Count 28 x10^3/uL (140-400) Neutrophils (%) (Auto) 81 % (31-73) Lymphocytes (%) (Auto) 14 % (24-48) Monocytes (%) (Auto) 4 % (0-9) Eosinophils (%) (Auto) 2 % (0-3) Basophils (%) (Auto) 0 % (0-3) Neutrophils # (Auto) 5.1 x10^3/uL (1.8-7.7) Lymphocytes # (Auto) 0.8 x10^3/uL (1.0-4.8) Monocytes # (Auto) 0.2 x10^3/uL (0.0-1.1) Eosinophils # (Auto) 0.1 x10^3/uL (0.0-0.7) Basophils # (Auto) 0.0 x10^3/uL (0.0-0.2) Sodium Level 148 mmol/L (136-145) Potassium Level 4.0 mmol/L (3.5-5.1) Chloride Level 120 mmol/L (98-107) Carbon Dioxide Level 19 mmol/L (21-32) Anion Gap 9 (6-14) Blood Urea Nitrogen 38 mg/dL (7-20) Creatinine 1.0 mg/dL (0.6-1.0) Estimated GFR (Cockcroft-Gault) 54.2 Glucose Level 306 mg/dL (70-99) Calcium Level 7.6 mg/dL (8.5-10.1) Phosphorus Level 2.0 mg/dL (2.6-4.7) Magnesium Level 2.5 mg/dL (1.8-2.4) Glucose (Fingerstick) 299 mg/dL (70-99) 258 mg/dL (70-99) 253 mg/dL (70-99) Test 10/21/19 04:40 10/21/19 05:48 10/21/19 12:41 Sodium Level 148 mmol/L (136-145) Potassium Level 4.3 mmol/L (3.5-5.1) Chloride Level 119 mmol/L (98-107) Carbon Dioxide Level 19 mmol/L (21-32) Anion Gap 10 (6-14) Blood Urea Nitrogen 36 mg/dL (7-20) Creatinine 0.8 mg/dL (0.6-1.0) Estimated GFR (Cockcroft-Gault) 70.1 Glucose Level 249 mg/dL (70-99) Calcium Level 7.7 mg/dL (8.5-10.1) Phosphorus Level 2.0 mg/dL (2.6-4.7) Magnesium Level 2.5 mg/dL (1.8-2.4) Glucose (Fingerstick) 252 mg/dL (70-99) 258 mg/dL (70-99) Laboratory Tests Test 10/20/19 18:28 10/21/19 00:12 10/21/19 04:40 10/21/19 05:48 Glucose (Fingerstick) 258 mg/dL (70-99) 253 mg/dL (70-99) 252 mg/dL (70-99) Sodium Level 148 mmol/L (136-145) Potassium Level 4.3 mmol/L (3.5-5.1) Chloride Level 119 mmol/L (98-107) Carbon Dioxide Level 19 mmol/L (21-32) Anion Gap 10 (6-14) Blood Urea Nitrogen 36 mg/dL (7-20) Creatinine 0.8 mg/dL (0.6-1.0) Estimated GFR (Cockcroft-Gault) 70.1 Glucose Level 249 mg/dL (70-99) Calcium Level 7.7 mg/dL (8.5-10.1) Phosphorus Level 2.0 mg/dL (2.6-4.7) Magnesium Level 2.5 mg/dL (1.8-2.4) Test 10/21/19 12:41 Glucose (Fingerstick) 258 mg/dL (70-99) Microbiology 10/17/19 Blood Culture - Preliminary, Resulted NO GROWTH AFTER 3 DAYS 10/16/19 Urine Culture - Final, Complete 10/16/19 Urine Culture Result 1 (KATHRYN) - Final, Complete 10/16/19 Antimicrobic Susceptibility - Final, Complete Vitals/I & O Vital Sign - Last 24 Hours 10/20/19 10/20/19 10/20/19 10/20/19 15:00 19:00 19:27 23:00 Temp 98.4 98.2 97.5 98.4 98.2 97.5 Pulse 70 65 62 Resp 20 16 20 B/P (MAP) 132/55 (80) 132/61 (84) 129/48 (75) Pulse Ox 96 96 96 O2 Delivery Room Air Room Air Room Air Room Air 10/21/19 10/21/19 10/21/19 10/21/19 03:09 07:00 08:00 11:00 Temp 98.3 98.1 99.0 98.3 98.1 99.0 Pulse 64 76 18 Resp 18 16 18 B/P (MAP) 104/68 (80) 133/55 (81) 106/54 (71) Pulse Ox 95 99 96 O2 Delivery Room Air Room Air Room Air Room Air Intake and Output 10/20/19 10/20/19 10/21/19 15:00 23:00 07:00 Output Total 200 ml 450 ml Balance -200 ml -450 ml Problem List Problems Medical Problems: (1) Mental status alteration Status: Acute Assessment Dementia, advanced. Will/can not eat. Thrombocytopenia. Plan of Care Note Current family members present would defer PEG; unfortunately, DPOA not present to discuss and wavering. At this time, downward trend in platelets would preclude PEG in any case. Continue discussion/could considser Dobbhoff feedings as interim measure. Hemodynamically unstable?: No Is patient in severe pain?: No Is NPO status required?: Yes BAO EASON MD Oct 21, 2019 13:21
[2019-10-21 15:00] VITALS: BP_SYST 106; BP_SYST 131; BP_DIAS 54; BP_DIAS 60
--- NOTE | 2019-10-21 16:33 | PDOC ---
Infectious Disease Note Subjective Subjective Noncommunicative No fevers reported NPO ROS ROS unobtainable Vital Sign Vital Signs Vital Signs Date Time Temp Pulse Resp B/P (MAP) Pulse Ox O2 Delivery O2 Flow Rate FiO2 10/21/19 11:00 99.0 67 18 106/54 (71) 96 Room Air 99.0 Physical Exam PHYSICAL EXAM GENERAL: Lying down, resting quietly, arouse to voice HEENT: Pupils equal and reactive. Normal conjunctivae. Oral cavity very dry NECK: Without JVD. LUNGS: Decreased at the bases. HEART: S1, S2. ABDOMEN: Soft. No guarding : Saleh in place EXTREMITIES: Without clubbing or cyanosis. No gross edema. SKIN: Warm to touch without generalized signs of rash. NEUROLOGIC: Nonresponsive to questions, no follow commands PIV Labs Lab Laboratory Tests Test 10/20/19 18:28 10/21/19 00:12 10/21/19 04:40 10/21/19 05:48 Glucose (Fingerstick) 258 mg/dL (70-99) 253 mg/dL (70-99) 252 mg/dL (70-99) Sodium Level 148 mmol/L (136-145) Potassium Level 4.3 mmol/L (3.5-5.1) Chloride Level 119 mmol/L (98-107) Carbon Dioxide Level 19 mmol/L (21-32) Anion Gap 10 (6-14) Blood Urea Nitrogen 36 mg/dL (7-20) Creatinine 0.8 mg/dL (0.6-1.0) Estimated GFR (Cockcroft-Gault) 70.1 Glucose Level 249 mg/dL (70-99) Calcium Level 7.7 mg/dL (8.5-10.1) Phosphorus Level 2.0 mg/dL (2.6-4.7) Magnesium Level 2.5 mg/dL (1.8-2.4) Test 10/21/19 12:41 Glucose (Fingerstick) 258 mg/dL (70-99) Micro Microbiology 10/17/19 Blood Culture - Preliminary, Resulted NO GROWTH AFTER 4 DAYS Objective Assessment Leukocytosis - better blood cult neg so far Ecoli UTI -POA 10/16 Urinary bladder s/p Saleh CATARINO - better DM Dementia Hypernatremia - better ? Hypothyroid Thrombocytopenia - HEM/OCN following Plan Plan of Care ? PEG - awaiting approval Continue Rocephin Dapto times one 2 Monitor lab values NICOLAS ALEXANDRE APRN Oct 21, 2019 16:33
--- NOTE | 2019-10-21 16:35 | PDOC ---
PROGRESS NOTES Chief Complaint Chief Complaint Hypernatremia acute renal failure Thrombocytopenia Severe CATARINO UTI Leukocytosis PAFIB dehydration Mental status alteration advanced dementia dysphagia UTI ELEVATED TROPONIN I History of Present Illness History of Present Illness about the same PEG not safe, GI to consider dobhoff feeds plts dropping GI following, family has asked for PEG Vitals Vitals Vital Signs Date Time Temp Pulse Resp B/P (MAP) Pulse Ox O2 Delivery O2 Flow Rate FiO2 10/21/19 11:00 99.0 67 18 106/54 (71) 96 Room Air 99.0 Physical Exam Physical Exam GENERAL: Lying down, resting quietly, arouse to voice HEENT: Pupils equal and reactive. Normal conjunctivae. Oral cavity very dry NECK: Without JVD. LUNGS: Decreased at the bases. HEART: S1, S2. ABDOMEN: Soft. No guarding : Saleh in place EXTREMITIES: Without clubbing or cyanosis. No gross edema. SKIN: Warm to touch without generalized signs of rash. NEUROLOGIC: Nonresponsive to questions, no follow commands PIV General: No acute distress Heart: Regular rate (SR), Normal S1, Normal S2, Other (2/6 systolic murmur to LLS border) Lungs: Clear, Other (grade II systolic ejection murmur ) Abdomen: Soft, No tenderness Extremities: No cyanosis, No edema Skin: No breakdown, No significant lesion Labs LABS Laboratory Tests Test 10/20/19 18:28 10/21/19 00:12 10/21/19 04:40 10/21/19 05:48 Glucose (Fingerstick) 258 mg/dL (70-99) 253 mg/dL (70-99) 252 mg/dL (70-99) Sodium Level 148 mmol/L (136-145) Potassium Level 4.3 mmol/L (3.5-5.1) Chloride Level 119 mmol/L (98-107) Carbon Dioxide Level 19 mmol/L (21-32) Anion Gap 10 (6-14) Blood Urea Nitrogen 36 mg/dL (7-20) Creatinine 0.8 mg/dL (0.6-1.0) Estimated GFR (Cockcroft-Gault) 70.1 Glucose Level 249 mg/dL (70-99) Calcium Level 7.7 mg/dL (8.5-10.1) Phosphorus Level 2.0 mg/dL (2.6-4.7) Magnesium Level 2.5 mg/dL (1.8-2.4) Test 10/21/19 12:41 Glucose (Fingerstick) 258 mg/dL (70-99) Assessment and Plan Assessmemt and Plan Problems Medical Problems: (1) Mental status alteration Status: Acute Comment Review of Relevant I have reviewed the following items karrie (where applicable) has been applied. Labs Laboratory Tests Test 10/19/19 17:39 10/20/19 00:29 10/20/19 05:38 10/20/19 07:05 Glucose (Fingerstick) 235 mg/dL (70-99) 273 mg/dL (70-99) 273 mg/dL (70-99) White Blood Count 6.3 x10^3/uL (4.0-11.0) Red Blood Count 3.68 x10^6/uL (3.50-5.40) Hemoglobin 12.0 g/dL (12.0-15.5) Hematocrit 37.0 % (36.0-47.0) Mean Corpuscular Volume 101 fL (79-100) Mean Corpuscular Hemoglobin 33 pg (25-35) Mean Corpuscular Hemoglobin Concent 32 g/dL (31-37) Red Cell Distribution Width 18.5 % (11.5-14.5) Platelet Count 28 x10^3/uL (140-400) Neutrophils (%) (Auto) 81 % (31-73) Lymphocytes (%) (Auto) 14 % (24-48) Monocytes (%) (Auto) 4 % (0-9) Eosinophils (%) (Auto) 2 % (0-3) Basophils (%) (Auto) 0 % (0-3) Neutrophils # (Auto) 5.1 x10^3/uL (1.8-7.7) Lymphocytes # (Auto) 0.8 x10^3/uL (1.0-4.8) Monocytes # (Auto) 0.2 x10^3/uL (0.0-1.1) Eosinophils # (Auto) 0.1 x10^3/uL (0.0-0.7) Basophils # (Auto) 0.0 x10^3/uL (0.0-0.2) Sodium Level 148 mmol/L (136-145) Potassium Level 4.0 mmol/L (3.5-5.1) Chloride Level 120 mmol/L (98-107) Carbon Dioxide Level 19 mmol/L (21-32) Anion Gap 9 (6-14) Blood Urea Nitrogen 38 mg/dL (7-20) Creatinine 1.0 mg/dL (0.6-1.0) Estimated GFR (Cockcroft-Gault) 54.2 Glucose Level 306 mg/dL (70-99) Calcium Level 7.6 mg/dL (8.5-10.1) Phosphorus Level 2.0 mg/dL (2.6-4.7) Magnesium Level 2.5 mg/dL (1.8-2.4) Test 10/20/19 12:00 10/20/19 18:28 10/21/19 00:12 10/21/19 04:40 Glucose (Fingerstick) 299 mg/dL (70-99) 258 mg/dL (70-99) 253 mg/dL (70-99) Sodium Level 148 mmol/L (136-145) Potassium Level 4.3 mmol/L (3.5-5.1) Chloride Level 119 mmol/L (98-107) Carbon Dioxide Level 19 mmol/L (21-32) Anion Gap 10 (6-14) Blood Urea Nitrogen 36 mg/dL (7-20) Creatinine 0.8 mg/dL (0.6-1.0) Estimated GFR (Cockcroft-Gault) 70.1 Glucose Level 249 mg/dL (70-99) Calcium Level 7.7 mg/dL (8.5-10.1) Phosphorus Level 2.0 mg/dL (2.6-4.7) Magnesium Level 2.5 mg/dL (1.8-2.4) Test 10/21/19 05:48 10/21/19 12:41 Glucose (Fingerstick) 252 mg/dL (70-99) 258 mg/dL (70-99) Laboratory Tests Test 10/20/19 18:28 10/21/19 00:12 10/21/19 04:40 10/21/19 05:48 Glucose (Fingerstick) 258 mg/dL (70-99) 253 mg/dL (70-99) 252 mg/dL (70-99) Sodium Level 148 mmol/L (136-145) Potassium Level 4.3 mmol/L (3.5-5.1) Chloride Level 119 mmol/L (98-107) Carbon Dioxide Level 19 mmol/L (21-32) Anion Gap 10 (6-14) Blood Urea Nitrogen 36 mg/dL (7-20) Creatinine 0.8 mg/dL (0.6-1.0) Estimated GFR (Cockcroft-Gault) 70.1 Glucose Level 249 mg/dL (70-99) Calcium Level 7.7 mg/dL (8.5-10.1) Phosphorus Level 2.0 mg/dL (2.6-4.7) Magnesium Level 2.5 mg/dL (1.8-2.4) Test 10/21/19 12:41 Glucose (Fingerstick) 258 mg/dL (70-99) Microbiology 10/17/19 Blood Culture - Preliminary, Resulted NO GROWTH AFTER 4 DAYS 10/16/19 Urine Culture - Final, Complete 10/16/19 Urine Culture Result 1 (KATHRYN) - Final, Complete 10/16/19 Antimicrobic Susceptibility - Final, Complete Medications Current Medications Potassium Chloride/Dextrose/ Sod Cl 1,000 ml @ 75 mls/hr 1X ONCE IV Last administered on 10/17/19at 00:40; Start 10/16/19 at 23:30; Stop 10/17/19 at 12:49; Status DC Ceftriaxone Sodium (Rocephin) 1 gm 1X ONCE IVP Last administered on 10/17/19at 00:42; Start 10/16/19 at 23:45; Stop 10/16/19 at 23:46; Status DC Ondansetron HCl (Zofran) 4 mg PRN Q8HRS PRN IV NAUSEA/VOMITING; Start 10/17/19 at 02:30; Stop 10/18/19 at 02:29; Status DC Amino Acids/ Electrolytes/ Dextrose 1,000 ml @ 80 mls/hr [id number] IV Last administered on 10/21/19at 06:11; Start 10/17/19 at 11:15 Ceftriaxone Sodium (Rocephin) 1 gm Q24H IVP Last administered on 10/17/19at 12:06; Start 10/17/19 at 11:00; Stop 10/17/19 at 14:44; Status DC Sodium Chloride (Normal Saline Flush) 3 ml QSHIFT PRN IV AFTER MEDS AND BLOOD DRAWS; Start 10/17/19 at 12:30; Status Cancel Ondansetron HCl (Zofran) 2 mg PRN Q4HRS PRN IV NAUSEA/VOMITING; Start 10/17/19 at 12:30 Acetaminophen (Tylenol Supp) 650 mg PRN Q4HRS PRN MS TEMP OVER 100.4F OR MILD PAIN; Start 10/17/19 at 12:30 Docusate Sodium (Colace) 100 mg PRN BID PRN PO CONSTIPATION; Start 10/17/19 at 12:30 Albuterol Sulfate (Ventolin Neb Soln) 2.5 mg PRN Q4HRS PRN NEB SHORTNESS OF BREATH; Start 10/17/19 at 12:30 Enoxaparin Sodium (Lovenox 30mg Syringe) 30 mg Q24H SQ Last administered on at 13:53; Start 10/17/19 at 13:00; Stop 10/18/19 at 10:13; Status DC Famotidine (Pepcid Vial) 10 mg BID IVP Last administered on 10/20/19at 08:59; Start 10/17/19 at 13:00; Stop 10/20/19 at 11:09; Status DC Sodium Chloride (Normal Saline Flush) 3 ml QSHIFT PRN IV AFTER MEDS AND BLOOD DRAWS; Start 10/17/19 at 12:30 Metoprolol Tartrate (Lopressor Vial) 5 mg PRN Q6HRS PRN IVP TACHYCARDIA; Start 10/17/19 at 14:15 Cefepime HCl (Maxipime) 2 gm Q12HR IVP Last administered on 10/20/19at 08:59; Start 10/17/19 at 21:00; Stop 10/20/19 at 11:07; Status DC Daptomycin 490 mg/ Sodium Chloride 50 ml @ 100 mls/hr ONCE ONCE IV Last admin istered on 10/17/19at 16:26; Start 10/17/19 at 15:00; Stop 10/17/19 at 15:29; Status DC Vitamin A/Vitamin D (Vitamin A & D Ointment) 1 [place] PRN Q1HR PRN TP SKIN PROTECTION Last administered on 10/18/19at 16:14; Start 10/17/19 at 15:45 Dextrose/Sodium Chloride 1,000 ml @ 100 mls/hr Q10H IV Last administered on 10/20/19at 04:02; Start 10/17/19 at 16:15; Stop 10/20/19 at 11:27; Status DC Insulin Human Lispro (HumaLOG) 0-5 UNITS TIDWMEALS SQ Last administered on 10/17/19at 18:44; Start 10/17/19 at 18:30; Stop 10/18/19 at 04:12; Status DC Dextrose (Dextrose 50%-Water Syringe) 12.5 gm PRN Q15MIN PRN IV SEE COMMENTS; Start 10/17/19 at 18:30 Dextrose (Iv Dextrose 5%) 250 ml PRN Q15MIN PRN IV SEE COMMENTS; Start 10/17/19 at 18:30 Insulin Human Lispro (HumaLOG) 0-7 UNITS TIDWMEALS SQ ; Start 10/18/19 at 08:00; Stop 10/18/19 at 04:42; Status DC Insulin Human Lispro (HumaLOG) 0-7 UNITS Q6HRS SQ Last administered on 10/21/19at 13:14; Start 10/18/19 at 06:00 Vitamin A/Vitamin D (Vitamin A & D Ointment) 1 [place] BID PRN TP SKIN PROTECTION; Start 10/18/19 at 09:45 Vitamin A/Vitamin D (Vitamin A & D Ointment) 1 [place] PRN Q1HR PRN TP SKIN PROTECTION; Start 10/18/19 at 09:45; Stop 10/18/19 at 10:10; Status DC Enoxaparin Sodium (Lovenox 40mg Syringe) 40 mg Q24H SQ ; Start 10/18/19 at 13:00; Stop 10/18/19 at 13:39; Status DC Potassium Phosphate 15 mmol/ Sodium Chloride 255 ml @ 127.5 mls/ hr Q2H IV L ast administered on 10/18/19at 13:36; Start 10/18/19 at 11:00; Stop 10/18/19 at 14:59; Status DC Ceftriaxone Sodium (Rocephin) 1 gm Q24H IVP Last administered on 10/21/19at 12:58; Start 10/20/19 at 12:00 Pantoprazole Sodium (PROTONIX VIAL for IV PUSH) 40 mg DAILYAC IVP Last administered on 10/21/19at 08:50; Start 10/21/19 at 07:30 Sodium Phosphate 15 mmol/Sodium Chloride 105 ml @ 105 mls/hr 1X ONCE IV Last administered on 10/20/19at 12:54; Start 10/20/19 at 12:00; Stop 10/20/19 at 12:59; Status DC Sodium Phosphate 15 mmol/Sodium Chloride 105 ml @ 105 mls/hr 1X ONCE IV Last administered on 10/21/19at 12:58; Start 10/21/19 at 12:00; Stop 10/21/19 at 12:59; Status DC Active Scripts Active Valtrex (Valacyclovir Hcl) 1,000 Mg Tablet 1 Tab PO TID Medrol (Methylprednisolone) 4 Mg Tab.ds.pk 1 Pkg PO UD Levemir (Insulin Detemir) 100 Unit/1 Ml Vial 15 Unit SQ DAILY 30 Days Keflex (Cephalexin) 500 Mg Capsule 1 Cap PO TID Novolog Flexpen (Insulin Aspart) 100 Unit/1 Ml Insuln.pen 0 Units SQ TIDACHC Aspirin Ec (Aspirin) 325 Mg Tablet.dr 325 Mg PO DAILYWBKFT Glucophage (Metformin Hcl) 500 Mg Tablet 500 Mg PO BIDWMEALS Reported Tresiba Flextouch U-100 (Insulin Degludec) 100 Unit/1 Ml Insuln.pen 24 Units SUBCUT HS Klor-Con 10 (Potassium Chloride) 10 Meq Tablet.er 10 Meq PO DAILY Donepezil Hcl 10 Mg Tablet 1 Tab PO DAILY Novolog Flexpen (Insulin Aspart) 100 Unit/1 Ml Insuln.pen 12 Unit SQ TIDWMEALS Vitamin D3 1,000 Unit Tablet (Ca Cmb No.1/Vit D3/B-6/Fa/B12) 1 Each Tablet 1 Each PO DAILY Losartan-Hctz 100-12.5 Mg Tab (Losartan/Hydrochlorothiazide) 1 Each Tablet 1 Each PO DAILY08 Pravachol (Pravastatin Sodium) 20 Mg Tablet 20 Mg PO HS Amlodipine Besylate 5 Mg Tablet 5 Mg PO DAILY08 Vitals/I & O Vital Sign - Last 24 Hours 10/20/19 10/20/19 10/20/19 10/21/19 19:00 19:27 23:00 03:09 Temp 98.2 97.5 98.3 98.2 97.5 98.3 Pulse 65 62 64 Resp 16 20 18 B/P (MAP) 132/61 (84) 129/48 (75) 104/68 (80) Pulse Ox 96 96 95 O2 Delivery Room Air Room Air Room Air Room Air 10/21/19 10/21/19 10/21/19 07:00 08:00 11:00 Temp 98.1 99.0 98.1 99.0 Pulse 76 67 Resp 16 18 B/P (MAP) 133/55 (81) 106/54 (71) Pulse Ox 99 96 O2 Delivery Room Air Room Air Room Air Intake and Output 10/20/19 10/20/19 10/21/19 15:00 23:00 07:00 Output Total 200 ml 450 ml Balance -200 ml -450 ml Nutrition Consultation Dietary Evaluation: Recommendations by RD: Dietary education by RD, Increase Calorie Intake, PPN/TPN Comments: Continue w/PPN for short-term non-oral nutrition needs REC cardiac/ADA diet w/glucerna supplements and MVI/Vit C (wound healing) pending SCRUMMASTER eval If NPO per SCRUMMASTER, recommend feeding tube for enteral nutrition pending family goals of care, would recommend TFs per following: Glucerna 1.2@goal rate 55 ml/hr w/100 ml water flushes q4 hrs w/Sergio BID and MVI (liquid) via feeding tube (wound healing) Expected Outcomes/Goals: Diet advancement or initiaiton of TFs within 24 - 48 hrs Interpretation of weight loss: >1-2% in 1 week Malnutrition Findings: Food and Nutrition Intake (Sev: <50% est energy req 5days Weight Status: Appropriate Hemodynamically unstable?: No Is patient in severe pain?: No Is NPO status required?: Yes DORINDA DODSON MD Oct 21, 2019 16:35
--- NOTE | 2019-10-21 18:27 | NUR ---
SW info: Pt's nieces were bedside when Dr. Alvarado was seeing pt. They had concerns re: snf care of pt. Dr. Alvarado informed them he has not seen family when he has been in to see pt to this point. This nurse encouraged them to talk to pt's children and for them to be here to talk with the physicians. Pt's daughter arrived this afternoon to visit pt. She asked about talking to the physicians Wednesday with her family to discuss snf plan. Informed Angelica (pt's daughter) the information would be relayed to the SW team to try to set up a family meeting on Wednesday. Angelica's phone number [phone].
[2019-10-21 19:00] VITALS: BP 148/74
[2019-10-21 23:00] VITALS: BP 136/60
[2019-10-22] MEDS: INSULIN LISPRO 300 UNITS/3 ML VIAL. SQ SCH ×4 (00:23→18:13)
[2019-10-22 03:00] VITALS: BP 145/81
[2019-10-22] MEDS: PANTOPRAZOLE IV PUSH 40 MG VIAL. IVP SCH (06:33)
[2019-10-22 07:00] VITALS: BP 145/62
[2019-10-22] MEDS: AA 4.25 %/CALCIUM/LYTES/D5W 1,000 ML IV SCH (08:21)
[2019-10-22 09:18] LABS: CREATININE 0.8 mg/dL (0.6-1.0); GFR 70.1; MAGNESIUM 2.4 mg/dL (1.8-2.4); PHOSPHORUS 2.4 mg/dL (2.6-4.7); POTASSIUM 4.5 mmol/L (3.5-5.1)
[2019-10-22 10:48] VITALS: BP 146/53
[2019-10-22] MEDS: cefTRIAXone IV Push 1 GM VIAL. IVP SCH (13:06)
--- NOTE | 2019-10-22 14:15 | PDOC ---
Infectious Disease Note Subjective Subjective Noncommunicative No fevers reported NPO BM x 3 Vital Sign Vital Signs Vital Signs Date Time Temp Pulse Resp B/P (MAP) Pulse Ox O2 Delivery O2 Flow Rate FiO2 10/22/19 10:48 97.9 72 17 146/53 (84) 93 Room Air 97.9 Physical Exam PHYSICAL EXAM GENERAL: Lying down, awake, calm, noncommunicative HEENT: Pupils equal and reactive. Normal conjunctivae. Oral cavity very dry NECK: Without JVD. LUNGS: Decreased at the bases. HEART: S1, S2. ABDOMEN: Soft. No guarding : Saleh in place EXTREMITIES: Without clubbing or cyanosis. No gross edema. SKIN: Warm to touch without generalized signs of rash. NEUROLOGIC: Nonresponsive to questions, no follow commands PIV Labs Lab Laboratory Tests Test 10/21/19 17:47 10/22/19 00:16 10/22/19 06:25 10/22/19 07:15 Glucose (Fingerstick) 214 mg/dL (70-99) 262 mg/dL (70-99) 232 mg/dL (70-99) 235 mg/dL (70-99) Test 10/22/19 07:50 10/22/19 12:31 Sodium Level 148 mmol/L (136-145) Potassium Level 4.5 mmol/L (3.5-5.1) Chloride Level 116 mmol/L (98-107) Carbon Dioxide Level 22 mmol/L (21-32) Anion Gap 10 (6-14) Blood Urea Nitrogen 40 mg/dL (7-20) Creatinine 0.8 mg/dL (0.6-1.0) Estimated GFR (Cockcroft-Gault) 70.1 Glucose Level 232 mg/dL (70-99) Calcium Level 8.0 mg/dL (8.5-10.1) Phosphorus Level 2.4 mg/dL (2.6-4.7) Magnesium Level 2.4 mg/dL (1.8-2.4) Glucose (Fingerstick) 226 mg/dL (70-99) Micro Microbiology 10/17/19 Blood Culture - Preliminary, Resulted NO GROWTH AFTER 5 DAYS Objective Assessment Leukocytosis - better blood cult neg Ecoli UTI -POA 10/16 Urinary bladder s/p Saleh CATARINO - better DM Dementia Hypernatremia - better ? Hypothyroid Thrombocytopenia - HEM/OCN following Plan Plan of Care ? PEG - awaiting approval Continue Rocephin Dapto times one 2/10 Monitor lab values D/w nursing Patient seen and examined. Chart reviewed in detail. Case discussed with [facility] [employer] APPRENTICE. I agree with above plan. NICOLAS ALEXANDRE APRN Oct 22, 2019 14:15 MIKE LOPEZ MD Oct 22, 2019 19:24
--- NOTE | 2019-10-22 14:21 | PDOC ---
Renal-Progress Notes Subjective Notes Notes NOTHING NEW History of Present Illness Hx of present illness STABLE Vitals Vitals Vital Signs Date Time Temp Pulse Resp B/P (MAP) Pulse Ox O2 Delivery O2 Flow Rate FiO2 10/22/19 10:48 97.9 72 17 146/53 (84) 93 Room Air 97.9 Weight Weight [ ] I.O. Intake and Output Intake and Output 10/22/19 07:00 Intake Total 1000 ml Output Total 650 ml Balance 350 ml Intake Oral 0 ml IV Total 1000 ml Output Urine Total 650 ml # Bowel Movements 3 Labs Labs Laboratory Tests Test 10/21/19 17:47 10/22/19 00:16 10/22/19 06:25 10/22/19 07:15 Glucose (Fingerstick) 214 mg/dL (70-99) 262 mg/dL (70-99) 232 mg/dL (70-99) 235 mg/dL (70-99) Test 10/22/19 07:50 10/22/19 12:31 Sodium Level 148 mmol/L (136-145) Potassium Level 4.5 mmol/L (3.5-5.1) Chloride Level 116 mmol/L (98-107) Carbon Dioxide Level 22 mmol/L (21-32) Anion Gap 10 (6-14) Blood Urea Nitrogen 40 mg/dL (7-20) Creatinine 0.8 mg/dL (0.6-1.0) Estimated GFR (Cockcroft-Gault) 70.1 Glucose Level 232 mg/dL (70-99) Calcium Level 8.0 mg/dL (8.5-10.1) Phosphorus Level 2.4 mg/dL (2.6-4.7) Magnesium Level 2.4 mg/dL (1.8-2.4) Glucose (Fingerstick) 226 mg/dL (70-99) Micro Micro Microbiology 10/17/19 Blood Culture - Final, Complete NO GROWTH AFTER 5 DAYS 10/16/19 Urine Culture - Final, Complete 10/16/19 Urine Culture Result 1 (KATHRYN) - Final, Complete 10/16/19 Antimicrobic Susceptibility - Final, Complete Review of Systems Constitutional: yes: other (UNABLE TO OBTAIN) Physical Exam General Appearance: no apparent distress Skin: warm Respiratory: decreased breath sounds Heart: S1S2 Abdomen: soft Genitourinary: bladder flat Extremities: pulses present Neurology: other (drowsy, nonverbal) Assessment Assessment IMP CATARINO-NEARLY RESOLVED HYPERNATREMIA-IMPROVING LOW PO4 DEHYDRATION URINARY TRACT INFECTION SEVERE DEMENTIA MALNUTRITION LIVER FAILURE HX OF DM II PLAN PPN TO CONTINUE HOLD HER [place]AN HOLD HER DIURETICS REPLACE PO4 AND K NEEDED PEG/TF WHEN FEASIBLE WILL FOLLOW DANNY FALL MD Oct 22, 2019 14:21
--- NOTE | 2019-10-22 14:24 | PDOC ---
PROGRESS NOTES Chief Complaint Chief Complaint Hypernatremia acute renal failure Thrombocytopenia Severe CATARINO UTI Leukocytosis PAFIB dehydration Mental status alteration advanced dementia dysphagia UTI ELEVATED TROPONIN I History of Present Illness History of Present Illness about hte same Vitals Vitals Vital Signs Date Time Temp Pulse Resp B/P (MAP) Pulse Ox O2 Delivery O2 Flow Rate FiO2 10/22/19 10:48 97.9 72 17 146/53 (84) 93 Room Air 97.9 Physical Exam Physical Exam GENERAL: Lying down, awake, calm, noncommunicative HEENT: Pupils equal and reactive. Normal conjunctivae. Oral cavity very dry NECK: Without JVD. LUNGS: Decreased at the bases. HEART: S1, S2. ABDOMEN: Soft. No guarding : Saleh in place EXTREMITIES: Without clubbing or cyanosis. No gross edema. SKIN: Warm to touch without generalized signs of rash. NEUROLOGIC: Nonresponsive to questions, no follow commands PIV General: No acute distress Heart: Regular rate (SR), Normal S1, Normal S2, Other (2/6 systolic murmur to LLS border) Lungs: Clear, Other (grade II systolic ejection murmur ) Abdomen: Soft, No tenderness Extremities: No cyanosis, No edema Skin: No breakdown, No significant lesion Labs LABS Laboratory Tests Test 10/21/19 17:47 10/22/19 00:16 10/22/19 06:25 10/22/19 07:15 Glucose (Fingerstick) 214 mg/dL (70-99) 262 mg/dL (70-99) 232 mg/dL (70-99) 235 mg/dL (70-99) Test 10/22/19 07:50 10/22/19 12:31 Sodium Level 148 mmol/L (136-145) Potassium Level 4.5 mmol/L (3.5-5.1) Chloride Level 116 mmol/L (98-107) Carbon Dioxide Level 22 mmol/L (21-32) Anion Gap 10 (6-14) Blood Urea Nitrogen 40 mg/dL (7-20) Creatinine 0.8 mg/dL (0.6-1.0) Estimated GFR (Cockcroft-Gault) 70.1 Glucose Level 232 mg/dL (70-99) Calcium Level 8.0 mg/dL (8.5-10.1) Phosphorus Level 2.4 mg/dL (2.6-4.7) Magnesium Level 2.4 mg/dL (1.8-2.4) Glucose (Fingerstick) 226 mg/dL (70-99) Assessment and Plan Assessmemt and Plan Problems Medical Problems: (1) Mental status alteration Status: Acute Comment Review of Relevant I have reviewed the following items karrie (where applicable) has been applied. Labs Laboratory Tests Test 10/20/19 18:28 10/21/19 00:12 10/21/19 04:40 10/21/19 05:48 Glucose (Fingerstick) 258 mg/dL (70-99) 253 mg/dL (70-99) 252 mg/dL (70-99) Sodium Level 148 mmol/L (136-145) Potassium Level 4.3 mmol/L (3.5-5.1) Chloride Level 119 mmol/L (98-107) Carbon Dioxide Level 19 mmol/L (21-32) Anion Gap 10 (6-14) Blood Urea Nitrogen 36 mg/dL (7-20) Creatinine 0.8 mg/dL (0.6-1.0) Estimated GFR (Cockcroft-Gault) 70.1 Glucose Level 249 mg/dL (70-99) Calcium Level 7.7 mg/dL (8.5-10.1) Phosphorus Level 2.0 mg/dL (2.6-4.7) Magnesium Level 2.5 mg/dL (1.8-2.4) Test 10/21/19 12:41 10/21/19 17:47 10/22/19 00:16 10/22/19 06:25 Glucose (Fingerstick) 258 mg/dL (70-99) 214 mg/dL (70-99) 262 mg/dL (70-99) 232 mg/dL (70-99) Test 10/22/19 07:15 10/22/19 07:50 10/22/19 12:31 Glucose (Fingerstick) 235 mg/dL (70-99) 226 mg/dL (70-99) Sodium Level 148 mmol/L (136-145) Potassium Level 4.5 mmol/L (3.5-5.1) Chloride Level 116 mmol/L (98-107) Carbon Dioxide Level 22 mmol/L (21-32) Anion Gap 10 (6-14) Blood Urea Nitrogen 40 mg/dL (7-20) Creatinine 0.8 mg/dL (0.6-1.0) Estimated GFR (Cockcroft-Gault) 70.1 Glucose Level 232 mg/dL (70-99) Calcium Level 8.0 mg/dL (8.5-10.1) Phosphorus Level 2.4 mg/dL (2.6-4.7) Magnesium Level 2.4 mg/dL (1.8-2.4) Laboratory Tests Test 10/21/19 17:47 10/22/19 00:16 10/22/19 06:25 10/22/19 07:15 Glucose (Fingerstick) 214 mg/dL (70-99) 262 mg/dL (70-99) 232 mg/dL (70-99) 235 mg/dL (70-99) Test 10/22/19 07:50 10/22/19 12:31 Sodium Level 148 mmol/L (136-145) Potassium Level 4.5 mmol/L (3.5-5.1) Chloride Level 116 mmol/L (98-107) Carbon Dioxide Level 22 mmol/L (21-32) Anion Gap 10 (6-14) Blood Urea Nitrogen 40 mg/dL (7-20) Creatinine 0.8 mg/dL (0.6-1.0) Estimated GFR (Cockcroft-Gault) 70.1 Glucose Level 232 mg/dL (70-99) Calcium Level 8.0 mg/dL (8.5-10.1) Phosphorus Level 2.4 mg/dL (2.6-4.7) Magnesium Level 2.4 mg/dL (1.8-2.4) Glucose (Fingerstick) 226 mg/dL (70-99) Microbiology 10/17/19 Blood Culture - Final, Complete NO GROWTH AFTER 5 DAYS 10/16/19 Urine Culture - Final, Complete 10/16/19 Urine Culture Result 1 (KATHRYN) - Final, Complete 10/16/19 Antimicrobic Susceptibility - Final, Complete Medications Current Medications Potassium Chloride/Dextrose/ Sod Cl 1,000 ml @ 75 mls/hr 1X ONCE IV Last administered on 10/17/19at 00:40; Start 10/16/19 at 23:30; Stop 10/17/19 at 12:49; Status DC Ceftriaxone Sodium (Rocephin) 1 gm 1X ONCE IVP Last administered on 10/17/19at 00:42; Start 10/16/19 at 23:45; Stop 10/16/19 at 23:46; Status DC Ondansetron HCl (Zofran) 4 mg PRN Q8HRS PRN IV NAUSEA/VOMITING; Start 10/17/19 at 02:30; Stop 10/18/19 at 02:29; Status DC Amino Acids/ Electrolytes/ Dextrose 1,000 ml @ 80 mls/hr [id number] IV Last administered on 10/22/19at 08:21; Start 10/17/19 at 11:15 Ceftriaxone Sodium (Rocephin) 1 gm Q24H IVP Last administered on 10/17/19at 12:06; Start 10/17/19 at 11:00; Stop 10/17/19 at 14:44; Status DC Sodium Chloride (Normal Saline Flush) 3 ml QSHIFT PRN IV AFTER MEDS AND BLOOD DRAWS; Start 10/17/19 at 12:30; Status Cancel Ondansetron HCl (Zofran) 2 mg PRN Q4HRS PRN IV NAUSEA/VOMITING; Start 10/17/19 at 12:30 Acetaminophen (Tylenol Supp) 650 mg PRN Q4HRS PRN CA TEMP OVER 100.4F OR MILD PAIN; Start 10/17/19 at 12:30 Docusate Sodium (Colace) 100 mg PRN BID PRN PO CONSTIPATION; Start 10/17/19 at 12:30 Albuterol Sulfate (Ventolin Neb Soln) 2.5 mg PRN Q4HRS PRN NEB SHORTNESS OF BREATH; Start 10/17/19 at 12:30 Enoxaparin Sodium (Lovenox 30mg Syringe) 30 mg Q24H SQ Last administered on 10/17/19at 13:53; Start 10/17/19 at 13:00; Stop 10/18/19 at 10:13; Status DC Famotidine (Pepcid Vial) 10 mg BID IVP Last administered on 10/20/19at 08:59; Start 10/17/19 at 13:00; Stop 10/20/19 at 11:09; Status DC Sodium Chloride (Normal Saline Flush) 3 ml QSHIFT PRN IV AFTER MEDS AND BLOOD DRAWS; Start 10/17/19 at 12:30 Metoprolol Tartrate (Lopressor Vial) 5 mg PRN Q6HRS PRN IVP TACHYCARDIA; Start 10/17/19 at 14:15 Cefepime HCl (Maxipime) 2 gm Q12HR IVP Last administered on 10/20/19at 08:59; Start 10/17/19 at 21:00; Stop 10/20/19 at 11:07; Status DC Daptomycin 490 mg/ Sodium Chloride 50 ml @ 100 mls/hr ONCE ONCE IV Last administered on 10/17/19at 16:26; Start 10/17/19 at 15:00; Stop 10/17/19 at 15:29; Status DC Vitamin A/Vitamin D (Vitamin A & D Ointment) 1 [place] PRN Q1HR PRN TP SKIN PROTECTION Last administered on 10/18/19at 16:14; Start 10/17/19 at 15:45 Dextrose/Sodium Chloride 1,000 ml @ 100 mls/hr Q10H IV Last administered on 10/20/19at 04:02; Start 10/17/19 at 16:15; Stop 10/20/19 at 11:27; Status DC Insulin Human Lispro (HumaLOG) 0-5 UNITS TIDWMEALS SQ Last administered on 10/17/19at 18:44; Start 10/17/19 at 18:30; Stop 10/18/19 at 04:12; Status DC Dextrose (Dextrose 50%-Water Syringe) 12.5 gm PRN Q15MIN PRN IV SEE COMMENTS; Start 10/17/19 at 18:30 Dextrose (Iv Dextrose 5%) 250 ml PRN Q15MIN PRN IV SEE COMMENTS; Start 10/17/19 at 18:30 Insulin Human Lispro (HumaLOG) 0-7 UNITS TIDWMEALS SQ ; Start 10/18/19 at 08:00; Stop 10/18/19 at 04:42; Status DC Insulin Human Lispro (HumaLOG) 0-7 UNITS Q6HRS SQ Last administered on 10/07 02/23at 13:12; Start 10/18/19 at 06:00 Vitamin A/Vitamin D (Vitamin A & D Ointment) 1 [place] BID PRN TP SKIN PROTECTION; Start 10/18/19 at 09:45 Vitamin A/Vitamin D (Vitamin A & D Ointment) 1 [place] PRN Q1HR PRN TP SKIN PROTECTION; Start 10/18/19 at 09:45; Stop 10/18/19 at 10:10; Status DC Enoxaparin Sodium (Lovenox 40mg Syringe) 40 mg Q24H SQ ; Start 10/18/19 at 13:00; Stop 10/18/19 at 13:39; Status DC Potassium Phosphate 15 mmol/ Sodium Chloride 255 ml @ 127.5 mls/ hr Q2H IV Last administered on 10/18/19at 13:36; Start 10/18/19 at 11:00; Stop 10/18/19 at 14:59; Status DC Ceftriaxone Sodium (Rocephin) 1 gm Q24H IVP Last administered on 10/22/19at 13:06; Start 10/20/19 at 12:00 Pantoprazole Sodium (PROTONIX VIAL for IV PUSH) 40 mg DAILYAC IVP Last administered on 10/22/19at 06:33; Start 10/21/19 at 07:30 Sodium Phosphate 15 mmol/Sodium Chloride 105 ml @ 105 mls/hr 1X ONCE IV Last administered on 10/20/19at 12:54; Start 10/20/19 at 12:00; Stop 10/20/19 at 12:59; Status DC Sodium Phosphate 15 mmol/Sodium Chloride 105 ml @ 105 mls/hr 1X ONCE IV Last administered on 10/21/19at 12:58; Start 10/21/19 at 12:00; Stop 10/21/19 at 12:59; Status DC Insulin Glargine (Lantus Syringe) 10 unit DAILY10 SQ ; Start 10/22/19 at 14:00 Active Scripts Active Valtrex (Valacyclovir Hcl) 1,000 Mg Tablet 1 Tab PO TID Medrol (Methylprednisolone) 4 Mg Tab.ds.pk 1 Pkg PO UD Levemir (Insulin Detemir) 100 Unit/1 Ml Vial 15 Unit SQ DAILY 30 Days Keflex (Cephalexin) 500 Mg Capsule 1 Cap PO TID Novolog Flexpen (Insulin Aspart) 100 Unit/1 Ml Insuln.pen 0 Units SQ TIDACHC Aspirin Ec (Aspirin) 325 Mg Tablet. 325 Mg PO DAILYWBKFT Glucophage (Metformin Hcl) 500 Mg Tablet 500 Mg PO BIDWMEALS Reported Tresiba Flextouch U-100 (Insulin Degludec) 100 Unit/1 Ml Insuln.pen 24 Units SUBCUT HS Klor-Con 10 (Potassium Chloride) 10 Meq Tablet.er 10 Meq PO DAILY Donepezil Hcl 10 Mg Tablet 1 Tab PO DAILY Novolog Flexpen (Insulin Aspart) 100 Unit/1 Ml Insuln.pen 12 Unit SQ TIDWMEALS Vitamin D3 1,000 Unit Tablet (Ca Cmb No.1/Vit D3/B-6/Fa/B12) 1 Each Tablet 1 Each PO DAILY Losartan-Hctz 100-12.5 Mg Tab (Losartan/Hydrochlorothiazide) 1 Each Tablet 1 Each PO DAILY08 Pravachol (Pravastatin Sodium) 20 Mg Tablet 20 Mg PO HS Amlodipine Besylate 5 Mg Tablet 5 Mg PO DAILY08 Vitals/I & O Vital Sign - Last 24 Hours 10/21/19 10/21/19 10/21/19 10/21/19 15:00 19:00 20:00 23:00 Temp 99.2 97.9 97.8 99.2 97.9 97.8 Pulse 80 70 71 Resp 18 20 18 B/P (MAP) 131/60 (83) 148/74 (98) 136/60 (85) Pulse Ox 94 96 97 O2 Delivery Room Air Room Air Room Air Room Air 10/22/19 10/22/19 10/22/19 10/22/19 03:00 07:00 08:00 10:48 Temp 97.6 98.0 97.9 97.6 98.0 97.9 Pulse 69 71 72 Resp 18 17 17 B/P (MAP) 145/81 (102) 145/62 (89) 146/53 (84) Pulse Ox 96 94 93 O2 Delivery Room Air Room Air Room Air Room Air Intake and Output 10/21/19 10/21/19 10/22/19 15:00 23:00 07:00 Intake Total 1000 ml 0 ml Output Total 350 ml 300 ml Balance 650 ml -300 ml Nutrition Consultation Dietary Evaluation: Recommendations by RD: Dietary education by RD, Increase Calorie Intake, PPN/TPN Comments: Continue w/PPN for short-term non-oral nutrition needs REC cardiac/ADA diet w/glucerna supplements and MVI/Vit C (wound healing) pending MARKETING SUPPORT ASSISTANT eval If NPO per MARKETING SUPPORT ASSISTANT, recommend feeding tube for enteral nutrition pending family goals of care, would recommend TFs per following: Glucerna 1.2@goal rate 55 ml/hr w/100 ml water flushes q4 hrs w/Sergio BID and MVI (liquid) via feeding tube (wound healing) Expected Outcomes/Goals: Diet advancement or initiaiton of TFs within 24 - 48 hrs Interpretation of weight loss: >1-2% in 1 week Malnutrition Findings: Food and Nutrition Intake (Sev: <50% est energy req 5days Weight Status: Appropriate Hemodynamically unstable?: No Is patient in severe pain?: No Is NPO status required?: Yes DORINDA DODSON MD Oct 22, 2019 14:24
[2019-10-22] MEDS: INSULIN GLARGINE SYRINGE. SQ SCH (14:43)
[2019-10-22 14:57] VITALS: BP 140/54
[2019-10-22 19:00] VITALS: BP 149/60
[2019-10-22 23:00] VITALS: BP 154/75
[2019-10-23] MEDS: AA 4.25 %/CALCIUM/LYTES/D5W 1,000 ML IV SCH ×2 (00:12→04:45)
[2019-10-23] MEDS: INSULIN LISPRO 300 UNITS/3 ML VIAL. SQ SCH ×4 (00:38→18:00)
[2019-10-23 03:00] VITALS: BP 132/62
[2019-10-23] MEDS: PANTOPRAZOLE IV PUSH 40 MG VIAL. IVP SCH (06:19)
[2019-10-23 07:00] VITALS: BP 148/72
[2019-10-23 07:25] LABS: CREATININE 0.8 mg/dL (0.6-1.0); GFR 70.1; POTASSIUM 4.7 mmol/L (3.5-5.1)
[2019-10-23 08:59] LABS: BASO % 0 % (0-3); EOS # 0.1 x10^3/uL (0.0-0.7); EOS % 2 % (0-3); HEMATOCRIT 36.7 % (36.0-47.0); LYMPH # 0.9 x10^3/uL (1.0-4.8); LYMPH % 21 % (24-48); MEAN CORPUSCULAR HEMOGLOBIN 33 pg (25-35); MEAN CORPUSCULAR HGB CONC 33 g/dL (31-37); MEAN CORPUSCULAR VOLUME 100 fL (79-100); MONO # 0.3 x10^3/uL (0.0-1.1); MONO % 7 % (0-9); NEUT % 70 % (31-73); PLATELET COUNT 54 x10^3/uL (140-400); RED BLOOD COUNT 3.67 x10^6/uL (3.50-5.40); RED CELL DISTRIBUTION WIDTH 18.2 % (11.5-14.5); WHITE BLOOD COUNT 4.2 x10^3/uL (4.0-11.0)
[2019-10-23] MEDS: INSULIN GLARGINE SYRINGE. SQ SCH (09:26)
[2019-10-23 10:38] VITALS: BP 142/68
--- NOTE | 2019-10-23 11:30 | PDOC ---
Infectious Disease Note Subjective Subjective Noncommunicative No fevers reported NPO BM x 3 ROS ROS no n/v/d/ Vital Sign Vital Signs Vital Signs Date Time Temp Pulse Resp B/P (MAP) Pulse Ox O2 Delivery O2 Flow Rate FiO2 10/23/19 10:38 97.5 72 18 142/68 (92) 94 Room Air 97.5 Physical Exam PHYSICAL EXAM GENERAL: Lying down, awake, calm, noncommunicative HEENT: Pupils equal and reactive. Normal conjunctivae. Oral cavity very dry NECK: Without JVD. LUNGS: Decreased at the bases. HEART: S1, S2. ABDOMEN: Soft. No guarding : Saleh in place EXTREMITIES: Without clubbing or cyanosis. No gross edema. SKIN: Warm to touch without generalized signs of rash. NEUROLOGIC: Nonresponsive to questions, no follow commands PIV Labs Lab Laboratory Tests Test 10/22/19 12:31 10/22/19 16:49 10/22/19 21:07 10/23/19 00:29 Glucose (Fingerstick) 226 mg/dL (70-99) 223 mg/dL (70-99) 197 mg/dL (70-99) 180 mg/dL (70-99) Test 10/23/19 06:20 10/23/19 06:35 Glucose (Fingerstick) 197 mg/dL (70-99) White Blood Count 4.2 x10^3/uL (4.0-11.0) Red Blood Count 3.67 x10^6/uL (3.50-5.40) Hemoglobin 12.0 g/dL (12.0-15.5) Hematocrit 36.7 % (36.0-47.0) Mean Corpuscular Volume 100 fL (79-100) Mean Corpuscular Hemoglobin 33 pg (25-35) Mean Corpuscular Hemoglobin Concent 33 g/dL (31-37) Red Cell Distribution Width 18.2 % (11.5-14.5) Platelet Count 54 x10^3/uL (140-400) Neutrophils (%) (Auto) 70 % (31-73) Lymphocytes (%) (Auto) 21 % (24-48) Monocytes (%) (Auto) 7 % (0-9) Eosinophils (%) (Auto) 2 % (0-3) Basophils (%) (Auto) 0 % (0-3) Neutrophils # (Auto) 3.0 x10^3/uL (1.8-7.7) Lymphocytes # (Auto) 0.9 x10^3/uL (1.0-4.8) Monocytes # (Auto) 0.3 x10^3/uL (0.0-1.1) Eosinophils # (Auto) 0.1 x10^3/uL (0.0-0.7) Basophils # (Auto) 0.0 x10^3/uL (0.0-0.2) Sodium Level 145 mmol/L (136-145) Potassium Level 4.7 mmol/L (3.5-5.1) Chloride Level 115 mmol/L (98-107) Carbon Dioxide Level 20 mmol/L (21-32) Anion Gap 10 (6-14) Blood Urea Nitrogen 40 mg/dL (7-20) Creatinine 0.8 mg/dL (0.6-1.0) Estimated GFR (Cockcroft-Gault) 70.1 Glucose Level 197 mg/dL (70-99) Calcium Level 8.0 mg/dL (8.5-10.1) Micro Microbiology 10/17/19 Blood Culture - Final, Complete NO GROWTH AFTER 5 DAYS 10/16/19 Urine Culture - Final, Complete 10/16/19 Urine Culture Result 1 (KATHRYN) - Final, Complete 10/16/19 Antimicrobic Susceptibility - Final, Complete Objective Assessment eukocytosis - better blood cult neg Ecoli UTI -POA 10/16 Urinary bladder s/p Slaeh CATARINO - better DM Dementia Hypernatremia - better ? Hypothyroid Thrombocytopenia - HEM/OCN following Plan Plan of Care ? PEG - awaiting approval change antibiotics to po cefdinir once po allowed D/w nursing RADHA ORTIZ MD Oct 23, 2019 11:30
--- NOTE | 2019-10-23 11:43 | PDOC ---
SUBJECTIVE ROS Non communicative OBJECTIVE Vital Signs Vital Signs Date Time Temp Pulse Resp B/P (MAP) Pulse Ox O2 Delivery O2 Flow Rate FiO2 10/23/19 10:38 97.5 72 18 142/68 (92) 94 Room Air 97.5 I & 0 Intake and Output 10/23/19 07:00 Intake Total 0 ml Output Total 650 ml Balance -650 ml Intake Oral 0 ml Output Urine Total 650 ml # Bowel Movements 2 PHYSICAL EXAM Physical Exam GENERAL: Lying down, awake, calm, noncommunicative HEENT: Pupils equal and reactive. Normal conjunctivae. Oral cavity very dry NECK: Without JVD. LUNGS: Decreased at the bases. HEART: S1, S2. ABDOMEN: Soft. No guarding : Saleh in place EXTREMITIES: Without clubbing or cyanosis. No gross edema. SKIN: Warm to touch without generalized signs of rash. NEUROLOGIC: Nonresponsive to questions, no follow commands DIAGNOSIS/ASSESSMENT Assessment & Plan CATARINO- resolved HyperNatremia- resolved At presentation 170 Leukocytosis - better blood cult neg Ecoli UTI DM Dementia Thrombocytopenia - HEM/OCN following Will sign off COMMENT/RELEVANT DATA Meds Current Medications Medications (Trade) Dose Ordered Sig/Eric Start Time Stop Time Status Last Admin Dose Admin Acetaminophen (Tylenol Supp) 650 mg PRN Q4HRS PRN 10/17/19 12:30 Albuterol Sulfate (Ventolin Neb Soln) 2.5 mg PRN Q4HRS PRN 10/17/19 12:30 Amino Acids/ Electrolytes/ Dextrose 1,000 ml @ 80 mls/hr [id number] 10/17/19 11:15 10/23/19 00:12 80 MLS/HR Cefepime HCl (Maxipime) 2 gm Q12HR 10/17/19 21:00 10/20/19 11:07 DC 10/20/19 08:59 2 GM Ceftriaxone Sodium (Rocephin) 1 gm Q24H 10/20/19 12:00 10/22/19 13:06 1 GM Daptomycin 490 mg/ Sodium Chloride 50 ml @ 100 mls/hr ONCE ONCE 10/17/19 15:00 10/17/19 15:29 DC 10/17/19 16:26 100 MLS/HR Dextrose (Dextrose 50%-Water Syringe) 12.5 gm PRN Q15MIN PRN 10/17/19 18:30 Dextrose (Iv Dextrose 5%) 250 ml PRN Q15MIN PRN 10/17/19 18:30 Dextrose/Sodium Chloride 1,000 ml @ 100 mls/hr Q10H 10/17/19 16:15 10/20/19 11:27 DC 10/20/19 04:02 100 MLS/HR Docusate Sodium (Colace) 100 mg PRN BID PRN 10/17/19 12:30 Enoxaparin Sodium (Lovenox 30mg Syringe) 30 mg Q24H 10/17/19 13:00 10/18/19 10:13 DC 10/17/19 13:53 30 MG Enoxaparin Sodium (Lovenox 40mg Syringe) 40 mg Q24H 10/18/19 13:00 10/18/19 13:39 DC Famotidine (Pepcid Vial) 10 mg BID 10/17/19 13:00 10/20/19 11:09 DC 10/20/19 08:59 10 MG Insulin Glargine (Lantus Syringe) 10 unit DAILY10 10/22/19 14:00 10/23/19 09:26 10 UNIT Insulin Human Lispro (HumaLOG) 0-7 UNITS Q6HRS 10/18/19 06:00 10/23/19 06:26 3 UNITS Metoprolol Tartrate (Lopressor Vial) 5 mg PRN Q6HRS PRN 10/17/19 14:15 Ondansetron HCl (Zofran) 2 mg PRN Q4HRS PRN 10/17/19 12:30 Pantoprazole Sodium (PROTONIX VIAL for IV PUSH) 40 mg DAILYAC 10/21/19 07:30 10/23/19 06:19 40 MG Potassium Chloride/Dextrose/ Sod Cl 1,000 ml @ 75 mls/hr 1X ONCE 10/16/19 23:30 10/17/19 12:49 DC 10/17/19 00:40 75 MLS/HR Potassium Phosphate 15 mmol/ Sodium Chloride 255 ml @ 127.5 mls/ hr Q2H 10/18/19 11:00 10/18/19 14:59 DC 10/18/19 13:36 127.5 MLS/HR Sodium Chloride (Normal Saline Flush) 3 ml QSHIFT PRN 10/17/19 12:30 Sodium Phosphate 15 mmol/Sodium Chloride 105 ml @ 105 mls/hr 1X ONCE 10/21/19 12:00 10/21/19 12:59 DC 10/21/19 12:58 105 MLS/HR Vitamin A/Vitamin D (Vitamin A & D Ointment) 1 [place] PRN Q1HR PRN 10/18/19 09:45 10/18/19 10:10 DC Lab Laboratory Tests Test 10/22/19 12:31 10/22/19 16:49 10/22/19 21:07 10/23/19 00:29 Glucose (Fingerstick) 226 mg/dL (70-99) 223 mg/dL (70-99) 197 mg/dL (70-99) 180 mg/dL (70-99) Test 10/23/19 06:20 10/23/19 06:35 Glucose (Fingerstick) 197 mg/dL (70-99) White Blood Count 4.2 x10^3/uL (4.0-11.0) Red Blood Count 3.67 x10^6/uL (3.50-5.40) Hemoglobin 12.0 g/dL (12.0-15.5) Hematocrit 36.7 % (36.0-47.0) Mean Corpuscular Volume 100 fL (79-100) Mean Corpuscular Hemoglobin 33 pg (25-35) Mean Corpuscular Hemoglobin Concent 33 g/dL (31-37) Red Cell Distribution Width 18.2 % (11.5-14.5) Platelet Count 54 x10^3/uL (140-400) Neutrophils (%) (Auto) 70 % (31-73) Lymphocytes (%) (Auto) 21 % (24-48) Monocytes (%) (Auto) 7 % (0-9) Eosinophils (%) (Auto) 2 % (0-3) Basophils (%) (Auto) 0 % (0-3) Neutrophils # (Auto) 3.0 x10^3/uL (1.8-7.7) Lymphocytes # (Auto) 0.9 x10^3/uL (1.0-4.8) Monocytes # (Auto) 0.3 x10^3/uL (0.0-1.1) Eosinophils # (Auto) 0.1 x10^3/uL (0.0-0.7) Basophils # (Auto) 0.0 x10^3/uL (0.0-0.2) Sodium Level 145 mmol/L (136-145) Potassium Level 4.7 mmol/L (3.5-5.1) Chloride Level 115 mmol/L (98-107) Carbon Dioxide Level 20 mmol/L (21-32) Anion Gap 10 (6-14) Blood Urea Nitrogen 40 mg/dL (7-20) Creatinine 0.8 mg/dL (0.6-1.0) Estimated GFR (Cockcroft-Gault) 70.1 Glucose Level 197 mg/dL (70-99) Calcium Level 8.0 mg/dL (8.5-10.1) Results All relevant outside records, renal labs, imaging studies, telemetry/EKG's were reviewed. RAJENDRA RODRIGUEZ MD Oct 23, 2019 11:43
[2019-10-23] MEDS: cefTRIAXone IV Push 1 GM VIAL. IVP SCH (12:16)
--- NOTE | 2019-10-23 12:29 | PDOC ---
PROGRESS NOTES Subjective Subjective HPI -f/u of Thrombocytopenia ROS - no fever Objective Objective Vital Signs Date Time Temp Pulse Resp B/P (MAP) Pulse Ox O2 Delivery O2 Flow Rate FiO2 10/23/19 10:38 97.5 72 18 142/68 (92) 94 Room Air 97.5 Intake and Output 10/23/19 07:00 Intake Total 0 ml Output Total 650 ml Balance -650 ml Intake Oral 0 ml Output Urine Total 650 ml # Bowel Movements 2 Physical Exam Heart: Normal S1, Normal S2 General: Alert, No acute distress Lungs: Clear to auscultation Assessment Assessment Problems Medical Problems: (1) Mental status alteration Status: Acute IMPRESSION AND PLAN: 1. Thrombocytopenia. Review of the old records indicates that the patient has chronic thrombocytopenia. I suspect the current worsening thrombocytopenia is consistent with underlying urinary tract infection. This reactive thrombocytopenia should get better as the infection is being treated. There is no evidence of anemia. There is no evidence to suggest DIC or TTP. I will continue to monitor platelet counts. Monitor for bleeding. I discussed with registered nurse. Plt better at 54 on 10/23/19, no bleeding. I d/w dtr 2. Urinary tract infection. Continue antibiotics per Infectious Diseases. 3. Alzheimer's dementia. She underwent a CT scan of the head on 10/16/2019 and that revealed chronic ischemic changes and no acute abnormalities. Appreciate Neurology consultation. Comment Review of Relevant I have reviewed the following items karrie (where applicable) has been applied. Labs Laboratory Tests Test 10/21/19 12:41 10/21/19 17:47 10/22/19 00:16 10/22/19 06:25 Glucose (Fingerstick) 258 mg/dL (70-99) 214 mg/dL (70-99) 262 mg/dL (70-99) 232 mg/dL (70-99) Test 10/22/19 07:15 10/22/19 07:50 10/22/19 12:31 10/22/19 16:49 Glucose (Fingerstick) 235 mg/dL (70-99) 226 mg/dL (70-99) 223 mg/dL (70-99) Sodium Level 148 mmol/L (136-145) Potassium Level 4.5 mmol/L (3.5-5.1) Chloride Level 116 mmol/L (98-107) Carbon Dioxide Level 22 mmol/L (21-32) Anion Gap 10 (6-14) Blood Urea Nitrogen 40 mg/dL (7-20) Creatinine 0.8 mg/dL (0.6-1.0) Estimated GFR (Cockcroft-Gault) 70.1 Glucose Level 232 mg/dL (70-99) Calcium Level 8.0 mg/dL (8.5-10.1) Phosphorus Level 2.4 mg/dL (2.6-4.7) Magnesium Level 2.4 mg/dL (1.8-2.4) Test 10/22/19 21:07 10/23/19 00:29 10/23/19 06:20 10/23/19 06:35 Glucose (Fingerstick) 197 mg/dL (70-99) 180 mg/dL (70-99) 197 mg/dL (70-99) White Blood Count 4.2 x10^3/uL (4.0-11.0) Red Blood Count 3.67 x10^6/uL (3.50-5.40) Hemoglobin 12.0 g/dL (12.0-15.5) Hematocrit 36.7 % (36.0-47.0) Mean Corpuscular Volume 100 fL (79-100) Mean Corpuscular Hemoglobin 33 pg (25-35) Mean Corpuscular Hemoglobin Concent 33 g/dL (31-37) Red Cell Distribution Width 18.2 % (11.5-14.5) Platelet Count 54 x10^3/uL (140-400) Neutrophils (%) (Auto) 70 % (31-73) Lymphocytes (%) (Auto) 21 % (24-48) Monocytes (%) (Auto) 7 % (0-9) Eosinophils (%) (Auto) 2 % (0-3) Basophils (%) (Auto) 0 % (0-3) Neutrophils # (Auto) 3.0 x10^3/uL (1.8-7.7) Lymphocytes # (Auto) 0.9 x10^3/uL (1.0-4.8) Monocytes # (Auto) 0.3 x10^3/uL (0.0-1.1) Eosinophils # (Auto) 0.1 x10^3/uL (0.0-0.7) Basophils # (Auto) 0.0 x10^3/uL (0.0-0.2) Sodium Level 145 mmol/L (136-145) Potassium Level 4.7 mmol/L (3.5-5.1) Chloride Level 115 mmol/L (98-107) Carbon Dioxide Level 20 mmol/L (21-32) Anion Gap 10 (6-14) Blood Urea Nitrogen 40 mg/dL (7-20) Creatinine 0.8 mg/dL (0.6-1.0) Estimated GFR (Cockcroft-Gault) 70.1 Glucose Level 197 mg/dL (70-99) Calcium Level 8.0 mg/dL (8.5-10.1) Test 10/23/19 11:30 Glucose (Fingerstick) 157 mg/dL (70-99) Laboratory Tests Test 10/22/19 12:31 10/22/19 16:49 10/22/19 21:07 10/23/19 00:29 Glucose (Fingerstick) 226 mg/dL (70-99) 223 mg/dL (70-99) 197 mg/dL (70-99) 180 mg/dL (70-99) Test 10/23/19 06:20 10/23/19 06:35 10/23/19 11:30 Glucose (Fingerstick) 197 mg/dL (70-99) 157 mg/dL (70-99) White Blood Count 4.2 x10^3/uL (4.0-11.0) Red Blood Count 3.67 x10^6/uL (3.50-5.40) Hemoglobin 12.0 g/dL (12.0-15.5) Hematocrit 36.7 % (36.0-47.0) Mean Corpuscular Volume 100 fL (79-100) Mean Corpuscular Hemoglobin 33 pg (25-35) Mean Corpuscular Hemoglobin Concent 33 g/dL (31-37) Red Cell Distribution Width 18.2 % (11.5-14.5) Platelet Count 54 x10^3/uL (140-400) Neutrophils (%) (Auto) 70 % (31-73) Lymphocytes (%) (Auto) 21 % (24-48) Monocytes (%) (Auto) 7 % (0-9) Eosinophils (%) (Auto) 2 % (0-3) Basophils (%) (Auto) 0 % (0-3) Neutrophils # (Auto) 3.0 x10^3/uL (1.8-7.7) Lymphocytes # (Auto) 0.9 x10^3/uL (1.0-4.8) Monocytes # (Auto) 0.3 x10^3/uL (0.0-1.1) Eosinophils # (Auto) 0.1 x10^3/uL (0.0-0.7) Basophils # (Auto) 0.0 x10^3/uL (0.0-0.2) Sodium Level 145 mmol/L (136-145) Potassium Level 4.7 mmol/L (3.5-5.1) Chloride Level 115 mmol/L (98-107) Carbon Dioxide Level 20 mmol/L (21-32) Anion Gap 10 (6-14) Blood Urea Nitrogen 40 mg/dL (7-20) Creatinine 0.8 mg/dL (0.6-1.0) Estimated GFR (Cockcroft-Gault) 70.1 Glucose Level 197 mg/dL (70-99) Calcium Level 8.0 mg/dL (8.5-10.1) Microbiology 10/17/19 Blood Culture - Final, Complete NO GROWTH AFTER 5 DAYS 10/16/19 Urine Culture - Final, Complete 10/16/19 Urine Culture Result 1 (KATHRYN) - Final, Complete 10/16/19 Antimicrobic Susceptibility - Final, Complete Medications Current Medications Potassium Chloride/Dextrose/ Sod Cl 1,000 ml @ 75 mls/hr 1X ONCE IV Last administered on 10/17/19at 00:40; Start 10/16/19 at 23:30; Stop 10/17/19 at 12:49; Status DC Ceftriaxone Sodium (Rocephin) 1 gm 1X ONCE IVP Last administered on 10/17/19at 00:42; Start 10/16/19 at 23:45; Stop 10/16/19 at 23:46; Status DC Ondansetron HCl (Zofran) 4 mg PRN Q8HRS PRN IV NAUSEA/VOMITING; Start 10/17/19 at 02:30; Stop 10/18/19 at 02:29; Status DC Amino Acids/ Electrolytes/ Dextrose 1,000 ml @ 80 mls/hr [id number] IV Last administered on 10/23/19at 00:12; Start 10/17/19 at 11:15 Ceftriaxone Sodium (Rocephin) 1 gm Q24H IVP Last administered on 10/17/19at 12:06; Start 10/17/19 at 11:00; Stop 10/17/19 at 14:44; Status DC Sodium Chloride (Normal Saline Flush) 3 ml QSHIFT PRN IV AFTER MEDS AND BLOOD DRAWS; Start 10/17/19 at 12:30; Status Cancel Ondansetron HCl (Zofran) 2 mg PRN Q4HRS PRN IV NAUSEA/VOMITING; Start 10/17/19 at 12:30 Acetaminophen (Tylenol Supp) 650 mg PRN Q4HRS PRN [place] TEMP OVER 100.4F OR MILD PAIN; Start 10/17/19 at 12:30 Docusate Sodium (Colace) 100 mg PRN BID PRN PO CONSTIPATION; Start 10/17/19 at 12:30 Albuterol Sulfate (Ventolin Neb Soln) 2.5 mg PRN Q4HRS PRN NEB SHORTNESS OF BREATH; Start 10/17/19 at 12:30 Enoxaparin Sodium (Lovenox 30mg Syringe) 30 mg Q24H SQ Last administered on 10/17/19at 13:53; Start 10/17/19 at 13:00; Stop 10/18/19 at 10:13; Status DC Famotidine (Pepcid Vial) 10 mg BID IVP Last administered on 10/20/19at 08:59; Start 10/17/19 at 13:00; Stop 10/20/19 at 11:09; Status DC Sodium Chloride (Normal Saline Flush) 3 ml QSHIFT PRN IV AFTER MEDS AND BLOOD DRAWS; Start 10/17/19 at 12:30 Metoprolol Tartrate (Lopressor Vial) 5 mg PRN Q6HRS PRN IVP TACHYCARDIA; Start 10/17/19 at 14:15 Cefepime HCl (Maxipime) 2 gm Q12HR IVP Last administered on 10/20/19at 08:59; Start 10/17/19 at 21:00; Stop 10/20/19 at 11:07; Status DC Daptomycin 490 mg/ Sodium Chloride 50 ml @ 100 mls/hr ONCE ONCE IV Last administered on 10/17/19at 16:26; Start 10/17/19 at 15:00; Stop 10/17/19 at 15:29; Status DC Vitamin A/Vitamin D (Vitamin A & D Ointment) 1 [place] PRN Q1HR PRN TP SKIN PROTECTION Last administered on 10/18/19at 16:14; Start 10/17/19 at 15:45 Dextrose/Sodium Chloride 1,000 ml @ 100 mls/hr Q10H IV Last administered on 10/20/19at 04:02; Start 10/17/19 at 16:15; Stop 10/20/19 at 11:27; Status DC Insulin Human Lispro (HumaLOG) 0-5 UNITS TIDWMEALS SQ Last administered on 10/17/19at 18:44; Start 10/17/19 at 18:30; Stop 10/18/19 at 04:12; Status DC Dextrose (Dextrose 50%-Water Syringe) 12.5 gm PRN Q15MIN PRN IV SEE COMMENTS; Start 10/17/19 at 18:30 Dextrose (Iv Dextrose 5%) 250 ml PRN Q15MIN PRN IV SEE COMMENTS; Start 10/17/19 at 18:30 Insulin Human Lispro (HumaLOG) 0-7 UNITS TIDWMEALS SQ ; Start 10/18/19 at 08:00; Stop 10/18/19 at 04:42; Status DC Insulin Human Lispro (HumaLOG) 0-7 UNITS Q6HRS SQ Last administered on 10/23/19at 06:26; Start 10/18/19 at 06:00 Vitamin A/Vitamin D (Vitamin A & D Ointment) 1 [place] BID PRN TP SKIN PROTECTION; Start 10/18/19 at 09:45 Vitamin A/Vitamin D (Vitamin A & D Ointment) 1 [place] PRN Q1HR PRN TP SKIN PROTECTION; Start 10/18/19 at 09:45; Stop 10/18/19 at 10:10; Status DC Enoxaparin Sodium (Lovenox 40mg Syringe) 40 mg Q24H SQ ; Start 10/18/19 at 13:00; Stop 10/18/19 at 13:39; Status DC Potassium Phosphate 15 mmol/ Sodium Chloride 255 ml @ 127.5 mls/ hr Q2H IV Last administered on 10/18/19at 13:36; Start 10/18/19 at 11:00; Stop 10/18/19 at 14:59; Status DC Ceftriaxone Sodium (Rocephin) 1 gm Q24H IVP Last administered on 10/23/19at 12:16; Start 10/20/19 at 12:00 Pantoprazole Sodium (PROTONIX VIAL for IV PUSH) 40 mg DAILYAC IVP Last administered on 10/23/19at 06:19; Start 10/21/19 at 07:30 Sodium Phosphate 15 mmol/Sodium Chloride 105 ml @ 105 mls/hr 1X ONCE IV Last administered on 10/20/19at 12:54; Start 10/20/19 at 12:00; Stop 10/20/19 at 12:59; Status DC Sodium Phosphate 15 mmol/Sodium Chloride 105 ml @ 105 mls/hr 1X ONCE IV Last administered on 10/21/19at 12:58; Start 10/21/19 at 12:00; Stop 10/21/19 at 12:59; Status DC Insulin Glargine (Lantus Syringe) 10 unit DAILY10 SQ Last administered on at 09:26; Start 10/22/19 at 14:00 Active Scripts Active Valtrex (Valacyclovir Hcl) 1,000 Mg Tablet 1 Tab PO TID Medrol (Methylprednisolone) 4 Mg Tab.ds.pk 1 Pkg PO UD Levemir (Insulin Detemir) 100 Unit/1 Ml Vial 15 Unit SQ DAILY 30 Days Keflex (Cephalexin) 500 Mg Capsule 1 Cap PO TID Novolog Flexpen (Insulin Aspart) 100 Unit/1 Ml Insuln.pen 0 Units SQ TIDACHC Aspirin Ec (Aspirin) 325 Mg Tablet.dr 325 Mg PO DAILYWBKFT Glucophage (Metformin Hcl) 500 Mg Tablet 500 Mg PO BIDWMEALS Reported Tresiba Flextouch U-100 (Insulin Degludec) 100 Unit/1 Ml Insuln.pen 24 Units SUBCUT HS Klor-Con 10 (Potassium Chloride) 10 Meq Tablet.er 10 Meq PO DAILY Donepezil Hcl 10 Mg Tablet 1 Tab PO DAILY Novolog Flexpen (Insulin Aspart) 100 Unit/1 Ml Insuln.pen 12 Unit SQ TIDWMEALS Vitamin D3 1,000 Unit Tablet (Ca Cmb No.1/Vit D3/B-6/Fa/B12) 1 Each Tablet 1 Each PO DAILY Losartan-Hctz 100-12.5 Mg Tab (Losartan/Hydrochlorothiazide) 1 Each Tablet 1 Each PO DAILY08 Pravachol (Pravastatin Sodium) 20 Mg Tablet 20 Mg PO HS Amlodipine Besylate 5 Mg Tablet 5 Mg PO DAILY08 Vitals/I & O Vital Sign - Last 24 Hours 10/22/19 10/22/19 10/22/19 10/22/19 14:57 19:00 20:05 23:00 Temp 97.9 97.8 98.1 97.9 97.8 98.1 Pulse 70 68 76 Resp 17 18 18 B/P (MAP) 140/54 (82) 149/60 (89) 154/75 (101) Pulse Ox 93 94 95 O2 Delivery Room Air Room Air Room Air Room Air 10/23/19 10/23/19 10/23/19 03:00 07:00 10:38 Temp 97.8 97.5 97.5 97.8 97.5 97.5 Pulse 74 74 72 Resp 18 18 18 B/P (MAP) 132/62 (85) 148/72 (97) 142/68 (92) Pulse Ox 95 96 94 O2 Delivery Room Air Room Air Room Air Intake and Output 10/22/19 10/22/19 10/23/19 15:00 23:00 07:00 Intake Total 0 ml 0 ml Output Total 150 ml 500 ml Balance -150 ml -500 ml Nutrition Consultation Dietary Evaluation: Recommendations by RD: Dietary education by RD, Increase Calorie Intake, PPN/TPN Comments: Continue w/PPN for short-term non-oral nutrition needs < 10 days REC cardiac/ADA diet w/glucerna supplements and MVI/Vit C (wound healing) pending BILLET SAWYER eval If NPO per BILLET SAWYER, recommend feeding tube for enteral nutrition pending family goals of care, would recommend TFs per following: Glucerna 1.2@goal rate 55 ml/hr w/100 ml water flushes q4 hrs w/Sergio BID and MVI (liquid) via feeding tube (wound healing) Expected Outcomes/Goals: day 7 PPN, rec < 10 days, Diet advancement or initiaiton of TFs within next 1-3 days Interpretation of weight loss: >1-2% in 1 week Malnutrition Findings: Food and Nutrition Intake (Sev: <50% est energy req 5days Weight Status: Appropriate Hemodynamically unstable?: No Is patient in severe pain?: No Is NPO status required?: Yes STEVE DEMARCO MD Oct 23, 2019 12:29
--- NOTE | 2019-10-23 13:48 | PDOC ---
PROGRESS NOTES Chief Complaint Chief Complaint Hypernatremia acute renal failure Thrombocytopenia Severe CATARINO UTI Leukocytosis PAFIB dehydration Mental status alteration advanced dementia dysphagia UTI ELEVATED TROPONIN I History of Present Illness History of Present Illness Ms Chiu is a 74-year-old female with severe Alzheimer dementia who apparently developed increased weakness for several days. She is cared for at home by her son. She is nonverbal. She was brought to [facility] secondary to increased weakness. Last evening on arrival, she had a white count of 11.2 with 89% segs. Creatinine was at 2.6. Her sodium was 170. Urine was concerning for urinary tract infection. She was given Rocephin and admitted to the Intensive Care Unit. Currently, the patient is alert, but she is nonverbal. She has been afebrile since her presentation. Seen by ID, GI, nephrology, neurology, cardiology in consultation. Patient is not verbally responding, appears to make meaningful eye contact, but does not follow commands. Labs have improved. Long discussion bedside with family about hospice care to which they are amenable. Plan: Hospice referral, they prefer at SNF Cont current meds while in house, will d/c ppn on d/c, family agrees Vitals Vitals Vital Signs Date Time Temp Pulse Resp B/P (MAP) Pulse Ox O2 Delivery O2 Flow Rate FiO2 10/23/19 10:38 97.5 72 18 142/68 (92) 94 Room Air 97.5 Physical Exam Physical Exam GENERAL: Lying down, awake, calm, noncommunicative HEENT: Pupils equal and reactive. Normal conjunctivae. Oral cavity very dry NECK: Without JVD. LUNGS: Decreased at the bases. HEART: S1, S2. ABDOMEN: Soft. No guarding : Saleh in place EXTREMITIES: Without clubbing or cyanosis. No gross edema. SKIN: Warm to touch without generalized signs of rash. NEUROLOGIC: Nonresponsive to questions, no follow commands PIV General: Alert, No acute distress Heart: Normal S1, Normal S2 Lungs: Clear, Other (grade II systolic ejection murmur ) Abdomen: Soft, No tenderness Extremities: No cyanosis, No edema Skin: No breakdown, No significant lesion Labs LABS Laboratory Tests Test 10/22/19 16:49 10/22/19 21:07 10/23/19 00:29 10/23/19 06:20 Glucose (Fingerstick) 223 mg/dL (70-99) 197 mg/dL (70-99) 180 mg/dL (70-99) 197 mg/dL (70-99) Test 10/23/19 06:35 10/23/19 11:30 White Blood Count 4.2 x10^3/uL (4.0-11.0) Red Blood Count 3.67 x10^6/uL (3.50-5.40) Hemoglobin 12.0 g/dL (12.0-15.5) Hematocrit 36.7 % (36.0-47.0) Mean Corpuscular Volume 100 fL (79-100) Mean Corpuscular Hemoglobin 33 pg (25-35) Mean Corpuscular Hemoglobin Concent 33 g/dL (31-37) Red Cell Distribution Width 18.2 % (11.5-14.5) Platelet Count 54 x10^3/uL (140-400) Neutrophils (%) (Auto) 70 % (31-73) Lymphocytes (%) (Auto) 21 % (24-48) Monocytes (%) (Auto) 7 % (0-9) Eosinophils (%) (Auto) 2 % (0-3) Basophils (%) (Auto) 0 % (0-3) Neutrophils # (Auto) 3.0 x10^3/uL (1.8-7.7) Lymphocytes # (Auto) 0.9 x10^3/uL (1.0-4.8) Monocytes # (Auto) 0.3 x10^3/uL (0.0-1.1) Eosinophils # (Auto) 0.1 x10^3/uL (0.0-0.7) Basophils # (Auto) 0.0 x10^3/uL (0.0-0.2) Sodium Level 145 mmol/L (136-145) Potassium Level 4.7 mmol/L (3.5-5.1) Chloride Level 115 mmol/L (98-107) Carbon Dioxide Level 20 mmol/L (21-32) Anion Gap 10 (6-14) Blood Urea Nitrogen 40 mg/dL (7-20) Creatinine 0.8 mg/dL (0.6-1.0) Estimated GFR (Cockcroft-Gault) 70.1 Glucose Level 197 mg/dL (70-99) Calcium Level 8.0 mg/dL (8.5-10.1) Glucose (Fingerstick) 157 mg/dL (70-99) Assessment and Plan Assessmemt and Plan Problems Medical Problems: (1) Mental status alteration Status: Acute Comment Review of Relevant I have reviewed the following items karrie (where applicable) has been applied. Labs Laboratory Tests Test 10/21/19 17:47 10/22/19 00:16 10/22/19 06:25 10/22/19 07:15 Glucose (Fingerstick) 214 mg/dL (70-99) 262 mg/dL (70-99) 232 mg/dL (70-99) 235 mg/dL (70-99) Test 10/22/19 07:50 10/22/19 12:31 10/22/19 16:49 10/22/19 21:07 Sodium Level 148 mmol/L (136-145) Potassium Level 4.5 mmol/L (3.5-5.1) Chloride Level 116 mmol/L (98-107) Carbon Dioxide Level 22 mmol/L (21-32) Anion Gap 10 (6-14) Blood Urea Nitrogen 40 mg/dL (7-20) Creatinine 0.8 mg/dL (0.6-1.0) Estimated GFR (Cockcroft-Gault) 70.1 Glucose Level 232 mg/dL (70-99) Calcium Level 8.0 mg/dL (8.5-10.1) Phosphorus Level 2.4 mg/dL (2.6-4.7) Magnesium Level 2.4 mg/dL (1.8-2.4) Glucose (Fingerstick) 226 mg/dL (70-99) 223 mg/dL (70-99) 197 mg/dL (70-99) Test 10/23/19 00:29 10/23/19 06:20 10/23/19 06:35 10/23/19 11:30 Glucose (Fingerstick) 180 mg/dL (70-99) 197 mg/dL (70-99) 157 mg/dL (70-99) White Blood Count 4.2 x10^3/uL (4.0-11.0) Red Blood Count 3.67 x10^6/uL (3.50-5.40) Hemoglobin 12.0 g/dL (12.0-15.5) Hematocrit 36.7 % (36.0-47.0) Mean Corpuscular Volume 100 fL (79-100) Mean Corpuscular Hemoglobin 33 pg (25-35) Mean Corpuscular Hemoglobin Concent 33 g/dL (31-37) Red Cell Distribution Width 18.2 % (11.5-14.5) Platelet Count 54 x10^3/uL (140-400) Neutrophils (%) (Auto) 70 % (31-73) Lymphocytes (%) (Auto) 21 % (24-48) Monocytes (%) (Auto) 7 % (0-9) Eosinophils (%) (Auto) 2 % (0-3) Basophils (%) (Auto) 0 % (0-3) Neutrophils # (Auto) 3.0 x10^3/uL (1.8-7.7) Lymphocytes # (Auto) 0.9 x10^3/uL (1.0-4.8) Monocytes # (Auto) 0.3 x10^3/uL (0.0-1.1) Eosinophils # (Auto) 0.1 x10^3/uL (0.0-0.7) Basophils # (Auto) 0.0 x10^3/uL (0.0-0.2) Sodium Level 145 mmol/L (136-145) Potassium Level 4.7 mmol/L (3.5-5.1) Chloride Level 115 mmol/L (98-107) Carbon Dioxide Level 20 mmol/L (21-32) Anion Gap 10 (6-14) Blood Urea Nitrogen 40 mg/dL (7-20) Creatinine 0.8 mg/dL (0.6-1.0) Estimated GFR (Cockcroft-Gault) 70.1 Glucose Level 197 mg/dL (70-99) Calcium Level 8.0 mg/dL (8.5-10.1) Laboratory Tests Test 10/22/19 16:49 10/22/19 21:07 10/23/19 00:29 10/23/19 06:20 Glucose (Fingerstick) 223 mg/dL (70-99) 197 mg/dL (70-99) 180 mg/dL (70-99) 197 mg/dL (70-99) Test 10/23/19 06:35 10/23/19 11:30 White Blood Count 4.2 x10^3/uL (4.0-11.0) Red Blood Count 3.67 x10^6/uL (3.50-5.40) Hemoglobin 12.0 g/dL (12.0-15.5) Hematocrit 36.7 % (36.0-47.0) Mean Corpuscular Volume 100 fL (79-100) Mean Corpuscular Hemoglobin 33 pg (25-35) Mean Corpuscular Hemoglobin Concent 33 g/dL (31-37) Red Cell Distribution Width 18.2 % (11.5-14.5) Platelet Count 54 x10^3/uL (140-400) Neutrophils (%) (Auto) 70 % (31-73) Lymphocytes (%) (Auto) 21 % (24-48) Monocytes (%) (Auto) 7 % (0-9) Eosinophils (%) (Auto) 2 % (0-3) Basophils (%) (Auto) 0 % (0-3) Neutrophils # (Auto) 3.0 x10^3/uL (1.8-7.7) Lymphocytes # (Auto) 0.9 x10^3/uL (1.0-4.8) Monocytes # (Auto) 0.3 x10^3/uL (0.0-1.1) Eosinophils # (Auto) 0.1 x10^3/uL (0.0-0.7) Basophils # (Auto) 0.0 x10^3/uL (0.0-0.2) Sodium Level 145 mmol/L (136-145) Potassium Level 4.7 mmol/L (3.5-5.1) Chloride Level 115 mmol/L (98-107) Carbon Dioxide Level 20 mmol/L (21-32) Anion Gap 10 (6-14) Blood Urea Nitrogen 40 mg/dL (7-20) Creatinine 0.8 mg/dL (0.6-1.0) Estimated GFR (Cockcroft-Gault) 70.1 Glucose Level 197 mg/dL (70-99) Calcium Level 8.0 mg/dL (8.5-10.1) Glucose (Fingerstick) 157 mg/dL (70-99) Microbiology 10/17/19 Blood Culture - Final, Complete NO GROWTH AFTER 5 DAYS 10/16/19 Urine Culture - Final, Complete 10/16/19 Urine Culture Result 1 (KATHRYN) - Final, Complete 10/16/19 Antimicrobic Susceptibility - Final, Complete Medications Current Medications Potassium Chloride/Dextrose/ Sod Cl 1,000 ml @ 75 mls/hr 1X ONCE IV Last administered on 10/17/19at 00:40; Start 10/16/19 at 23:30; Stop 10/17/19 at 12:49; Status DC Ceftriaxone Sodium (Rocephin) 1 gm 1X ONCE IVP Last administered on 10/17/19at 00:42; Start 10/16/19 at 23:45; Stop 10/16/19 at 23:46; Status DC Ondansetron HCl (Zofran) 4 mg PRN Q8HRS PRN IV NAUSEA/VOMITING; Start 10/17/19 at 02:30; Stop 10/18/19 at 02:29; Status DC Amino Acids/ Electrolytes/ Dextrose 1,000 ml @ 80 mls/hr [id number] IV Last administered on 10/23/19at 00:12; Start 10/17/19 at 11:15 Ceftriaxone Sodium (Rocephin) 1 gm Q24H IVP Last administered on 10/17/19at 12:06; Start 10/17/19 at 11:00; Stop 10/17/19 at 14:44; Status DC Sodium Chloride (Normal Saline Flush) 3 ml QSHIFT PRN IV AFTER MEDS AND BLOOD DRAWS; Start 10/17/19 at 12:30; Status Cancel Ondansetron HCl (Zofran) 2 mg PRN Q4HRS PRN IV NAUSEA/VOMITING; Start 10/17/19 at 12:30 Acetaminophen (Tylenol Supp) 650 mg PRN Q4HRS PRN ID TEMP OVER 100.4F OR MILD PAIN; Start 10/17/19 at 12:30 Docusate Sodium (Colace) 100 mg PRN BID PRN PO CONSTIPATION; Start 10/17/19 at 12:30 Albuterol Sulfate (Ventolin Neb Soln) 2.5 mg PRN Q4HRS PRN NEB SHORTNESS OF BREATH; Start 10/17/19 at 12:30 Enoxaparin Sodium (Lovenox 30mg Syringe) 30 mg Q24H SQ Last administered on 10/17/19at 13:53; Start 10/17/19 at 13:00; Stop 10/18/19 at 10:13; Status DC Famotidine (Pepcid Vial) 10 mg BID IVP Last administered on 10/20/19at 08:59; Start 10/17/19 at 13:00; Stop 10/20/19 at 11:09; Status DC Sodium Chloride (Normal Saline Flush) 3 ml QSHIFT PRN IV AFTER MEDS AND BLOOD DRAWS; Start 10/17/19 at 12:30 Metoprolol Tartrate (Lopressor Vial) 5 mg PRN Q6HRS PRN IVP TACHYCARDIA; Start 10/17/19 at 14:15 Cefepime HCl (Maxipime) 2 gm Q12HR IVP Last administered on 10/20/19at 08:59; Start 10/17/19 at 21:00; Stop 10/20/19 at 11:07; Status DC Daptomycin 490 mg/ Sodium Chloride 50 ml @ 100 mls/hr ONCE ONCE IV Last administered on 10/17/19at 16:26; Start 10/17/19 at 15:00; Stop 10/17/19 at 15:29; Status DC Vitamin A/Vitamin D (Vitamin A & D Ointment) 1 [place] PRN Q1HR PRN TP SKIN PROTECTION Last administered on 10/18/19at 16:14; Start 10/17/19 at 15:45 Dextrose/Sodium Chloride 1,000 ml @ 100 mls/hr Q10H IV Last administered on 10/20/19at 04:02; Start 10/17/19 at 16:15; Stop 10/20/19 at 11:27; Status DC Insulin Human Lispro (HumaLOG) 0-5 UNITS TIDWMEALS SQ Last administered on 10/17/19at 18:44; Start 10/17/19 at 18:30; Stop 10/18/19 at 04:12; Status DC Dextrose (Dextrose 50%-Water Syringe) 12.5 gm PRN Q15MIN PRN IV SEE COMMENTS; Start 10/17/19 at 18:30 Dextrose (Iv Dextrose 5%) 250 ml PRN Q15MIN PRN IV SEE COMMENTS; Start 10/17/19 at 18:30 Insulin Human Lispro (HumaLOG) 0-7 UNITS TIDWMEALS SQ ; Start 10/18/19 at 08:00; Stop 10/18/19 at 04:42; Status DC Insulin Human Lispro (HumaLOG) 0-7 UNITS Q6HRS SQ Last administered on 10/23/19at 06:26; Start 10/18/19 at 06:00 Vitamin A/Vitamin D (Vitamin A & D Ointment) 1 [place] BID PRN TP SKIN PROTECTION; Start 10/18/19 at 09:45 Vitamin A/Vitamin D (Vitamin A & D Ointment) 1 [place] PRN Q1HR PRN TP SKIN PROTECTION; Start 10/18/19 at 09:45; Stop 10/18/19 at 10:10; Status DC Enoxaparin Sodium (Lovenox 40mg Syringe) 40 mg Q24H SQ ; Start 10/18/19 at 13:00; Stop 10/18/19 at 13:39; Status DC Potassium Phosphate 15 mmol/ Sodium Chloride 255 ml @ 127.5 mls/ hr Q2H IV Last administered on 10/18/19at 13:36; Start 10/18/19 at 11:00; Stop 10/18/19 at 14:59; Status DC Ceftriaxone Sodium (Rocephin) 1 gm Q24H IVP Last administered on 10/23/19at 12:16; Start 10/20/19 at 12:00 Pantoprazole Sodium (PROTONIX VIAL for IV PUSH) 40 mg DAILYAC IVP Last administered on 10/23/19at 06:19; Start 10/21/19 at 07:30 Sodium Phosphate 15 mmol/Sodium Chloride 105 ml @ 105 mls/hr 1X ONCE IV Last administered on 10/20/19at 12:54; Start 10/20/19 at 12:00; Stop 10/20/19 at 12:59; Status DC Sodium Phosphate 15 mmol/Sodium Chloride 105 ml @ 105 mls/hr 1X ONCE IV Last administered on 10/21/19at 12:58; Start 10/21/19 at 12:00; Stop 10/21/19 at 12:59; Status DC Insulin Glargine (Lantus Syringe) 10 unit DAILY10 SQ Last administered on 10/23/19at 09:26; Start 10/22/19 at 14:00 Active Scripts Active Valtrex (Valacyclovir Hcl) 1,000 Mg Tablet 1 Tab PO TID Medrol (Methylprednisolone) 4 Mg Tab.ds.pk 1 Pkg PO UD Levemir (Insulin Detemir) 100 Unit/1 Ml Vial 15 Unit SQ DAILY 30 Days Keflex (Cephalexin) 500 Mg Capsule 1 Cap PO TID Novolog Flexpen (Insulin Aspart) 100 Unit/1 Ml Insuln.pen 0 Units SQ TIDACHC Aspirin Ec (Aspirin) 325 Mg Tablet.dr 325 Mg PO DAILYWBKFT Glucophage (Metformin Hcl) 500 Mg Tablet 500 Mg PO BIDWMEALS Reported Tresiba Flextouch U-100 (Insulin Degludec) 100 Unit/1 Ml Insuln.pen 24 Units SUBCUT HS Klor-Con 10 (Potassium Chloride) 10 Meq Tablet.er 10 Meq PO DAILY Donepezil Hcl 10 Mg Tablet 1 Tab PO DAILY Novolog Flexpen (Insulin Aspart) 100 Unit/1 Ml Insuln.pen 12 Unit SQ TIDWMEALS Vitamin D3 1,000 Unit Tablet (Ca Cmb No.1/Vit D3/B-6/Fa/B12) 1 Each Tablet 1 Each PO DAILY Losartan-Hctz 100-12.5 Mg Tab (Losartan/Hydrochlorothiazide) 1 Each Tablet 1 Each PO DAILY08 Pravachol (Pravastatin Sodium) 20 Mg Tablet 20 Mg PO HS Amlodipine Besylate 5 Mg Tablet 5 Mg PO DAILY08 Vitals/I & O Vital Sign - Last 24 Hours 10/22/19 10/22/19 10/22/19 10/22/19 14:57 19:00 20:05 23:00 Temp 97.9 97.8 98.1 97.9 97.8 98.1 Pulse 70 68 76 Resp 17 18 18 B/P (MAP) 140/54 (82) 149/60 (89) 154/75 (101) Pulse Ox 93 94 95 O2 Delivery Room Air Room Air Room Air Room Air 10/23/19 10/23/19 10/23/19 03:00 07:00 10:38 Temp 97.8 97.5 97.5 97.8 97.5 97.5 Pulse 74 74 72 Resp 18 18 18 B/P (MAP) 132/62 (85) 148/72 (97) 142/68 (92) Pulse Ox 95 96 94 O2 Delivery Room Air Room Air Room Air Intake and Output 10/22/19 10/22/19 10/23/19 15:00 23:00 07:00 Intake Total 0 ml 0 ml Output Total 150 ml 500 ml Balance -150 ml -500 ml Nutrition Consultation Dietary Evaluation: Recommendations by RD: Dietary education by RD, Increase Calorie Intake, PPN/TPN Comments: Continue w/PPN for short-term non-oral nutrition needs < 10 days REC cardiac/ADA diet w/glucerna supplements and MVI/Vit C (wound healing) pending ROUGHING MILL OPERATOR eval If NPO per ROUGHING MILL OPERATOR, recommend feeding tube for enteral nutrition pending family goals of care, would recommend TFs per following: Glucerna 1.2@goal rate 55 ml/hr w/100 ml water flushes q4 hrs w/Sergio BID and MVI (liquid) via feeding tube (wound healing) Expected Outcomes/Goals: day 7 PPN, rec < 10 days, Diet advancement or initiaiton of TFs within next 1-3 days Interpretation of weight loss: >1-2% in 1 week Malnutrition Findings: Food and Nutrition Intake (Sev: <50% est energy req 5days Weight Status: Appropriate Hemodynamically unstable?: No Is patient in severe pain?: No Is NPO status required?: Yes SHARAN POLANCO MD Oct 23, 2019 13:48
--- NOTE | 2019-10-23 14:04 | NUR ---
SW following. Discussed with RN. Pt is from home, has 2 sons who care for her, non verbal. RN advised of family meeting, which has not been scheduled. LAURO understanding of meeting is for family to have questions answered RE custodial feedings/ peg tube. Pt currently on PPN. SW awaiting further information for discharge planning. SW will continue to follow. Addendum: 10/23/19 at 1603 by JORDAN RESTREPO SW met with family, they have decided on hospice at a facility. They initially wanted [facility], however [facility] does not have any custodial beds currently. Family would like [facility] LAURO CHOWDHURY faxed facesheet to determine LTC benefits. Family agreeable to whichever hospice agency [facility] uses. LAURO verified with [facility], they use [facility]. SW awaiting confirmation of beds/ benefits at [facility]. RN notified.
--- NOTE | 2019-10-23 14:51 | PDOC ---
Subjective: Subjective: Family present - undecided re: pursuing feeding tube and "want to see how her health is" when/if platelets improve. Son (not DPOA) asks about leaving her on PPN detention. Daughter wants to know if she feels hunger. Objective: Vital Signs: Vital Signs Date Time Temp Pulse Resp B/P (MAP) Pulse Ox O2 Delivery O2 Flow Rate FiO2 10/23/19 10:38 97.5 72 18 142/68 (92) 94 Room Air 97.5 Labs: Laboratory Tests Test 10/22/19 16:49 10/22/19 21:07 10/23/19 00:29 10/23/19 06:20 Glucose (Fingerstick) 223 mg/dL 197 mg/dL 180 mg/dL 197 mg/dL Test 10/23/19 06:35 10/23/19 11:30 White Blood Count 4.2 x10^3/uL Red Blood Count 3.67 x10^6/uL Hemoglobin 12.0 g/dL Hematocrit 36.7 % Mean Corpuscular Volume 100 fL Mean Corpuscular Hemoglobin 33 pg Mean Corpuscular Hemoglobin Concent 33 g/dL Red Cell Distribution Width 18.2 % Platelet Count 54 x10^3/uL Neutrophils (%) (Auto) 70 % Lymphocytes (%) (Auto) 21 % Monocytes (%) (Auto) 7 % Eosinophils (%) (Auto) 2 % Basophils (%) (Auto) 0 % Neutrophils # (Auto) 3.0 x10^3/uL Lymphocytes # (Auto) 0.9 x10^3/uL Monocytes # (Auto) 0.3 x10^3/uL Eosinophils # (Auto) 0.1 x10^3/uL Basophils # (Auto) 0.0 x10^3/uL Sodium Level 145 mmol/L Potassium Level 4.7 mmol/L Chloride Level 115 mmol/L Carbon Dioxide Level 20 mmol/L Anion Gap 10 Blood Urea Nitrogen 40 mg/dL Creatinine 0.8 mg/dL Estimated GFR (Cockcroft-Gault) 70.1 Glucose Level 197 mg/dL Calcium Level 8.0 mg/dL Glucose (Fingerstick) 157 mg/dL PE: GEN: NAD LUNGS: CTAB HEART: RRR ABD: S/ND/NT NEURO/PSYCH: awake, holding 's hand A/P: Alzheimer's, dysphagia, thrombocytopenia UTI -- Will review w/ Dr. Alvarado. Hemodynamically unstable?: No Is patient in severe pain?: No Is NPO status required?: Yes GLENNA DILLON Oct 23, 2019 14:51
[2019-10-23 15:00] VITALS: BP 138/62
--- NOTE | 2019-10-23 15:06 | PDOC ---
PROGRESS NOTES Assessment Assessment IMPRESSION: UTI. Metabolic encephalopathy. Renal failure. Hyperglycemia. Hypernatremia. DM. HTN. HLD. Peripheral neuropathy. AD, since 2013. RECOMMENDATIONS/PLAN: Treat medical diseases. OT/PT. Discussed with her daughters at bedside on 10/23/19. Past Medical History Cardiovascular: HTN, Hyperlipidemia CENTRAL NERVOUS SYSTEM: Dementia (Alzheimer's disease), Periperal neuropathy, Other (left Mtz's palsy) Psych: Depression Renal/: UTI Endocrine: Diabetes Dermatology: Cellulitis Past Surgical History Lumpectomy) Family History Her father might have dementia. Social History Kulwinder, also is demented, no alcohol or tobacco, daughter is power of state attorney, one son is the main caregiver, I met with the other son who is in the room with her today Allergies No Known Drug Allergies (Unverified , 09/29/13) ROS Negative for fever, chills, weight loss, shortness of breath, chest pain, indigestion, hematochezia, melena, and dysuria. Full 14-point review of systems is negative. MEDICATIONS: Refer to MAR PHYSICAL EXAMINATION: General appearance in no acute distress. HEENT: Normocephalic and nontraumatic. Eyes, nose, ears, and throat are unremarkable. Hearing decrease. Neck is supple. No lymphadenopathy. No Crepitus. Cardiovascular: S1, S2, regular rate and rhythm. Pulmonary: Clear to auscultation bilaterally. Abdomen: Bowel sounds are positive. Abdomen is soft, nontender, and nondistended. Extremities: No rash, lesions, or edema. No restriction of range of motion NEUROLOGICAL EXAMINATION: Awake, Non verbal. Not oriented to time, place but may knew her daughters at bedside. PERRL. EOMI. CN: no focal findings. Muscle tone: Fluctuated. Muscle strength: 5- DTR: 2 UE, 0-1 at knee. Plantar reflex: Neutral response bilaterally Gait: not examined in bed. Sensory exam: withdraw response noted. No other cerebellar signs elicited. F-T-N test not performed dur to not follow commands. Objective Objective Vital Signs Date Time Temp Pulse Resp B/P (MAP) Pulse Ox O2 Delivery O2 Flow Rate FiO2 10/23/19 10:38 97.5 72 18 142/68 (92) 94 Room Air 97.5 Intake and Output 10/23/19 07:00 Intake Total 0 ml Output Total 650 ml Balance -650 ml Intake Oral 0 ml Output Urine Total 650 ml # Bowel Movements 2 Vitals Signs Vitals VS - Last 72 Hours, by Label Date Time Temp Pulse Resp B/P (MAP) Pulse Ox O2 Delivery O2 Flow Rate FiO2 10/23/19 10:38 97.5 72 18 142/68 (92) 94 Room Air 97.5 10/23/19 07:00 97.5 74 18 148/72 (97) 96 Room Air 97.5 10/23/19 03:00 97.8 74 18 132/62 (85) 95 Room Air 97.8 10/22/19 23:00 98.1 76 18 154/75 (101) 95 Room Air 98.1 10/22/19 20:05 Room Air 10/22/19 19:00 97.8 68 18 149/60 (89) 94 Room Air 97.8 10/22/19 14:57 97.9 70 17 140/54 (82) 93 Room Air 97.9 10/22/19 10:48 97.9 72 17 146/53 (84) 93 Room Air 97.9 10/22/19 08:00 Room Air 10/22/19 07:00 98.0 71 17 145/62 (89) 94 Room Air 98.0 Laboratory Laboratory Laboratory Tests Test 10/22/19 16:49 10/22/19 21:07 10/23/19 00:29 10/23/19 06:20 Glucose (Fingerstick) 223 mg/dL (70-99) 197 mg/dL (70-99) 180 mg/dL (70-99) 197 mg/dL (70-99) Test 10/23/19 06:35 10/23/19 11:30 White Blood Count 4.2 x10^3/uL (4.0-11.0) Red Blood Count 3.67 x10^6/uL (3.50-5.40) Hemoglobin 12.0 g/dL (12.0-15.5) Hematocrit 36.7 % (36.0-47.0) Mean Corpuscular Volume 100 fL (79-100) Mean Corpuscular Hemoglobin 33 pg (25-35) Mean Corpuscular Hemoglobin Concent 33 g/dL (31-37) Red Cell Distribution Width 18.2 % (11.5-14.5) Platelet Count 54 x10^3/uL (140-400) Neutrophils (%) (Auto) 70 % (31-73) Lymphocytes (%) (Auto) 21 % (24-48) Monocytes (%) (Auto) 7 % (0-9) Eosinophils (%) (Auto) 2 % (0-3) Basophils (%) (Auto) 0 % (0-3) Neutrophils # (Auto) 3.0 x10^3/uL (1.8-7.7) Lymphocytes # (Auto) 0.9 x10^3/uL (1.0-4.8) Monocytes # (Auto) 0.3 x10^3/uL (0.0-1.1) Eosinophils # (Auto) 0.1 x10^3/uL (0.0-0.7) Basophils # (Auto) 0.0 x10^3/uL (0.0-0.2) Sodium Level 145 mmol/L (136-145) Potassium Level 4.7 mmol/L (3.5-5.1) Chloride Level 115 mmol/L (98-107) Carbon Dioxide Level 20 mmol/L (21-32) Anion Gap 10 (6-14) Blood Urea Nitrogen 40 mg/dL (7-20) Creatinine 0.8 mg/dL (0.6-1.0) Estimated GFR (Cockcroft-Gault) 70.1 Glucose Level 197 mg/dL (70-99) Calcium Level 8.0 mg/dL (8.5-10.1) Glucose (Fingerstick) 157 mg/dL (70-99) Microbiology 10/17/19 Blood Culture - Final, Complete NO GROWTH AFTER 5 DAYS 10/16/19 Urine Culture - Final, Complete 10/16/19 Urine Culture Result 1 (KATHRYN) - Final, Complete 10/16/19 Antimicrobic Susceptibility - Final, Complete Comment Review of Relevant I have reviewed the following items karrie (where applicable) has been applied. KEVIN RAMOS MD Oct 23, 2019 15:06
--- NOTE | 2019-10-23 16:51 | NUR ---
Wound Care: Patient seen per Wound Care follow up for coccyx wound. Pt has stage III to coccyx. Wound cleansed and assessed. Recommendations to continue A&D ointment as previously ordered. Patient turned to right side with wedge and heels floated using pillows. Patient is on a p-500 bed. Family at bedside. Educated on TQ2. Dressing change instructions left in room. Will follow patient regarding wound care. Bed lowered and call light in reach. Alarm in place.
[2019-10-23 19:00] VITALS: BP 144/68
[2019-10-23 23:00] VITALS: BP 145/73
[2019-10-24] MEDS: INSULIN LISPRO 300 UNITS/3 ML VIAL. SQ SCH ×3 (00:42→12:48)
[2019-10-24] MEDS: AA 4.25 %/CALCIUM/LYTES/D5W 1,000 ML IV SCH ×2 (00:43→05:45)
[2019-10-24 03:00] VITALS: BP 131/67
[2019-10-24 07:00] VITALS: BP 139/59
[2019-10-24] MEDS: PANTOPRAZOLE IV PUSH 40 MG VIAL. IVP SCH (07:30)
--- NOTE | 2019-10-24 08:24 | PDOC ---
PROGRESS NOTES Chief Complaint Chief Complaint Hypernatremia acute renal failure Thrombocytopenia Severe CATARINO UTI Leukocytosis PAFIB dehydration Mental status alteration advanced dementia dysphagia UTI ELEVATED TROPONIN I History of Present Illness History of Present Illness Ms Chiu is a 74-year-old female with severe Alzheimer dementia who apparently developed increased weakness for several days. She is cared for at home by her son. She is nonverbal. She was brought to [facility] secondary to increased weakness. Last evening on arrival, she had a white count of 11.2 with 89% segs. Creatinine was at 2.6. Her sodium was 170. Urine was concerning for urinary tract infection with e. coli sensitive to rocephin and admitted to the Intensive Care Unit. Currently, the patient is alert, but she is nonverbal. She has been afebrile since her presentation. Seen by ID, GI, nephrology, neurology, cardiology in consultation. Completed course of rocephin for UTI. CT head negative for acute intracranial pathology and despite improvement in electrolytes she continues not to eat or show interest in food. 10/23: Patient is not verbally responding, appears to make meaningful eye contact, but does not follow commands. Labs have improved. Long discussion bedside with family about hospice care to which they are amenable. Patient not verbally responding, holding a stuffed kat. Family bedside comforting patient. Comfort measures initiated per family wishes. Plan: Hospice referral, they prefer at [facility] - looking at [facility] and [facility] Cont current meds while in house, will d/c ppn on d/c, family agrees Vitals Vitals Vital Signs Date Time Temp Pulse Resp B/P (MAP) Pulse Ox O2 Delivery O2 Flow Rate FiO2 10/24/19 03:00 99.0 81 18 131/67 (88) 93 99.0 10/23/19 20:00 Room Air Physical Exam Physical Exam GENERAL: Lying down, awake, calm, noncommunicative HEENT: Pupils equal and reactive. Normal conjunctivae. Oral cavity very dry NECK: Without JVD. LUNGS: Decreased at the bases. HEART: S1, S2. ABDOMEN: Soft. No guarding : Saleh in place EXTREMITIES: Without clubbing or cyanosis. No gross edema. SKIN: Warm to touch without generalized signs of rash. NEUROLOGIC: Nonresponsive to questions, no follow commands PIV General: Alert, No acute distress Heart: Normal S1, Normal S2 Lungs: Clear, Other (grade II systolic ejection murmur ) Abdomen: Soft, No tenderness Extremities: No cyanosis, No edema Skin: No breakdown, No significant lesion Labs LABS Laboratory Tests Test 10/23/19 11:30 10/24/19 00:34 10/24/19 06:05 10/24/19 08:02 Glucose (Fingerstick) 157 mg/dL (70-99) 216 mg/dL (70-99) 193 mg/dL (70-99) 193 mg/dL (70-99) Assessment and Plan Assessmemt and Plan Problems Medical Problems: (1) Mental status alteration Status: Acute Comment Review of Relevant I have reviewed the following items karrie (where applicable) has been applied. Labs Laboratory Tests Test 10/22/19 12:31 10/22/19 16:49 10/22/19 21:07 10/23/19 00:29 Glucose (Fingerstick) 226 mg/dL (70-99) 223 mg/dL (70-99) 197 mg/dL (70-99) 180 mg/dL (70-99) Test 10/23/19 06:20 10/23/19 06:35 10/23/19 11:30 10/24/19 00:34 Glucose (Fingerstick) 197 mg/dL (70-99) 157 mg/dL (70-99) 216 mg/dL (70-99) White Blood Count 4.2 x10^3/uL (4.0-11.0) Red Blood Count 3.67 x10^6/uL (3.50-5.40) Hemoglobin 12.0 g/dL (12.0-15.5) Hematocrit 36.7 % (36.0-47.0) Mean Corpuscular Volume 100 fL (79-100) Mean Corpuscular Hemoglobin 33 pg (25-35) Mean Corpuscular Hemoglobin Concent 33 g/dL (31-37) Red Cell Distribution Width 18.2 % (11.5-14.5) Platelet Count 54 x10^3/uL (140-400) Neutrophils (%) (Auto) 70 % (31-73) Lymphocytes (%) (Auto) 21 % (24-48) Monocytes (%) (Auto) 7 % (0-9) Eosinophils (%) (Auto) 2 % (0-3) Basophils (%) (Auto) 0 % (0-3) Neutrophils # (Auto) 3.0 x10^3/uL (1.8-7.7) Lymphocytes # (Auto) 0.9 x10^3/uL (1.0-4.8) Monocytes # (Auto) 0.3 x10^3/uL (0.0-1.1) Eosinophils # (Auto) 0.1 x10^3/uL (0.0-0.7) Basophils # (Auto) 0.0 x10^3/uL (0.0-0.2) Sodium Level 145 mmol/L (136-145) Potassium Level 4.7 mmol/L (3.5-5.1) Chloride Level 115 mmol/L (98-107) Carbon Dioxide Level 20 mmol/L (21-32) Anion Gap 10 (6-14) Blood Urea Nitrogen 40 mg/dL (7-20) Creatinine 0.8 mg/dL (0.6-1.0) Estimated GFR (Cockcroft-Gault) 70.1 Glucose Level 197 mg/dL (70-99) Calcium Level 8.0 mg/dL (8.5-10.1) Free Triiodothyronine (T3) pg/mL 1.23 pg/mL (2.18-3.98) Test 10/24/19 06:05 10/24/19 08:02 Glucose (Fingerstick) 193 mg/dL (70-99) 193 mg/dL (70-99) Laboratory Tests Test 10/23/19 11:30 10/24/19 00:34 10/24/19 06:05 10/24/19 08:02 Glucose (Fingerstick) 157 mg/dL (70-99) 216 mg/dL (70-99) 193 mg/dL (70-99) 193 mg/dL (70-99) Microbiology 10/17/19 Blood Culture - Final, Complete NO GROWTH AFTER 5 DAYS 10/16/19 Urine Culture - Final, Complete 10/16/19 Urine Culture Result 1 (KATHRYN) - Final, Complete 10/16/19 Antimicrobic Susceptibility - Final, Complete Medications Current Medications Potassium Chloride/Dextrose/ Sod Cl 1,000 ml @ 75 mls/hr 1X ONCE IV Last administered on 10/17/19at 00:40; Start 10/16/19 at 23:30; Stop 10/17/19 at 12:49; Status DC Ceftriaxone Sodium (Rocephin) 1 gm 1X ONCE IVP Last administered on 10/17/19at 00:42; Start 10/16/19 at 23:45; Stop 10/16/19 at 23:46; Status DC Ondansetron HCl (Zofran) 4 mg PRN Q8HRS PRN IV NAUSEA/VOMITING; Start 10/17/19 at 02:30; Stop 10/18/19 at 02:29; Status DC Amino Acids/ Electrolytes/ Dextrose 1,000 ml @ 80 mls/hr [id number] IV Last administered on 10/24/19at 00:43; Start 10/17/19 at 11:15 Ceftriaxone Sodium (Rocephin) 1 gm Q24H IVP Last administered on 10/17/19at 12:06; Start 10/17/19 at 11:00; Stop 10/17/19 at 14:44; Status DC Sodium Chloride (Normal Saline Flush) 3 ml QSHIFT PRN IV AFTER MEDS AND BLOOD DRAWS; Start 10/17/19 at 12:30; Status Cancel Ondansetron HCl (Zofran) 2 mg PRN Q4HRS PRN IV NAUSEA/VOMITING; Start 10/17/19 at 12:30 Acetaminophen (Tylenol Supp) 650 mg PRN Q4HRS PRN PA TEMP OVER 100.4F OR MILD PAIN; Start 10/17/19 at 12:30 Docusate Sodium (Colace) 100 mg PRN BID PRN PO CONSTIPATION; Start 10/17/19 at 12:30 Albuterol Sulfate (Ventolin Neb Soln) 2.5 mg PRN Q4HRS PRN NEB SHORTNESS OF BREATH; Start 10/17/19 at 12:30 Enoxaparin Sodium (Lovenox 30mg Syringe) 30 mg Q24H SQ Last administered on 10/17/19at 13:53; Start 10/17/19 at 13:00; Stop 10/18/19 at 10:13; Status DC Famotidine (Pepcid Vial) 10 mg BID IVP Last administered on 10/20/19at 08:59; Start 10/17/19 at 13:00; Stop 10/20/19 at 11:09; Status DC Sodium Chloride (Normal Saline Flush) 3 ml QSHIFT PRN IV AFTER MEDS AND BLOOD DRAWS; Start 10/17/19 at 12:30 Metoprolol Tartrate (Lopressor Vial) 5 mg PRN Q6HRS PRN IVP TACHYCARDIA; Start 10/17/19 at 14:15 Cefepime HCl (Maxipime) 2 gm Q12HR IVP Last administered on 10/20/19at 08:59; Start 10/17/19 at 21:00; Stop 10/20/19 at 11:07; Status DC Daptomycin 490 mg/ Sodium Chloride 50 ml @ 100 mls/hr ONCE ONCE IV Last administered on 10/17/19at 16:26; Start 10/17/19 at 15:00; Stop 10/17/19 at 15:29; Status DC Vitamin A/Vitamin D (Vitamin A & D Ointment) 1 [place] PRN Q1HR PRN TP SKIN PROTECTION Last administered on 10/18/19at 16:14; Start 10/17/19 at 15:45 Dextrose/Sodium Chloride 1,000 ml @ 100 mls/hr Q10H IV Last administered on 10/20/19at 04:02; Start 10/17/19 at 16:15; Stop 10/20/19 at 11:27; Status DC Insulin Human Lispro (HumaLOG) 0-5 UNITS TIDWMEALS SQ Last administered on 10/17/19at 18:44; Start 10/17/19 at 18:30; Stop 10/18/19 at 04:12; Status DC Dextrose (Dextrose 50%-Water Syringe) 12.5 gm PRN Q15MIN PRN IV SEE COMMENTS; Start 10/17/19 at 18:30 Dextrose (Iv Dextrose 5%) 250 ml PRN Q15MIN PRN IV SEE COMMENTS; Start 10/17/19 at 18:30 Insulin Human Lispro (HumaLOG) 0-7 UNITS TIDWMEALS SQ ; Start 10/18/19 at 08:00; Stop 10/18/19 at 04:42; Status DC Insulin Human Lispro (HumaLOG) 0-7 UNITS Q6HRS SQ Last administered on 10/24/19at 06:08; Start 10/18/19 at 06:00 Vitamin A/Vitamin D (Vitamin A & D Ointment) 1 [place] BID PRN TP SKIN PROTECTION; Start 10/18/19 at 09:45; Stop 10/23/19 at 14:55; Status DC Vitamin A/Vitamin D (Vitamin A & D Ointment) 1 [place] PRN Q1HR PRN TP SKIN PROTECTION; Start 10/18/19 at 09:45; Stop 10/18/19 at 10:10; Status DC Enoxaparin Sodium (Lovenox 40mg Syringe) 40 mg Q24H SQ ; Start 10/18/19 at 13:0 0; Stop 10/18/19 at 13:39; Status DC Potassium Phosphate 15 mmol/ Sodium Chloride 255 ml @ 127.5 mls/ hr Q2H IV Last administered on 10/18/19at 13:36; Start 10/18/19 at 11:00; Stop 10/18/19 at 14:59; Status DC Ceftriaxone Sodium (Rocephin) 1 gm Q24H IVP Last administered on 10/23/19at 12:16; Start 10/20/19 at 12:00 Pantoprazole Sodium (PROTONIX VIAL for IV PUSH) 40 mg DAILYAC IVP Last administered on 10/23/19at 06:19; Start 10/21/19 at 07:30 Sodium Phosphate 15 mmol/Sodium Chloride 105 ml @ 105 mls/hr 1X ONCE IV Last administered on 10/20/19at 12:54; Start 10/20/19 at 12:00; Stop 10/20/19 at 12:59; Status DC Sodium Phosphate 15 mmol/Sodium Chloride 105 ml @ 105 mls/hr 1X ONCE IV Last administered on 10/21/19at 12:58; Start 10/21/19 at 12:00; Stop 10/21/19 at 12:59; Status DC Insulin Glargine (Lantus Syringe) 10 unit DAILY10 SQ Last administered on 10/23/19at 09:26; Start 10/22/19 at 14:00 Active Scripts Active Valtrex (Valacyclovir Hcl) 1,000 Mg Tablet 1 Tab PO TID Medrol (Methylprednisolone) 4 Mg Tab.ds.pk 1 Pkg PO UD Levemir (Insulin Detemir) 100 Unit/1 Ml Vial 15 Unit SQ DAILY 30 Days Keflex (Cephalexin) 500 Mg Capsule 1 Cap PO TID Novolog Flexpen (Insulin Aspart) 100 Unit/1 Ml Insuln.pen 0 Units SQ TIDACHC Aspirin Ec (Aspirin) 325 Mg Tablet. 325 Mg PO DAILYWBKFT Glucophage (Metformin Hcl) 500 Mg Tablet 500 Mg PO BIDWMEALS Reported Tresiba Flextouch U-100 (Insulin Degludec) 100 Unit/1 Ml Insuln.pen 24 Units SUBCUT HS Klor-Con 10 (Potassium Chloride) 10 Meq Tablet.er 10 Meq PO DAILY Donepezil Hcl 10 Mg Tablet 1 Tab PO DAILY Novolog Flexpen (Insulin Aspart) 100 Unit/1 Ml Insuln.pen 12 Unit SQ TIDWMEALS Vitamin D3 1,000 Unit Tablet (Ca Cmb No.1/Vit D3/B-6/Fa/B12) 1 Each Tablet 1 Each PO DAILY Losartan-Hctz 100-12.5 Mg Tab (Losartan/Hydrochlorothiazide) 1 Each Tablet 1 Each PO DAILY08 Pravachol (Pravastatin Sodium) 20 Mg Tablet 20 Mg PO HS Amlodipine Besylate 5 Mg Tablet 5 Mg PO DAILY08 Vitals/I & O Vital Sign - Last 24 Hours 10/23/19 10/23/19 10/23/19 10/23/19 10:38 15:00 19:00 20:00 Temp 97.5 97.2 97.8 97.5 97.2 97.8 Pulse 72 70 70 Resp 18 18 16 B/P (MAP) 142/68 (92) 138/62 (87) 144/68 (93) Pulse Ox 94 94 95 O2 Delivery Room Air Room Air Room Air 10/23/19 10/24/19 23:00 03:00 Temp 99.2 99.0 99.2 99.0 Pulse 94 81 Resp 18 18 B/P (MAP) 145/73 (97) 131/67 (88) Pulse Ox 95 93 Nutrition Consultation Dietary Evaluation: Recommendations by RD: Dietary education by RD, Increase Calorie Intake, PPN/TPN Comments: Continue w/PPN for short-term non-oral nutrition needs < 10 days REC cardiac/ADA diet w/glucerna supplements and MVI/Vit C (wound healing) pending STRUCTURAL ENGINEER eval If NPO per STRUCTURAL ENGINEER, recommend feeding tube for enteral nutrition pending family goals of care, would recommend TFs per following: Glucerna 1.2@goal rate 55 ml/hr w/100 ml water flushes q4 hrs w/Sergio BID and MVI (liquid) via feeding tube (wound healing) Expected Outcomes/Goals: day 7 PPN, rec < 10 days, Diet advancement or initiaiton of TFs within next 1-3 days Interpretation of weight loss: >1-2% in 1 week Malnutrition Findings: Food and Nutrition Intake (Sev: <50% est energy req 5days Weight Status: Appropriate Hemodynamically unstable?: No Is patient in severe pain?: No Is NPO status required?: Yes SHARAN POLANCO MD Oct 24, 2019 08:24
--- NOTE | 2019-10-24 09:29 | PDOC ---
Subjective: Subjective: Family indicates plans for Hospice at a care facility on discharge. Objective: Vital Signs: Vital Signs Date Time Temp Pulse Resp B/P (MAP) Pulse Ox O2 Delivery O2 Flow Rate FiO2 10/24/19 07:00 98.3 90 17 139/59 (85) 92 Nasal Cannula 98.3 Labs: Laboratory Tests Test 10/23/19 11:30 10/24/19 00:34 10/24/19 06:05 10/24/19 08:02 Glucose (Fingerstick) 157 mg/dL (70-99) 216 mg/dL (70-99) 193 mg/dL (70-99) 193 mg/dL (70-99) PE: GEN: NAD LUNGS: CTAB HEART: RRR ABD: S/ND/NT NEURO/PSYCH: awake, doesn't verbalize A/P: Alzheimer's, dysphagia -- Plans as above. Hemodynamically unstable?: No Is patient in severe pain?: No Is NPO status required?: Yes GLENNA DILLON Oct 24, 2019 09:29
[2019-10-24] MEDS: INSULIN GLARGINE SYRINGE. SQ SCH (09:41)
--- NOTE | 2019-10-24 10:14 | NUR ---
LAURO following. Discussed with RN. LAURO spoke with R, pt does not have any medicaid benefits. LAURO notified pt's family they are going to discuss whether to pay the $325 a day for a private room at [facility] or take pt home with hospice. LAURO will continue to follow. JENNIFER notified. Addendum: 10/24/19 at 1416 by JORDAN RESTREPO Family questioned cost of private pay for [facility] (LAURO provided cost of $250 a day for private, $235 for semi private). Family wanted referral sent to [facility]. LAURO faxed referral, [facility] preferred hospice company is [facility] - LAURO faxed hospice referral to [facility]. Pt accepted for private pay residential care with [facility] at [facility]. Awaiting final equipment delivery before pt can discharge to [facility]. Dr. Leiva wrote signed note stating "life limiting illness with 6 months or less to live". RN notified. Addendum: 10/24/19 at 1625 by JORDAN RESTREPO Pt transferring to [facility] between [phone]. RN and family notified.
[2019-10-24 11:00] VITALS: BP 134/58
[2019-10-24] MEDS: cefTRIAXone IV Push 1 GM VIAL. IVP SCH (12:39)
[2019-10-24] MEDS ORDERED: MORPHINE SULFATE 20 MG/ML CONC SOLUTION. SL PRN (12:45)
[2019-10-24] MEDS ORDERED: ACETAMINOPHEN 650 MG SUPP.RECT. PR PRN (12:45)
[2019-10-24] MEDS ORDERED: LORazepam INTENSOL 2 MG/ML ORAL.CONC SL PRN (12:45)
[2019-10-24] MEDS ORDERED: ATROPINE 1% OPHTH SOLUTION 5ML BOTTLE. SL PRN (12:45)
[2019-10-24] MEDS ORDERED: MORP100S3 SL (13:57)
[2019-10-24] MEDS ORDERED: LORA2ORA7 SL (13:57)
[2019-10-24] MEDS ORDERED: ATRO2DRO3 SL (13:57)
--- NOTE | 2019-10-24 14:02 | SNU/HH DC ---
DISCHARGE ORDERS DISCHARGE INFORMATION: DISCHARGE DATE: Oct 24, 2019 FINAL DIAGNOSIS Problems Medical Problems: (1) Mental status alteration Status: Acute CONDITION ON DISCHARGE: Stable CODE STATUS: Code Status: DNR/DNI HOSPICE: HOSPICE: Yes HOSPICE EVAL & TREAT: Yes POST DISCHARGE ORDERS: ACTIVITY ORDERS: Activity as tolerated WEIGHT BEARING STATUS: As tolerated DIET AFTER DISCHARGE: Regular TREATMENT/EQUIPMENT ORDERS: ADAPTIVE EQUIPMENT NEEDED: None DISCHARGE MEDICATIONS: Home Meds Active Scripts Atropine Sulfate (Atropine Sulfate) 2 Ml Drops, 1 DROP SL PRN Q2HR PRN for SECRETIONS for 30 Days, #10 ML Prov:SHARAN POLANCO MD 10/24/19 Morphine Sulfate (MORPHINE SULFATE) 100 Mg/5 Ml Solution, 5 MG SL PRN Q3HRS PRN for PAIN for 30 Days, #30 ML Prov:SHARAN POLANCO MD 10/24/19 Lorazepam (LORAZEPAM INTENSOL) 2 Mg/1 Ml Oral.conc, 2 MG SL PRN Q6HRS PRN for ANXIETY / AGITATION for 30 Days, #30 ML Prov:SHARAN POLANCO MD 10/24/19 Discontinued Reported Medications Insulin Degludec (Tresiba Flextouch U-100) 100 Unit/1 Ml Insuln.pen, 24 UNITS SUBCUT HS 08/22/17 Potassium Chloride (KLOR-CON 10) 10 Meq Tablet.er, 10 MEQ PO DAILY 08/22/17 Donepezil Hcl (DONEPEZIL HCL) 10 Mg Tablet, 1 TAB PO DAILY, #90 TAB 1 Refill 08/22/17 Insulin Aspart (NOVOLOG FLEXPEN) 100 Unit/1 Ml Insuln.pen, 12 UNIT SQ TIDWMEALS, SYR 08/22/17 Ca Cmb No.1/Vit D3/B-6/Fa/B12 (VITAMIN D3 1,000 UNIT TABLET) 1 Each Tablet, 1 EACH PO DAILY 10/02/13 Losartan/Hydrochlorothiazide (LOSARTAN-HCTZ 100-12.5 MG TAB) 1 Each Tablet, 1 EACH PO DAILY08 10/02/13 Pravastatin Sodium (PRAVACHOL) 20 Mg Tablet, 20 MG PO HS 10/02/13 Amlodipine Besylate (AMLODIPINE BESYLATE) 5 Mg Tablet, 5 MG PO DAILY08 10/02/13 Discontinued Scripts Valacyclovir Hcl (VALTREX) 1,000 Mg Tablet, 1 TAB PO TID, #21 TAB Prov:MINDI COLLINS MD 08/23/17 Methylprednisolone (MEDROL) 4 Mg Tab.ds.pk, 1 PKG PO UD, #1 PKG Prov:MINDI COLLINS MD 08/23/17 Insulin Detemir (LEVEMIR) 100 Unit/1 Ml Vial, 15 UNIT SQ DAILY for 30 Days, #1 VIAL Prov:MINDI COLLINS MD 05/25/17 Cephalexin (KEFLEX) 500 Mg Capsule, 1 CAP PO TID, #21 CAP Prov:MINDI COLLINS MD 05/25/17 Insulin Aspart (NOVOLOG FLEXPEN) 100 Unit/1 Ml Insuln.pen, 0 UNITS SQ TIDACHC, #1 Prov:MINDI COLLINS MD 06/16/16 Aspirin (ASPIRIN EC) 325 Mg Tablet.dr, 325 MG PO DAILYWBKFT, #30 Prov:MINDI COLLINS MD 06/16/16 Metformin Hcl (GLUCOPHAGE) 500 Mg Tablet, 500 MG PO BIDWMEALS, #60 Prov:MINDI COLLINS MD 06/16/16 SHARAN POLANCO MD Oct 24, 2019 14:02
--- NOTE | 2019-10-24 14:04 | PDOC3 ---
Discharge Summary Visit Information Date of Admission: Oct 16, 2019 Date of Discharge: Oct 24, 2019 Admitting Diagnosis: Acute Encephalopathy Final Diagnosis Problems Medical Problems: (1) Mental status alteration Status: Acute Brief Hospital Course Allergies Allergies Coded Allergies Type Severity Reaction Last Updated Verified No Known Drug Allergies 09/29/13 No Vital Signs Vital Signs Date Time Temp Pulse Resp B/P (MAP) Pulse Ox O2 Delivery O2 Flow Rate FiO2 10/24/19 11:00 98.0 84 17 134/58 (83) 92 Room Air 98.0 Lab Results Laboratory Tests Test 10/22/19 16:49 10/22/19 21:07 10/23/19 00:29 10/23/19 06:20 Glucose (Fingerstick) 223 mg/dL (70-99) 197 mg/dL (70-99) 180 mg/dL (70-99) 197 mg/dL (70-99) Test 10/23/19 06:35 10/23/19 11:30 10/24/19 00:34 10/24/19 06:05 White Blood Count 4.2 x10^3/uL (4.0-11.0) Red Blood Count 3.67 x10^6/uL (3.50-5.40) Hemoglobin 12.0 g/dL (12.0-15.5) Hematocrit 36.7 % (36.0-47.0) Mean Corpuscular Volume 100 fL (79-100) Mean Corpuscular Hemoglobin 33 pg (25-35) Mean Corpuscular Hemoglobin Concent 33 g/dL (31-37) Red Cell Distribution Width 18.2 % (11.5-14.5) Platelet Count 54 x10^3/uL (140-400) Neutrophils (%) (Auto) 70 % (31-73) Lymphocytes (%) (Auto) 21 % (24-48) Monocytes (%) (Auto) 7 % (0-9) Eosinophils (%) (Auto) 2 % (0-3) Basophils (%) (Auto) 0 % (0-3) Neutrophils # (Auto) 3.0 x10^3/uL (1.8-7.7) Lymphocytes # (Auto) 0.9 x10^3/uL (1.0-4.8) Monocytes # (Auto) 0.3 x10^3/uL (0.0-1.1) Eosinophils # (Auto) 0.1 x10^3/uL (0.0-0.7) Basophils # (Auto) 0.0 x10^3/uL (0.0-0.2) Sodium Level 145 mmol/L (136-145) Potassium Level 4.7 mmol/L (3.5-5.1) Chloride Level 115 mmol/L (98-107) Carbon Dioxide Level 20 mmol/L (21-32) Anion Gap 10 (6-14) Blood Urea Nitrogen 40 mg/dL (7-20) Creatinine 0.8 mg/dL (0.6-1.0) Estimated GFR (Cockcroft-Gault) 70.1 Glucose Level 197 mg/dL (70-99) Calcium Level 8.0 mg/dL (8.5-10.1) Free Triiodothyronine (T3) pg/mL 1.23 pg/mL (2.18-3.98) Glucose (Fingerstick) 157 mg/dL (70-99) 216 mg/dL (70-99) 193 mg/dL (70-99) Test 10/24/19 08:02 10/24/19 12:38 Glucose (Fingerstick) 193 mg/dL (70-99) 219 mg/dL (70-99) Laboratory Tests Test 10/24/19 00:34 10/24/19 06:05 10/24/19 08:02 10/24/19 12:38 Glucose (Fingerstick) 216 mg/dL (70-99) 193 mg/dL (70-99) 193 mg/dL (70-99) 219 mg/dL (70-99) Brief Hospital Course Ms Chiu is a 74-year-old female with severe Alzheimer dementia who apparently developed increased weakness for several days. She is cared for at home by her son. She is nonverbal. She was brought to [facility] secondary to increased weakness. Last evening on arrival, she had a white count of 11.2 with 89% segs. Creatinine was at 2.6. Her sodium was 170. Urine was concerning for urinary tract infection with e. coli sensitive to rocephin and admitted to the Intensive Care Unit. Currently, the patient is alert, but she is nonverbal. She has been afebrile since her presentation. Seen by ID, GI, nephrology, neurology, cardiology in consultation. Completed course of rocephin for UTI. CT head negative for acute intracranial pathology and despite improvement in electrolytes she continues not to eat or show interest in food. 10/23: Patient is not verbally responding, appears to make meaningful eye contact, but does not follow commands. Labs have improved. Long discussion bedside with family about hospice care to which they are amenable. Patient not verbally responding, holding a stuffed kat. Family bedside comforting patient. Comfort measures initiated per family wishes. Problem list: Chief Complaint Hypernatremia acute renal failure Thrombocytopenia Severe CATARINO UTI Leukocytosis PAFIB dehydration Mental status alteration advanced dementia dysphagia UTI ELEVATED TROPONIN I Plan: Hospice referral, they prefer at [facility] - looking at [facility] and [facility] Cont current meds while in house, will d/c ppn on d/c, family agrees Greater than 30 minutes spent on d/c Discharge Information Condition at Discharge: Stable Follow Up: Weeks Disposition/Orders: [facility] Scheduled PRN Atropine Sulfate (Atropine Sulfate) 2 Ml Drops, 1 DROP SL PRN Q2HR PRN for SECRETIONS for 30 Days, #10 Prescribed by: SHARAN POLANCO MD on 10/24/19 1357 Lorazepam (Lorazepam Intensol) 2 Mg/1 Ml Oral.conc, 2 MG SL PRN Q6HRS PRN for ANXIETY / AGITATION for 30 Days, #30 Prescribed by: SHARAN POLANCO MD on 10/24/19 1357 Morphine Sulfate (Morphine Sulfate) 100 Mg/5 Ml Solution, 5 MG SL PRN Q3HRS PRN for PAIN for 30 Days, #30 Prescribed by: SHARAN POLANCO MD on 10/24/19 1357 Discontinued Medications Amlodipine Besylate (Amlodipine Besylate) 5 Mg Tablet, 5 MG PO DAILY08, (Reported) Entered as Reported by: ONIEL FUNES on 10/02/13 0950 Aspirin (Aspirin Ec) 325 Mg Tablet., 325 MG PO DAILYWBKFT, #30 Prescribed by: MINDI COLLINS on 06/16/16 1007 Ca Cmb No.1/Vit D3/B-6/Fa/B12 (Vitamin D3 1,000 Unit Tablet) 1 Each Tablet, 1 EACH PO DAILY, (Reported) Entered as Reported by: ONIEL FUNES on 10/02/13 0951 Cephalexin (Keflex) 500 Mg Capsule, 1 CAP PO TID, #21 Prescribed by: MINDI COLLINS on 05/25/17 1025 Donepezil Hcl (Donepezil Hcl) 10 Mg Tablet, 1 TAB PO DAILY, #90 Ref 1 (Reported) Entered as Reported by: DERRICK SIN on 08/22/172116 Insulin Aspart (Novolog Flexpen) 100 Unit/1 Ml Insuln.pen, 0 UNITS SQ TIDACHC, #1 Prescribed by: MINDI COLLINS on 06/16/16 1007 Insulin Aspart (Novolog Flexpen) 100 Unit/1 Ml Insuln.pen, 12 UNIT SQ TIDWMEALS, (Reported) Entered as Reported by: DERRICK SIN on 08/22/172116 Insulin Degludec (Tresiba Flextouch U-100) 100 Unit/1 Ml Insuln.pen, 24 UNITS SUBCUT HS, (Reported) Entered as Reported by: DERRICK SIN on 08/22/172116 Insulin Detemir (Levemir) 100 Unit/1 Ml Vial, 15 UNIT SQ DAILY for 30 Days, #1 Prescribed by: MINDI COLLINS on 05/25/17 1025 Losartan/Hydrochlorothiazide (Losartan-Hctz 100-12.5 Mg Tab) 1 Each Tablet, 1 EACH PO DAILY08, (Reported) Entered as Reported by: ONIEL FUNES on 10/02/13 0950 Metformin Hcl (Glucophage) 500 Mg Tablet, 500 MG PO BIDWMEALS, #60 Prescribed by: MINDI COLLINS on 06/16/16 1007 Methylprednisolone (Medrol) 4 Mg Tab.ds.pk, 1 PKG PO UD, #1 Prescribed by: MINDI COLLINS on 08/23/17 1427 Potassium Chloride (Klor-Con 10) 10 Meq Tablet.er, 10 MEQ PO DAILY, (Reported) Entered as Reported by: DERRICK SIN on 08/22/172116 Pravastatin Sodium (Pravachol) 20 Mg Tablet, 20 MG PO HS, (Reported) Entered as Reported by: ONIEL FUNES on 10/02/13 0950 Valacyclovir Hcl (Valtrex) 1,000 Mg Tablet, 1 TAB PO TID, #21 Prescribed by: MINDI COLLINS on 08/23/17 1427 Hemodynamically unstable?: No Is patient in severe pain?: No Is NPO status required?: Yes SHARAN POLANCO MD Oct 24, 2019 14:04
[2019-10-24 14:43] VITALS: BP 130/54
--- NOTE | 2019-10-24 15:37 | PDOC ---
PROGRESS NOTES Subjective Subjective HPI - f/u of Thrombocytopenia ROS - no bleed Objective Objective Vital Signs Date Time Temp Pulse Resp B/P (MAP) Pulse Ox O2 Delivery O2 Flow Rate FiO2 10/24/19 14:43 98.0 80 17 130/54 (79) 92 Room Air 98.0 Intake and Output 10/24/19 07:00 # Voids 3 # Bowel Movements 4 Physical Exam Heart: Normal S1, Normal S2 General: Alert Lungs: Clear to auscultation Assessment Assessment Problems Medical Problems: (1) Mental status alteration Status: Acute IMPRESSION AND PLAN: 1. Thrombocytopenia. Review of the old records indicates that the patient has chronic thrombocytopenia. I suspect the current worsening thrombocytopenia is consistent with underlying urinary tract infection. This reactive thrombocytopenia should get better as the infection is being treated. There is no evidence of anemia. There is no evidence to suggest DIC or TTP. I will continue to monitor platelet counts. Monitor for bleeding. I discussed with registered nurse. Plt better at 54 on 10/23/19, no bleeding. I d/w dtr. Monitor cbc by PCP prn. 2. Urinary tract infection. Continue antibiotics per Infectious Diseases. 3. Alzheimer's dementia. She underwent a CT scan of the head on 10/16/2019 and that revealed chronic ischemic changes and no acute abnormalities. Appreciate Neurology consultation. Comment Review of Relevant I have reviewed the following items karrie (where applicable) has been applied. Labs Laboratory Tests Test 10/22/19 16:49 10/22/19 21:07 10/23/19 00:29 10/23/19 06:20 Glucose (Fingerstick) 223 mg/dL (70-99) 197 mg/dL (70-99) 180 mg/dL (70-99) 197 mg/dL (70-99) Test 10/23/19 06:35 10/23/19 11:30 10/24/19 00:34 10/24/19 06:05 White Blood Count 4.2 x10^3/uL (4.0-11.0) Red Blood Count 3.67 x10^6/uL (3.50-5.40) Hemoglobin 12.0 g/dL (12.0-15.5) Hematocrit 36.7 % (36.0-47.0) Mean Corpuscular Volume 100 fL (79-100) Mean Corpuscular Hemoglobin 33 pg (25-35) Mean Corpuscular Hemoglobin Concent 33 g/dL (31-37) Red Cell Distribution Width 18.2 % (11.5-14.5) Platelet Count 54 x10^3/uL (140-400) Neutrophils (%) (Auto) 70 % (31-73) Lymphocytes (%) (Auto) 21 % (24-48) Monocytes (%) (Auto) 7 % (0-9) Eosinophils (%) (Auto) 2 % (0-3) Basophils (%) (Auto) 0 % (0-3) Neutrophils # (Auto) 3.0 x10^3/uL (1.8-7.7) Lymphocytes # (Auto) 0.9 x10^3/uL (1.0-4.8) Monocytes # (Auto) 0.3 x10^3/uL (0.0-1.1) Eosinophils # (Auto) 0.1 x10^3/uL (0.0-0.7) Basophils # (Auto) 0.0 x10^3/uL (0.0-0.2) Sodium Level 145 mmol/L (136-145) Potassium Level 4.7 mmol/L (3.5-5.1) Chloride Level 115 mmol/L (98-107) Carbon Dioxide Level 20 mmol/L (21-32) Anion Gap 10 (6-14) Blood Urea Nitrogen 40 mg/dL (7-20) Creatinine 0.8 mg/dL (0.6-1.0) Estimated GFR (Cockcroft-Gault) 70.1 Glucose Level 197 mg/dL (70-99) Calcium Level 8.0 mg/dL (8.5-10.1) Free Triiodothyronine (T3) pg/mL 1.23 pg/mL (2.18-3.98) Glucose (Fingerstick) 157 mg/dL (70-99) 216 mg/dL (70-99) 193 mg/dL (70-99) Test 10/24/19 08:02 10/24/19 12:38 Glucose (Fingerstick) 193 mg/dL (70-99) 219 mg/dL (70-99) Laboratory Tests Test 10/24/19 00:34 10/24/19 06:05 10/24/19 08:02 10/24/19 12:38 Glucose (Fingerstick) 216 mg/dL (70-99) 193 mg/dL (70-99) 193 mg/dL (70-99) 219 mg/dL (70-99) Microbiology 10/17/19 Blood Culture - Final, Complete NO GROWTH AFTER 5 DAYS 10/16/19 Urine Culture - Final, Complete 10/16/19 Urine Culture Result 1 (KATHRYN) - Final, Complete 10/16/19 Antimicrobic Susceptibility - Final, Complete Medications Current Medications Potassium Chloride/Dextrose/ Sod Cl 1,000 ml @ 75 mls/hr 1X ONCE IV Last administered on 10/17/19at 00:40; Start 10/16/19 at 23:30; Stop 10/17/19 at 12:49; Status DC Ceftriaxone Sodium (Rocephin) 1 gm 1X ONCE IVP Last administered on 10/17/19at 00:42; Start 10/16/19 at 23:45; Stop 10/16/19 at 23:46; Status DC Ondansetron HCl (Zofran) 4 mg PRN Q8HRS PRN IV NAUSEA/VOMITING; Start 10/17/19 at 02:30; Stop 10/18/19 at 02:29; Status DC Amino Acids/ Electrolytes/ Dextrose 1,000 ml @ 80 mls/hr [id number] IV Last administered on 10/24/19at 00:43; Start 10/17/19 at 11:15 Ceftriaxone Sodium (Rocephin) 1 gm Q24H IVP Last administered on 10/17/19at 12:06; Start 10/17/19 at 11:00; Stop 10/17/19 at 14:44; Status DC Sodium Chloride (Normal Saline Flush) 3 ml QSHIFT PRN IV AFTER MEDS AND BLOOD DRAWS; Start 10/17/19 at 12:30; Status Cancel Ondansetron HCl (Zofran) 2 mg PRN Q4HRS PRN IV NAUSEA/VOMITING; Start 10/17/19 at 12:30 Acetaminophen (Tylenol Supp) 650 mg PRN Q4HRS PRN [place] TEMP OVER 100.4F OR MILD PAIN; Start 10/17/19 at 12:30 Docusate Sodium (Colace) 100 mg PRN BID PRN PO CONSTIPATION; Start 10/17/19 at 12:30 Albuterol Sulfate (Ventolin Neb Soln) 2.5 mg PRN Q4HRS PRN NEB SHORTNESS OF BREATH; Start 10/17/19 at 12:30 Enoxaparin Sodium (Lovenox 30mg Syringe) 30 mg Q24H SQ Last administered on 10/17/19at 13:53; Start 10/17/19 at 13:00; Stop 10/18/19 at 10:13; Status DC Famotidine (Pepcid Vial) 10 mg BID IVP Last administered on 10/20/19at 08:59; Start 10/17/19 at 13:00; Stop 10/20/19 at 11:09; Status DC Sodium Chloride (Normal Saline Flush) 3 ml QSHIFT PRN IV AFTER MEDS AND BLOOD DRAWS; Start 10/17/19 at 12:30 Metoprolol Tartrate (Lopressor Vial) 5 mg PRN Q6HRS PRN IVP TACHYCARDIA; Start 10/17/19 at 14:15 Cefepime HCl (Maxipime) 2 gm Q12HR IVP Last administered on 10/20/19at 08:59; Start 10/17/19 at 21:00; Stop 10/20/19 at 11:07; Status DC Daptomycin 490 mg/ Sodium Chloride 50 ml @ 100 mls/hr ONCE ONCE IV Last administered on 10/17/19at 16:26; Start 10/17/19 at 15:00; Stop 10/17/19 at 15:29; Status DC Vitamin A/Vitamin D (Vitamin A & D Ointment) 1 [place] PRN Q1HR PRN TP SKIN PROT ECTION Last administered on 10/18/19at 16:14; Start 10/17/19 at 15:45 Dextrose/Sodium Chloride 1,000 ml @ 100 mls/hr Q10H IV Last administered on 10/20/19at 04:02; Start 10/17/19 at 16:15; Stop 10/20/19 at 11:27; Status DC Insulin Human Lispro (HumaLOG) 0-5 UNITS TIDWMEALS SQ Last administered on 10/17/19at 18:44; Start 10/17/19 at 18:30; Stop 10/18/19 at 04:12; Status DC Dextrose (Dextrose 50%-Water Syringe) 12.5 gm PRN Q15MIN PRN IV SEE COMMENTS; Start 10/17/19 at 18:30 Dextrose (Iv Dextrose 5%) 250 ml PRN Q15MIN PRN IV SEE COMMENTS; Start 10/17/19 at 18:30 Insulin Human Lispro (HumaLOG) 0-7 UNITS TIDWMEALS SQ ; Start 10/18/19 at 08:00; Stop 10/18/19 at 04:42; Status DC Insulin Human Lispro (HumaLOG) 0-7 UNITS Q6HRS SQ Last administered on 10/24/19at 12:48; Start 10/18/19 at 06:00 Vitamin A/Vitamin D (Vitamin A & D Ointment) 1 [place] BID PRN TP SKIN PROTECTION; Start 10/18/19 at 09:45; Stop 10/23/19 at 14:55; Status DC Vitamin A/Vitamin D (Vitamin A & D Ointment) 1 [place] PRN Q1HR PRN TP SKIN PROTECTION; Start 10/18/19 at 09:45; Stop 10/18/19 at 10:10; Status DC Enoxaparin Sodium (Lovenox 40mg Syringe) 40 mg Q24H SQ ; Start 10/18/19 at 13:00; Stop 10/18/19 at 13:39; Status DC Potassium Phosphate 15 mmol/ Sodium Chloride 255 ml @ 127.5 mls/ hr Q2H IV [place] st administered on 10/18/19at 13:36; Start 10/18/19 at 11:00; Stop 10/18/19 at 14:59; Status DC Ceftriaxone Sodium (Rocephin) 1 gm Q24H IVP Last administered on 10/24/19at 12:39; Start 10/20/19 at 12:00 Pantoprazole Sodium (PROTONIX VIAL for IV PUSH) 40 mg DAILYAC IVP Last administered on 10/24/19at 07:30; Start 10/21/19 at 07:30 Sodium Phosphate 15 mmol/Sodium Chloride 105 ml @ 105 mls/hr 1X ONCE IV Last administered on 10/20/19at 12:54; Start 10/20/19 at 12:00; Stop 10/20/19 at 12:59; Status DC Sodium Phosphate 15 mmol/Sodium Chloride 105 ml @ 105 mls/hr 1X ONCE IV Last administered on 10/21/19at 12:58; Start 10/21/19 at 12:00; Stop 10/21/19 at 12:59; Status DC Insulin Glargine (Lantus Syringe) 10 unit DAILY10 SQ Last administered on 10/24/19at 09:41; Start 10/22/19 at 14:00 Morphine Sulfate (Roxanol Conc) 5 mg PRN Q3HRS PRN SL PAIN; Start 10/24/19 at 12:45 Lorazepam (Ativan Intensol) 2 mg PRN Q6HRS PRN SL ANXIETY / AGITATION; Start 10/24/19 at 12:45 Atropine Sulfate (Isopto Atropine) 1 drop PRN Q2HR PRN SL SECRETIONS; Start 10/24/19 at 12:45 Acetaminophen (Tylenol Supp) 650 mg PRN Q6HRS PRN [place] MILD PAIN / TEMP; Start 10/24/19 at 12:45 Active Scripts Active Atropine Sulfate 2 Ml Drops 1 Drop SL PRN Q2HR PRN 30 Days Morphine Sulfate 100 Mg/5 Ml Solution 5 Mg SL PRN Q3HRS PRN 30 Days Lorazepam Intensol (Lorazepam) 2 Mg/1 Ml Oral.conc 2 Mg SL PRN Q6HRS PRN 30 Days Vitals/I & O Vital Sign - Last 24 Hours 10/23/19 10/23/19 10/23/19 10/24/19 19:00 20:00 23:00 03:00 Temp 97.8 99.2 99.0 97.8 99.2 99.0 Pulse 70 94 81 Resp 16 18 18 B/P (MAP) 144/68 (93) 145/73 (97) 131/67 (88) Pulse Ox 95 95 93 O2 Delivery Room Air 10/24/19 10/24/19 10/24/19 07:00 11:00 14:43 Temp 98.3 98.0 98.0 98.3 98.0 98.0 Pulse 90 84 80 Resp 17 17 17 B/P (MAP) 139/59 (85) 134/58 (83) 130/54 (79) Pulse Ox 92 92 92 O2 Delivery Nasal Cannula Room Air Room Air Nutrition Consultation Dietary Evaluation: Recommendations by RD: Dietary education by RD, Increase Calorie Intake, PPN/TPN Comments: Continue w/PPN for short-term non-oral nutrition needs < 10 days REC cardiac/ADA diet w/glucerna supplements and MVI/Vit C (wound healing) pending CONTAINER WASHER eval If NPO per CONTAINER WASHER, recommend feeding tube for enteral nutrition pending family goals of care, would recommend TFs per following: Glucerna 1.2@goal rate 55 ml/hr w/100 ml water flushes q4 hrs w/Sergio BID and MVI (liquid) via feeding tube (wound healing) Expected Outcomes/Goals: day 7 PPN, rec < 10 days, Diet advancement or initiaiton of TFs within next 1-3 days Interpretation of weight loss: >1-2% in 1 week Malnutrition Findings: Food and Nutrition Intake (Sev: <50% est energy req 5days Weight Status: Appropriate Hemodynamically unstable?: No Is patient in severe pain?: No Is NPO status required?: Yes STEVE DEMARCO MD Oct 24, 2019 15:37
--- NOTE | 2019-10-24 16:20 | PDOC ---
PROGRESS NOTES Assessment Assessment UTI. Metabolic encephalopathy. Renal failure. Hyperglycemia. Hypernatremia. DM. HTN. HLD. Peripheral neuropathy. AD, severe. RECOMMENDATIONS/PLAN: Treat medical diseases. OT/PT. Discussed with her daughters at bedside on 10/23/19. Palliative care per family. Past Medical History Cardiovascular: HTN, Hyperlipidemia CENTRAL NERVOUS SYSTEM: Dementia (Alzheimer's disease), Periperal neuropathy, Left and right Mtz's palsy. Psych: Depression Renal/: UTI Endocrine: Diabetes Dermatology: Cellulitis Past Surgical History Lumpectomy. Family History Her father might have dementia. Social History Kulwinder, also is demented, no alcohol or tobacco, daughter is power of litigation attorney associate, one son is the main caregiver, I met with the other son who is in the room with her today Allergies No Known Drug Allergies (Unverified , 09/29/13) ROS Negative for fever, chills, weight loss, shortness of breath, chest pain, indig estion, hematochezia, melena, and dysuria. Full 14-point review of systems is negative. MEDICATIONS: Refer to MAR PHYSICAL EXAMINATION: General appearance in no acute distress. HEENT: Normocephalic and nontraumatic. Eyes, nose, ears, and throat are unremarkable. Hearing decrease. Neck is supple. No lymphadenopathy. No Crepitus. Cardiovascular: S1, S2, regular rate and rhythm. Pulmonary: Clear to auscultation bilaterally. Abdomen: Bowel sounds are positive. Abdomen is soft, nontender, and nondistended. Extremities: No rash, lesions, or edema. No restriction of range of motion NEUROLOGICAL EXAMINATION: Awake, Non verbal. Not oriented to time, place but may knew her daughters at bedside. PERRL. EOMI. CN: no focal findings. Muscle tone: Fluctuated. Muscle strength: 5- DTR: 2 UE, 0-1 at knee. Plantar reflex: Neutral response bilaterally Gait: not examined in bed. Sensory exam: withdraw response noted. No other cerebellar signs elicited. F-T-N test not performed dur to not follow commands. Objective Objective Vital Signs Date Time Temp Pulse Resp B/P (MAP) Pulse Ox O2 Delivery O2 Flow Rate FiO2 10/24/19 14:43 98.0 80 17 130/54 (79) 92 Room Air 98.0 Vitals Signs Vitals VS - Last 72 Hours, by Label Date Time Temp Pulse Resp B/P (MAP) Pulse Ox O2 Delivery O2 Flow Rate FiO2 10/24/19 14:43 98.0 80 17 130/54 (79) 92 Room Air 98.0 10/24/19 11:00 98.0 84 17 134/58 (83) 92 Room Air 98.0 10/24/19 07:00 98.3 90 17 139/59 (85) 92 Nasal Cannula 98.3 10/24/19 03:00 99.0 81 18 131/67 (88) 93 99.0 10/23/19 23:00 99.2 94 18 145/73 (97) 95 99.2 10/23/19 20:00 Room Air 10/23/19 19:00 97.8 70 16 144/68 (93) 95 97.8 10/23/19 15:00 97.2 70 18 138/62 (87) 94 Room Air 97.2 10/23/19 10:38 97.5 72 18 142/68 (92) 94 Room Air 97.5 10/23/19 07:00 97.5 74 18 148/72 (97) 96 Room Air 97.5 Laboratory Laboratory Laboratory Tests Test 10/24/19 00:34 10/24/19 06:05 10/24/19 08:02 10/24/19 12:38 Glucose (Fingerstick) 216 mg/dL (70-99) 193 mg/dL (70-99) 193 mg/dL (70-99) 219 mg/dL (70-99) Microbiology 10/17/19 Blood Culture - Final, Complete NO GROWTH AFTER 5 DAYS 10/16/19 Urine Culture - Final, Complete 10/16/19 Urine Culture Result 1 (KATHRYN) - Final, Complete 10/16/19 Antimicrobic Susceptibility - Final, Complete Medication Medications Current Medications Acetaminophen (Tylenol Supp) 650 mg PRN Q6HRS PRN [place] MILD PAIN / TEMP; Start 10/24/19 at 12:45 Atropine Sulfate (Isopto Atropine) 1 drop PRN Q2HR PRN SL SECRETIONS; Start 10/24/19 at 12:45 Lorazepam (Ativan Intensol) 2 mg PRN Q6HRS PRN SL ANXIETY / AGITATION; Start 10/24/19 at 12:45 Morphine Sulfate (Roxanol Conc) 5 mg PRN Q3HRS PRN SL PAIN; Start 10/24/19 at 12:45 Comment Review of Relevant I have reviewed the following items karrie (where applicable) has been applied. KEVIN RAMOS MD Oct 24, 2019 16:20
== END 2019-10-24 16:50 | disposition hospice, inpatient (51) | DRG 682 ==
LOC: ER 21:25 → ED HOLD 23:30 → 1 WEST ICU 10-17 13:40 → 5 SOUTH 10-19 19:38
PROVIDERS: ADMIT Internal Medicine; ATTEND Internal Medicine
DX: N17.9 Acute kidney failure, unspecified (principal); E43 Unspecified severe protein-calorie malnutrition; G93.41 Metabolic encephalopathy; N39.0 Urinary tract infection, site not specified; E87.1 Hypo-osmolality and hyponatremia; E87.0 Hyperosmolality and hypernatremia; D68.9 Coagulation defect, unspecified; F32.9 Major depressive disorder, single episode, unspecified; M19.90 Unspecified osteoarthritis, unspecified site; F02.80 Dementia in other diseases classified elsewhere, unspecified severity, without behavioral disturbance, psychotic disturbance, mood disturbance, and anxiety; D69.6 Thrombocytopenia, unspecified; E03.9 Hypothyroidism, unspecified; E11.65 Type 2 diabetes mellitus with hyperglycemia; E78.00 Pure hypercholesterolemia, unspecified; E78.5 Hyperlipidemia, unspecified; E86.0 Dehydration; G30.9 Alzheimer's disease, unspecified; G51.0 Bell's palsy; G62.9 Polyneuropathy, unspecified; I10 Essential (primary) hypertension; B96.89 Other specified bacterial agents as the cause of diseases classified elsewhere; B96.20 Unspecified Escherichia coli [E. coli] as the cause of diseases classified elsewhere; I48.91 Unspecified atrial fibrillation; K72.90 Hepatic failure, unspecified without coma; K76.0 Fatty (change of) liver, not elsewhere classified; K82.8 Other specified diseases of gallbladder; R13.10 Dysphagia, unspecified; Z51.5 Encounter for palliative care; Z66 Do not resuscitate; Z68.28 Body mass index [BMI] 28.0-28.9, adult; Z86.73 Personal history of transient ischemic attack (TIA), and cerebral infarction without residual deficits; Z82.49 Family history of ischemic heart disease and other diseases of the circulatory system
CPT/HCPCS: 36415; 70450; 71045; 76700; 80048; 80053; 80076; 81001; 82962; 83735; 83930; 83935; 84100; 84436; 84443; 84481; 84484; 85007; 85025; 85610; 85730; 87040; 87086; 87186; 93005; 93306; 96365; 96375; C9113; J0692; J0696; J0878; J1650; J1815; J3490; J7050; P9612; 92526; 92610; 99285-25; G0378; J7030